=== PATIENT | male | born 1980 | race African-American/Black ===

== ENCOUNTER → 2021-03-08 10:56 | Outpatient (BNVA) | payer MEDICARE, MEDICAID, SELFPAY | PROVIDERS: Visit Provider Family Medicine Adult Medicine | DX: G89.4 Chronic pain syndrome (principal); Z79.899 Other long term (current) drug therapy | CPT/HCPCS: 99202 ==

== ENCOUNTER 2022-06-06 14:22 | Emergency (ER) | payer MEDICARE, MEDICAID, SELFPAY ==
[2022-06-06 15:09] VITALS: BP 138/88; PULSE 83; RESP 20; TEMP 36.8; O2SAT 98; BMI 24.0
[2022-06-06 16:36] LABS: Hematocrit 43.3 % (42.0-52.0); Hemoglobin 14.6 g/dl (14.0-18.0); Mean Corpuscular HGB Conc 33.7 g/dl (31.0-36.0); Mean Corpuscular Hemoglobin 29.1 pg (27.0-33.0); Mean Corpuscular Volume 86.4 fL (80.0-98.0); Mean Platelet Volume 10.5 fL (9.4-12.4); Platelet Count 356 X10*3/uL (160-400); Red Blood Count 5.01 X10*6/uL (4.60-5.80); Red Cell Distribution Width 13.1 % (11.0-16.0)
[2022-06-06 16:44] LABS: Appearance Urine Clear; COVID-19 Test Positive (Negative); Color Urine Dark Yellow; Glucose Urine UA Negative (Negative); IDNOW Serial# 16C4AD1C; Leukocyte Esterase Urine Trace (Negative); Nitrite Urine Negative (Negative); Specific Gravity - Urine >= 1.030 (1.005-1.025); UMIC TRIGGER UACC YES; Urine Blood Negative (Negative); Urine Ketones Trace mg/dL (Negative); Urine Protein Trace mg/dL (Neg-Trace)
[2022-06-06 16:53] LABS: Bacteria Urine None Seen (None Seen); Calcium Oxalate Crystals Urine Present; Squamous Epithelial Cell Urine 0-2 /HPF (0-2); WBC Urine 0-5 /HPF (0-5)
[2022-06-06 16:56] LABS: Alanine Aminotransferase 31 U/L (0-40); Albumin Level 5.1 g/dL (3.5-5.0); Alkaline Phosphatase 70 U/L (39-117); Anion Gap 17 (12-20); Aspartate Amino Transferase 16 U/L (5-37); Bilirubin Direct 0.2 mg/dL (0.0-0.5); Bilirubin Total 0.5 mg/dL (0.0-1.0); Blood Urea Nitrogen 9 mg/dL (9-16); Carbon Dioxide 28 mmol/L (22-29); Chloride 105 mmol/L (96-108); Creatinine Clr Calc Pharmacy 112.5; Estimated Glomerular Filt Rate > 60; Glucose Random 105 mg/dL (60-115); Lipase 20 U/L (8-78); Potassium 5.2 mmol/L (3.3-5.1); Sodium 145 mmol/L (135-145); Total Protein 8.1 g/dL (6.5-8.0)
[2022-06-06 17:03] LABS: Calcium 10.6 mg/dL (8.4-10.2)
== END 2022-06-06 20:50 | disposition left against medical advice (07) ==
LOC: HO.ED 20:40
PROVIDERS: Emergency Provider Emergency Medicine
DX: R07.89 Other chest pain (principal); R31.9 Hematuria, unspecified; Z20.822 Contact with and (suspected) exposure to COVID-19; Z79.899 Other long term (current) drug therapy
CPT/HCPCS: 80048; 80076; 81001; 83690; 85027; 87635; 99282; 99283

== ENCOUNTER 2023-07-31 18:34 | Emergency (ER) | payer MEDICARE, MEDICAID, SELFPAY ==
[2023-07-31 18:43] VITALS: BMI 21.4
--- NOTE | 2023-07-31 18:43 | ED.OVERDOSE ---
HPI - Overdose General Chief Complaint: Overdose Stated Complaint: OD Time Seen by Provider: 07/31/23 18:43 Source: patient and EMS Mode of arrival: EMS History of Present Illness HPI Narrative: 42-year-old male who denies use of drugs but states that his friend gave him some drugs and it was his 1st time. As per EMS his friend called 911 because patient was unresponsive, police arrived on scene noted the patient was unresponsive and administered 4 mg of Narcan, EMS then arrived and noted patient is still unresponsive and commenced using Ambu bag for respiratory support and then patient awoke, was aggressive with significant swearing. Patient is adamantly denying any physical contact with his person. Related Data Home Medications Medication Instructions Recorded Confirmed allopurinol 300 mg tablet 150 mg PO DAILY 03/08/21 03/08/21 amlodipine 10 mg tablet 10 mg PO DAILY 03/08/21 03/08/21 buprenorphine 300 mg/1.5 mL mg subcut 03/08/21 03/08/21 solution,exten.rel.subcutaneous syringe (Sublocade) cyclobenzaprine 10 mg tablet 10 mg PO TID 03/08/21 03/08/21 gabapentin 800 mg tablet 800 mg PO TID 03/08/21 03/08/21 omeprazole 20 mg capsule,delayed 20 mg PO BID 03/08/21 03/08/21 release quetiapine 25 mg tablet (Seroquel) 25 mg PO BEDTIME 03/08/21 03/08/21 Allergies Allergy/AdvReac Type Severity Reaction Status Date / Time acetaminophen [From Tylenol] Allergy vomiting Verified 03/08/21 11:47 hydrocodone Allergy vomiting Verified 03/08/21 11:47 ibuprofen Allergy gi upset Verified 03/08/21 11:47 norepinephrine Allergy unknown Verified 03/08/21 11:47 [From Levophed (bitartrate)] Review of Systems Review of Systems: Pertinent positives and negatives as stated in HPI PMFSH Past Medical History Source: nursing notes reviewed Medical History Chronic pain syndrome GI bleed due to NSAIDs Ruptured appendix Arthritis Generalized headaches Venereal disease Bipolar 1 disorder Asthma Surgical History History of hip surgery History of colostomy reversal History of colon resection Social History Social History Alcohol intake: current Alcohol intake frequency: does not drink Patient Tobacco Use Status: Current everyday Tobacco user Tobacco use type: Cigarette Cigarette Packs Per Day: 1 Substance Use Type: Marijuana Advance Directives: No Advance Directives Information Provided: No Physical Exam Vital Signs: Vital Signs: BMI result Body Mass Index 21.4 Limited exam due to patient not being cooperative. GENERAL: Well developed, well nourished HEAD: Normocephalic/atraumatic EYES: PERRLA, EOMI , pupils are not pinpoint LUNGS: No audible wheeze or noted tachypnea EXTREMITIES: No cyanosis, clubbing or edema. SKIN: Inspection of the skin reveals no rashes NEUROLOGIC: Alert and oriented x 4. Strength and sensation to light touch were grossly intact x 4. Medications Administered Discontinued Medications Generic Name Dose Route Start Last Admin Trade Name Freq PRN Reason Stop Dose Admin Naloxone HCl 8 mg 07/31/23 18:44 07/31/23 18:54 Naloxone Hcl Nasal Take Home 4 Mg [place] NOSTRILALT 07/31/23 18:45 Not Given ONCE ONE Medical Decision Making Medical Decision Making MDM Narrative: 42-year-old male who arrives after overdose that he states was his 1st time use, patient is presenting with an aggressive stance and declining all physical interaction, instead of escalating the situation I asked patient if he minded if I checked his eyes he is clearly breathing without difficulty, has no gross physical abnormalities, pupils are not pinpoint. Patient was amenable to the pupil check but declined lung auscultation. Patient acknowledges that he is at risk of becoming unresponsive but did except home Narcan. He is otherwise discharged against medical advice. Differential Diagnosis Differential Diagnoses: The differential diagnosis associated with the presentation includes Please see the discussion above Admission/Observation Consideration of admission/observation: Escalation of care including admission/observation considered Please see the discussion above External Record Review External record reviewed: Outpatient record and Prior outpatient labs Discharge Plan Discharge Clinical Impression: Overdose, Polysubstance use disorder Patient Disposition: Left Against Medical Advice Instructions: Polysubstance Abuse (ED), Adult Overdose (ED) Additional Instructions: 1. Resume all home medications as prescribed 2. Do not hesitate to return to the emergency rooms food you have any difficulties with breathing or would like to pursue additional resources and help. Prescriptions: No Action cyclobenzaprine 10 mg tablet 10 mg PO TID Sublocade 300 mg/1.5 mL solution, extended rel syringe subcut gabapentin 800 mg tablet 800 mg PO TID allopurinol 300 mg tablet 150 mg PO DAILY amlodipine 10 mg tablet 10 mg PO DAILY quetiapine [Seroquel] 25 mg tablet 25 mg PO BEDTIME omeprazole 20 mg capsule,delayed release(DR/EC) 20 mg PO BID Stand Alone Forms: Against Medical Advice Interventions: ED Discharge Assessment Last Done: 07/31/23 18:55
--- NOTE | 2023-07-31 18:45 | PC.NURSE ---
pt threatening toward staff. security at bedside. repeatedly telling staff no one is to put their hands on me . pt demanding his discharge paperwork. Dr. Lim at bedside to evaluate pt. plan for d/c.
== END 2023-07-31 19:39 | disposition left against medical advice (07) ==
LOC: HO.ED 18:55
PROVIDERS: Emergency Provider Student in an Organized Health Care Education/Training Program
DX: T50.901A Poisoning by unspecified drugs, medicaments and biological substances, accidental (unintentional), initial encounter (principal); Y92.9 Unspecified place or not applicable; Z79.899 Other long term (current) drug therapy
CPT/HCPCS: 99282; 99283

== ENCOUNTER 2024-03-12 20:28 | Emergency (ER) | payer MEDICARE, MEDICAID, SELFPAY ==
[2024-03-12] VITALS (8 sets, daily range): BP systolic 125–138; BP diastolic 67–80; PULSE 61–71; RESP 14–24; TEMP 36.2; O2SAT 95–99; BMI 25.8
[2024-03-12] MEDS: Haloperidol Lactate 5 MG/ML VIAL IM (20:36)
[2024-03-12] MEDS: diphenhydrAMINE HCL 50 MG/ML VIAL IM (20:36)
[2024-03-12] MEDS: LORazepam 2 MG/ML VIAL IM (20:36)
--- NOTE | 2024-03-12 20:44 | ED_ITS ---
HPI - Overdose General Chief Complaint: Overdose Stated Complaint: heroine od, restrained by pd Time Seen by Provider: 03/12/24 20:44 Source: EMS and police Mode of arrival: EMS History of Present Illness ED Provider: Dr Lim HPI Narrative: 43-year-old male who is brought under police custody by EMS after heroin overdose, on review of patient's chart from 2021 it does appear that he has a history of chronic pain syndrome/bipolar 1 disorder, patient is currently belligerent, with aggressive overtures, verbally using foul language. Related Data Home Medications ?Medication ?Instructions ?Recorded ?Confirmed allopurinol 300 mg tablet 150 mg PO DAILY 03/08/21 03/08/21 amlodipine 10 mg tablet 10 mg PO DAILY 03/08/21 03/08/21 buprenorphine 300 mg/1.5 mL mg subcut 03/08/21 03/08/21 solution,exten.rel.subcutaneous syringe (Sublocade) cyclobenzaprine 10 mg tablet 10 mg PO TID 03/08/21 03/08/21 gabapentin 800 mg tablet 800 mg PO TID 03/08/21 03/08/21 omeprazole 20 mg capsule,delayed 20 mg PO BID 03/08/21 03/08/21 release quetiapine 25 mg tablet (Seroquel) 25 mg PO BEDTIME 03/08/21 03/08/21 Allergies Allergy/AdvReac Type Severity Reaction Status Date / Time acetaminophen [From Tylenol] Allergy vomiting Verified 03/12/24 20:46 hydrocodone Allergy vomiting Verified 03/12/24 20:46 ibuprofen Allergy gi upset Verified 03/12/24 20:46 norepinephrine Allergy unknown Verified 03/12/24 20:46 [From Levophed (bitartrate)] Review of Systems Review of Systems: Yes Unobtainable due to mental condition PMFSH Past Medical History Source: nursing notes reviewed Medical History Chronic pain syndrome GI bleed due to NSAIDs Ruptured appendix Arthritis Generalized headaches Venereal disease Bipolar 1 disorder Asthma Surgical History History of hip surgery History of colostomy reversal History of colon resection Social History Social History Unable to assess alcohol history related to: Unknown Alcohol intake: current Alcohol intake frequency: does not drink Patient Tobacco Use Status: Current everyday Tobacco user Tobacco use type: Cigarette Cigarette Packs Per Day: 1 Substance Use Type: Heroin Physical Exam Vital Signs: Vital Signs: Last Vital Signs Pulse 71 03/12/24 21:36 Resp 18 03/12/24 21:36 BP 132/74 03/12/24 21:36 Pulse Ox 95 03/12/24 21:36 O2 Del Method Room Air 03/12/24 21:36 BMI result Body Mass Index 25.8 VITAL SIGNS: Reviewed. GENERAL: Well developed, well nourished, in no acute distress. HEAD: Normocephalic/atraumatic EYES: PERRLA, EOMI EARS: Ext canals without abnormality NOSE: Nares patent bilateral OROPHARYNX: no oral lesions noted, posterior pharynx clear NECK: Supple, no adenopathy LUNGS: Normal breath sounds. No adventitious sounds or accessory muscle use. SpO2<95> CARDIOVASCULAR: Regular rate and rhythm without noted murmurs ABDOMEN: Soft, non-tender, non-distended with bowel sounds. MUSCULOSKELETAL: No tenderness, deformities, or effusions noted on gross inspection. EXTREMITIES: No cyanosis, clubbing or edema. SKIN: Inspection of the skin reveals no rashes NEUROLOGIC: Alert and oriented x 4. Strength and sensation to light touch were grossly intact x 4, cranial nerves 2-12 are grossly intact. Medications Administered Discontinued Medications Generic Name Dose Route Start Last Admin Trade Name Freq PRN Reason Stop Dose Admin Diphenhydramine HCl 50 mg 03/12/24 20:32 03/12/24 20:36 Diphenhydramine Hcl 50 Mg/Ml Vial IM 03/12/24 20:33 50 mg ONCE ONE Administration Haloperidol Lactate 5 mg 03/12/24 20:35 03/12/24 20:36 Haloperidol Lactate 5 Mg/Ml Vial IM 03/12/24 20:36 5 mg ONCE ONE Administration Lorazepam 2 mg 03/12/24 20:32 03/12/24 20:36 Lorazepam 2 Mg/Ml Vial IM 03/12/24 20:33 2 mg ONCE ONE Administration Medical Decision Making Medical Decision Making MDM Narrative: Patient required immediate medication and physical restraints, 1 hour [id number] demonstrates patient is calm and cooperative. Will continue to observe, police officers decided not to keep the patient under custody so will observe until clinically sober. Signed out to Dr. Lowery. Differential Diagnosis Differential Diagnoses: The differential diagnosis associated with the presentation includes Please see the discussion above Admission/Observation Consideration of admission/observation: Escalation of care including admission/observation considered Please see the discussion above Critical Care Time Critical Care Time Critical Care Time: Yes Total Critical Care Time: 30 Attestation: I personally attest to this time spent taking care of the patient. Discharge Plan Discharge Clinical Impression: Polysubstance use disorder, Overdose Patient Disposition: Still a Patient Instructions: Adult Overdose (ED), Polysubstance Abuse (ED) Prescriptions: No Action cyclobenzaprine 10 mg tablet 10 mg PO TID Sublocade 300 mg/1.5 mL solution, extended rel syringe subcut gabapentin 800 mg tablet 800 mg PO TID allopurinol 300 mg tablet 150 mg PO DAILY amlodipine 10 mg tablet 10 mg PO DAILY quetiapine [Seroquel] 25 mg tablet 25 mg PO BEDTIME omeprazole 20 mg capsule,delayed release(DR/EC) 20 mg PO BID Print Language: Mongolian
--- NOTE | 2024-03-12 21:05 | PC.NURSE ---
pt BIBA s/p overdose on heroin, per ems friends administered 5 rounds of narcan prior to their arrival, for ems and PD arrival, pt was awake, alert, aggressive, combative, violent and uncooperative, refusing transport to ED. pt arrived to ED in 4 point restraints with PD at bedside, transferred to ED stretcher and 4 point restraints continued by security as pt was extremely aggressive, violent with staff. MD blackwood at bedside, verbal ordered 50mg Benadryl/2mg ativan/5mg haldol IM. administered per oct @20:36. pt continues to be aggressive, uncooperative, refusing thermoforming operator or O2 sat. aware. at 21:05 pt is finally asleep - respirations even and unlabored, tech able to place pt on thermoforming operator with capnography. vital signs stable. 4 point restraints continue at this time. plan of care ongoing.
--- NOTE | 2024-03-12 22:45 | PC.NURSE ---
all restraints removed at 22:10
[2024-03-13] VITALS: BP 102/48; PULSE 64; RESP 17; O2SAT 97
--- NOTE | 2024-03-13 01:38 | PC.NURSE ---
pt continues to rest on stretcher in no apparent distress, respirations even and unlabored, on environmental monitoring technician & capnography. pt is within view of nurses station. plan of care ongoing.
--- NOTE | 2024-03-13 04:05 | PC.NURSE ---
pt woke up, ambulating with steady gait, dropping F bombs stating he wants to leave. Md Lowery at bedside and aware. Discharge ready. pt walked out to waiting room with phone, keys, and all belongings. no apparent distress.
[2024-03-13 04:06] VITALS: BP 102/48; PULSE 64; RESP 17; TEMP -17.7; TEMP 0; O2SAT 97
--- NOTE | 2024-03-14 13:55 | MHC.RECOVRN ---
Attempted to reach patient for post overdose follow up. Pt did not answer, left voicemail requesting call back.
== END 2024-03-13 04:07 | disposition home or self-care (01) ==
PROVIDERS: Emergency Provider Student in an Organized Health Care Education/Training Program
DX: T40.1X1A Poisoning by heroin, accidental (unintentional), initial encounter (principal); F19.10 Other psychoactive substance abuse, uncomplicated; Y92.9 Unspecified place or not applicable; Z78.1 Physical restraint status; F31.9 Bipolar disorder, unspecified; G89.4 Chronic pain syndrome; F17.210 Nicotine dependence, cigarettes, uncomplicated
CPT/HCPCS: 96372; 99284; J1200; J1630; J2060

== ENCOUNTER 2024-07-22 01:53 | Inpatient (IN) | payer MEDICARE, MEDICAID, SELFPAY ==
[2024-07-22] VITALS (7 sets, daily range): BP systolic 103–121; BP diastolic 62–71; PULSE 80–104; RESP 13–22; TEMP 36.9–37.1; O2SAT 86–98; BMI 21.3
--- NOTE | ~2024-07-22 | XR_ITS ---
EXAMINATION: XR CHEST CLINICAL INFORMATION: post narcan hypoxia vomiting COMPARISON: None available. TECHNIQUE: Frontal view of the chest was obtained. FINDINGS: The cardiomediastinal silhouette is normal. There are increased markings/patchy change in the lingula. The lungs are otherwise clear. There are no significant pleural effusions. The bony structures and the soft tissues are unremarkable. XR/XR chest 1V IMPRESSION: Increased markings/patchy change in the lingula which could represent atelectasis or infiltrate. Electronically signed by: Fareed Bonilla MD 07/22/2024 02:52 AM ROZ
[2024-07-22] MEDS: ondansetron HCL 4 MG/2 ML VIAL IM (02:11)
[2024-07-22] MEDS: Albuterol Sulfate (0.083%) 2.5 MG/3 ML VIAL.NEB 5 MG INHALE (02:29)
--- NOTE | 2024-07-22 02:31 | PC.NURSE ---
Pt BIB EMS, after girlfriend called for unresponsiveness. Pt given 12 mg narcan by girlfriend prior to EMS getting there. Pt uncooperative for EMS, not allowing vitals. Upon arrival pt changed over into hospital attire by security. Pt requesting water which was given and pt then vomiting. IM zofran ordered by provider. Pt given IM zofran, Assessed vitals and pt had low SPO2 at 84-86% RA, pt placed on 2LNC with no improvement, increased oxygen and upto 88% on 5L NC. MD made aware, pt woken up and told to take deep breath, with improvement to 95%, MD at bedside ordered for CXR and breathing treatment.
--- NOTE | 2024-07-22 02:36 | ED.OVERDOSE ---
HPI - Overdose General Chief Complaint: Overdose Stated Complaint: OVERDOSE Time Seen by Provider: 07/22/24 02:07 Source: patient, EMS and old records reviewed Mode of arrival: EMS Limitations: other (poor historian and cooperation) History of Present Illness ED Provider: JACK SORIANO Narrative: 43 yo male found by girlfriend unresponsive - given 12mg IN narcan by the GF per EMS. 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 He denies any complaints he is upset he is here. On arrival continued vomiting. He denies any issues but states he thinks his THC was laced then states he also smokes heroin. He initially did not want to come in per EMS. He denies any issues but he is not talking much and is not happy to be here. complaint: accidental overdose Onset (ago): minute(s) Timing confirmed by: spouse Context: Accidental Overdose: uncertain what happened Associated symptoms: nausea/vomiting Treatments Prior to Arrival: narcan (12mg) Related Data Home Medications ?Medication ?Instructions ?Recorded ?Confirmed allopurinol 300 mg tablet 150 mg PO DAILY 03/08/21 03/08/21 amlodipine 10 mg tablet 10 mg PO DAILY 03/08/21 03/08/21 buprenorphine 300 mg/1.5 mL mg subcut 03/08/21 03/08/21 solution,exten.rel.subcutaneous syringe (Sublocade) cyclobenzaprine 10 mg tablet 10 mg PO TID 03/08/21 03/08/21 gabapentin 800 mg tablet 800 mg PO TID 03/08/21 03/08/21 omeprazole 20 mg capsule,delayed 20 mg PO BID 03/08/21 03/08/21 release quetiapine 25 mg tablet (Seroquel) 25 mg PO BEDTIME 03/08/21 03/08/21 Allergies Allergy/AdvReac Type Severity Reaction Status Date / Time acetaminophen [From Tylenol] Allergy vomiting Verified 07/22/24 02:24 hydrocodone Allergy vomiting Verified 07/22/24 02:24 ibuprofen Allergy gi upset Verified 07/22/24 02:24 norepinephrine Allergy unknown Verified 07/22/24 02:24 [From Levophed (bitartrate)] Review of Systems Review of Systems: ROS unable to be obtained due to poor historian and upset he is here [facility] Past Medical History Attestation statement: The following information was validated with the patient. Source: old records reviewed Medical History Chronic pain syndrome GI bleed due to NSAIDs Ruptured appendix Arthritis Generalized headaches Venereal disease Bipolar 1 disorder Asthma Surgical History History of hip surgery History of colostomy reversal History of colon resection Social History Social History Unable to assess alcohol history related to: Unknown Alcohol intake: current Alcohol intake frequency: does not drink Patient Tobacco Use Status: Current everyday Tobacco user Tobacco use type: Cigarette Cigarette Packs Per Day: 1 Substance Use Type: Heroin Advance Directives: No Advance Directives Information Provided: Yes Physical Exam Vital Signs: Vital Signs: Last Vital Signs Temp 98.8 F 07/22/24 03:49 Pulse 91 07/22/24 03:49 Resp 16 07/22/24 03:49 BP 121/71 07/22/24 03:49 Pulse Ox 98 07/22/24 03:49 O2 Del Method Oxymask 07/22/24 03:49 O2 Flow Rate 3 07/22/24 03:49 BMI result Body Mass Index 21.3 Appearance: Somnolent but wakes to voice Oriented X3. mild acute distress. active vomiting on arrival multiple times Eyes: Pupils equal, round and reactive to light. ENT: Pharynx normal. Neck: Normal inspection. Neck supple. CVS: Normal heart rate and rhythm. Pulses normal. Respiratory: No respiratory distress. Breath sounds L side diminished Abdomen: Soft and non-tender. Skin: Skin warm and dry. Normal skin color. Normal skin turgor. piloerection Extremities: No lower extremity edema. Neuro: Oriented X 3. No motor deficit. No sensory deficit. Medications Administered Discontinued Medications Generic Name Dose Route Start Last Admin Trade Name Freq PRN Reason Stop Dose Admin Albuterol Sulfate 5 mg 07/22/24 02:22 07/22/24 02:29 Albuterol Sulfate (0.083%) 2.5 Mg/3 Ml Vial.Neb INHALE 07/22/24 02:23 5 mg ONCE ONE Administration Piperacillin Sod/Tazobactam 100 mls @ 200 mls/hr 07/22/24 02:54 07/22/24 03:50 Sod 4.5 gm/ Sodium Chloride IV 07/22/24 03:23 200 mls/hr ONCE ONE Administration Methylprednisolone Sodium Succinate 60 mg 07/22/24 02:54 07/22/24 03:50 Methylprednisolone Sod Succ 125 Mg/2 Ml Vial IVPUSH 07/22/24 02:55 60 mg ONCE ONE Administration Ondansetron HCl 4 mg 07/22/24 01:55 07/22/24 02:38 Ondansetron Odt 4 Mg Tab.Rapdis TRANSLINGU 07/22/24 01:56 Not Given ONCE ONE Ondansetron HCl 4 mg 07/22/24 02:07 07/22/24 02:11 Ondansetron Hcl 4 Mg/2 Ml Vial IM 07/22/24 02:08 4 mg ONCE ONE Administration Medical Decision Making Medical Decision Making [facility] Narrative: 43 yo male with PMH of chronic pain syndrome, opiate use disorder, bipolar disorder, asthma, migraines here with possible overdose found by GF no signs of head trauma but she gave 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 IV steroids, neb, IV zosyn Differential Diagnosis Differential Diagnoses: The differential diagnosis associated with the presentation includes cardiogenic pulm edema, drug abuse, aspiration Admission/Observation Consideration of admission/observation: Escalation of care including admission/observation considered desats without O2 - will admit states he had a cough now for 1 month added on azithromycin Consult Healthcare Provider Management of the patient was discussed with: Hospitalist (will admit) Lab Data [facility] Lab Attestation statement: I reviewed the patient's lab results. 07/22/24 03:40 07/22/24 03:29 Labs: Lab Results 07/22/24 07/22/24 Range/Units 03:29 03:40 WBC 10.2 (4.8-10.8) X10*3/uL RBC 5.10 (4.60-5.80) X10*6/uL Hgb 15.2 (14.0-18.0) g/dl Hct 45.6 (42.0-52.0) % MCV 89.4 (80.0-98.0) fL MCH 29.8 (27.0-33.0) pg MCHC 33.3 (31.0-36.0) g/dl RDW 12.9 (11.0-16.0) % Plt Count 264 D (160-400) X10*3/uL MPV 9.5 (9.4-12.4) fL Immature Gran % (Auto) 0.5 H (0.0-0.4) % Neut % (Auto) 84.6 H (45-73) % Lymph % (Auto) 9.4 L (20-40) % Mcminn % (Auto) 5.2 (2-11) % Eos % (Auto) 0.0 (0-4) % Baso % (Auto) 0.3 (0-2) % Lymph # (Auto) 1.0 L (1.2-4.9) X10*3/uL Mcminn # (Auto) 0.5 (0.1-1.2) X10*3/uL Eos # (Auto) 0.0 (0.0-0.4) X10*3/uL Baso # (Auto) 0.0 (0.0-0.2) X10*3/uL Abs Immat Gran (auto) 0.05 H (0.00-0.03) X10*3/uL Absolute Neuts (auto) 8.6 H (2.0-8.3) x10*3/uL Absolute Nucleated RBC 0.000 (0.0-0.012) X10*3/uL Nucleated RBC % (auto) 0.0 (0.0-0.2) /100WBC Sodium 141 (135-145) mmol/L Potassium 4.1 (3.3-5.1) mmol/L Chloride 103 (96-108) mmol/L Carbon Dioxide 23 (22-29) mmol/L Anion Gap 19 (12-20) BUN 22 H (9-16) mg/dL Creatinine 1.27 (0.5-1.4) mg/dL Estim Creat Clear Calc 85.7 Estimated GFR > 60 Random Glucose 93 (60-115) mg/dL Lactic Acid 1.8 (0.5-2.0) mmol/L Calcium 9.7 D (8.4-10.2) mg/dL Magnesium 2.3 (1.6-2.6) mg/dL Total Bilirubin 0.3 (0.0-1.0) mg/dL Direct Bilirubin 0.2 (0.0-0.5) mg/dL AST 119 H (5-37) U/L ALT 274 H (0-40) U/L Alkaline Phosphatase 73 (39-117) U/L Troponin I High Sens 26.0 (<3.5-35.0) ng/L B-Natriuretic Peptide 14 (<100) pg/mL Total Protein 7.7 (6.5-8.0) g/dL Albumin 4.4 (3.5-5.0) g/dL Lipase 19 (8-78) U/L Ethyl Alcohol 11 mg/dL Influenza Type A (PCR) NEGATIVE (Negative) Influenza Type B (PCR) NEGATIVE (Negative) RSV RNA Qual (PCR) NEGATIVE (Negative) SARS-CoV-2 RNA (RT-PCR) NEGATIVE (Negative) Independent Interpretation I performed an independent interpretation of an: EKG and Plain X-Ray (L lung opacity) Interpretation: Rate: 94 Rhythm: NSR [place]: normal Normal P waves. Normal AURELIO. Normal QRS complex. ST T wave : inverted t waves V1 no QUYEN qTC: 457 prior studies: no acute ischemia The study has been interpreted contemporaneously by me. . Radiology Impression Discussion of test interpretation with radiology: I have reviewed the radiologist's reading. Independent Historian Clinical information obtained from an independent historian. History obtained from or confirmed by: EMS External Record Review External record reviewed: Outpatient record Discharge Plan Discharge Clinical Impression: Drug overdose, Pneumonia, Hypoxia Patient Disposition: Admitted As Inpatient Prescriptions: No Action cyclobenzaprine 10 mg tablet 10 mg PO TID Sublocade 300 mg/1.5 mL solution, extended rel syringe subcut gabapentin 800 mg tablet 800 mg PO TID allopurinol 300 mg tablet 150 mg PO DAILY amlodipine 10 mg tablet 10 mg PO DAILY quetiapine [Seroquel] 25 mg tablet 25 mg PO BEDTIME omeprazole 20 mg capsule,delayed release(DR/EC) 20 mg PO BID Print Language: [place] Citizen
--- NOTE | 2024-07-22 02:42 | MHC.EDTECH ---
Patient was biba ,Patient was change of address clerk by Security ,All Patient belongings are locked up in decon .
--- NOTE | 2024-07-22 02:54 | ECG_ITS ---
Test Reason : OVERDOSED Blood Pressure : / mmHG Vent. Rate : 094 BPM Atrial Rate : 094 BPM P-R Int : 146 ms QRS Dur : 082 ms QT Int : 366 ms P-R-T Axes : 069 035 053 degrees QTc Int : 457 ms Normal sinus rhythm Possible Left atrial enlargement Borderline ECG No previous ECGs available Referred By: Angelica Maxwell Electronically Signed By:AGAPITO MEDINA
[2024-07-22 03:47] LABS: Basophils Percent Auto 0.3 % (0-2); Hematocrit 45.6 % (42.0-52.0); Hemoglobin 15.2 g/dl (14.0-18.0); Imm Gran Abs Auto 0.05 X10*3/uL (0.00-0.03); Imm Gran Pct Auto 0.5 % (0.0-0.4); Lymphocytes Percent Auto 9.4 % (20-40); MANUAL DIFF FLAG NO; Mean Corpuscular HGB Conc 33.3 g/dl (31.0-36.0); Mean Corpuscular Hemoglobin 29.8 pg (27.0-33.0); Mean Corpuscular Volume 89.4 fL (80.0-98.0); Mean Platelet Volume 9.5 fL (9.4-12.4); Monocytes Absolute Auto 0.5 X10*3/uL (0.1-1.2); Monocytes Percent Auto 5.2 % (2-11); Neutrophils Absolute Auto 8.6 x10*3/uL (2.0-8.3); Neutrophils Percent Auto 84.6 % (45-73); Platelet Count 264 X10*3/uL (160-400); Red Cell Distribution Width 12.9 % (11.0-16.0); White Blood Count 10.2 X10*3/uL (4.8-10.8)
[2024-07-22] MEDS: methylPREDNISolone Sod Succ 125 MG/2 ML VIAL 60 MG IVPUSH (03:50)
[2024-07-22] MEDS: Piperacillin Sodium/Tazobactam 4.5 GM in 0.9 % Sodium Chloride 100 ML IV (03:50)
--- NOTE | 2024-07-22 03:50 | MHC.EDTECH ---
Patient ekg taken and was read by Provider ,vitals taken .
[2024-07-22 03:59] LABS: Alanine Aminotransferase 274 U/L (0-40); Albumin Level 4.4 g/dL (3.5-5.0); Anion Gap 19 (12-20); Aspartate Amino Transferase 119 U/L (5-37); Bilirubin Direct 0.2 mg/dL (0.0-0.5); Bilirubin Total 0.3 mg/dL (0.0-1.0); Blood Urea Nitrogen 22 mg/dL (9-16); Calcium 9.7 mg/dL (8.4-10.2); Carbon Dioxide 23 mmol/L (22-29); Chloride 103 mmol/L (96-108); Creatinine Clr Calc Pharmacy 85.7; Estimated Glomerular Filt Rate > 60; Ethanol 11 mg/dL; Glucose Random 93 mg/dL (60-115); Lipase 19 U/L (8-78); Magnesium 2.3 mg/dL (1.6-2.6); Potassium 4.1 mmol/L (3.3-5.1); Sodium 141 mmol/L (135-145); Total Protein 7.7 g/dL (6.5-8.0)
[2024-07-22 04:00] LABS: Lactic Acid 1.8 mmol/L (0.5-2.0)
[2024-07-22 04:06] LABS: B Type Natriuretic Peptide 14 pg/mL (<100)
[2024-07-22 04:11] LABS: Influenza A PCR NEGATIVE (Negative); Influenza B PCR NEGATIVE (Negative); Resp Syncy Virus RNA Qual PCR NEGATIVE (Negative); SARS COV2 PCR INHOUSE NEGATIVE (Negative)
[2024-07-22 04:12] LABS: Alkaline Phosphatase 73 U/L (39-117)
[2024-07-22] MEDS: Azithromycin 500 MG in 0.9 % Sodium Chloride 250 ML 125 MG IV (04:49)
--- NOTE | 2024-07-22 04:58 | PM.IMHP ---
History of Present Illness Date of Service: 07/22/24 Attending physician on admission: Jessi Diaz Chief Complaint: Overdose Charly Mcmillan is a 43 years man with past medical history significant for bipolar disorder, asthma, chronic pain syndrome and GI bleeding due to NSAIDs was brought to ED via EMS after his girlfriend found him unresponsive. She gave him 12 mg Narcan prior to EMS arrival. He became arousable after. Upon arrival to the ED the patient became very nauseous and vomited multiple times. The patient is a poor historian and seems somnolent. He said that he thinks he Jah onset that his marijuana was laced. He did not report any abdominal pain or diarrhea. He did not report any headache. He was a tobacco smoker. Denied recent alcohol consumption. He stated that he used to take medications for chronic diseases, last night he took two them was long time ago. In the ED, he was found to have stable vital signs. His oxygen saturation was 86% on room air and not requiring 2 liters/minutes supplemental oxygen via OxyMask. Blood workup showed normal WBC count, hemoglobin and platelets. There is no lactic acidosis. There are no significant electrolyte imbalances. Troponin is 26.0 and BNP 14. Transaminases are elevated, AST 119, ALT 274. Alk-phos and total bilirubin are normal. Urine toxicology is pending. ETOH level is 11. CXR showed increased markings/partial changes in the lingula which could represent atelectasis or infiltrate. ECG showed normal sinus rhythm with a heart rate of 94 beats per minutes without ischemic changes. ED tx: Zofran 8 mg IV, naloxone 8 mg nasally, Solu-Medrol 60 mg IV, Zosyn 4.5 mg IV, azithromycin 500 mg IV, DuoNeb 60 mg IV. Review of Systems Review of Systems: Limited COUNTS INCLUDE 234 BEDS AT THE [facility] Medical History Chronic pain syndrome GI bleed due to NSAIDs Ruptured appendix Arthritis Generalized headaches Venereal disease Bipolar 1 disorder Asthma Surgical History History of hip surgery History of colostomy reversal History of colon resection Social History Unable to assess alcohol history related to: Unknown Alcohol intake: current Alcohol intake frequency: does not drink Patient Tobacco Use Status: Current everyday Tobacco user Tobacco use type: Cigarette Cigarette Packs Per Day: 1 Substance Use Type: Heroin Advance Directives: No Advance Directives Information Provided: Yes Meds Allergies Allergy/AdvReac Type Severity Reaction Status Date / Time acetaminophen [From Tylenol] Allergy vomiting Verified 07/22/24 02:24 hydrocodone Allergy vomiting Verified 07/22/24 02:24 ibuprofen Allergy gi upset Verified 07/22/24 02:24 norepinephrine Allergy unknown Verified 07/22/24 02:24 [From Levophed (bitartrate)] Active Medications: Current Medications Enoxaparin Sodium (Enoxaparin Sodium 40 Mg/0.4 Ml Syringe) 40 mg SUBCUT Q24H JAVIER Azithromycin 500 mg/ Sodium (Chloride) 250 mls @ 125 mls/hr IV ONCE ONE Stop: 07/22/24 06:25 Last Admin: 07/22/24 04:49 Dose: 125 mls/hr Piperacillin Sod/Tazobactam (Sod 3.375 gm/ Sodium Chloride) 50 mls @ 100 mls/hr IV Q6H JAVIER Ondansetron HCl (Ondansetron Hcl 4 Mg/2 Ml Vial) 4 mg IVPUSH Q8H PRN PRN Reason: Nausea and Vomiting Sodium Chloride (0.9 % Sodium Chloride Flush 3 Ml Syringe) 3 [facility] Home Medications ?Medication ?Instructions ?Recorded ?Confirmed ?Last Taken ?Type allopurinol 300 mg tablet 150 mg PO DAILY 03/08/21 03/08/21 Unknown History amlodipine 10 mg tablet 10 mg PO DAILY 03/08/21 03/08/21 Unknown History buprenorphine 300 mg/1.5 mL mg subcut 03/08/21 03/08/21 Unknown History solution,exten.rel.subcutaneous syringe (Sublocade) cyclobenzaprine 10 mg tablet 10 mg PO TID 03/08/21 03/08/21 Unknown History gabapentin 800 mg tablet 800 mg PO TID 03/08/21 03/08/21 Unknown History omeprazole 20 mg capsule,delayed 20 mg PO BID 03/08/21 03/08/21 Unknown History release quetiapine 25 mg tablet (Seroquel) 25 mg PO BEDTIME 03/08/21 03/08/21 Unknown History Physical Exam Vital Signs and Narrative: Vital Signs: Last Vital Signs Temp 98.8 F 11/26/24 03:49 Pulse 84 07/22/24 04:52 Resp 13 07/22/24 04:52 BP 103/62 07/22/24 04:52 Pulse Ox 93 07/22/24 04:52 O2 Del Method Room Air 07/22/24 04:52 O2 Flow Rate 3 07/22/24 03:49 BMI result Body Mass Index 21.3 Constitutional - Somnolent, No apparent distress. OxyMask in place. HEENT - PER, EOMI. Dry oral mucosa. Heart - S1S2, RRR, No edema And lungs - Normal lung expansion, Normal respiratory effort, No respiratory distress, CTA bilaterally Abdomen - NT / ND; +BS; No rebound or guarding Extremities - no calf tenderness bilaterally, no swelling Musculoskeletal - Normal inspection, normal ROM Skin - Warm/Dry Neurological - Somnolent. No focal weakness grossly noted. Normal speech. Psychological - Depressed affect Results Labs 07/22/24 03:40 07/22/24 03:29 Labs: Laboratory Results - last 24 hr 07/22/24 07/22/24 03:29 03:40 MCV 89.4 MCH 29.8 MCHC 33.3 RDW 12.9 Plt Count 264 D MPV 9.5 Immature Gran % (Auto) 0.5 H Neut % (Auto) 84.6 H Lymph % (Auto) 9.4 L [place] % (Auto) 5.2 Eos % (Auto) 0.0 Baso % (Auto) 0.3 Lymph # (Auto) 1.0 L [place] # (Auto) 0.5 Eos # (Auto) 0.0 Baso # (Auto) 0.0 Abs Immat Gran (auto) 0.05 H Absolute Neuts (auto) 8.6 H Absolute Nucleated RBC 0.000 Nucleated RBC % (auto) 0.0 Anion Gap 19 Estim Creat Clear Calc 85.7 Estimated GFR > 60 Random Glucose 93 Lactic Acid 1.8 Calcium 9.7 D Magnesium 2.3 Total Bilirubin 0.3 Direct Bilirubin 0.2 AST 119 H ALT 274 H Alkaline Phosphatase 73 Total Creatine Kinase 211 H Troponin I High Sens 26.0 B-Natriuretic Peptide 14 Total Protein 7.7 Albumin 4.4 Lipase 19 Ethyl Alcohol 11 Influenza Type A (PCR) NEGATIVE Influenza Type B (PCR) NEGATIVE RSV RNA Qual (PCR) NEGATIVE SARS-CoV-2 RNA (RT-PCR) NEGATIVE Imaging Radiologist's Impressions: Impressions Chest X-Ray 07/22/24 02:22 IMPRESSION: Increased markings/patchy change in the lingula which could represent atelectasis or infiltrate. Electronically signed by: Fareed Bonilla MD 07/22/2024 02:52 AM EST Assessment and Plan (1) Pneumonia: Qualifiers: Aspiration pneumonia type: unspecified Laterality: left Lung location: unspecified part of lung Pneumonia type: aspiration pneumonia Qualified Code(s): J69.0 - Pneumonitis due to inhalation of food and vomit Status: Acute (2) Drug overdose: Qualifiers: Encounter type: initial encounter Injury intent: accidental or unintentional Qualified Code(s): T50.901A - Poisoning by unspecified drugs, medicaments and biological substances, accidental (unintentional), initial encounter Status: Acute (3) Hypoxic respiratory failure: Qualifiers: Chronicity: acute Qualified Code(s): J96.01 - Acute respiratory failure with hypoxia Status: Acute Plan Charly Mcmillan is a 43 y/o man with PMHx significant for asthma admitted with: Hypoxic respiratory failure secondary to aspiration pneumonia Admit to hospitalist service. Telemetry. Pulse oximetry. Aspiration precautions. Supplemental O2 to keep O2 sats > 90%. Continue empiric IV antibiotic therapy with Zosyn. Bronchodilator therapy as needed. Overdose, UA positive for opiates, fentanyl, cocaine and marijuana. Addiction medicine consult. Bipolar disorder. Not currently taking medications for this. Essential hypertension. Not taking medications for this. Tobacco smoking. Tobacco cessation education DVT prophylaxis: Lovenox Code status: Full Patient will need hospitalization for at least 2 midnights for aspiration pneumonia secondary to overdose treatment with supplemental oxygen, IV antibiotic and bronchodilator therapy. Quality Stroke Does the patient have a stroke diagnosis?: No VTE Prior VTE?: No VTE Risk Level:: Medical - moderate - high VTE Device Contraindication: Treatment Not Indicated VTE Drug Contraindication: N/A - Med Ordered
[2024-07-22 05:10] LABS: Amphetamine Screen Urine Not Detected (Not Detect); Barbiturates, Urine Not Detected (Not Detect); Benzodiazepines Screen Urine Not Detected (Not Detect); Buprenorphine Scr Not Detected (Not Detect); Cannabinoid Screen Urine POSITIVE (Not Detect); Cocaine Screen Urine POSITIVE (Not Detect); Fentanyl, urine POSITIVE (Not Detect); Methadone Screen, Urine Not Detected (Not Detect); Opiate Screen Urine POSITIVE (Not Detect); Oxycodone Screen Urine Not Detected (Not Detect); Phencyclidine Screen Urine Not Detected (Not Detect)
--- NOTE | 2024-07-22 07:47 | PM.DS ---
DS: Providers Provider Date of Service: 07/22/24 Date of admission: 07/22/24 04:52 Date of discharge: 07/22/24 Primary care physician: Unknown Physician Consults: 07/22/24 05:16 Addiction Medicine Routine Consulting Provider: Addiction Covering Reason for consultation: Overdose: Opiate, fentanyl, cocaine and marijuana Has provider been notified: No DS: Diagnosis Discharge Diagnosis (1) Pneumonia: Status: Acute (2) Drug overdose: Status: Acute (3) Hypoxic respiratory failure: Status: Acute DS: Summary Hospital Course Hospital Course: from initial hpi: 43 years man with past medical history significant for bipolar disorder, asthma, chronic pain syndrome and GI bleeding due to NSAIDs was brought to ED via EMS after his girlfriend found him unresponsive. She gave him 12 mg Narcan prior to EMS arrival. He became arousable after. Upon arrival to the ED the patient became very nauseous and vomited multiple times. The patient is a poor historian and seems somnolent. He said that he thinks he Jah onset that his marijuana was laced. He did not report any abdominal pain or diarrhea. He did not report any headache. He was a tobacco smoker. Denied recent alcohol consumption. He stated that he used to take medications for chronic diseases, last night he took two them was long time ago. In the ED, he was found to have stable vital signs. His oxygen saturation was 86% on room air and not requiring 2 liters/minutes supplemental oxygen via OxyMask. Blood workup showed normal WBC count, hemoglobin and platelets. There is no lactic acidosis. There are no significant electrolyte imbalances. Troponin is 26.0 and BNP 14. Transaminases are elevated, AST 119, ALT 274. Alk-phos and total bilirubin are normal. Urine toxicology is pending. ETOH level is 11. CXR showed increased markings/partial changes in the lingula which could represent atelectasis or infiltrate. ECG showed normal sinus rhythm with a heart rate of 94 beats per minutes without ischemic changes. ED tx: Zofran 8 mg IV, naloxone 8 mg nasally, Solu-Medrol 60 mg IV, Zosyn 4.5 mg IV, azithromycin 500 mg IV, DuoNeb 60 mg IV. hospital course: Patient was admitted for acute hypoxic respiratory failure secondary to aspiration pneumonia in the setting of acute toxic metabolic encephalopathy due to unintentional opiate overdose in a patient with polysubstance dependence. Plan was to admit and monitor patient with IV antibiotics and weaning oxygen, following up blood cultures as patient high-risk for bacteremia. However, patient was not interested in staying in the hospital. Decided to leave against medical advice he was able to express understanding of the risks of doing so including . For polysubstance dependence patient was offered Addiction Medicine counseling and withdrawal treatment, patient was not interested. For bipolar disorder patient is not taking any medications. For hypertension he is not taking any medications. Time Attestation Discharge Coordination Time (in mins): 32 Quality: Safe Use of Opioids Does Pt have an Active Cancer Diagnosis on the Problem List?: No Quality: Stroke Does the patient have a stroke diagnosis?: No Physical Exam Vital Signs: Vital Signs: Last Vital Signs Temp 98.5 F 07/22/24 06:38 Pulse 80 07/22/24 06:38 Resp 15 07/22/24 06:38 BP 115/66 07/22/24 06:38 Pulse Ox 95 07/22/24 06:38 O2 Del Method Room Air 07/22/24 06:38 O2 Flow Rate 3 07/22/24 03:49 BMI result Body Mass Index 21.3 General: AO X 3, no acute distress Resp: CTA bilateral, no accessory muscles used CVS: S1,S2,RRR GI: soft, non tender, non distended Neuro: motor grossly intact, alert Psych: appropriate affect, appropriate insight DS: Data Data Completed and Pending Labs on day of discharge: Laboratory Results - last 24 hr 07/22/24 07/22/24 07/22/24 03:29 03:40 04:55 WBC 10.2 RBC 5.10 Hgb 15.2 Hct 45.6 MCV 89.4 MCH 29.8 MCHC 33.3 RDW 12.9 Plt Count 264 D MPV 9.5 Immature Gran % (Auto) 0.5 H Neut % (Auto) 84.6 H Lymph % (Auto) 9.4 L [place] % (Auto) 5.2 Eos % (Auto) 0.0 Baso % (Auto) 0.3 Lymph # (Auto) 1.0 L [place] # (Auto) 0.5 Eos # (Auto) 0.0 Baso # (Auto) 0.0 Abs Immat Gran (auto) 0.05 H Absolute Neuts (auto) 8.6 H Absolute Nucleated RBC 0.000 Nucleated RBC % (auto) 0.0 Sodium 141 Potassium 4.1 Chloride 103 Carbon Dioxide 23 Anion Gap 19 BUN 22 H Creatinine 1.27 Estim Creat Clear Calc 85.7 Estimated GFR > 60 Random Glucose 93 Lactic Acid 1.8 Calcium 9.7 D Magnesium 2.3 Total Bilirubin 0.3 Direct Bilirubin 0.2 AST 119 H ALT 274 H Alkaline Phosphatase 73 Total Creatine Kinase 211 H Troponin I High Sens 26.0 B-Natriuretic Peptide 14 Total Protein 7.7 Albumin 4.4 Lipase 19 Urine Opiates Screen POSITIVE H Ur Buprenorphine Scrn Not Detected Ur Oxycodone Screen Not Detected Urine Methadone Screen Not Detected Urine Fentanyl Screen POSITIVE H Ur Barbiturates Screen Not Detected Ur Phencyclidine Scrn Not Detected Ur Amphetamines Screen Not Detected U Benzodiazepines Scrn Not Detected Urine Cocaine Screen POSITIVE H U Marijuana (THC) Screen POSITIVE H Ethyl Alcohol 11 Influenza Type A (PCR) NEGATIVE Influenza Type B (PCR) NEGATIVE RSV RNA Qual (PCR) NEGATIVE SARS-CoV-2 RNA (RT-PCR) NEGATIVE Discharge Plan Discharge Anticipated Discharge Date/Time: 07/22/24 07:46 Patient Disposition: Left Against Medical Advice Discharge Diagnosis: overdose, pneumonia, hypoxia Referrals: Physician,Unknown J [Primary Care Provider] - 1 Week Discharge Medications: Continued cyclobenzaprine 10 mg tablet 10 mg PO TID Sublocade 300 mg/1.5 mL solution, extended rel syringe subcut gabapentin 800 mg tablet 800 mg PO TID allopurinol 300 mg tablet 150 mg PO DAILY amlodipine 10 mg tablet 10 mg PO DAILY quetiapine [Seroquel] 25 mg tablet 25 mg PO BEDTIME omeprazole 20 mg capsule,delayed release(DR/EC) 20 mg PO BID Discharge Orders: Discharge Order (Routine); Ordered 07/22/24 Ordered By: Terrence Reeder Diet: Advance to usual diet Activity on Discharge: As tolerated Print Language: Prydeinig Care Plan Goals: recovery Health Concerns: overdose, aspiration, hypoxia Plan of Treatment: cannot properly treat and monitor outpatient Assessment: see above Discharge Date/Time: 07/22/24 08:08
--- NOTE | 2024-07-22 08:09 | PC.NURSE ---
DR ISRAEL SPOKE WITH PT. PT LEAVING AMA. A&O X 4
== END 2024-07-22 08:08 | disposition left against medical advice (07) | DRG 917 ==
LOC: HO.ED 04:27 → HO.EDOVER 05:00 → HO.IMC 07:46 → HO.EDOVER 07:47
PROVIDERS: Admitting Provider Internal Medicine; Emergency Provider Emergency Medicine; Visit Provider Internal Medicine
DX: T40.601A Poisoning by unspecified narcotics, accidental (unintentional), initial encounter (principal); G92.8 Other toxic encephalopathy; J69.0 Pneumonitis due to inhalation of food and vomit; J96.01 Acute respiratory failure with hypoxia; F11.20 Opioid dependence, uncomplicated; J98.11 Atelectasis; F19.20 Other psychoactive substance dependence, uncomplicated; I10 Essential (primary) hypertension; F17.210 Nicotine dependence, cigarettes, uncomplicated; Z71.6 Tobacco abuse counseling; Z20.822 Contact with and (suspected) exposure to COVID-19; F31.9 Bipolar disorder, unspecified; J45.909 Unspecified asthma, uncomplicated; G89.4 Chronic pain syndrome; Z79.899 Other long term (current) drug therapy
CPT/HCPCS: 0241U; 71045; 80048; 80076; 80307; 82550; 83605; 83690; 83735; 83880; 84484; 85025; 87040; 93005; 94640; 99285; J0456; J2405; J2543; J2919

== ENCOUNTER → 2024-07-22 02:54 | Outpatient (BNV) | payer MEDICARE, MEDICAID, SELFPAY | PROVIDERS: Admitting Provider Internal Medicine; Emergency Provider Emergency Medicine; Visit Provider Internal Medicine | DX: J69.0 Pneumonitis due to inhalation of food and vomit (principal); J96.01 Acute respiratory failure with hypoxia; T50.901A Poisoning by unspecified drugs, medicaments and biological substances, accidental (unintentional), initial encounter | CPT/HCPCS: 93010 ==

== ENCOUNTER → 2024-07-22 04:52 | Outpatient (BNV) | payer MEDICARE, MEDICAID, SELFPAY | PROVIDERS: Admitting Provider Internal Medicine; Emergency Provider Emergency Medicine; Visit Provider Internal Medicine | DX: J69.0 Pneumonitis due to inhalation of food and vomit (principal); T50.901A Poisoning by unspecified drugs, medicaments and biological substances, accidental (unintentional), initial encounter; J96.01 Acute respiratory failure with hypoxia | CPT/HCPCS: 99235 ==

== ENCOUNTER 2024-10-20 16:13 | Emergency (ER) | payer MEDICARE, MEDICAID, SELFPAY ==
[2024-10-20 16:45] VITALS: BP 147/92; PULSE 93; RESP 16; TEMP 36.8; O2SAT 98; BMI 21.3
--- NOTE | 2024-10-20 17:00 | ED_ITS ---
HPI - Eye Problem General Chief complaint: Eye Problems Stated complaint: caesar red swollen eyes Related Data Home Medications ?Medication ?Instructions ?Recorded ?Confirmed allopurinol 300 mg tablet 150 mg PO DAILY 03/08/21 03/08/21 amlodipine 10 mg tablet 10 mg PO DAILY 03/08/21 03/08/21 buprenorphine 300 mg/1.5 mL mg subcut 03/08/21 03/08/21 solution,exten.rel.subcutaneous syringe (Sublocade) cyclobenzaprine 10 mg tablet 10 mg PO TID 03/08/21 03/08/21 gabapentin 800 mg tablet 800 mg PO TID 03/08/21 03/08/21 omeprazole 20 mg capsule,delayed 20 mg PO BID 03/08/21 03/08/21 release quetiapine 25 mg tablet (Seroquel) 25 mg PO BEDTIME 03/08/21 03/08/21 Allergies Allergy/AdvReac Type Severity Reaction Status Date / Time acetaminophen [From Tylenol] Allergy vomiting Verified 10/20/24 16:52 hydrocodone Allergy vomiting Verified 10/20/24 16:52 ibuprofen Allergy gi upset Verified 10/20/24 16:52 norepinephrine Allergy unknown Verified 10/20/24 16:52 [From Levophed (bitartrate)] [facility] Past Medical History Medical History Chronic pain syndrome GI bleed due to NSAIDs Ruptured appendix Arthritis Generalized headaches Venereal disease Bipolar 1 disorder Asthma Surgical History History of hip surgery History of colostomy reversal History of colon resection Social History Social History Unable to assess alcohol history related to: Unknown Alcohol intake: current Alcohol intake frequency: does not drink Patient Tobacco Use Status: Current everyday Tobacco user Tobacco use type: Cigarette Cigarette Packs Per Day: 1 Substance Use Type: Heroin Advance Directives: No Advance Directives Information Provided: No Physical Exam 2 Vital Signs: Vital Signs: Last Vital Signs Temp 98.3 F 10/20/24 16:45 Pulse 93 10/20/24 16:45 Resp 16 10/20/24 16:45 BP 147/92 H 10/20/24 16:45 Pulse Ox 98 10/20/24 16:45 O2 Del Method Room Air 10/20/24 16:45 BMI result Body Mass Index 21.3 Course Course Course Narrative: This is a Rapid Medical Examination (RME) performed by Rafi Wild PA-C in triage. Full HPI, ROS, assessment and treatment plan per primary provider in the Main ED. 43 yo male hx uveitis here for eval of bilateral eye redness x4 days. denies trauma/ injury/ fb sensation. denies pain/ photophobia. reports intermittent blurred vision. hx htn controlled w/ meds. Plan: labs, coags, inflammatory markers, eye exam Reevaluation(s) Reevaluation #1: Patient left the emergency department before myself or any of the other clinicians could review or explain physical exam findings, test results, need or lack there of for additional testing, treatment options, or a treatment plan. Medical Decision Making Lab Data 10/20/24 17:51 10/20/24 17:51 Labs: Lab Results 10/20/24 Range/Units 17:51 WBC 6.5 (4.8-10.8) X10*3/uL RBC 4.27 L (4.60-5.80) X10*6/uL Hgb 13.1 L (14.0-18.0) g/dl Hct 38.7 L (42.0-52.0) % MCV 90.6 (80.0-98.0) fL MCH 30.7 (27.0-33.0) pg MCHC 33.9 (31.0-36.0) g/dl RDW 13.2 (11.0-16.0) % Plt Count 248 (160-400) X10*3/uL MPV 10.2 (9.4-12.4) fL Immature Gran % (Auto) 0.3 (0.0-0.4) % Neut % (Auto) 75.5 H (45-73) % Lymph % (Auto) 17.0 L (20-40) % [place] % (Auto) 5.8 (2-11) % Eos % (Auto) 0.9 (0-4) % Baso % (Auto) 0.5 (0-2) % Lymph # (Auto) 1.1 L (1.2-4.9) X10*3/uL Gem # (Auto) 0.4 (0.1-1.2) X10*3/uL Eos # (Auto) 0.1 (0.0-0.4) X10*3/uL Baso # (Auto) 0.0 (0.0-0.2) X10*3/uL Abs Immat Gran (auto) 0.02 (0.00-0.03) X10*3/uL Absolute Neuts (auto) 4.9 (2.0-8.3) x10*3/uL Absolute Nucleated RBC 0.000 (0.0-0.012) X10*3/uL Nucleated RBC % (auto) 0.0 (0.0-0.2) /100WBC ESR 10 (0-15) MM/HR PT 11.4 (10.9-12.4) SEC INR 1.0 (0.9-1.1) APTT 29.1 (26.0-36.8) SEC Sodium 143 (135-145) mmol/L Potassium 3.7 (3.3-5.1) mmol/L Chloride 108 (96-108) mmol/L Carbon Dioxide 28 (22-29) mmol/L Anion Gap 11 L (12-20) BUN 15 (9-16) mg/dL Creatinine 0.87 (0.5-1.4) mg/dL Estim Creat Clear Calc 125.1 Estimated GFR > 60 Random Glucose 123 H (60-115) mg/dL Calcium 9.1 D (8.4-10.2) mg/dL Total Bilirubin 0.2 (0.0-1.0) mg/dL AST 45 H (5-37) U/L ALT 68 H (0-40) U/L Alkaline Phosphatase 63 (39-117) U/L C-Reactive Protein 0.47 (< or = 0.50) mg/dL Total Protein 7.5 (6.5-8.0) g/dL Albumin 4.0 (3.5-5.0) g/dL Discharge Plan Discharge Clinical Impression: Eye redness Patient Disposition: Left W/O Completing Treatment Prescriptions: No Action cyclobenzaprine 10 mg tablet 10 mg PO TID Sublocade 300 mg/1.5 mL solution, extended rel syringe subcut gabapentin 800 mg tablet 800 mg PO TID allopurinol 300 mg tablet 150 mg PO DAILY amlodipine 10 mg tablet 10 mg PO DAILY quetiapine [Seroquel] 25 mg tablet 25 mg PO BEDTIME omeprazole 20 mg capsule,delayed release(DR/EC) 20 mg PO BID Discharge Date/Time: 10/20/24 21:02
[2024-10-20 17:58] LABS: MANUAL DIFF FLAG NO
[2024-10-20 18:00] LABS: Basophils Percent Auto 0.5 % (0-2); Eosinophils Absolute Auto 0.1 X10*3/uL (0.0-0.4); Eosinophils Percent Auto 0.9 % (0-4); Hematocrit 38.7 % (42.0-52.0); Hemoglobin 13.1 g/dl (14.0-18.0); Imm Gran Abs Auto 0.02 X10*3/uL (0.00-0.03); Imm Gran Pct Auto 0.3 % (0.0-0.4); Lymphocytes Absolute Auto 1.1 X10*3/uL (1.2-4.9); Mean Corpuscular HGB Conc 33.9 g/dl (31.0-36.0); Mean Corpuscular Hemoglobin 30.7 pg (27.0-33.0); Mean Corpuscular Volume 90.6 fL (80.0-98.0); Mean Platelet Volume 10.2 fL (9.4-12.4); Monocytes Absolute Auto 0.4 X10*3/uL (0.1-1.2); Monocytes Percent Auto 5.8 % (2-11); Neutrophils Absolute Auto 4.9 x10*3/uL (2.0-8.3); Neutrophils Percent Auto 75.5 % (45-73); Platelet Count 248 X10*3/uL (160-400); Red Blood Count 4.27 X10*6/uL (4.60-5.80); Red Cell Distribution Width 13.2 % (11.0-16.0); White Blood Count 6.5 X10*3/uL (4.8-10.8)
[2024-10-20 18:10] LABS: Prothrombin Time 11.4 SEC (10.9-12.4)
[2024-10-20 18:13] LABS: Partial Thromboplastin Time 29.1 SEC (26.0-36.8)
[2024-10-20 18:24] LABS: Alanine Aminotransferase 68 U/L (0-40); Anion Gap 11 (12-20); Aspartate Amino Transferase 45 U/L (5-37); Bilirubin Total 0.2 mg/dL (0.0-1.0); Blood Urea Nitrogen 15 mg/dL (9-16); C Reactive Protein 0.47 mg/dL (< or = 0.50); Calcium 9.1 mg/dL (8.4-10.2); Carbon Dioxide 28 mmol/L (22-29); Chloride 108 mmol/L (96-108); Creatinine Clr Calc Pharmacy 125.1; Estimated Glomerular Filt Rate > 60; Glucose Random 123 mg/dL (60-115); Potassium 3.7 mmol/L (3.3-5.1); Sodium 143 mmol/L (135-145); Total Protein 7.5 g/dL (6.5-8.0)
[2024-10-20 18:30] LABS: Alkaline Phosphatase 63 U/L (39-117)
[2024-10-20 18:39] LABS: Erythrocyte Sedimentation Rate 10 MM/HR (0-15)
--- OUTSIDE RECORDS SUMMARY | 2024-10-20 18:48 | XMS_ITS | Continuity of Care Document ---
Author Organization [facility] Address [address] [place] [address] Phone Care Team Providers Care Hair Boiler Name Role Phone Ronan Hammond Unavailable Unavailable Allergies, Adverse Reactions, Alerts Substance Reaction Status Criticality ibuprofen GI Problems Active No Information acetaminophen Vomiting Active No Information HYDROCODONE BITARTRATE Vomiting Active No In formation Medications Medication Instructions Dosage Effective Dates (start - stop) Status Comments Imitrex 50 mg tablet take 1 tablet by oral route after onset of migraine; may repeat after 2 hours if headache returns,not to exceed 200mg in 24hrs 50 MG - Active VITAMIN B-2 100 MG TABLET TAKE 1 TABLET BY MOUTH DAILY - Active AMLODIPINE BESYLATE 2.5 MG TAB TAKE 1 TABLET BY MOUTH EVERY DAY - Active nicotine (polacrilex) 4 mg buccal lozenge take 1 tablet by oral route every 2 - 4 hours dissolved slowly in the mouth 4 MG - Active prefers royal flavor QUETIAPINE FUMARATE 100 MG TAB TAKE 1 TABLET BY MOUTH EVERY DAY 100 MG - Active acamprosate 333 mg tablet,delayed release TAKE 2 TABLETS BY MOUTH 3 TIMES A DAY - Active albuterol sulfate 2.5 mg/3 mL (0.083 %) solution for nebulization inhale 3 milliliter by nebulization route every 4 - 6 hours as needed 2.5 MG - Active bupropion HCl XL 450 mg 24 hr tablet, extended release take 1 tablet by oral route every day swallowing whole. Do not crush, chew and/or divide. 450 MG - Active EpiPen 2-Geovany 0.3 mg/0.3 mL injection, auto-injector inject 0.3 milliliter by intramuscular route once as needed for anaphylaxis 0.3 MG - Active Narcan 4 mg/actuation nasal spray spray 0.1 milliliter by intranasal route in 1 nostril may repeat dose every 2-3 minutes as needed alternating nostrils with each dose 4 MG - Active Ventolin HFA 90 mcg/actuation aerosol inhaler inhale 2 puff by inhalation route every 4 - 6 hours as needed - Active Pulmicort Flexhaler 180 mcg/actuation breath activated inhale 1 puff by inhalation route 2 times every day 180 MCG - Active Seroquel 50 mg tablet take 1/2 to 1 tablet by oral route every morning - Active Total: Seroquel 50 mg AM and [address] 20 MG CAPSULE TAKE 1 CAPSULE BY MOUTH EVERY DAY 30 MINUTES TO 1 HOUR BEFORE A MEAL - Active cyclobenzaprine 10 mg tablet TAKE 1 TABLET BY MOUTH THREE TIMES A DAY NEEDED - Active Voltaren Arthritis Pain 1 % topical gel apply 2 gram by topical route 4 times every day to the affected area(s) 2.00 gram - Active gabapentin 800 mg tablet take 1 tablet by oral route 3 times every day 800 MG - Active HYDROXYZINE HCL 10 MG TABLET TAKE 1 TABLET BY MOUTH THREE TIMES A DAY - Active Procedures Procedure Date Limited Oral Evaluation-Problem Focused Intraoral-Periapical First Film Extraction, Erupted Tooth Or Exposed Nunu t (Elevati Psychotherapy 45 Min (38-52 Min) 2022 Psychotherapy 45 Min (38-52 Min) 2022 Left W/O Being Seen Psychotherapy 45 Min (38-52 Min) 2022 Psychotherapy 45 Min (38-52 Min) 2022 Psychotherapy 45 Min (38-52 Min) 2022 Psychotherapy 45 Min (38-52 Min) 2022 Psychotherapy 45 Min (38-52 Min) 2022 Psychotherapy 45 Min (38-52 Min) 2022 Psychotherapy 45 Min (38-52 Min) 2022 Psychotherapy 45 Min (38-52 Min) 2022 Psychotherapy 45 Min (38-52 Min) 2022 Psychotherapy 45 Min (38-52 Min) 2022 Psychotherapy 45 Min (38-52 Min) 2022 Psychotherapy 45 Min (38-52 Min) 2022 Psychotherapy 45 Min (38-52 Min) 2022 Psychotherapy , 30 Min (16-37 Min) Psychotherapy 45 Min (38-52 Min) 2022 Psychotherapy 45 Min (38-52 Min) 2022 Psychotherapy 45 Min (38-52 Min) 2022 Psychotherapy 45 Min (38-52 Min) 2022 Psychotherapy 45 Min (38-52 Min) 2022 Psychotherapy , 30 Min (16-37 Min) Psychotherapy 45 Min (38-52 Min) 2022 Psychotherapy 45 Min (38-52 Min) 2022 Psychotherapy 45 Min (38-52 Min) 2022 Psychotherapy 45 Min (38-52 Min) 2022 Psychotherapy , 30 Min (16-37 Min) 0 Psychotherapy , 30 Min (16-37 Min) Psychotherapy 45 Min (38-52 Min) 2022 Psychotherapy 45 Min (38-52 Min) 2022 Psychotherapy 45 Min (38-52 Min) 2021 Psychotherapy 45 Min (38-52 Min) 2021 Psychotherapy 45 Min (38-52 Min) 2021 Psychotherapy 45 Min (38-52 Min) 2021 Psychotherapy 45 Min (38-52 Min) 2021 Left W/O Being Seen Left W/O Being Seen Psychotherapy 45 Min (38-52 Min) 2021 Left W/O Being Seen Psychotherapy 45 Min (38-52 Min) 2021 Psychotherapy , 30 Min (16-37 Min) Psychotherapy , 30 Min (16-37 Min) May-0 Office Visit Established Outpatient Psychotherapy 45 Min (38-52 Min) 2021 Left W/O Being Seen Psychotherapy 45 Min (38-52 Min) 2021 Nurse Assesment Nurse Assesment Nurse Assesment Covid 19 Infect agent dedection by nucle ic acid (DNA or RNA) OFFICE/OUTPATIENT VISIT, EST Psychotherapy 45 Min (38-52 Min) 2021 Office Visit Established Outpatient Psychotherapy 45 Min (38-52 Min) 2021 Office Visit Outpatietn Established Psychotherapy 45 Min (38-52 Min) 2021 Office Visit Outpatietn Established Psychotherapy 45 Min (38-52 Min) 2021 Office Visit Outpatietn Established Psychotherapy 45 Min (38-52 Min) 2021 OFFICE/OUTPATIENT VISIT, EST Office Visit Established Outpatient Psychotherapy 45 Min (38-52 Min) 2021 OFFICE/OUTPATIENT VISIT, EST Psychotherapy 45 Min (38-52 Min) 2021 Psychotherapy 45 Min (38-52 Min) 2021 OFFICE/OUTPATIENT VISIT, EST Psychotherapy 45 Min (38-52 Min) 2021 Nurse Assesment OFFICE/OUTPATIENT VISIT, EST Nurse Assesment Psychotherapy 45 Min (38-52 Min) 2021 OFFICE/OUTPATIENT VISIT, EST Left W/O Being Seen OFFICE/OUTPATIENT VISIT, EST Psychotherapy 45 Min (38-52 Min) 2021 Psychotherapy , 30 Min (16-37 Min) Office Visit Established Outpatient Left W/O Being Seen Psychotherapy 45 Min (38-52 Min) 2021 Office Visit Outpatietn Established OFFICE/OUTPATIENT VISIT, EST Psychotherapy 45 Min (38-52 Min) 2021 Office Visit Established Outpatient OFFICE/OUTPATIENT VISIT, EST Left W/O Being Seen Psychotherapy 45 Min (38-52 Min) 2021 Office Visit Established Outpatient Office Visit Outpatietn Established Psychotherapy 45 Min (38-52 Min) 2021 Office Visit Established Outpatient Psychotherapy 45 Min (38-52 Min) 2021 OFFICE/OUTPATIENT VISIT, EST OFFICE/OUTPATIENT VISIT, EST Psychotherapy 45 Min (38-52 Min) 2021 OFFICE/OUTPATIENT VISIT, EST Psychotherapy 45 Min (38-52 Min) 2021 OFFICE/OUTPATIENT VISIT, EST Left W/O Being Seen Psychotherapy 45 Min (38-52 Min) 2021 OFFICE/OUTPATIENT VISIT, EST Psychotherapy 45 Min (38-52 Min) 2021 OFFICE/OUTPATIENT VISIT, EST OFFICE/OUTPATIENT VISIT, EST Nurse Assesment Psychotherapy 45 Min (38-52 Min) 2021 OFFICE/OUTPATIENT VISIT, EST OFFICE/OUTPATIENT VISIT, EST Psychotherapy 45 Min (38-52 Min) 2021 OFFICE/OUTPATIENT VISIT, EST MEDICAL SERVICES AFTER HRS Psychotherapy , 30 Min (16-37 Min) NON BILLABLE MEDICATION THER/PROPH/DIAG INJ, SC/IM Medication Administration Medicare Admin influenza virus vac Influenza Vac Quad Presr Free 3 Yrs Or > OFFICE/OUTPATIENT VISIT, EST Psychotherapy 45 Min (38-52 Min) 2021 Left W/O Being Seen Nurse Assesment Psychotherapy 45 Min (38-52 Min) 2021 OFFICE/OUTPATIENT VISIT, EST Psychotherapy 45 Min (38-52 Min) 2021 NON BILLABLE MEDICATION THER/PROPH/DIAG INJ, SC/IM Medication Administration OFFICE/OUTPATIENT VISIT, EST OFFICE/OUTPATIENT VISIT, EST NON BILLABLE MEDICATION THER/PROPH/DIAG INJ, SC/IM OFFICE/OUTPATIENT VISIT, EST OFFICE/OUTPATIENT VISIT, EST Left W/O Being Seen Left W/O Being Seen Nurse Assesment Psychotherapy 45 Min (38-52 Min) 2020 NON BILLABLE MEDICATION THER/PROPH/DIAG INJ, SC/IM Medication Administration Psychotherapy 45 Min (38-52 Min) 2020 Office Visit Established Outpatient Psychotherapy 45 Min (38-52 Min) 2020 Left W/O Being Seen Psychotherapy 45 Min (38-52 Min) 2020 Nurse Assesment Psychotherapy 45 Min (38-52 Min) 2020 NON BILLABLE MEDICATION THER/PROPH/DIAG INJ, SC/IM Medication Administration Psychotherapy 45 Min (38-52 Min) 2020 Psychotherapy 45 Min (38-52 Min) 2020 Psychotherapy 45 Min (38-52 Min) 2020 Psychotherapy 45 Min (38-52 Min) 2020 NON BILLABLE MEDICATION THER/PROPH/DIAG INJ, SC/IM Medication Administration Psychotherapy 45 Min (38-52 Min) 2020 Psychotherapy 45 Min (38-52 Min) 2020 Psychotherapy , 30 Min (16-37 Min) Left W/O Being Seen Psychotherapy 45 Min (38-52 Min) 2020 NON BILLABLE MEDICATION THER/PROPH/DIAG INJ, SC/IM OFFICE/OUTPATIENT VISIT, EST Psychotherapy 45 Min (38-52 Min) 2020 Nurse Assesment Psychotherapy 45 Min (38-52 Min) 2020 Left W/O Being Seen Psychotherapy 45 Min (38-52 Min) 2020 Nurse Assesment Psychotherapy 45 Min (38-52 Min) 2020 NON BILLABLE MEDICATION THER/PROPH/DIAG INJ, SC/IM Medication Administration Psychotherapy 45 Min (38-52 Min) 2020 Psychotherapy 45 Min (38-52 Min) 2020 OFFICE/OUTPATIENT VISIT, EST Psychotherapy 45 Min (38-52 Min) 2020 OFFICE/OUTPATIENT VISIT, EST Psychotherapy 45 Min (38-52 Min) 2020 NON BILLABLE MEDICATION Medication Administration Psychotherapy , 30 Min (16-37 Min) OFFICE/OUTPATIENT VISIT, EST Psychotherapy 45 Min (38-52 Min) 2020 Left W/O Being Seen Psychotherapy 45 Min (38-52 Min) 2020 Psychotherapy 45 Min (38-52 Min) 2020 Left W/O Being Seen Office Visit Established Outpatient Psychotherapy 45 Min (38-52 Min) 2020 Psychotherapy 45 Min (38-52 Min) 2020 Psychotherapy 45 Min (38-52 Min) 2020 Psychotherapy 45 Min (38-52 Min) 2020 Office Visit Established Outpatient Psychotherapy 45 Min (38-52 Min) 2020 Psychotherapy 45 Minutes Psychotherapy 45 Min (38-52 Min) 2020 Psychotherapy 45 Min (38-52 Min) 2020 Nurse Assesment Left W/O Being Seen Office Vists Established Patient 2020 Psychotherapy 45 Min (38-52 Min) 2020 Psychotherapy 45 Min (38-52 Min) 2020 Psychotherapy 45 Min (38-52 Min) 2020 Psychotherapy 45 Min (38-52 Min) 2020 Psychotherapy 45 Min (38-52 Min) 2020 OFFICE/OUTPATIENT VISIT, EST Psychotherapy 45 Min (38-52 Min) 2020 Psychotherapy 45 Min (38-52 Min) 2020 Psychotherapy 45 Min (38-52 Min) 2020 Psychotherapy 45 Min (38-52 Min) 2019 Office Visit Established Outpatient AUDIT/DAST, 15-30 MIN Office Visit Established Outpatient Psychotherapy 45 Min (38-52 Min) 2019 Psychotherapy 45 Min (38-52 Min) 2019 Psychotherapy 45 Min (38-52 Min) 2019 Office Visit Outpatietn Established Psychotherapy 45 Min (38-52 Min) 2019 Psychotherapy 45 Min (38-52 Min) 2019 Psychotherapy 45 Min (38-52 Min) 2019 Office Visit Established Outpatient Medicare Admin influenza virus vac Influenza Vac Quad Presr Free 3 Yrs Or > OFFICE/OUTPATIENT VISIT, EST Psychotherapy 45 Min (38-52 Min) 2019 Psychotherapy , 30 Min (16-37 Min) Psychotherapy 45 Min (38-52 Min) 2019 PRESENTATION SPECIALIST Nurse Assesment Psychotherapy 45 Min (38-52 Min) 2019 Office Visit Established Outpatient Nurse Assesment Psychotherapy 45 Min (38-52 Min) 2019 Left W/O Being Seen Nurse Assesment Psychotherapy 45 Min (38-52 Min) 2019 Left W/O Being Seen Psychotherapy 45 Min (38-52 Min) 2019 Psychotherapy 45 Min (38-52 Min) 2019 Psychotherapy 45 Min (38-52 Min) 2019 Psychotherapy 45 Min (38-52 Min) 2019 Extraction, Erupted Tooth Or Exposed Nunu t (Elevati Psychotherapy , 30 Min (16-37 Min) Intraoral-Periapical First Film 020 Limited Oral Evaluation-Problem Focused Office Visit Established Outpatient Psychotherapy 45 Min (38-52 Min) 2019 Psychotherapy 45 Min (38-52 Min) 2019 PRESENTATION SPECIALIST Office Visit Established Outpatient Psychotherapy 45 Min (38-52 Min) 2019 Office Visit Outpatietn Established Psychotherapy 45 Min (38-52 Min) 2019 Nurse Assesment Left W/O Being Seen Psychotherapy 45 Min (38-52 Min) 2019 Psychotherapy 45 Min (38-52 Min) 2019 Nurse Assesment Psychotherapy 45 Min (38-52 Min) 2019 Psychotherapy 45 Min (38-52 Min) 2019 OFFICE/OUTPATIENT VISIT, EST Psychotherapy 45 Min (38-52 Min) 2019 Psychotherapy 45 Min (38-52 Min) 2019 OFFICE/OUTPATIENT VISIT, EST OFFICE/OUTPATIENT VISIT, EST Medicare Admin influenza virus vac FluLaval Quad MDV 19 Yrs > Psychotherapy 45 Min (38-52 Min) 2019 Psychotherapy , 30 Min (16-37 Min) OFFICE/OUTPATIENT VISIT, EST Psychotherapy , 30 Min (16-37 Min) Psychotherapy 45 Min (38-52 Min) 2018 Psychotherapy 45 Min (38-52 Min) 2018 OFFICE/OUTPATIENT VISIT, EST Psychotherapy 45 Min (38-52 Min) 2018 Psychotherapy 45 Min (38-52 Min) 2018 OFFICE/OUTPATIENT VISIT, EST Psychotherapy 45 Min (38-52 Min) 2018 Psychotherapy 45 Min (38-52 Min) 2018 OFFICE/OUTPATIENT VISIT, EST Psychotherapy 45 Min (38-52 Min) 2018 OFFICE/OUTPATIENT VISIT, EST Psychotherapy 45 Min (38-52 Min) 2018 Psychotherapy 45 Min (38-52 Min) 2018 Psychotherapy 45 Min (38-52 Min) 2018 Medicare Admin hepatitis b vaccine HEP B VACCINE, ADULT, IM Immunization Only No E/M Required OFFICE/OUTPATIENT VISIT, EST Psychotherapy 45 Min (38-52 Min) 2018 Psychotherapy 45 Min (38-52 Min) 2018 Psychotherapy 45 Min (38-52 Min) 2018 Psychotherapy 45 Min (38-52 Min) 2018 Psychotherapy 45 Min (38-52 Min) 2018 OFFICE/OUTPATIENT VISIT, EST OFFICE/OUTPATIENT VISIT, EST Psychotherapy 45 Min (38-52 Min) 2018 Psychotherapy 45 Min (38-52 Min) 2018 Psychotherapy 45 Min (38-52 Min) 2018 OFFICE/OUTPATIENT VISIT, EST IMMUNIZATION ADMIN, EACH ADD HEP A VACCINE, ADULT IM Medicare Admin hepatitis b vaccine HEP B VACCINE, ADULT, IM Psychotherapy 45 Min (38-52 Min) 2018 Psychotherapy 45 Min (38-52 Min) 2018 Psychotherapy 45 Min (38-52 Min) 2018 OFFICE/OUTPATIENT VISIT, EST Psychotherapy 45 Min (38-52 Min) 2018 Case Presentation, Detailed And Extensiv e Treatmen Limited Oral Evaluation-Problem Focused OFFICE/OUTPATIENT VISIT, EST Psychotherapy 45 Min (38-52 Min) 2018 OFFICE/OUTPATIENT VISIT, EST Psychotherapy 45 Min (38-52 Min) 2018 Psychotherapy 45 Min (38-52 Min) 2018 OFFICE/OUTPATIENT VISIT, EST Psychotherapy 45 Min (38-52 Min) 2018 OFFICE/OUTPATIENT VISIT, EST Psychotherapy 45 Min (38-52 Min) 2018 Psychotherapy 45 Min (38-52 Min) 2018 OFFICE/OUTPATIENT VISIT, EST Resin-Based Composite-Three Surfaces, Po sterior Psychotherapy 45 Min (38-52 Min) 2017 Resin-Based Composite-Two Surfaces, Post erior Adjust Partial Denture-Mandibular Resin-Based Composite-Two Surfaces, Post erior Periodontal Probing Oral Hygiene Instructions Prophylaxis-Adult Case Presentation, Detailed And Extensiv e Treatmen OFFICE/OUTPATIENT VISIT, EST Comprehensive Oral Evaluation-New Or Est ablished P Intraoral-Complete Series (Including Bit ewings) Psychotherapy 45 Min (38-52 Min) 2017 OFFICE/OUTPATIENT VISIT, EST Psychotherapy 45 Min (38-52 Min) 2017 Psychotherapy 45 Min (38-52 Min) 2017 Psychotherapy 45 Min (38-52 Min) 2017 OFFICE/OUTPATIENT VISIT, EST Medicare Admin influenza virus vac Afluria Quad (MDV) 19 Yrs & > 8 Psychotherapy 45 Min (38-52 Min) 2017 OFFICE/OUTPATIENT VISIT, EST Psychotherapy 45 Min (38-52 Min) 2017 Psychotherapy 45 Min (38-52 Min) 2017 Psychotherapy 45 Min (38-52 Min) 2017 OFFICE/OUTPATIENT VISIT, EST OFFICE/OUTPATIENT VISIT, EST Psychotherapy 45 Min (38-52 Min) 2017 Psychotherapy 45 Min (38-52 Min) 2017 Psychotherapy 45 Min (38-52 Min) 2017 OFFICE/OUTPATIENT VISIT, EST Non Billabe Error Psychotherapy 45 Minutes OFFICE/OUTPATIENT VISIT, EST OFFICE/OUTPATIENT VISIT, EST Psychotherapy 45 Min (38-52 Min) 2017 OFFICE/OUTPATIENT VISIT, EST Medicare Admin hepatitis b vaccine HEP B VACCINE, ADULT, IM OFFICE/OUTPATIENT VISIT, EST Psychotherapy 45 Min (38-52 Min) 2017 OFFICE/OUTPATIENT VISIT, EST Psychotherapy 45 Min (38-52 Min) 2017 OFFICE/OUTPATIENT VISIT, EST Psychotherapy 45 Min (38-52 Min) 2017 OFFICE/OUTPATIENT VISIT, EST Psychotherapy 45 Min (38-52 Min) 2017 OFFICE/OUTPATIENT VISIT, EST OFFICE/OUTPATIENT VISIT, EST Psychotherapy , 30 Min (16-37 Min) Psychotherapy 45 Min (38-52 Min) 2017 PRESENTATION SPECIALIST Psychotherapy , 30 Min (16-37 Min) Psychotherapy 45 Min (38-52 Min) 2017 OFFICE/OUTPATIENT VISIT, EST Toradol Inj Per 15 MG (Ketorolac trometh amine) THER/PROPH/DIAG INJ, SC/IM OFFICE/OUTPATIENT VISIT, EST Psychotherapy 45 Min (38-52 Min) 2017 Psychotherapy , 30 Min (16-37 Min) Psychotherapy 45 Min (38-52 Min) 2016 OFFICE/OUTPATIENT VISIT, EST Psychotherapy 45 Min (38-52 Min) 2016 Psychotherapy 45 Min (38-52 Min) 2016 Psychotherapy 45 Min (38-52 Min) 2016 OFFICE/OUTPATIENT VISIT, EST Psychotherapy 45 Min (38-52 Min) 2016 Psychotherapy 45 Min (38-52 Min) 2016 Psychotherapy 45 Min (38-52 Min) 2016 OFFICE/OUTPATIENT VISIT, EST Psychotherapy 45 Min (38-52 Min) 2016 Psychotherapy 45 Min (38-52 Min) 2016 Psychotherapy 45 Min (38-52 Min) 2016 Psychotherapy 45 Min (38-52 Min) 2016 Medicare Admin influenza virus vac Influenza Vaccine, Quad, 3 Yrs Or > OFFICE/OUTPATIENT VISIT, EST Psychotherapy 45 Min (38-52 Min) 2016 Psychotherapy 45 Min (38-52 Min) 2016 OFFICE/OUTPATIENT VISIT, EST Psychotherapy 45 Min (38-52 Min) 2016 OFFICE/OUTPATIENT VISIT, EST Psychotherapy , 30 Min (16-37 Min) OFFICE/OUTPATIENT VISIT, EST MED SERV, BRENDAN/WKEND/HOLIDAY OFFICE/OUTPATIENT VISIT, EST Psychotherapy , 30 Min (16-37 Min) OFFICE/OUTPATIENT VISIT, EST OFFICE/OUTPATIENT VISIT, EST Psychotherapy 45 Min (38-52 Min) 2016 PRESENTATION SPECIALIST OFFICE/OUTPATIENT VISIT, EST Psychotherapy 45 Min (38-52 Min) 2016 OFFICE/OUTPATIENT VISIT, EST Psychotherapy 45 Min (38-52 Min) 2016 Psychotherapy 45 Min (38-52 Min) 2016 Psychotherapy , 30 Min (16-37 Min) Psychotherapy 45 Min (38-52 Min) 2016 Psychotherapy , 30 Min (16-37 Min) OFFICE/OUTPATIENT VISIT, EST Nurse Assesment Psychotherapy , 30 Min (16-37 Min) Psychotherapy , 30 Min (16-37 Min) OFFICE/OUTPATIENT VISIT, EST OFFICE/OUTPATIENT VISIT, EST FITTING OF SPECTACLES OFFICE/OUTPATIENT VISIT, EST Nurse Assesment Psychotherapy , 30 Min (16-37 Min) OFFICE/OUTPATIENT VISIT, EST OFFICE/OUTPATIENT VISIT, EST Nurse Assesment Psychotherapy 45 Min (38-52 Min) 2016 OFFICE/OUTPATIENT VISIT, EST Psychotherapy , 30 Min (16-37 Min) OFFICE/OUTPATIENT VISIT, EST REFRACTION EYE EXAM, NEW PATIENT Psychotherapy , 30 Min (16-37 Min) Nurse Assesment Psychotherapy 45 Min (38-52 Min) 2015 OFFICE/OUTPATIENT VISIT, EST Medicare Admin influenza virus vac Influenza Vaccine, Quad, 3 Yrs Or > OFFICE/OUTPATIENT VISIT, EST Psychotherapy , 30 Min (16-37 Min) Psychotherapy , 30 Min (16-37 Min) OFFICE/OUTPATIENT VISIT, EST Clinical Pharmacy OFFICE/OUTPATIENT VISIT, EST Psychotherapy 45 Min (38-52 Min) 2015 Clinical Pharmacy OFFICE/OUTPATIENT VISIT, EST PRESENTATION SPECIALIST Psychotherapy , 30 Min (16-37 Min) Psychotherapy 45 Min (38-52 Min) 2015 PRESENTATION SPECIALIST OFFICE/OUTPATIENT VISIT, EST Psychotherapy , 30 Min (16-37 Min) Psychotherapy , 30 Min (16-37 Min) OFFICE/OUTPATIENT VISIT, EST Psychotherapy , 30 Min (16-37 Min) OFFICE/OUTPATIENT VISIT, EST Psychotherapy , 30 Min (16-37 Min) OFFICE/OUTPATIENT VISIT, EST Psychotherapy 45 Min (38-52 Min) 2015 OFFICE/OUTPATIENT VISIT, EST Psychotherapy , 30 Min (16-37 Min) PRESENTATION SPECIALIST PRESENTATION SPECIALIST Psychotherapy , 30 Min (16-37 Min) EKG, 12 LEAD ELECTROCARDIOGRAM REPORT OFFICE/OUTPATIENT VISIT, EST Psychotherapy 45 Min (38-52 Min) 2015 PRESENTATION SPECIALIST Psychotherapy 45 Min (38-52 Min) 2015 PRESENTATION SPECIALIST OFFICE/OUTPATIENT VISIT, EST Psychotherapy 45 Min (38-52 Min) 2014 OFFICE/OUTPATIENT VISIT, EST Psychotherapy 45 Min (38-52 Min) 2014 Psychiatrist Diagnostic Eval (no Medical Service) Psychotherapy , 30 Min (16-37 Min) Medicare Admin influenza virus vac Influenza Vaccine, Quad, 3 Yrs Or > OFFICE/OUTPATIENT VISIT, EST Psychotherapy 45 Min (38-52 Min) 2014 Psychiatrist Diagnostic Eval (no Medical Service) OFFICE/OUTPATIENT VISIT, EST Psychotherapy 45 Min (38-52 Min) 2014 OFFICE/OUTPATIENT VISIT, EST Psychotherapy 45 Min (38-52 Min) 2014 OFFICE/OUTPATIENT VISIT, EST OFFICE/OUTPATIENT VISIT, EST OFFICE/OUTPATIENT VISIT, EST OFFICE/OUTPATIENT VISIT, EST OFFICE/OUTPATIENT VISIT, EST OFFICE/OUTPATIENT VISIT, EST OFFICE/OUTPATIENT VISIT, EST OFFICE/OUTPATIENT VISIT, EST OFFICE/OUTPATIENT VISIT, EST OFFICE/OUTPATIENT VISIT, EST Medicare Admin influenza virus vac FLU VACCINE NO PRESERV 3 & > OFFICE/OUTPATIENT VISIT, EST OFFICE/OUTPATIENT VISIT, EST OFFICE/OUTPATIENT VISIT, EST OFFICE/OUTPATIENT VISIT, EST Psychotherapy 45 Min (38-52 Min) 2013 OFFICE/OUTPATIENT VISIT, EST Psychotherapy 45 Min (38-52 Min) 2013 OFFICE/OUTPATIENT VISIT, EST Psychotherapy 45 Min (38-52 Min) 2013 OFFICE/OUTPATIENT VISIT, EST Psychiatrist Diagnostic Eval (no Medical Service) Psychotherapy 45 Min (38-52 Min) 2013 OFFICE/OUTPATIENT VISIT, EST Psychotherapy , 30 Min (16-37 Min) Psychotherapy 45 Min (38-52 Min) 2013 OFFICE/OUTPATIENT VISIT, EST OFFICE/OUTPATIENT VISIT, EST Psychotherapy 45 Min (38-52 Min) 2013 Psychotherapy 45 Min (38-52 Min) 2013 PRESENTATION SPECIALIST Psychotherapy 45 Min (38-52 Min) 2013 PRESENTATION SPECIALIST OFFICE/OUTPATIENT VISIT, EST Psychotherapy 45 Min (38-52 Min) 2013 Psychotherapy 45 Min (38-52 Min) 2013 OFFICE/OUTPATIENT VISIT, EST Psychotherapy 45 Min (38-52 Min) 2012 Psychotherapy 45 Min (38-52 Min) 2012 Psychotherapy 45 Min (38-52 Min) 2012 OFFICE/OUTPATIENT VISIT, EST Psychotherapy 45 Min (38-52 Min) 2012 FITTING OF SPECTACLES Psychotherapy , 30 Min (16-37 Min) REFRACTION EYE EXAM, NEW PATIENT Psychotherapy 45 Min (38-52 Min) 2012 OFFICE/OUTPATIENT VISIT, EST Psychotherapy 45 Min (38-52 Min) 2012 Psychotherapy 45 Min (38-52 Min) 2012 Psychotherapy 45 Min (38-52 Min) 2012 OFFICE/OUTPATIENT VISIT, EST OFFICE/OUTPATIENT VISIT, EST Psychotherapy , 30 Min (16-37 Min) Psychotherapy 45 Min (38-52 Min) 2012 Psychotherapy 45 Min (38-52 Min) 2012 OFFICE/OUTPATIENT VISIT, EST Psychotherapy 45 Min (38-52 Min) 2012 Psychotherapy 45 Min (38-52 Min) 2012 Psychotherapy 45 Min (38-52 Min) 2012 OFFICE/OUTPATIENT VISIT, EST PREV VISIT, EST, AGE 18-39 OFFICE/OUTPATIENT VISIT, EST PSYTX, OFF, 45-50 MIN PSYTX, OFF, 45-50 MIN PSY DX INTERVIEW OFFICE/OUTPATIENT VISIT, EST PSYTX, OFF, 45-50 MIN OFFICE/OUTPATIENT VISIT, EST PSYTX, OFF, 45-50 MIN OFFICE/OUTPATIENT VISIT, EST REMOVE IMPACTED EAR WAX OFFICE/OUTPATIENT VISIT, EST [facility] MEDICATION MANAGEMENT PSYTX, OFFICE, 20-30 MIN OFFICE/OUTPATIENT VISIT, EST OFFICE/OUTPATIENT VISIT, EST PSYTX, OFF, 45-50 MIN MEDICATION MANAGEMENT PSYTX, OFF, 45-50 MIN PSYTX, OFF, 45-50 MIN Advance Directives Directive Yes / No Effective Date File Name No Information Encounters Encounter Description Practice Location Reason(s) For Visit Diagnoses Date Provider Providers Copied on Encounter Tor[facility], [address], [place], [place], [id number], [place] tel:[phone] [place] [facility] Encounter for dental exam and cleaning w/o abnormal findings 4 Shahnaz Ferraro. [address] [place], [address], [place]. tel:[phone] melanie [facility], [address], [place], [place], [id number], [place] tel:[phone] Tele [facility] Bipolar IPTSDAUD, in remissionOU D, in remission 3 Navin Rosales. [address] [place] [address], [id number], [place]. tel:[phone] [facility], [address], [place], [place], [id number], [place] tel:[phone] Tele [facility] PTSDBipolar IAUD, in remissionOU D, in remission 3 Navin Rosales. [address] [place] [address], [id number], [place]. tel:[phone] [facility], [address], [place], [place], [id number], [place] tel:[phone] Tele [facility] Proc/trtmt not crd out d/t pt lv bef seen by [facility] 3 Navin Rosales. [address], [place], [id number], [place]. tel:[phone] [facility], [address] [address], [place], [place], [id number], [place] tel:[phone] Tele [facility] Bipolar IPTSDOUD, in remissionAU D, in remission 3 Navin Rosales. [address], [place], [id number], [place]. tel:[phone] [facility], [address], [place], [place], [id number], [place] tel:[phone] Tele [facility] Bipolar IPTSDOUD, in remissionAU D, in remission 3 Navin Roasles. [address], [place], [id number], [place]. tel:[phone] [facility], [address], [place], [place], [id number], [place] tel:[phone] Tele [facility] Bipolar IPTSDAUD in sustained, full remissionOU D, in remission 3 Navin Rosales. [address], [place], [id number], [place]. tel:[phone] [facility] [facility], [address], [place], [place], [id number], [place] tel:[phone] Tele [facility] Bipolar IPTSDAUD in sustained, full remissionOU D, in remission 3 Navin Rosales. [address] [facility], [place], [place], [id number], [place]. tel:[phone] [facility], [address], [place], [place], [id number], [place] tel:[phone] Tele [facility] PTSDBipolar IAUD in sustained, full remissionOU D, in remission 3 Navin Rosales. [address] [place], [place], [id number], [place]. tel:[phone] [facility], [address], [place], [place], [id number], [place] tel:[phone] Tele [facility] PTSDBipolar IAUD, in remissionOU D, in remissionGr ief 3 Navin Rosales. [address] [place], [place], [id number], [place]. tel:[phone] [facility], [address], [place], [place], [id number], [place] tel:[phone] Tele [facility] Bipolar IPTSDOUD, in remissionAU D, in remission 3 Navin Rosales. [address] [place], [place], [id number], [place]. tel:[phone] [facility], [address], [place], [place], [id number], [place] tel:[phone] Tele [facility] Bipolar I DisorderPTS DAlcohol dependence, in remissionOU D, in remission 3 Navin Rosales. [address] [place], [place], [id number], [place]. tel:[phone] [facility], [address], [place], [place], [id number], [place] tel:[phone] Tele [facility] PTSDBipolar IAUD, in remissionOU D, in remission 3 Navin Rosales. [address] [place], [place], [id number], [place]. tel:[phone] [facility], [address], [place], [place], [address], [place] tel:[phone] Tele [facility] AUD in sustained, full remissionPT SDBipolar IOUD, in remission 3 Navin Rosales. [address] [place], [place], [address], [place]. tel:[phone] [facility], [address], [place], [place], [id number], [place] tel:[phone] Tele [facility] PTSDBipolar IOUD, in remissionAU D in sustained, full remission 3 Navin Rosales. [address] [place], [place], [id number], [place]. tel:[phone] [facility], [address], [place], [place], [id number], [place] tel:[phone] Tele [facility] Bipolar IPTSDOUD, in remissionAU D in sustained, full remission 3 Navin Rosales. [address] [place], [place], [id number], [place]. tel:[phone] [facility], [address], [place], [place], [address], [place] tel:[phone] Tele [facility] Bipolar IPTSDAUD in sustained, full remissionOU D, in remission 3 Navin Rosales. [address] [place], [place], [id number], [place]. tel:[phone] [facility], [address] [facility][1] [address], [place], [place], [address], [place] tel:[phone] [facility] Migraine without aura and without status migrainosus , not intractable 3 Jeff Marquez. [address] [place], [place], [id number]. tel:[phone] [facility], [address] [facility][1] [address] [facility],[address], [place], [place], [id number], [place] tel:[phone] Tele [facility] Bipolar IPTSDAUD in sustained, full remissionOU D, in remission 3 Navin Rosales. [address] [place], [place], [id number], [place]. tel:[phone] [facility], [address] [facility][1] [address] [facility],[address], [place], [place], [address], [place] tel:[phone] [facility] No Information 3 Jeff Marquez. [address] [place], [place], [id number]. tel:[phone] [facility], [address], [place], [place], [id number], [place] tel:[phone] [facility] No Information 3 Toño Quezada. [address] [place] [address], [id number], [place]. tel:[phone] [facility], [address], [place], [place], [address], [place] tel:[phone] Tele [facility] PTSDBipolar IAUD, in remissionOU D, in remission 3 [facility]. [address] [place] [address], [id number], [place]. tel:[phone] [facility], [address] [facility][[address]] [address], [place], [place], [id number], [place] tel:[phone] Tele [facility] Bipolar IPTSDOUD, in remissionAU D, in remission 3 [facility]. [address] [place] [address], [id number], [place]. tel:[phone] [facility], [address] [facility][[address]] [address], [place], [place], [address], [place] tel:[phone] Tele [facility] AUD, in remissionOU D, in remissionPT SDBipolar I 3 Holden Bobby. [address] [place] [address], [id number], [place]. tel:[phone] [facility], [address], [place], [place], [address], [place] tel:[phone] Tele [facility] Bipolar IPTSDAUD, in remissionOU D, in remission 3 Navin Rosales. [address] [place] [address], [id number], [place]. tel:[phone] [facility], [address] [facility][[address]] [address], [place], [place], [address], [place] tel:[phone] Tele [facility] PTSDBipolar IOUD, in remission, on maintenance therapyAUD, in remission 3 Navin Rosales. [address] [place], [place], [id number], [place]. tel:[phone] [facility], [address], [place], [place], [address], [place] tel:[phone] Tele [facility] PTSDBipolar IAUD, in remissionOU D, in remission, on maintenance therapy 3 Navin Rosales. [address] [place], [place], [id number], [place]. tel:[phone] [facility], [address], [place], [place], [address], [place] tel:[phone] Tele [facility] PTSDBipolar IOUD, in remissionAU D, in remission 3 Navin Rosales. [address] [place], [place], [address], [place]. tel:[phone] [facility], [address], [place], [place], [address], [place] tel:[phone] Tele [facility] PTSDBipolar IAUD, in remissionOU D, in remission 3 Navin Rosales. [address] [place], [place], [id number], [place]. tel:[phone] [facility], [address], [place], [place], [address], [place] tel:[phone] Tele [facility] Bipolar IPTSDAUD, in remissionOU D, in remission 3 Navin Rosales. [address] [place], [place], [id number], [place]. tel:[phone] [facility], [address], [place], [place], [address], [place] tel:[phone] [facility] Migraine without aura and without status migrainosus , not intractable 3 Jeff Mcgrathia. [address] [place] [address], [id number]. tel:[phone] [facility], [address] [facility][[address]] [address], [place], [place], [address], [place] tel:[phone] Tele [facility] PTSDBipolar IAUD, in remissionOU D, in remission 3 [facility]. [address] [place] [address], [id number], [place]. tel:[phone] [facility], [address] [facility][[address]] [address], [place], [place], [address], [place] tel:[phone] Tele [facility] PTSDBipolar IOUD, in remissionAU D, in remission 3 [facility]. [address] [place] [address], [id number], [place]. tel:[phone] [facility], [address] [facility][[address]] [address], [place], [place], [address], [place] tel:[phone] Tele [facility] PTSDBipolar IAUD, in remissionOU D, in remission 3 [facility]. [address] [place] [address], [id number], [place]. tel:[phone] [facility], [address] [facility][[address]] [address], [place], [place], [address], [place] tel:[phone] Tele [facility] PTSDBipolar IAUD, in remissionOU D, in remission 3 [facility]. [address] [place] [address], [id number], [place]. tel:[phone] [facility], [address] [facility], [id number], [place] tel:[phone] [facility] No Information 3 Jeff Marquez. [address] [place] [address], [id number]. tel:[phone] Toro [facility], [address], [place], [place], [id number], [place] tel:[phone] Tele [facility] Bipolar IPTSDOUD, in remissionAU D, in remission 3 Navin Rosales. [address] [place] [address], [id number], [place]. tel:[phone] Toro [facility], [address] [facility][1] [address] [facility],[address], [place], [place], [id number], [place] tel:[phone] Tele [facility] PTSDBipolar IAUD, in remission 2 Navin Rosales. [address] [place] [address], [id number], [place]. tel:[phone] Tor[facility], [address] [facility][[address]] [address], [place], [place], [id number], [place] tel:[phone] Tele [facility] PTSDBipolar IAUD, in remission 2 Navin Rosales. [address] [place] [address], [id number], [place]. tel:[phone] melanie [facility], [address] [facility][[address]] [address], [place], [place], [id number], [place] tel:[phone] Tele [facility] AUD in sustained, full remissionBi polar IPTSDOUD, in remission, on maintenance therapy 2 Navin Rosales. [address] [place] [address], [id number], [place]. tel:[phone] [facility], [address], [place], [place], [address], [place] tel:[phone] Tele [facility] Bipolar IPTSDOUD, in remission, on maintenance therapyAUD, in remission 2 Holden Bobby. [address] [place], [place], [id number], [place]. tel:[phone] Psychotherapy 45 Min (38-52 Min) melanie [facility], [address] [facility] [address], [place], [place], [id number], [place] tel:[phone] Tele [facility] Bipolar IPTSDOUD, in remission, on maintenance therapyAUD, in remission 2 Holden Bobby. [address] [place], [place], [id number], [place]. tel:[phone] melanie [facility], [address] [facility] [address], [place], [place], [id number], [place] tel:[phone] Tele [facility] No Information 2 Jeff Marquez. [address] [place] [address], [id number]. tel:[phone] melanie [facility], [address] [facility] [address], [place], [place], [address], [place] tel:[phone] Tele [facility] Proc/trtmt not crd out d/t pt lv bef seen by [facility] prov 2 No Informatio n [facility], [address] [place] [address] 2,[address], [place], [place], [id number], [place] tel:[phone] Tele [facility] MAT (chief complaint) Proc/trtmt not crd out d/t pt lv bef seen by [facility] provProc/tr tmt not crd out d/t pt lv bef seen by [facility] prov 2 No Informatio n [facility], [address] [facility] [address], [place], [place], [id number], [place] tel:[phone] Tele [facility] PTSDBipolar IOUD, in remission, on maintenance therapyAUD, in remission 2 Navin Rosales. [address] [place] [address], [id number], [place]. tel:[phone] melanie [facility], [address] [facility] [address], [place], [place], [id number], [place] tel:[phone] Tele [facility] MAT (chief complaint) Proc/trtmt not crd out d/t pt lv bef seen by [facility] 2 No Informatio n melanie [facility], [address] [facility] [address], [place], [place], [address], [place] tel:[phone] Tele [facility] Bipolar IPTSDOUD, in remission, on maintenance therapyAUD, in remission 2 Navin Rosales. [address] [place] [address], [id number], [place]. tel:[phone] Tor[facility], [address] [facility] [address], [place], [place], [address], [place] tel:[phone] Tele [facility] PTSDBipolar IOUD, in remission, on maintenance therapyAUD in sustained, full remission 2 Navin Rosales. [address] [place] [address], [id number], [place]. tel:[phone] Tor[facility], [address] [facility] [address], [place], [place], [address], [place] tel:[phone] Tele [facility] Bipolar IPTSDAUD, in remissionOU D, in remission, on maintenance therapy 2 Navin Rosales. [address] [place], [place], [id number], [place]. tel:[phone] [facility], [address] [facility] [address], [place], [place], [address], [place] tel:[phone] Tele [facility] MAT (chief complaint)co ld symptoms (chief complaint) Opioid Use Disorder, moderate, in sustained remission, on maintenance therapyEnco unter for monitoring Suboxone maintenance therapyChro tank pain syndromeAlc ohol dependence, in remissionVi ral URI with coughGrief 2 Jeff Mcgrathia. [address] [place] [address], [id number]. tel:[phone] melanie [facility], [address] [facility] [address], [place], [place], [address], [place] tel:[phone] Tele [facility] PTSDBipolar IOUD, in remission, on maintenance therapyAUD in sustained, full remission Sep-3 2 [facility]. [address] [place] [address], [id number], [place]. tel:[phone] [facility], [address] [facility] [address], [place], [place], [id number], [place] tel:[phone] Tele [facility] ......... LEFT WITHOUT BEING SEEN (chief complaint) Proc/trtmt not crd out d/t pt lv bef [facility] Sep-2 2 No Informatio n melanie [facility], [address] [facility] [address], [place], [place], [address], [place] tel:[phone] Tele [facility] Bipolar IPTSDAUD in sustained, full remissionOU D, in remission, on maintenance therapy Sep-2 2 [facility]. [address] [place] [address], [id number], [place]. tel:[phone] [facility], [address] [facility] [address], [place], [place], [address], [place] tel:[phone] [facility] MAT (chief complaint) Opioid Use Disorder, moderate, in sustained remission, on maintenance therapyEnco unter for monitoring Suboxone maintenance therapy Sep-2 2 No Informatio n [facility], [address] [facility] [address], [place], [place], [id number], [place] tel:[phone] Tele [facility] MAT (chief complaint) Opioid Use Disorder, moderate, in sustained remission, on maintenance therapyEnco unter for monitoring Suboxone maintenance therapy Sep-2 2 No Informatio n [facility], [address] [facility] [address], [place], [place], [address], [place] tel:[phone] Tele [facility] MAT (chief complaint) Opioid Use Disorder, moderate, in sustained remission, on maintenance therapyEnco unter for monitoring Suboxone maintenance therapy Sep-1 2 No Informatio n OFFICE/OUTPATI ENT VISIT, EST [facility], [address] [facility] [address], [place], [place], [address], [place] tel:[phone] [facility] chronic conditions (chief complaint) Chronic pain syndromeMod erate opioid use disorderAlc ohol use disorder, moderate, in early remissionPr imary hypertensio nExposure to COVID-19 virusMild persistent asthma without complicatio nBipolar IPTSD (post-traum atic stress disorder)En counter for monitoring Suboxone maintenance therapy Sep-1 2 Jeff Marquez. [address] [place] [address], [id number]. tel:[phone] Referring Provider: Alma Aguilar, [address] [place] [address], [id number]. tel:[phone] [facility], [address] [facility] [address], [place], [place], [address], [place] tel:[phone] Tele [facility] PTSDBipolar IOUD, in sustained remission, on maintenance therapyAUD in sustained, full remission Sep-0 2 Navin Rosales. [address] [place] [address], [place], [place], [id number], [place]. tel:[phone] [facility], [address] [facility] [address], [place], [place], [address], [place] tel:[phone] Tele [facility] MAT (chief complaint) Opioid Use Disorder, moderate, in sustained remission, on maintenance therapy Sep-0 2 No Informatio n [facility], [address] [facility] [address], [place], [place], [id number], [place] tel:[phone] Tele [facility] AUD in sustained, full remissionPT SDBipolar IOUD, in sustained remission, on maintenance therapy Apr-[address], [id number], [place]. tel:[phone] Toro [facility], [address] [facility][1] [address] [facility],[address], [place], [place], [id number], [place] tel:[phone] Tele [facility] f/u (chief complaint) Opioid Use Disorder, moderate, in sustained remission, on maintenance therapy 2 No Informjorden feliz Toro [facility], [address] [facility][1] [facility],[address], [place], [place], [address], [place] tel:[phone] Tele [facility] PTSDBipolar IAUD in sustained, full remissionOU D, in sustained remission, on maintenance therapy [address], [id number], [place]. tel:[phone] Tor[facility], [address] [facility][1] [address] [facility],[address], [place], [place], [address], [place] tel:[phone] Tele [facility] MAT (chief complaint) Opioid Use Disorder, moderate, in sustained remission, on maintenance therapyPain of gingivaHead ache disorder 2 No Informjorden feliz Toro [facility], [address] [facility][1] [address] [facility],[address], [place], [place], [id number], [place] tel:[phone] Tele [facility] Bipolar IPTSDOUD, moderate, in sustained remission, on maintenance therapyAUD in sustained, full remission [address], [id number], [place]. tel:[phone] Tor[facility], [address] [facility] [address], [place], [place], [id number], [place] tel:[phone] Tele [facility] mat (chief complaint) Opioid Use Disorder, moderate, in sustained remission, on maintenance therapy 2 No Informjorden feliz melanie [facility], [address] [facility] [address], [place], [place], [id number], [place] tel:[phone] Tele [facility] PTSDBipolar IAUD in sustained, full remissionOU D, moderate, in sustained remission, on maintenance therapy 2 Navin Rosales. [address] [place] [address], [id number], [place]. tel:[phone] OFFICE/OUTPATI ENT VISIT, EST Toro [facility], [address] [facility] [address], [place], [place], [id number], [place] tel:[phone] [facility] mat (chief complaint)ch ronic conditions (chief complaint) Opioid Use Disorder, moderate, in sustained remission, on maintenance therapyChro tank pain syndromeAlc ohol dependence, in remissionEs sential (primary) hypertensio nOverweight Body mass index (BMI) 26.0-26.9, adult 2 Jeff Marquez. [address] [place] [address], [id number]. tel:[phone] [facility], [address] [place] [address] 2,[address], [place], [place], [address], [place] tel:[phone] [facility] No Information 2 No Nevaeh feliz melanie [facility], [address] [facility] [address], [place], [place], [address], [place] tel:[phone] Tele [facility] MAT (chief complaint) Opioid Use Disorder, moderate, in sustained remission, on maintenance therapy 2 Magda Bobo. [address] [place] [address], [id number], [place]. tel:[phone] [facility], [address] [facility] [address], [place], [place], [address], [place] tel:[phone] Tele [facility] Bipolar IPTSDAUD in sustained, full remissionOU D, mild, in sustained remission, on maintenance therapy 2 Navin Rosales. [address] [place] [address], [id number], [place]. tel:[phone] OFFICE/OUTPATI ENT VISIT, EST melanie [facility], [address] [facility][1] [address], [place], [place], [id number], [place] tel:[phone] Tele [facility] depression (chief complaint)mo od disorder (chief complaint) PTSD (post-traum atic stress disorder) 2 No Nevaeh feliz [facility], [address] [facility][1] [address], [place], [place], [id number], [place] tel:[phone] Tele [facility] PTSDBipolar IAUD in sustained, full remissionOU D, mild, in sustained remission, on maintenance therapy 2 Navin Rosales. [address] [place] [address], [id number], [place]. tel:[phone] [facility], [address] [facility][1] [address], [place], [place], [address], [place] tel:[phone] Tele [facility] Bipolar IPTSDAUD in sustained, full remissionOU D, mild, in sustained remission, on maintenance therapy 2 Holden Bobby. [address] [place] [address], [id number], [place]. tel:[phone] OFFICE/OUTPATI ENT VISIT, EST melanie [facility], [address] [facility][1] [address], [place], [place], [id number], [place] tel:[phone] Tele [facility] MAT (chief complaint) Opioid Use Disorder, moderate, in sustained remission, on maintenance therapyBipo lar I 2 No Informjorden feliz [facility], [address] [facility][1] [address], [place], [place], [address], [place] tel:[phone] Tele [facility] Bipolar IPTSDOUD, moderate, in sustained remission, on maintenance therapyAUD in sustained, full remission [address], [id number], [place]. tel:[phone] Toro [facility], [address] [facility] [address], [place], [place], [address], [place] tel:[phone] Tele [facility] MAT (chief complaint) Opioid Use Disorder, moderate, in sustained remission, on maintenance therapyEnco unter for monitoring Suboxone maintenance therapy 2 No Informatio n OFFICE/OUTPATI ENT VISIT, EST Toro [facility], [address] [facility] [address], [place], [place], [address], [place] tel:[phone] [facility] MAT (chief complaint) Opioid Use Disorder, moderate, in sustained remission, on maintenance therapyRigh t lower quadrant abdominal painTobacco useHeartbur nAlcohol use disorder, moderate, in early remissionCh ronic pain syndromeGre at toe pain, left 2 No Informatio n melanie [facility], [address] [facility] [address], [place], [place], [address], [place] tel:[phone] [facility] No Information 2 Toño [address], [id number], [place]. tel:[phone] Tor[facility], [address] [facility] [address], [place], [place], [address], [place] tel:[phone] Tele [facility] MAT (chief complaint) Opioid Use Disorder, moderate, in sustained remission, on maintenance therapyEnco unter for monitoring Suboxone maintenance therapy 2 No Informatio n melanie [facility], [address] [facility] [address], [place], [place], [address], [place] tel:[phone] Tele [facility] Bipolar IPTSDOUD, mild, in sustained remission, on maintenance therapyAlco hol dependence, in remission 2 Navin Bobby. [address], [place], [id number], [place]. tel:[phone] OFFICE/OUTPATI ENT VISIT, EST [facility], [address] [facility] [address], [place], [place], [id number], [place] tel:[phone] Tele [facility] MAT (chief complaint) Opioid Use Disorder, moderate, in sustained remission, on maintenance therapyEnco unter for monitoring Suboxone maintenance therapyMajo r depressive disorder, recurrent, moderate 2 No Informjorden feliz melanie [facility], [address] [facility] [address], [place], [place], [id number], [place] tel:[phone] Tele [facility]AT (chief complaint) Proc/trtmt not crd out d/t pt lv bef seen by [facility] 2 Magda Bobo. [address], [place], [id number], [place]. tel:[phone] OFFICE/OUTPATI ENT VISIT, EST [facility], [address] [facility] [address], [place], [place], [id number], [place] tel:[phone] Tele [facility] mat tele (chief complaint) Opioid Use Disorder, moderate, in sustained remission, on maintenance therapyEnco unter for monitoring Suboxone maintenance therapy 2 No Informjorden feliz melanie [facility], [address] [facility] [address], [place], [place], [address], [place] tel:[phone] Tele [facility] PTSDBipolar IAUD in sustained, full remissionOU D, in sustained remission, on maintenance therapy 2 Navin Rosales. [address], [place], [id number], [place]. tel:[phone] melanie [facility], [address] [facility] [address], [place], [place], [id number], [place] tel:[phone] Tele [facility] Bipolar IPTSDOUD, moderate, in sustained remission, on maintenance therapyAUD in sustained, full remission 2 Navin Rosales. [address], [place], [id number], [place]. tel:[phone] [facility], [address] [facility][1] [facility],[address], [place], [place], [id number], [place] tel:[phone] Tele [facility] mat (chief complaint) Opioid Use Disorder, moderate, in sustained remission, on maintenance therapy 2 Azaroff Jihan. [address], [place], [id number], [place]. tel:[phone] [facility], [address] [facility][1] [address], [place], [place], [address], [place] tel:[phone] Tele [facility] MAT (chief complaint) Proc/trtmt not crd out d/t pt lv bef seen by [facility] 2 No Informatio n [facility], [address] [facility][1] [facility],[address], [place], [place], [id number], [place] tel:[phone] Tele [facility] PTSDBipolar IOUD, mild, in sustained remission, on maintenance therapyAlco hol dependence, in remission 2 Navin Rosales. [address], [place], [address], [place]. tel:[phone] [facility], [address] [facility][1] [address], [place], [place], [address], [place] tel:[phone] Tele [facility] MAT (chief complaint) Opioid Use Disorder, moderate, in sustained remission, on maintenance therapyGout y arthritis 2 No Informatio n OFFICE/OUTPATI ENT VISIT, EST [facility], [address] [facility] [address], [place], [place], [id number], [place] tel:[phone] [facility] lft foot (chief complaint) Opioid Use Disorder, moderate, in sustained remission, on maintenance therapyPain in metatarsus of left footGouty arthritisEl evated hemoglobin Z5eBspwlvuq lesterolemi a 2 Azaroff Jihan. [address], [place], [id number], [place]. tel:[phone] melanie [facility], [address] [facility] [address], [place], [place], [address], [place] tel:[phone] Tele [facility] PTSDBipolar IAUD in sustained, full remissionOU D, moderate, in sustained remission, on maintenance therapy 2 Navin Rosales. [address], [place], [address], [place]. tel:[phone] [facility], [address] [facility] [address], [place], [place], [address], [place] tel:[phone] Tele [facility] MAT (chief complaint) Opioid use disorder, moderate, on maintenance therapy 2 Azaroff Jihan. [address], [place], [id number], [place]. tel:[phone] OFFICE/OUTPATI ENT VISIT, EST Toro [facility], [address] [facility] [address], [place], [place], [address], [place] tel:[phone] Tele [facility] MAT (chief complaint) Opioid use disorder, moderate, on maintenance therapyEnco unter for monitoring Suboxone maintenance therapyUnsp ecified abdominal pain 2 No Informatio n [facility], [address] [facility] [address], [place], [place], [address], [place] tel:[phone] Tele [facility] Proc/trtmt not crd out d/t pt lv bef [facility] 2 Azaroff Jihan. [address], [place], [id number], [place]. tel:[phone] [facility], [address] [facility] [address], [place], [place], [address], [place] tel:[phone] [facility] No Information 2 Jeff Marquez. [address] [place], [place], [id number]. tel:[phone] [facility], [address] [facility] [address], [place], [place], [address], [place] tel:[phone] Tele [facility] PTSDBipolar IAlcohol dependence, in remissionOU D, moderate, in sustained remission, on maintenance therapy 2 Navin Rosales. [address], [place], [address], [place]. tel:[phone] [facility], [address] [facility] [address], [place], [place], [address], [place] tel:[phone] Tele [facility] MAT (chief complaint) Opioid Use Disorder, moderate, in sustained remission, on maintenance therapy 2 Azaroff Jihan. [address], [place], [address], [place]. tel:[phone] [facility], [address] [facility] [address], [place], [place], [address], [place] tel:[phone] Tele [facility] MAT (chief complaint) Opioid Use Disorder, moderate, in sustained remission, on maintenance therapy 2 Azaroff Jihan. [address] [place] [address], [id number], [place]. tel:[phone] [facility], [address] [facility] [address], [place], [place], [address], [place] tel:[phone] Tele [facility] Bipolar IPTSDOUD, moderate, in sustained remission, on maintenance therapyAlco hol dependence, in remission 2 Navin Rosales. [address], [place], [id number], [place]. tel:[phone] [facility], [address], [place], [place], [address], [place] tel:[phone] Tele [facility] MAT (chief complaint) Opioid Use Disorder, moderate, in sustained remission, on maintenance therapy Nov- 2 Magda Bobo. [address] [place] [address], [id number], [place]. tel:[phone] [facility], [address], [place], [place], [address], [place] tel:[phone] Tele [facility] OUD, moderate, in sustained remission, on maintenance therapyPTSD Bipolar IAlcohol dependence in remission Nov- 2 Navin Rosales. [address] [place] [address], [id number], [place]. tel:[phone] OFFICE/OUTPATI ENT VISIT, EST [facility], [address], [place], [place], [address], [place] tel:[phone] Tele [facility] mat tele (chief complaint) Opioid Use Disorder, moderate, in sustained remission, on maintenance therapyEnco unter for monitoring Suboxone maintenance therapy Nov- 2 No Informatio n OFFICE/OUTPATI ENT VISIT, EST [facility], [address] [facility][1] [facility],[address], [place], [place], [id number], [place] tel:[phone] Tele [facility] MAT (chief complaint) Opioid Use Disorder, moderate, in sustained remission, on maintenance therapyEnco unter for monitoring Suboxone maintenance therapy Nov- 2 No Informatio n [facility], [address] [facility][1] [facility],[address], [place], [place], [address], [place] tel:[phone] Tele [facility] PTSDBipolar IAlcohol dependence, in remissionOp ioid Use Disorder, moderate, in sustained remission, on maintenance therapy Nov-0 2 Navin Rosales. [address], [place], [id number], [place]. tel:[phone] OFFICE/OUTPATI ENT VISIT, EST [facility], [address] [facility][1] [facility],[address], [place], [place], [address], [place] tel:[phone] Tele [facility] MAT (chief complaint) Opioid Use Disorder, moderate, in sustained remission, on maintenance therapyEnco unter for monitoring Suboxone maintenance therapy 2 No Informatio trini [facility], [address] [facility][1] [facility],[address], [place], [place], [address], [place] tel:[phone] Tele [facility] Bipolar IPTSDAlcoho l dependence, in remissionOp ioid Use Disorder, moderate, in sustained remission, on maintenance therapy 2 Navin Rosales. [address] [facility], [place], [place], [address], [place]. tel:[phone] OFFICE/OUTPATI ENT VISIT, EST [facility], [address] [facility][1] [facility],[address], [place], [place], [address], [place] tel:[phone] Tele [facility] mat tele (chief complaint) Opioid use disorder, moderate, on maintenance therapyEnco unter for monitoring Suboxone maintenance therapy 2 No Informatidimitrios feliz [facility], [address] [facility][1] [facility],[address], [place], [place], [address], [place] tel:[phone] Tele [facility] MAT (chief complaint) Proc/trtmt not crd out d/t pt [facility] provProc/tr tmt not crd out d/t pt lv bef [facility] by [facility] 2 No Informatidimitrios feliz [facility], [address] [facility],[address], [place], [place], [address], [place] tel:[phone] Tele [facility] PTSDBipolar IAlcohol dependence, in remissionOp ioid Use Disorder, moderate, in sustained remission, on maintenance therapy 2 Navin Rosales. [address], [place], [address], [place]. tel:[phone] [facility], [address] [facility] [address], [place], [place], [address], [place] tel:[phone] [facility] No Information 2 No Informatio n OFFICE/OUTPATI ENT VISIT, EST [facility], [address] [facility] [address], [place], [place], [address], [place] tel:[phone] Tele [facility] MAT (chief complaint) Opioid use disorder, moderate, on maintenance therapyEnco unter for monitoring Suboxone maintenance therapy 2 No Informatio n [facility], [address] [place] [address] 2,[address], [place], [place], [address], [place] tel:[phone] Tele [facility] Opioid Use Disorder, moderate, in sustained remission, on maintenance therapyAlco hol dependence, in remissionPT SDBipolar I 2 Navin Rosales. [address] [place] [address], [id number], [place]. tel:[phone] OFFICE/OUTPATI ENT VISIT, EST [facility], [address] [facility] [address], [place], [place], [address], [place] tel:[phone] Tele [facility] MAT (chief complaint) Opioid use disorder, moderate, on maintenance therapyEnco unter for monitoring Suboxone maintenance therapyAcut e pain of left shoulder 2 Jeff Marquez. [address] [place], [place], [id number]. tel:[phone] OFFICE/OUTPATI ENT VISIT, EST [facility], [address] [facility] [address], [place], [place], [address], [place] tel:[phone] [facility] L Shoulder Pain (chief complaint) Acute pain of left shoulder 2 No Informatio n [facility], [address] [facility]1] [facility],[address], [place], [place], [address], [place] tel:[phone] [facility] MAT (chief complaint) Opioid use disorder, mild, in sustained remission, on maintenance therapyEnco unter for monitoring Suboxone maintenance therapy 2 No Informatio n [facility], [address] [facility] [address], [place], [place], [address], [place] tel:[phone] Tele [facility] Post-trauma tic stress disorderBip olar disorderOpi oid Use Disorder, Mild, In sustained remissionAl cohol dependence, in remission 2 Navin Rosales. [address] [place] [address], [id number], [place]. tel:[phone] OFFICE/OUTPATI ENT VISIT, EST [facility], [address] [facility] [address], [place], [place], [address], [place] tel:[phone] Tele [facility] MAT (chief complaint) Opioid use disorder, mild, in sustained remission, on maintenance therapy 2 No Informatio n OFFICE/OUTPATI ENT VISIT, EST [facility], [address] [facility] [address], [place], [place], [address], [place] tel:[phone] [facility] F/U (chief complaint) Injection site reaction, sequelaOpio id use disorder, mild, in sustained remission, on maintenance therapy 2 No Informatio n [facility], [address] [facility] [address], [place], [place], [address], [place] tel:[phone] Tele [facility] Opioid use disorder, mild, in sustained remission, on maintenance therapyBipo lar I disorderAlc ohol dependence in remissionPT SD (post-traum atic stress disorder) 2 Navin Rosales. [address] [place] [address], [id number], [place]. tel:[phone] OFFICE/OUTPATI ENT VISIT, EST [facility], [address] [facility] [address], [place], [place], [address], [place] tel:[phone] [facility] sublocade reaction (chief complaint) Injection site reaction, initial encounterCe llulitis, unspecified cellulitis siteOpioid use disorder, mild, in sustained remission, on maintenance therapy 2 No Informatio n [facility], [address] [facility] [address], [place], [place], [address], [place] tel:[phone] Tele [facility] Opioid use disorder, mild, in sustained remission, on maintenance therapyAlco hol dependence in remissionBi polar I disorderPTS D (post-traum atic stress disorder) 2 Navin Rosales. [address] [place] [address], [place], [place], [address], [place]. tel:[phone] [facility], [address] [facility] [address], [place], [place], [address], [place] tel:[phone] [facility] MAT (chief complaint) Opioid use disorder, moderate, on maintenance therapyEnco unter for monitoring Suboxone maintenance therapy 2 No Informatio n OFFICE/OUTPATI ENT VISIT, EST [facility], [address] [facility] [address], [place], [place], [address], [place] tel:[phone] [facility] Mat (chief complaint)ch ronic conditions (chief complaint) Muscle spasmBipola r affective disorder, remission status unspecified Alcohol use disorder, moderate, in early remissionOp ioid use disorder, moderate, on maintenance therapyPers onal history of asthmaEssen tial (primary) hypertensio n 2 Jeff Marquez. [address] [place] [address], [id number]. tel:[phone] [facility], [address] [facility] [address], [place], [place], [address], [place] tel:[phone] [facility] Alcohol dependence in remissionOp ioid use disorder, mild, in sustained remission, on maintenance therapyBipo lar I disorderPTS D (post-traum atic stress disorder) [address], [id number], [place]. tel:[phone] [facility], [address] [facility] [address], [place], [place], [address], [place] tel:[phone] [facility] Opioid use disorder, mild, in sustained remission, on maintenance therapyBipo lar I disorderAlc ohol dependence in remissionPT SD (post-traum atic stress disorder)Pr oc/trtmt not crd out d/t pt lv bef seen by [facility] prov 2 No Nevaeh feliz Toro [facility], [address] [facility] [address], [place], [place], [address], [place] tel:[phone] [facility] MAT (chief complaint) Opioid use disorder, moderate, on maintenance therapyEnco unter for monitoring Suboxone maintenance therapyMusc le spasm 2 No Nevaeh feliz Toro [facility], [address] [facility] [address], [place], [place], [address], [place] tel:[phone] [facility] Bipolar I disorderOpi oid use disorder, mild, in sustained remission, on maintenance therapyAlco hol dependence in remissionPT SD (post-traum atic stress disorder) 2 Navin Bobby. [address] [place] [address], [place], [place], [address], [place]. tel:[phone] OFFICE/OUTPATI ENT VISIT, EST Toro [facility], [address] [facility] [address], [place], [place], [address], [place] tel:[phone] [facility] Opioid use disorder, mild, in sustained remission, on maintenance therapyPTSD (post-traum atic stress disorder) 2 No Nevaeh feliz melanie [facility], [address], [place], [place], [address], [place] tel:[phone] Tele [facility] Opioid use disorder, mild, in sustained remission, on maintenance therapyBipo lar I disorderAlc ohol dependence in remissionPT SD (post-traum atic stress disorder) 2 Navin Rosales. [address] [facility], [place], [place], [address], [place]. tel:[phone] [facility], [address] [facility][1] [employer], [place], [place], [address], [place] tel:[phone] [facility] MAT (chief complaint) Opioid use disorder, mild, in sustained remission, on maintenance therapy 2 No Informatio n OFFICE/OUTPATI ENT VISIT, EST [facility], [address] [facility] [address], [place], [place], [address], [place] tel:[phone] Tele [facility] Opioid use disorder, mild, in sustained remission, on maintenance therapyBipo lar I disorderAlc ohol dependence in remissionPT SD (post-traum atic stress disorder) 2 No Informatio n OFFICE/OUTPATI ENT VISIT, EST [facility], [address] [facility][1] [facility],[address], [place], [place], [address], [place] tel:[phone] [facility] migraines. (chief complaint) Migraine without aura and without status migrainosus , not intractable Pruritus 1 No Informatio n OFFICE/OUTPATI ENT VISIT, EST [facility], [address] [facility]1] [facility],[address], [place], [place], [address], [place] tel:[phone] [facility] MAT (chief complaint) Opioid use disorder, mild, in sustained remission, on maintenance therapyMigr ambrose without aura and without status migrainosus , not intractable 1 No Informatio n OFFICE/OUTPATI ENT VISIT, EST [facility], [address] [facility] [address], [place], [place], [address], [place] tel:[phone] Tele [facility] Opioid use disorder, mild, in sustained remission, on maintenance therapyBipo lar I disorderAlc ohol dependence in remissionPT SD (post-traum atic stress disorder) 1 No Nevaeh feliz melanie [facility], [address] [facility][1] [employer], [place], [place], [address], [place] tel:[phone] Tele [facility] MAT (chief complaint) Proc/trtmt not crd out d/t pt lv bef seen by [facility] 1 No Nevaeh feliz [facility], [address] [facility][1] [address], [place], [place], [address], [place] tel:[phone] Tele [facility] MAT (chief complaint) Proc/trtmt not crd out d/t pt lv bef seen by [facility] 1 No Nevaeh feliz [facility], [address] [facility][1] [address], [place], [place], [address], [place] tel:[phone] Tele [facility] MAT (chief complaint) Opioid use disorder, mild, in sustained remission, on maintenance therapy 1 No Nevaeh feliz [facility], [address] [facility][1] [address], [place], [place], [address], [place] tel:[phone] Tele [facility] Opioid use disorder, mild, in sustained remission, on maintenance therapyBipo lar I disorderAlc ohol dependence in remissionPT SD (post-traum atic stress disorder) 1 Navin Rosales. [address] [place] [address], [place], [place], [address], [place]. tel:[phone] [facility], [address], [place], [place], [address], [place] tel:[phone] [facility] MAT (chief complaint) Opioid use disorder, mild, in sustained remission, on maintenance therapy 1 No Nevaeh feliz Toro [facility], [address] [facility][1] [facility],[address], [place], [place], [address], [place] tel:[phone] Tele [facility] Opioid use disorder, mild, in sustained remission, on maintenance therapyBipo lar I disorderAlc ohol dependence in remissionPT SD (post-traum atic stress disorder) 1 Navin Rosales. [address] [place] [address], [id number], [place]. tel:[phone] [facility], [address] [facility][1] [facility],[address], [place], [place], [address], [place] tel:[phone] Tele [facility] Opioid use disorder, mild, in sustained remission, on maintenance therapyBipo lar I disorderAlc ohol dependence in remissionPT SD (post-traum atic stress disorder) 1 No Nevaeh feliz melanie [facility], [address] [facility][1] [facility],[address], [place], [place], [address], [place] tel:[phone] Tele [facility] Opioid use disorder, mild, in sustained remission, on maintenance therapyAlco hol dependence in remissionBi polar I disorderPTS D (post-traum atic stress disorder)Co mplicated grieving 1 Navin Rosales. [address] [place] [address], [id number], [place]. tel:[phone] [facility], [address] [facility][1] [facility],[address], [place], [place], [address], [place] tel:[phone] Tele [facility] MAT (chief complaint) Proc/trtmt not crd out d/t pt lv bef [facility] 1 No Nevaeh feliz melanie [facility], [address] [facility][1] [facility],[address], [place], [place], [address], [place] tel:[phone] Tele [facility] Opioid use disorder, mild, in sustained remission, on maintenance therapyBipo lar I disorderAlc ohol dependence in remissionCo mplicated grievingPTS D (post-traum atic stress disorder) 1 Navin Rosales. [address] [place] [address], [id number], [place]. tel:[phone] melanie [facility], [address], [place], [place], [address], [place] tel:[phone] Tele [facility] MAT (chief complaint) Opioid use disorder, mild, in sustained remission, on maintenance therapy 1 No Nevaeh feliz [facility], [address] [facility][1] [facility],[address], [place], [place], [address], [place] tel:[phone] Tele [facility] Opioid use disorder, mild, in sustained remission, on maintenance therapyAlco hol dependence in remissionBi polar I disorderPTS D (post-traum atic stress disorder) 1 Navin Rosales. [address] [place] [address], [id number], [place]. tel:[phone] [facility], [address] [facility][1] [address], [place], [place], [address], [place] tel:[phone] [facility] MAT (chief complaint) Opioid use disorder, mild, in sustained remission, on maintenance therapy 1 No Nevaeh feliz [facility], [address] [facility][1] [facility],[address], [place], [id number], [place] tel:[phone] Tele [facility] Opioid use disorder, mild, in sustained remission, on maintenance therapyAlco hol dependence in remissionPT SD (post-traum atic stress disorder) 1 Navin Garduno [address] [place] [address], [id number], [place]. tel:[phone] [facility], [address] [facility][1] [address], [place], [place], [id number], [place] tel:[phone] Tele [facility] Opioid use disorder, mild, in sustained remission, on maintenance therapyAlco hol dependence in remissionPT SD (post-traum atic stress disorder) 1 Navin Rosales. [address] [place] [address], [id number], [place]. tel:[phone] Toro [facility], [address] [facility][1] [address], [place], [place], [id number], [place] tel:[phone] Tele [facility] Opioid use disorder, mild, in sustained remission, on maintenance therapyAlco hol dependence in remissionBi polar I disorder May- 1 Navin Rosales. [address] [place] [address], [id number], [place]. tel:[phone] Toro [facility], [address] [facility][1] [facility],[address], [place], [place], [id number], [place] tel:[phone] [facility] Opioid use disorder, mild, in sustained remission, on maintenance therapyPTSD (post-traum atic stress disorder)Al cohol dependence in remission Apr- 1 Holden Bobby. [address] [place] [address], [id number], [place]. tel:[phone] Toro [facility], [address] [facility][1] [address], [place], [place], [id number], [place] tel:[phone] [facility] MAT (chief complaint) Opioid use disorder, mild, in sustained remission, on maintenance therapy Apr- 1 No Informatio n Toro [facility], [address] [facility][1] [facility] [facility],[address], [place], [place], [id number], [place] tel:[phone] Tele [facility] Opioid use disorder, mild, in sustained remission, on maintenance therapyPTSD (post-traum atic stress disorder)Bi polar I disorder Apr- 1 [facility] Bobby. [address] [place] [address], [id number], [place]. tel:[phone] melanie [facility], [address] [facility][1] [facility],[address], [place], [place], [id number], [place] tel:[phone] Tele [facility] Bipolar I disorderPTS D (post-traum atic stress disorder)Op ioid use disorder, mild, in sustained remission, on maintenance therapyAlco hol dependence in remission 1 Navin Bobby. [address] [place] [address], [id number], [place]. tel:[phone] Toro [facility], [address] [facility] [address], [place], [place], [id number], [place] tel:[phone] Tele [facility] Opioid use disorder, mild, in sustained remission, on maintenance therapyPTSD (post-traum atic stress disorder) Apr- 1 Navin Bobby. [address] [place] [address], [id number], [place]. tel:[phone] melanie [facility], [address] [place] [address] 2,[address], [place], [place], [id number], [place] tel:[phone] [facility] MAT (chief complaint) Proc/trtmt not crd out d/t pt lv bef seen by [facility] prov 1 No Informatio n Toro [facility], [address] [place] [address] 2,[address], [place], [place], [id number], [place] tel:[phone] Tele [facility] Major depressive disorder, recurrent, moderateOpi oid use disorder, mild, in sustained remission, on maintenance therapyBipo lar I disorder 1 Navin Rosales. [address] [place] [address], [id number], [place]. tel:[phone] [facility], [address] [place] [address] 2,[address], [place], [place], [id number], [place] tel:[phone] [facility] No Information 1 Jeff Marquez. [address] [place] [address], [id number]. tel:[phone] OFFICE/OUTPATI ENT VISIT, EST Toro [facility], [address], [place], [place], [id number], [place] tel:[phone] [facility] MAT (chief complaint) Opioid use disorder, mild, in sustained remission, on maintenance therapy 1 No Nevaeh feliz Toro [facility], [address] [facility][1] [facility],[address], [place], [place], [id number], [place] tel:[phone] Tele [facility] Opioid use disorder, mild, in sustained remission, on maintenance therapyBipo lar I disorderPTS D (post-traum atic stress disorder) 1 Navin Rosales. [address] [place] [address], [id number], [place]. tel:[phone] Toro [facility], [address] [facility][1] [facility],[address], [place], [place], [id number], [place] tel:[phone] Tele [facility] MAT (chief complaint) Opioid use disorder, mild, in sustained remission, on maintenance therapyEnco untguido for monitoring Suboxone maintenance therapy 1 No Nevaeh feliz Toro [facility], [address] [facility]1] [facility],[address], [place], [place], [id number], [place] tel:[phone] Tele [facility] Opioid use disorder, moderate, in sustained remission, on maintenance therapyBipo lar I disorderPTS D (post-traum atic stress disorder) 1 Navin Garduno [address] [place] [address], [id number], [place]. tel:[phone] Toro [facility], [address] [facility][1] [facility]off[address] [facility],[address], [place], [place], [id number], [place] tel:[phone] Tele [facility] MAT (chief complaint) Proc/trtmt not crd out d/t pt lv bef seen by [facility] 1 No Nevaeh feliz Toro [facility], [address] [facility],[address], [place], [place], [id number], [place] tel:[phone] Tele [facility] Opioid use disorder, mild, in sustained remission, on maintenance therapyBipo lar I disorderAlc ohol use disorder, moderate, in early remission [address], [id number], [place]. tel:[phone] Toro [facility], [address], [place], [place], [id number], [place] tel:[phone] [facility] MAT (chief complaint) Opioid use disorder, mild, in sustained remission, on maintenance therapyEnco rubin for monitoring Suboxone maintenance therapy 1 No Nevaeh feliz Toro [facility], [address] [facility][1] [address], [place], [place], [id number], [place] tel:[phone] Tele [facility] Bipolar I disorderOpi oid use disorder, mild, in sustained remission, on maintenance therapy [address], [id number], [place]. tel:[phone] Toro [facility], [address] [facility][1] [address], [place], [place], [id number], [place] tel:[phone] [facility] MAT (chief complaint) Opioid use disorder, mild, in sustained remission, on maintenance therapy 1 No Nevaeh feliz Toro [facility], [address] [facility][1] [address], [place], [place], [id number], [place] tel:[phone] Tele [facility] Alcohol use disorder, moderate, in early remissionOp ioid use disorder, mild, in sustained remission, on maintenance therapyBipo lar I disorderPTS D (post-traum atic stress disorder) [address], [id number], [place]. tel:[phone] Toro [facility], [address] [facility][1] [address], [place], [place], [id number], [place] tel:[phone] Tele [facility] Opioid use disorder, mild, in sustained remission, on maintenance therapyMajo r depressive disorder, recurrent, moderatePTS D (post-traum atic stress disorder) [address], [id number], [place]. tel:[phone] OFFICE/OUTPATI ENT VISIT, EST melanie [facility], [address] [facility] [address], [place], [id number], [place] tel:[phone] [facility] TELE (chief complaint) Encounter for monitoring Suboxone maintenance therapy 1 Toño Damien. [address] [place] [address], [id number], [place]. tel:[phone] Toro [facility], [address] [facility] [address], [place], [id number], [place] tel:[phone] [facility] Alcohol use disorder, moderate, in sustained remissionOp ioid use disorder, mild, in sustained remission, on maintenance therapyBipo lar I disorderPTS D (post-traum atic stress disorder) [address], [id number], [place]. tel:[phone] OFFICE/OUTPATI ENT VISIT, EST [facility], [address] [place] [address] 2,[address], [place], [id number], [place] tel:[phone] Tele [facility] OUD (chief complaint) Opioid use disorder, mild, in sustained remission, on maintenance therapyEnco unter for monitoring Suboxone maintenance therapyMajo r depressive disorder, recurrent, moderate 1 No Informatio n [facility], [address] [facility] [address], [place], [id number], [place] tel:[phone] [facility] [employer] [facility] Bipolar I disorderOpi oid use disorder, mild, in sustained remission, on maintenance therapyPTSD (post-traum atic stress disorder) 1 Navin Rosales. [address] [place], [place], [id number], [place]. tel:[phone] [facility], [address] [facility][1] [facility],[address], [place], [place], [id number], [place] tel:[phone] [facility] MAT (chief complaint) Opioid use disorder, mild, in sustained remission, on maintenance therapyEnco unter for monitoring Suboxone maintenance therapy 1 No Informatio n [facility], [address] [facility][1] [facility]off[address] [facility],[address], [place], [place], [id number], [place] tel:[phone] Tele [facility] Major depressive disorder, recurrent, moderateBip olar I disorderOpi oid use disorder, mild, in early remission, on maintenance therapy 1 Navin Rosales. [address] [place] [address], [id number], [place]. tel:[phone] OFFICE/OUTPATI ENT VISIT, EST [facility], [address] [facility][1] [facility] [facility],[address], [place], [place], [id number], [place] tel:[phone] [facility] Follow Up of ED (chief complaint) Hematemesis without nauseaOpioi d use disorder, mild, in sustained remission, on maintenance therapy 1 No Informatio n [facility], [address] [facility][1] [facility],[address], [place], [place], [id number], [place] tel:[phone] Tele [facility] Opioid use disorder, mild, in sustained remission, on maintenance therapyBipo lar I disorder 1 Navin Rosales. [address] [place] [address], [id number], [place]. tel:[phone] [facility], [address] [facility][1] [facility],[address], [place], [place], [id number], [place] tel:[phone] [facility] tele (chief complaint) Encounter for monitoring Suboxone maintenance therapyProc /trtmt not crd out d/t pt lv bef seen by [facility] 1 Toño Quezada. [address] [place] [address], [id number], [place]. tel:[phone] melanie [facility], [address] [facility],[address], [place], [place], [id number], [place] tel:[phone] Tele [facility] Alcohol use disorder, moderate, in early remissionOp ioid use disorder, moderate, in sustained remission, on maintenance therapyBipo lar I disorderPTS D (post-traum atic stress disorder) 1 [facility]. [address] [place] [address], [id number], [place]. tel:[phone] [facility], [address] [facility] [address], [place], [id number], [place] tel:[phone] Tele [facility] Opioid use disorder, mild, in sustained remission, on maintenance therapyBipo lar I disorderMaj or depressive disorder, recurrent, moderate 1 [facility]. [address] [place] [address], [id number], [place]. tel:[phone] [facility], [address] [facility] [address], [place], [place], [id number], [place] tel:[phone] [facility] tele (chief complaint) Encounter for monitoring Suboxone maintenance therapyProc /trtmt not crd out d/t pt lv bef seen by [facility] 1 No Informatio n [facility], [address] [facility] [address], [place], [place], [id number], [place] tel:[phone] [facility] OUD (chief complaint) Encounter for monitoring Suboxone maintenance therapyChro tank pain syndrome 1 No Informatio n [facility], [address] [facility] [address], [place], [place], [id number], [place] tel:[phone] Tele [facility] Major depressive disorder, recurrent, moderatePTS D (post-traum atic stress disorder)Bi polar I disorderAlc ohol dependence in sustained full remissionOp ioid use disorder, mild, in sustained remission, on maintenance therapy 1 Navin Rosales. [address] [place], [place], [id number], [place]. tel:[phone] [facility], [address] [facility][1] [facility],[address], [place], [place], [id number], [place] tel:[phone] [facility] Bipolar I disorderOpi oid use disorder, mild, in sustained remission, on maintenance therapyAlco hol dependence in remission 1 Navin Rosales. [address] [place] [address], [id number], [place]. tel:[phone] [facility], [address] [facility][1] [facility],[address], [place], [place], [id number], [place] tel:[phone] [facility] Opioid use disorder, mild, in sustained remission, on maintenance therapyAlco hol dependence in sustained full remissionBi polar I disorder 1 Navin Rosales. [address] [place] [address], [id number], [place]. tel:[phone] [facility], [address] [facility][1] [address], [place], [place], [id number], [place] tel:[phone] [facility] Chronic pain syndromePai n in left legRadiculo dipika, lumbar region 1 Jeff Marquez. [address] [place] [address], [id number]. tel:[phone] [facility], [address] [facility][1] [facility],[address], [place], [place], [id number], [place] tel:[phone] [facility] Bipolar I disorderOpi oid use disorder, mild, in sustained remission, on maintenance therapyPTSD (post-traum atic stress disorder) Nov-3 1 Navin Rosales. [address] [place] [address], [id number], [place]. tel:[phone] [facility], [address] [facility][1] [address], [place], [place], [id number], [place] tel:[phone] [facility]/ MAT (chief complaint) Encounter for monitoring Suboxone maintenance therapy Apr-2 1 Toño Quezada. [address] [place] [address], [id number], [place]. tel:[phone] [facility], [address] [facility][1] [address], [place], [place], [id number], [place] tel:[phone] [facility] [employer] [facility] Bipolar I disorderPTS D (post-traum atic stress disorder)Op ioid use disorder, mild, in sustained remission, on maintenance therapyAlco hol dependence in sustained full remission Apr-2 1 Navin Garduno [address] [place] [address], [id number], [place]. tel:[phone] [facility], [address] [facility][1] [address], [place], [place], [id number], [place] tel:[phone] [facility] [employer] [facility] Bipolar I disorderOpi oid use disorder, mild, in sustained remissionPT SD (post-traum atic stress disorder) Apr-1 1 Navin Bobby. [address] [place] [address], [id number], [place]. tel:[phone] [facility], [address] [facility][1] [facility]off[facility],[address], [place], [place], [id number], [place] tel:[phone] Tele [facility] [employer] [facility] Alcohol use disorder, moderate, in early remissionOp ioid use disorder, mild, in sustained remission, on maintenance therapyBipo lar I disorderPTS D (post-traum atic stress disorder) Apr-0 1 Navin Rosales. [address] [place] [address], [id number], [place]. tel:[phone] [facility], [address] [facility][1] [facility],[address], [place], [place], [id number], [place] tel:[phone] Tele [employer] [facility] Alcohol dependence in remissionBi polar I disorderOpi oid use disorder, mild, in sustained remission, on maintenance therapyPTSD (post-traum atic stress disorder) 1 Navin Rosales. [address] [place] [address], [id number], [place]. tel:[phone] [facility], [address] [facility][1] [facility]off[address] [facility],[address], [place], [place], [id number], [place] tel:[phone] Tele [facility] MAT OBAT (chief complaint) Encounter for monitoring Suboxone maintenance therapy 1 No Informatio n [facility], [address] [facility] [address], [place], [place], [id number], [place] tel:[phone] [facility] LWOBS (chief complaint) Proc/trtmt not crd out d/t pt lv bef seen by [facility] prov 1 No Informatio n [facility], [address] [facility][1] [facility],[address], [place], [place], [address], [place] tel:[phone] Tele [facility] MAT (chief complaint) Encounter for monitoring Suboxone maintenance therapy 1 Magda Bobo. [address] [place] [address], [id number], [place]. tel:[phone] [facility], [address] [facility][1] [facility],[address], [place], [place], [id number], [place] tel:[phone] Tele [facility] Major depressive disorder, recurrent, moderateOpi oid use disorder, moderate, in sustained remission, on maintenance therapyBipo lar I disorderPTS D (post-traum atic stress disorder) 1 Navin Rosales. [address] [place], [place], [id number], [place]. tel:[phone] [facility], [address] [facility] [address] [place] [address], [id number], [place] tel:[phone] Tele [facility] Opioid use disorder, mild, in sustained remission, on maintenance therapyBipo lar I disorderPTS D (post-traum atic stress disorder)Al cohol dependence in remission [address], [id number], [place]. tel:[phone] [facility], [address] [facility] 2,[address], [place], [id number], [place] tel:[phone] Tele [facility] Opioid use disorder, mild, in sustained remission, on maintenance therapyBipo lar I disorderPTS D (post-traum atic stress disorder) [address], [id number], [place]. tel:[phone] [facility], [address] [facility] [address], [place], [place], [id number], [place] tel:[phone] Tele [facility] [employer] [facility] Bipolar I disorderPTS D (post-traum atic stress disorder)Op ioid use disorder, mild, in sustained remission, on maintenance therapyAlco hol dependence in remission [address], [id number], [place]. tel:[phone] [facility], [address] [facility][1] [facility],[address], [place], [place], [id number], [place] tel:[phone] Tele [facility] [employer] [facility] PTSD (post-traum atic stress disorder)Bi polar I disorderOpi oid use disorder, mild, in sustained remission, on maintenance therapy [address], [id number], [place]. tel:[phone] OFFICE/OUTPATI ENT VISIT, EST [facility], [address] [facility] [address], [place], [id number], [place] tel:[phone] [facility] OUD (chief complaint) Opioid use disorder, mild, in sustained remission, on maintenance therapyEnco unter for monitoring Suboxone maintenance therapyMild persistent asthma in adult without complicatio nMigraine with aura and without status migrainosus , not intractable 1 No Informatio n Toro [facility], [address] [facility] [address], [place], [id number], [place] tel:[phone] [facility] Bipolar I disorderPTS D (post-traum atic stress disorder)Op ioid use disorder, mild, in sustained remission, on maintenance therapy 1 Navin Rosales. [address] [place] [address], [id number], [place]. tel:[phone] melanie [facility], [address] [facility] [address], [place], [place], [id number], [place] tel:[phone] [facility] Bipolar I disorderPTS D (post-traum atic stress disorder)Op ioid use disorder, mild, in sustained remission, on maintenance therapyAlco hol dependence in remission 1 Navin Rosales. [address] [place] [address], [id number], [place]. tel:[phone] melanie [facility], [address] [facility][1] [facility] 2,[address], [place], [place], [address], [place] tel:[phone] [facility] Opioid use disorder, moderate, in sustained remission, on maintenance therapyBipo lar I disorderPTS D (post-traum atic stress disorder) 1 Navin Rosales. [address] [place] [address], [id number], [place]. tel:[phone] [facility], [address] [facility] [address], [place], [place], [id number], [place] tel:[phone] [facility] Opioid use disorder, mild, in sustained remission, on maintenance therapyPTSD (post-traum atic stress disorder)Bi polar I disorderAlc ohol dependence in remission 0 Navin Rosales. [address] [place] [address], [id number], [place]. tel:[phone] [facility], [address] [facility] [address], [place], [place], [id number], [place] tel:[phone] Tele [facility] MAT (chief complaint) Major depressive disorder, recurrent, moderateEnc ounter for monitoring Suboxone maintenance therapyOpio id use disorder, mild, in sustained remission, on maintenance therapy 0 No Informatio n AUDIT/DAST, 15-30 MIN [facility], [address] [place] [address] 2,[address], [place], [place], [id number], [place] tel:[phone] Tele [facility] chronic conditions (chief complaint) Family history of lung cancerFamil y history of gallbladder diseaseLeft hamstring injury, subsequent encounterMa gilbert depressive disorder, recurrent, moderate 0 Jeff Marquez. [address] [place] [address], [id number]. tel:[phone] [facility], [address] [facility] [address], [place], [place], [id number], [place] tel:[phone] [facility] Bipolar I disorderPTS D (post-traum atic stress disorder)Op ioid use disorder, moderate, in sustained remission, on maintenance therapy 0 Navin Rosales. [address] [place] [address], [id number], [place]. tel:[phone] [facility], [address] [facility] [address], [place], [place], [id number], [place] tel:[phone] [facility] Bipolar I disorderPTS D (post-traum atic stress disorder)Op ioid use disorder, moderate, in sustained remission, on maintenance therapy 0 Navin Rosales. [address] [place] [address], [id number], [place]. tel:[phone] [facility], [address] [facility] [address], [place], [id number], [place] tel:[phone] Tele [employer] [facility] Opioid use disorder, moderate, in sustained remission, on maintenance therapyMajo r depressive disorder, recurrent, moderateBip olar I disorderPTS D (post-traum atic stress disorder)Al cohol dependence in remissionGr ief 0 [facility]. [address] [place] [address], [id number], [place]. tel:[phone] [facility], [address] [facility][1] [facility],[address], [place], [id number], [place] tel:[phone] Tele [facility] TELEVISIT (chief complaint) Encounter for monitoring Suboxone maintenance therapyGrie f 0 [place] [address], [id number], . tel:[phone] melanie [facility], [address] [facility][1] [facility],[address], [place], [place], [id number], [place] tel:[phone] Tele [employer] Bipolar I disorderPTS D (post-traum atic stress disorder)Op ioid use disorder, mild, in sustained remission, on maintenance therapyAlco hol dependence in remissionGr ief 0 Holden Bobby. [address] [place] [address], [id number], [place]. tel:[phone] melanie [facility], [address] [facility][1] [facility],[address], [place], [place], [id number], [place] tel:[phone] Tele [employer] Bipolar I disorderOpi oid use disorder, mild, in sustained remission, on maintenance therapyMajo r depressive disorder, severePTSD (post-traum atic stress disorder) Oct-3 0 0 [facility]. [address] [place] [address], [id number], [place]. tel:[phone] melanie [facility], [address] [facility] [address], [place], [id number], [place] tel:[phone] Tele [facility] [employer] [facility] Bipolar I disorderAlc ohol dependence in remissionMa gilbert depressive disorder, severePTSD (post-traum atic stress disorder)Op ioid use disorder, mild, in sustained remission, on maintenance therapy 0 Holden Bobby. [address] [place] [address], [id number], [place]. tel:[phone] melanie [facility], [address] [place] [address] 2,[address], [place], [id number], [place] tel:[phone] Tele [facility] MAT (chief complaint) Encounter for monitoring Suboxone maintenance therapyExpo sure to STD 0 Magda Bobo. [address] [place] [address], [id number], [place]. tel:[phone] OFFICE/OUTPATI ENT VISIT, EST Toro [facility], [address] [place] [address] 2,[address], [place], [id number], [place] tel:[phone] [facility] leg pain (chief complaint)ch ronic conditions (chief complaint) Exposure to STDLeft hamstring injury, subsequent encounterAl cohol use disorder, moderate, in early remissionBi polar affective disorder, currently depressed, moderateEss ential (primary) hypertensio n 0 Jeff Marquez. [address] [place] [address], [id number]. tel:[phone] melanie [facility], [address] [place] [address] 2,[address], [place], [id number], [place] tel:[phone] Tele [facility] [facility] Bipolar I disorderPTS D (post-traum atic stress disorder)Op ioid use disorder, mild, in sustained remission, on maintenance therapyAlco hol dependence in remission 0 Navin Rosales. [address] [place] [address], [id number], [place]. tel:[phone] melanie [facility], [address] [place] [address] 2,[address], [place], [id number], [place] tel:[phone] Tele [facility] [employer] [facility] Opioid use disorder, moderate, in sustained remission, on maintenance therapyBipo lar I disorderAlc ohol dependence in remissionPT SD (post-traum atic stress disorder) [address], [id number], [place]. tel:[phone] Toro [facility], [address] [facility][1] [facility] [address], [place], [id number], [place] tel:[phone] [facility] [employer] [facility] Bipolar I disorderPTS D (post-traum atic stress disorder)Op ioid use disorder, mild, in sustained remission, on maintenance therapyAlco hol dependence in remission 0 [address], [id number], [place]. tel:[phone] Toro [facility], [address] [facility][1] [facility] [address], [place], [place], [id number], [place] tel:[phone] [facility] No Information 0 Home Health Care Case Manager. . Toro [facility], [address] [facility][1] [facility] [address], [place], [place], [id number], [place] tel:[phone] [facility] [employer] [facility] BP check (chief complaint) BP check 0 No Informatio n Toro [facility], [address] [facility][1] [facility] [address], [place], [place], [id number], [place] tel:[phone] [facility] [employer] [facility] Opioid use disorder, moderate, in sustained remission, on maintenance therapyAlco hol use disorder, moderate, in sustained remissionBi polar I disorderPTS D (post-traum atic stress disorder)An ticipatory grieving [address], [id number], [place]. tel:[phone] Toro [facility], [address] [facility][1] [facility] [address], [place], [id number], [place] tel:[phone] [facility] chronic conditions (chief complaint)br uising tendency (chief complaint) Bruising tendencyMig chemo with aura and without status migrainosus , not intractable Essential (primary) hypertensio nMild persistent asthma in adult without complicatio n Apr- 0 Jeff Marquez. [address] [place] [address], [id number]. tel:[phone] melanie [facility], [address] [place] [address],[address], [place], [id number], [place] tel:[phone] Tele [facility] OUD (chief complaint) Opioid use disorder, mild, in sustained remission, on maintenance therapyEnco unter for monitoring Suboxone maintenance therapyHead ache Apr- 0 No Informatio n Toro [facility], [address] [place] [address],Suite [facility], [place], [place], [id number], [place] tel:[phone] [facility] Opioid use disorder, mild, in sustained remission, on maintenance therapyBipo lar I disorderAlc ohol use disorder, moderate, in sustained remissionPT SD (post-traum atic stress disorder) Sep- 0 Navin Rosales. [address] [place] [address], [id number], [place]. tel:[phone] Toro [facility], [address] [place] [address] 2,[address], [place], [place], [id number], [place] tel:[phone] Tele [facility] mat (chief complaint) Proc/trtmt not crd out d/t pt lv bef seen by [facility] provProc/tr tmt not crd out d/t pt lv bef seen by [facility] prov Apr- 0 Magda Bobo. [address] [place] [address], [id number], [place]. tel:[phone] melanie [facility], [address] [place] [address] 2,[address], [place], [id number], [place] tel:[phone] Tele [facility] OUD (chief complaint) Opioid use disorder, mild, in sustained remission, on maintenance therapyEnco unter for monitoring Suboxone maintenance therapyHome lessLeft leg pain Apr- 0 No Informatio n Toro [facility], [address] [place] [address] 2,Suite [facility], [place], [place], [id number], [place] tel:[phone] Tele [employer] [facility] Bipolar I disorderPTS D (post-traum atic stress disorder)Op ioid use disorder, mild, in sustained remission, on maintenance therapyAlco hol use disorder, moderate, in sustained remission Apr- 0 Holden Bobby [employer] [place], [place], [id number], [place]. tel:[phone] Toro [facility], [address] [place] [address] 2,[address], [place], [place], [id number], [place] tel:[phone] Tele [facility] TELEVISIT (chief complaint) Encounter for monitoring Suboxone maintenance therapyPati ent left without being seenProc/tr tmt not crd out d/t pt lv bef [facility] prov Apr- 0 [facility]. [address] [place] [address], [id number], [place]. tel:[phone] Toro [facility], [address] [place] [address] 2,[address], [place], [place], [id number], [place] tel:[phone] Tele [employer] [facility] Alcohol use disorder, moderate, in early remissionBi polar I disorderMaj or depressive disorder, recurrent, moderateOpi oid use disorder, mild, in sustained remission, on maintenance therapy Sep- 0 Holden Bobby. [employer] , [place], [place], [id number], [place]. tel:[phone] Toro [facility], [address] [place] [address] 2,[address], [place], [place], [id number], [place] tel:[phone] Tele [employer] [facility] Opioid use disorder, mild, in sustained remission, on maintenance therapyBipo lar I disorderPTS D (post-traum atic stress disorder) 0 Navin Rosales. [address] [place], [place], [id number], [place]. tel:[phone] [facility], [address] [facility][1] [facility],[address], [place], [place], [id number], [place] tel:[phone] [facility] Opioid use disorder, mild, in sustained remission, on maintenance therapyBipo lar I disorderPTS D (post-traum atic stress disorder) 0 Holden Bobby. [address] [place], [place], [id number], [place]. tel:[phone] [facility], [address] [facility] [address], [place], [place], [id number], [place] tel:[phone] [facility] Opioid use disorder, mild, in sustained remission, on maintenance therapyBipo lar I disorderAlc ohol dependence in remission 0 Holden Bobby. [address] [place] [address], [id number], [place]. tel:[phone] [facility], [address] [facility] [address], [place], [place], [id number], [place] tel:[phone] [facility] Encounter for dental exam and cleaning w/o abnormal findings 0 Bryce Pena [address] [place] [address], [id number], [place]. tel:[phone] [facility], [address] [facility] [address], [place], [place], [id number], [place] tel:[phone] [facility] Bipolar I disorderOpi oid use disorder, moderate, in sustained remission, on maintenance therapyPTSD (post-traum atic stress disorder) 0 Navin Rosales. [address] [place], [place], [id number], [place]. tel:[phone] [facility], [address] [facility] [address], [place], [place], [id number], [place] tel:[phone] [facility] Encounter for dental exam and cleaning w/o abnormal findings 0 Santhosh Turner. [address] [place], [place], [id number], [place]. tel:[phone] [facility], [address] [facility] [address], [place], [place], [id number], [place] tel:[phone] Tele [facility] MAT (chief complaint) Encounter for monitoring Suboxone maintenance therapyOste oarthritis, unspecified osteoarthri tis type, unspecified site 0 Azarofsheldon Bobo. [address] [place], [place], [id number], [place]. tel:[phone] [facility], [address] [facility][1] [facility],[address], [place], [place], [id number], [place] tel:[phone] Tele [facility] Opioid use disorder, moderate, in sustained remission, on maintenance therapyBipo lar I disorderPTS D (post-traum atic stress disorder)Al cohol use disorder, moderate, in early remission 0 Navin Rosales. [address] [place] [address], [id number], [place]. tel:[phone] [facility], [address] [facility][1] [facility] [address], [place], [place], [id number], [place] tel:[phone] Tele [facility] Opioid use disorder, mild, in sustained remission, on maintenance therapyPTSD (post-traum atic stress disorder)Al cohol use disorder, moderate, in early remissionBi polar I disorder 0 Navin Rosales. [address] [place] [address], [id number], [place]. tel:[phone] [facility], [address] [facility][1] [facility],[address], [place], [place], [id number], [place] tel:[phone] [facility] No Information 0 Home Health Care Case Manager. . [facility], [address] [facility][1] [facility],[address], [place], [place], [address], [place] tel:[phone] Tele [facility] chest pain/left arm numbness (chief complaint)le ft leg injury (chief complaint) Chest pain, atypicalLef t leg pain 0 David Woodward. [address] [place] [address], [id number]. tel:[phone] Toro [facility], [address] [facility] [address], [place], [place], [id number], [place] tel:[phone] Tele [facility] Opioid use disorder, mild, in early remission, on maintenance therapyAlco hol use disorder, moderate, in early remissionBi polar I disorderPTS D (post-traum atic stress disorder) 0 Navin Rosales. [address] [place] [address], [id number], [place]. tel:[phone] Toro [facility], [address] [facility] [address], [place], [place], [address], [place] tel:[phone] Tele [facility] MAT (chief complaint) Encounter for monitoring Suboxone maintenance therapyDiff iculty controlling angerHomele ss 0 No Nevaeh feliz melanie [facility], [address] [facility] [address], [place], [place], [address], [place] tel:[phone] Tele [facility] Bipolar I disorderOpi oid use disorder, moderate, in sustained remission, on maintenance therapyAlco hol use disorder, moderate, in early remission 0 Navin Rosales. [address] [place] [address], [id number], [place]. tel:[phone] [facility], [address] [facility] [address], [place], [place], [id number], [place] tel:[phone] Tele [facility] OUD (chief complaint) Opioid use disorder, moderate, in sustained remission, on maintenance therapyEnco unter for monitoring Suboxone maintenance therapy 0 No Informatio n [facility], [address] [facility] [address], [place], [place], [id number], [place] tel:[phone] Tele [facility] MAT/OBAT (chief complaint) Patient left without being seen 0 No Informatio n [facility], [address] [facility] [address], [place], [place], [id number], [place] tel:[phone] Tele [facility] Opioid use disorder, moderate, in sustained remission, on maintenance therapyBipo lar I disorderAlc ohol use disorder, moderate, in early remissionPT SD (post-traum atic stress disorder) 0 Navin Garduno [address] [place] [address], [id number], [place]. tel:[phone] [facility], [address] [facility] [address], [place], [place], [id number], [place] tel:[phone] Tele [facility] Opioid use disorder, moderate, in sustained remission, on maintenance therapyBipo lar I disorderPTS D (post-traum atic stress disorder) 0 Navin Garduno [address] [place] [address], [id number], [place]. tel:[phone] [facility], [address] [facility] [address], [place], [place], [address], [place] tel:[phone] Tele [facility] OBAT/OUD (chief complaint) Opioid use disorder, moderate, in sustained remission, on maintenance therapyEnco untguido for monitoring Suboxone maintenance therapy 0 No Informatio n [facility], [address] [facility] [address], [place], [place], [id number], [place] tel:[phone] Tele [facility] Opioid use disorder, moderate, in sustained remission, on maintenance therapyBipo lar I disorderPTS D (post-traum atic stress disorder) 0 Navin Garduno [address] [place] [address], [id number], [place]. tel:[phone] [facility], [address] [facility] [address], [place], [place], [id number], [place] tel:[phone] Tele [facility] Opioid use disorder, moderate, in sustained remission, on maintenance therapyBipo lar I disorder, most recent episode (or current) mixed, moderateAlc ohol use disorder, moderate, in early remissionPT SD (post-traum atic stress disorder) Nov- [address], [id number], [place]. tel:[phone] OFFICE/OUTPATI ENT VISIT, EST [facility], [address] [facility] [address], [place], [place], [id number], [place] tel:[phone] Tele [facility] MAT/OBAT (chief complaint) Opioid use disorder, mild, on maintenance therapy Nov- 0 No Informatio n [facility], [address] [facility] [address], [place], [place], [id number], [place] tel:[phone] Tele [facility] Alcoholism in remissionBi polar I disorder, most recent episode (or current) mixed, moderateOpi oid use disorder, mild, on maintenance therapyPTSD (post-traum atic stress disorder)Gr ief reaction Apr-0 [address], [id number], [place]. tel:[phone] [facility], [address] [facility] [address], [place], [place], [id number], [place] tel:[phone] Tele [facility] Opioid use disorder, mild, in early remission, on maintenance therapyAlco holism in remissionPT SD (post-traum atic stress disorder) Oct-2 0 Navin Rosales. [address] [place] [address], [id number], [place]. tel:[phone] OFFICE/OUTPATI ENT VISIT, EST [facility], [address] [facility] [address], [place], [place], [id number], [place] tel:[phone] [facility] medicated addiction treatment (chief complaint) Muscle crampsOpioi d use disorder, mild, in sustained remission, on maintenance therapyEnco unter for monitoring Suboxone maintenance therapy 0 No Informatio n OFFICE/OUTPATI ENT VISIT, EST [facility], [address] [facility] [address], [place], [place], [id number], [place] tel:[phone] [facility] MAT (chief complaint)ch ronic conditions (chief complaint)ch ronic conditions (chief complaint) Encounter for monitoring Suboxone maintenance therapy 0 No Informatio [facility], [address] [facility] [address], [place], [place], [address], [place] tel:[phone] [facility] Opioid use disorder, mild, in sustained remission, on maintenance therapyPTSD (post-traum atic stress disorder)Al cohol dependence in remission 0 Holden Bobby. [place], [id number], [place]. tel:[phone] [facility], [address] [facility] [address], [place], [place], [id number], [place] tel:[phone] [facility] Opioid use disorder, mild, in sustained remission, on maintenance therapyAlco hol dependence in remissionPT SD (post-traum atic stress disorder) 0 Holden Bobby. [address] [place] [address], [id number], [place]. tel:[phone] OFFICE/OUTPATI ENT VISIT, EST [facility], [address] [facility] [address], [place], [place], [id number], [place] tel:[phone] [facility] MAT (chief complaint) Encounter for monitoring Suboxone maintenance therapyOpio id use disorder, moderate, in sustained remission, on maintenance therapy 0 No Informatio n [facility], [address] [facility][1] [employer] [address], [place], [place], [id number], [place] tel:[phone] [facility] PTSD (post-traum atic stress disorder)Al cohol dependence in remissionOp ioid use disorder, mild, in sustained remission, on maintenance therapy 0 Holden Bobby. [address] [place] [address], [id number], [place]. tel:[phone] [facility], [address] [facility][1] [employer] [address], [place], [place], [id number], [place] tel:[phone] [facility] Major depressive disorder, recurrent, moderatePTS D (post-traum atic stress disorder)Op ioid use disorder, mild, in sustained remission, on maintenance therapyAlco hol dependence in remission 9 Holden Bobby. [address] [place] [address], [id number], [place]. tel:[phone] Toro [facility], [address] [facility][1] [employer] [address], [place], [place], [id number], [place] tel:[phone] [facility] Major depressive disorder, recurrent, moderatePTS D (post-traum atic stress disorder)Op ioid use disorder, moderate, in sustained remission, on maintenance therapyAlco hol dependence in remission 9 Holden Bobby. [address] [place] [address], [id number], [place]. tel:[phone] OFFICE/OUTPATI ENT VISIT, EST Toro [facility], [address] [facility][1] [employer] [address], [place], [place], [id number], [place] tel:[phone] [facility] MAT (chief complaint) Encounter for monitoring Suboxone maintenance therapy 9 Magda Bobo. [address] [place] [address], [id number], [place]. tel:[phone] melanie [facility], [address] [facility][1] [employer], [place], [place], [id number], [place] tel:[phone] [facility] PTSD (post-traum atic stress disorder)Ma gilbert depressive disorder, recurrent, moderateOpi oid use disorder, moderate, in sustained remission, on maintenance therapyAlco hol use disorder, moderate, in early remission 9 [facility]. [address] [place] [address], [id number], [place]. tel:[phone] [facility], [address] [facility][1] [facility],[address], [place], [id number], [place] tel:[phone] [facility] PTSD (post-traum atic stress disorder)Al cohol use disorder, moderate, in early remissionOp ioid use disorder, moderate, in sustained remission, on maintenance therapy [address], [id number], [place]. tel:[phone] OFFICE/OUTPATI ENT VISIT, EST [facility], [address] [facility],[address], [place], [id number], [place] tel:[phone] [facility] MAT (chief complaint) Encounter for monitoring Suboxone maintenance therapy 9 Magda Bobo. [address] [place] [address], [id number], [place]. tel:[phone] [facility], [address] [facility][1] [facility],[address], [place], [place], [id number], [place] tel:[phone] [facility] PTSD (post-traum atic stress disorder)Op ioid use disorder, moderate, in sustained remission, on maintenance therapyAlco holism in remissionMa gilbert depressive disorder, recurrent, moderate 9 [facility]. [address] [place] [address], [id number], [place]. tel:[phone] [facility], [address] [facility][1] [facility],[address], [place], [id number], [place] tel:[phone] [facility] Opioid use disorder, moderate, in sustained remission, on maintenance therapyAlco hol dependence in remissionPT SD (post-traum atic stress disorder) May- 9 Navin Bobby. [address], [place], [id number], [place]. tel:[phone] OFFICE/OUTPATI ENT VISIT, EST [facility]o [facility], [address] [facility][1] [facility],[address], [place], [place], [id number], [place] tel:[phone] [facility] MAT (chief complaint) Encounter for monitoring Suboxone maintenance therapy May- 9 Peytonjosephine [address]. [address], [place], [id number], [place]. tel:[phone] melanie [facility], [address] [facility] [address], [place], [place], [id number], [place] tel:[phone] [facility] Opioid use disorder, moderate, in sustained remission, on maintenance therapyMajo r depressive disorder, recurrent, mild Apr-2 9 Holden Bobby. [address], [place], [id number], [place]. tel:[phone] OFFICE/OUTPATI ENT VISIT, EST [facility]o [facility], [address] [facility] [address] [facility] [address], [place], [place], [id number], [place] tel:[phone] [facility] Medicated Addiction Treatment (chief complaint) Opioid use disorder, moderate, on maintenance therapy Apr- 9 No Informatio n melanie [facility], [address] [facility] [address] [facility] [address], [place], [place], [id number], [place] tel:[phone] [facility] Opioid use disorder, moderate, in sustained remission, on maintenance therapyAlco hol dependence in remissionPT SD (post-traum atic stress disorder) Apr-0 9 Navin Rosales. [address], [place], [id number], [place]. tel:[phone] [facility], [address] [facility] [address], [place], [place], [id number], [place] tel:[phone] [facility] PTSD (post-traum atic stress disorder)Op ioid use disorder, moderate, in sustained remission, on maintenance therapyAlco holism in remission 9 Navin Rosales. [address] [place] [address], [id number], [place]. tel:[phone] [facility], [address] [address] [facility] [address], [place], [place], [id number], [place] tel:[phone] [facility] Alcohol use disorder, moderate, in sustained remissionPT SD (post-traum atic stress disorder)Op ioid use disorder, mild, in sustained remission, on maintenance therapy [address], [id number], [place]. tel:[phone] [facility], [address] [address] [facility] [address], [place], [place], [id number], [place] tel:[phone] [facility] Immunization (chief complaint) Encounter for immunizatio n 9 No Informatio n OFFICE/OUTPATI ENT VISIT, EST [facility], [address] [address] [facility] [address], [place], [place], [id number], [place] tel:[phone] [facility] chronic conditions (chief complaint) Encounter for monitoring Suboxone maintenance therapyOpio id use disorder, mild, on maintenance therapyAlco hol use disorder, moderate, in early remissionMi graine with aura and without status migrainosus , not intractable 9 No Informatio n [facility], [address] [facility] [address], [place], [place], [id number], [place] tel:[phone] [facility] Alcohol use disorder, moderate, in early remissionPT SD (post-traum atic stress disorder)Op ioid use disorder, mild, on maintenance therapy [address], [id number], [place]. tel:[phone] [facility], [address] [facility][1] [employer] [address], [place], [place], [id number], [place] tel:[phone] [facility] Opioid use disorder, mild, on maintenance therapyPTSD (post-traum atic stress disorder)Al cohol dependence in remission 9 [facility] [address], [id number], [place]. tel:[phone] [facility], [address] [facility][1] [employer] [address], [place], [place], [id number], [place] tel:[phone] [facility] Opioid use disorder, mild, on maintenance therapyPTSD (post-traum atic stress disorder) [address], [id number], [place]. tel:[phone] melanie [facility], [address] [facility][1] [employer] [address], [place], [place], [id number], [place] tel:[phone] [facility] Opioid use disorder, mild, on maintenance therapyAlco hol dependence in remissionPT SD (post-traum atic stress disorder) 9 [facility] [address], [id number], [place]. tel:[phone] [facility], [address] [facility][1] [employer] [address], [place], [place], [id number], [place] tel:[phone] [facility] Alcohol dependence in remissionOp ioid use disorder, mild, on maintenance therapyPTSD (post-traum atic stress disorder) 9 [facility] Bobby. [address] [place] [address], [id number], [place]. tel:[phone] [facility], [address] [facility][1] [employer] [address], [place], [place], [id number], [place] tel:[phone] [facility] Alcohol dependence in early full remissionOp ioid use disorder, mild, on maintenance therapyPTSD (post-traum atic stress disorder) 9 [facility]. [address] [place] [address], [id number], [place]. tel:[phone] OFFICE/OUTPATI ENT VISIT, EST [facility], [address] [address] [facility] [address], [place], [id number], [place] tel:[phone] [facility] chronic conditions (chief complaint) Encounter for monitoring Suboxone maintenance therapyAlco hol use disorder, moderate, in early remission 9 No Informatio n OFFICE/OUTPATI ENT VISIT, EST [facility], [address] [facility] [address], [place], [id number], [place] tel:[phone] [facility] chronic conditions (chief complaint) Migraine with aura and without status migrainosus , not intractable Abscess [address], [id number], [place]. tel:[phone] [facility], [address] [facility] [address], [place], [place], [id number], [place] tel:[phone] [facility] Alcohol dependence in early full remissionOp ioid use disorder, mild, on maintenance therapyPTSD (post-traum atic stress disorder) [address], [id number], [place]. tel:[phone] [facility], [address] [facility]1] [facility],[address], [place], [place], [id number], [place] tel:[phone] [facility] PTSD (post-traum atic stress disorder)Op ioid use disorder, mild, on maintenance therapyAlco hol use disorder, moderate, in early remission 9 [facility]. [address] [place] [address], [id number], [place]. tel:[phone] [facility], [address] [facility] [address], [place], [id number], [place] tel:[phone] [facility] PTSD (post-traum atic stress disorder)Op ioid use disorder, mild, on maintenance therapyAlco hol use disorder, moderate, in early remission 9 Navin Rosales. [address] [place] [address], [id number], [place]. tel:[phone] OFFICE/OUTPATI ENT VISIT, EST [facility], [address] [facility],[address], [place], [place], [address], [place] tel:[phone] [facility] chronic conditions (chief complaint) Encounter for monitoring Suboxone maintenance therapyEsse ntial (primary) hypertensio nRoutine screening for STI (sexually transmitted infection) 9 No Informatio n [facility], [address] [place] [address] 2,[address], [place], [place], [id number], [place] tel:[phone] [facility] PTSD (post-traum atic stress disorder)Op ioid use disorder, mild, on maintenance therapyAlco hol dependence in early full remission 9 Navin Rosales. [address] [place] [address], [id number], [place]. tel:[phone] [facility], [address] [facility][1] [facility],[address], [place], [place], [id number], [place] tel:[phone] [facility] Opioid use disorder, mild, on maintenance therapyAlco hol dependence in remissionPT SD (post-traum atic stress disorder) 9 Navin Rosales. [address] [place] [address], [id number], [place]. tel:[phone] [facility], [address] [facility][1] [facility],[address], [place], [place], [id number], [place] tel:[phone] [facility] No Information 9 Jeff Marquez. [address] [place] [address], [id number]. tel:[phone] [facility], [address] [facility] [address], [place], [place], [id number], [place] tel:[phone] [facility] Major depressive disorder, recurrent, moderateOpi oid use disorder, mild, on maintenance therapyAlco hol dependence in remission Nov- 9 Navin Rosales. [address], [place], [id number], [place]. 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 [address], [place], [id number], [place]. tel:[phone] [facility], [address] [facility] [address], [place], [place], [id number], [place] tel:[phone] [facility] Encounter for dental exam and cleaning w/o abnormal findings Nov-0 9 Santhosh Turner. [address], [place], [id number], [place]. tel:[phone] OFFICE/OUTPATI ENT VISIT, EST [facility], [address] [facility] [address], [place], [place], [address], [place] tel:[phone] [facility] chronic conditions (chief complaint) Opioid use disorder, moderate, on maintenance therapyAlco hol use disorder, moderate, in sustained remissionEn counter for monitoring Suboxone maintenance therapy Apr-0 9 [place] Damien. [address] [place], [place], [id number], [place]. tel:[phone] Toro [facility], [address] [facility] [address], [place], [place], [id number], [place] tel:[phone] [facility] Alcohol dependence in remissionOp ioid use disorder, mild, on maintenance therapyMajo r depressive disorder, recurrent, moderatePTS D (post-traum atic stress disorder) Oct- 9 [facility]. [address] [place] [address], [id number], [place]. tel:[phone] OFFICE/OUTPATI ENT VISIT, EST Toro [facility], [address] [facility] [address], [place], [place], [id number], [place] tel:[phone] [facility] chronic conditions (chief complaint) Opioid use disorder, moderate, on maintenance therapyEnco unter for monitoring Suboxone maintenance therapyChro tank pain syndromeAlc ohol use disorder, moderate, in sustained remissionOr al lesion Oct-2 9 No Informatio n melanie [facility], [address] [facility] [address] [facility] [address], [place], [place], [id number], [place] tel:[phone] [facility] Alcohol dependence in remissionOp ioid use disorder, moderate, on maintenance therapyPTSD (post-traum atic stress disorder)Ma gilbert depressive disorder, recurrent, mild Oct- 9 [facility]. [address] [place] [address], [id number], [place]. tel:[phone] [facility], [address] [address] [facility] [address], [place], [place], [address], [place] tel:[phone] [facility] Opioid use disorder, mild, on maintenance therapyPTSD (post-traum atic stress disorder)Ep isode of recurrent major depressive disorder, unspecified depression episode severity Oct- 9 [facility]. [address] [place] [address], [id number], [place]. tel:[phone] OFFICE/OUTPATI ENT VISIT, EST [facility], [address] [facility] [address], [place], [place], [address], [place] tel:[phone] [facility] chronic conditions (chief complaint) Opioid use disorder, moderate, on maintenance therapyEnco unter for monitoring Suboxone maintenance therapyOthe r technician terminal and repeater (current) drug therapy 9 No Informatio n [facility], [address] [facility] [address], [place], [place], [address], [place] tel:[phone] [facility] Opioid use disorder, mild, on maintenance therapyPTSD (post-traum atic stress disorder)Ma gilbert depressive disorder, recurrent, moderate 9 Navin Rosales. [address] [place] [address], [id number], [place]. tel:[phone] OFFICE/OUTPATI ENT VISIT, EST [facility], [address] [facility] [address], [place], [place], [id number], [place] tel:[phone] [facility] chronic conditions (chief complaint) Opioid use disorder, moderate, on maintenance therapyEsse ntial (primary) hypertensio nHyperurice yaneli w/o signs of inflam arthrit and tophaceous dis 9 No Informatio n [facility], [address] [facility] [address], [place], [place], [id number], [place] tel:[phone] [facility] Opioid use disorder, mild, on maintenance therapyPTSD (post-traum atic stress disorder)Ma gilbert depressive disorder, recurrent, mild 9 Navin Rosales. [address] [place] [address], [id number], . tel:[phone] [facility], [address] [facility] [address], [place], [place], [id number], [place] tel:[phone] [facility] Opioid use disorder, mild, on maintenance therapyAlco hol dependence in remissionPT SD (post-traum atic stress disorder) 9 Navin Bobby. [address] [place] [address], [id number], [place]. tel:[phone] OFFICE/OUTPATI ENT VISIT, EST Toro [facility], [address] [facility][1] [employer] [address], [place], [place], [id number], [place] tel:[phone] [facility] chronic conditions (chief complaint) Opioid use disorder, moderate, on maintenance therapyEnco unter for monitoring Suboxone maintenance therapyCoff ee ground emesis 8 No Informati trini [facility], [address] [facility][1] [facility],[address], [id number], [place] tel:[phone] [facility] Encounter for dental exam and cleaning w/o abnormal findings 8 [facility] [address] [facility][1] [facility],[address], [place], [place], [id number], [place] tel:[phone] [facility] Opioid use disorder, moderate, on maintenance therapyBipo lar I disorderPTS D (post-traum atic stress disorder) 8 Navin Rosales. [address] [place] [address], [place], [place], [id number], [place]. tel:[phone] Toro [facility], [address] [facility][1] [employer] [address], [place], [place], [id number], [place] tel:[phone] [facility] Encounter for dental exam and cleaning w/o abnormal findings 8 [facility], [address] [facility][1] [employer] [address], [place], [place], [address], [place] tel:[phone] [facility] Encounter for dental exam and cleaning w/o abnormal findings 8 No Informati trini [facility], [address] [facility][1] [facility],[address], [place], [place], [id number], [place] tel:[phone] [facility] Encounter for dental exam and cleaning w/o abnormal findings 8 Mili Salinas. [address], [place], [id number], [place]. tel:[phone] OFFICE/OUTPATI ENT VISIT, EST Toro [facility], [address] [facility][1] [facility],[address], [place], [place], [id number], [place] tel:[phone] [facility] Medicated Addiction Treatment (chief complaint) Opioid use disorder, moderate, on maintenance therapyMusc le cramps 8 [facility]. [address] [place] [address], [id number], [place]. tel:[phone] [facility], [address] [facility][1] [facility],[address], [place], [place], [id number], [place] tel:[phone] [facility] Encounter for dental exam and cleaning w/o abnormal findings 8 No Informatio n [facility], [address] [facility][1] [facility],[address], [place], [place], [address], [place] tel:[phone] [facility] Opioid use disorder, moderate, on maintenance therapyMajo r depressive disorder, recurrent, moderateAlc ohol dependence in early, early partial, sustained full, or sustained partial remission 8 Navin Rosales. [address] [place] [address], [id number], [place]. tel:[phone] OFFICE/OUTPATI ENT VISIT, EST [facility], [address] [facility][1] [facility],[address], [place], [place], [id number], [place] tel:[phone] [facility] chronic conditions (chief complaint) Opioid use disorder, moderate, on maintenance therapyEnco unter for monitoring Suboxone maintenance therapy 8 [facility]. [address] [place] [address], [id number], [place]. tel:[phone] [facility], [address] [facility][1] [facility],[address], [place], [place], [id number], [place] tel:[phone] [facility] Bipolar I disorderOpi oid use disorder, moderate, on maintenance therapy 8 Navin Rosales. [address] [place] [address], [id number], [place]. tel:[phone] [facility], [address] [facility] [address], [place], [place], [address], [place] tel:[phone] [facility] Opioid use disorder, moderate, on maintenance therapyBipo lar I disorder 8 Navin Rosales. [address] [place] [address], [id number], [place]. tel:[phone] [facility], [address] [facility] [address], [place], [place], [address], [place] tel:[phone] [facility] Opioid use disorder, moderate, on maintenance therapyBipo lar I disorder 8 Navin Rosales. [address] [place] [address], [id number], [place]. tel:[phone] OFFICE/OUTPATI ENT VISIT, EST [facility], [address] [facility] [address], [place], [place], [id number], [place] tel:[phone] [facility] chronic conditions (chief complaint) Lumbar radiculopat hy, chronicEnco unter for monitoring Suboxone maintenance therapyEsse ntial (primary) hypertensio nChronic pain syndromeMil d persistent asthma with exacerbatio nRight-side d tinnitus 8 Jeff Marquez. [address] [place] [address], [id number]. tel:[phone] [facility], [address] [facility] [address], [place], [place], [address], [place] tel:[phone] [facility] Bipolar I disorderOpi oid use disorder, moderate, on maintenance therapy 8 Navin Rosales. [address] [place] [address], [id number], [place]. tel:[phone] OFFICE/OUTPATI ENT VISIT, EST Toro [facility], [address] [facility] [address], [place], [place], [address], [place] tel:[phone] [facility] MAT (chief complaint) Encounter for monitoring Suboxone maintenance therapyChro tank pain syndrome Sep-0 8 No Informatio n melanie [facility], [address] [facility] [address], [place], [place], [id number], [place] tel:[phone] [facility] Bipolar I disorderOpi oid use disorder, moderate, on maintenance therapy Apr-0 8 Navin Rosales. [address] [place] [address], [id number], [place]. tel:[phone] [facility], [address] [place] [address] 2,[address], [place], [place], [id number], [place] tel:[phone] [facility] Opioid use disorder, moderate, dependenceB ipolar I disorder Mar- 8 Navin Rosales. [address] [place] [address], [id number], [place]. tel:[phone] melanie [facility], [address] [facility] [address], [place], [place], [address], [place] tel:[phone] [facility] Bipolar I disorderOpi oid use disorder, moderate, on maintenance therapy Mar- 8 Navin Rosales. [address] [place] [address], [id number], [place]. tel:[phone] OFFICE/OUTPATI ENT VISIT, EST [facility], [address] [place] [address] 2,[address], [place], [place], [id number], [place] tel:[phone] [facility] chronic conditions (chief complaint) Chronic pain syndromeEnc ounter for monitoring Suboxone maintenance therapy Mar-2 8 Jeff Marquez. [address] [place] [address], [id number]. tel:[phone] OFFICE/OUTPATI ENT VISIT, EST [facility], [address] [facility][1] [employer] [address], [place], [place], [id number], [place] tel:[phone] [facility] Medicated Addiction Treatment (chief complaint) Opioid use disorder, moderate, in sustained remission, on maintenance therapyEnco rubin for monitoring Suboxone maintenance therapy 8 Toño Quezada. [address] [place] [address], [id number], [place]. tel:[phone] [facility], [address] [facility][1] [employer] [address], [place], [place], [address], [place] tel:[phone] [facility] Bipolar I disorderOpi oid use disorder, moderate, on maintenance therapy 8 Navin Rosales. [address] [place] [address], [id number], [place]. tel:[phone] [facility], [address] [facility][1] [employer] [address], [place], [place], [id number], [place] tel:[phone] [facility] Bipolar I disorderOpi oid use disorder, moderate, in sustained remission, on maintenance therapy 8 Navin Rosales. [address] [place] [address], [id number], [place]. tel:[phone] [facility], [address] [facility][1] [employer] [address], [place], [place], [id number], [place] tel:[phone] [facility] Opioid use disorder, moderate, on maintenance therapyBipo lar I disorder 8 Holden Bobby. [address] [place] [address], [id number], [place]. tel:[phone] OFFICE/OUTPATI ENT VISIT, EST [facility], [address] [facility][1] [employer] [address], [place], [place], [id number], [place] tel:[phone] [facility] chronic conditions (chief complaint) Opioid use disorder, moderate, on maintenance therapyChro tank pain syndrome 8 No Informatio n melanie [facility], [address] [facility] [address], [place], [place], [id number], [place] tel:[phone] [facility] No Information Home Health Care Case Manager. . Toro [facility], [address] [facility] [address], [place], [place], [id number], [place] tel:[phone] [facility] Opioid use disorder, moderate, on maintenance therapyBipo lar 1 disorder 8 Navin Rosales. [address] [place] [address], [id number], [place]. tel:[phone] OFFICE/OUTPATI ENT VISIT, EST melanie [facility], [address] [facility] [address], [place], [place], [id number], [place] tel:[phone] [facility] chronic conditions (chief complaint) Opioid use disorder, moderate, on maintenance therapyEnco unter for monitoring Suboxone maintenance therapy 8 [facility]. [address] [place] [address], [id number], [place]. tel:[phone] OFFICE/OUTPATI ENT VISIT, EST melanie [facility], [address] [facility] [address], [place], [place], [id number], [place] tel:[phone] [facility] chronic conditions (chief complaint) Opioid use disorder, moderate, on maintenance therapy, dependenceE ncounter for monitoring Suboxone maintenance therapy 8 [facility]. [address] [place] [address], [id number], [place]. tel:[phone] melanie [facility], [address] [facility] [address], [place], [place], [id number], [place] tel:[phone] [facility] Bipolar affective disorder, current episode mixed, current episode severity unspecified PTSD (post-traum atic stress disorder)Op ioid use disorder, moderate, on maintenance therapy 8 Navin Rosales. [address] [place], [place], [id number], [place]. tel:[phone] OFFICE/OUTPATI ENT VISIT, [facility], [address] [facility][1] [facility],[address], [place], [place], [id number], [place] tel:[phone] [facility] chronic conditions (chief complaint) Opioid use disorder, moderate, on maintenance therapy, dependence Nov-0 8 Jeff Marquez. [address] [place], [place], [id number]. tel:[phone] OFFICE/OUTPATI ENT VISIT, [facility], [address] [facility][1] [facility],[address], [place], [place], [id number], [place] tel:[phone] [facility] chronic conditions (chief complaint) Opioid use disorder, moderate, in controlled environment Encounter for monitoring Suboxone maintenance therapy Oct- 8 Jeff Marquez. [address] [place] [address], [id number]. tel:[phone] [facility], [address] [facility][1] [facility],[address], [place], [place], [id number], [place] tel:[phone] [facility] Bipolar I disorderPTS D (post-traum atic stress disorder)Op ioid use disorder, moderate, on maintenance therapy, dependence Oct- 8 Navin Rosales. [address] [place] [address], [id number], [place]. tel:[phone] OFFICE/OUTPATI ENT VISIT, [facility], [address] [facility][1] [facility],[address], [place], [place], [id number], [place] tel:[phone] [facility] chronic conditions (chief complaint) Chronic pain syndromeOpi oid use disorder, moderate, in controlled environment Encounter for monitoring Suboxone maintenance therapyOthe r technician terminal and repeater (current) drug therapy Oct- 8 Jeff Marquez. [address] [place], [place], [id number]. tel:[phone] [facility], [facility],[address], [place], [id number], [place] tel:[phone] [facility] PTSD (post-traum atic stress disorder)Bi polar disorder, unspecified 8 Bharat Canseco. [address] [place] [address], [id number], [place]. tel:[phone] [facility], [address] [facility] [address], [place], [id number], [place] tel:[phone] [facility] Opioid use disorder, moderate, on maintenance therapyPTSD (post-traum atic stress disorder)Bi polar 1 disorder 8 Navin Rosales. [address] [place] [address], [id number], [place]. tel:[phone] OFFICE/OUTPATI ENT VISIT, EST [facility], [address] [facility] [address] [place] [address], [id number], [place] tel:[phone] [facility] Follow Up of MAT (chief complaint) Opioid dependence in controlled environment Encounter for monitoring Suboxone maintenance therapyOthe r technician terminal and repeater (current) drug therapy 8 Jeff Marquez. [address] [place], [place], [id number]. tel:[phone] [facility], [address] [facility] [address], [place], [id number], [place] tel:[phone] [facility] PTSD (post-traum atic stress disorder)Bi polar disorder, unspecified 8 Bharat Canseco. [address] [place], [place], [id number], [place]. tel:[phone] OFFICE/OUTPATI ENT VISIT, EST [facility], [address] [facility] [address], [place], [id number], [place] tel:[phone] [facility] chronic conditions (chief complaint) Chronic pain syndrome 8 Jeff Marquez. [address] [place], [place], [id number]. tel:[phone] [facility], [address] [place] [address] 2,[address], [place], [place], [id number], [place] tel:[phone] [facility] Bipolar disorder, unspecified PTSD (post-traum atic stress disorder) 8 Bharat Canseco. [address] [place] [address], [id number], [place]. tel:[phone] OFFICE/OUTPATI ENT VISIT, EST [facility], [address] [facility] [address], [place], [place], [id number], [place] tel:[phone] [facility] chronic conditions (chief complaint) Chronic pain syndrome 8 No Informatio n OFFICE/OUTPATI ENT VISIT, EST [facility], [address] [place] [address],[address], [place], [id number], [place] tel:[phone] [facility] Follow Up of hospitalizat ion/meds (chief complaint) Chronic pain syndromeChr onic use of opiate drugs therapeutic purposes 0 8 Jeff Marquez. [address] [place] [address], [id number]. tel:[phone] [facility], [address] [facility] [address], [place], [place], [id number], [place] tel:[phone] [facility] Bipolar affective disorder, depressed, severePTSD (post-traum atic stress disorder) 0 8 Bharat Canseco. [address] [place] [address], [id number], [place]. tel:[phone] [facility], [address] [place] [address] 2,[address], [place], [place], [id number], [place] tel:[phone] [facility] Bipolar disorder, unspecified PTSD (post-traum atic stress disorder) b0 8 Bharat Canseco. [address] [place] [address], [id number], [place]. tel:[phone] [facility], [address] [facility] [address], [place], [place], [id number], [place] tel:[phone] [facility] No Information 8 Home Health Care Case Manager. . Consulting Provider: Robbi Chacon, [address] [place], [address]. tel:[phone] [facility], [address] [facility] [address], [place], [place], [id number], [place] tel:[phone] [facility] Bipolar disorder, unspecified PTSD (post-traum atic stress disorder) 8 Bharat Canseco. [address] [place], [place], [id number], [place]. tel:[phone] [facility], [address] [facility] [address], [place], [id number], [place] tel:[phone] [facility] Bipolar disorder, unspecified PTSD (post-traum atic stress disorder) 8 Bharat Canseco. [address] [place], [place], [id number], [place]. tel:[phone] OFFICE/OUTPATI ENT VISIT, EST [facility], [address] [facility] [address], [place], [id number], [place] tel:[phone] [facility] chronic pain (chief complaint) Chronic pain syndrome 8- 8 No Informatio n OFFICE/OUTPATI ENT VISIT, EST [facility], [address] [facility] [address], [place], [id number], [place] tel:[phone] [facility] Headache (chief complaint)Ot algia (chief complaint) Migraine with aura and without status migrainosus , not intractable Right ear pain 0- 8 No Informatio n [facility], [address] [facility] [address], [place], [place], [id number], [place] tel:[phone] [facility] Bipolar disorder, unspecified PTSD (post-traum atic stress disorder) 8 [facility]. [address] [place] [address], [id number], [place]. tel:[phone] [facility], [address] [facility] [address], [place], [place], [address], [place] tel:[phone] [facility] Bipolar disorder, unspecified PTSD (post-traum atic stress disorder) 7 [facility]. [address] [place] [address], [id number], [place]. tel:[phone] [facility], [address] [facility] [address], [place], [place], [address], [place] tel:[phone] [facility] Bipolar disorder, unspecified PTSD (post-traum atic stress disorder) 7 [facility]. [address] [place] [address], [id number], [place]. tel:[phone] OFFICE/OUTPATI ENT VISIT, EST [facility], [address] [facility] [address], [place], [place], [id number], [place] tel:[phone] [facility] chronic conditions (chief complaint) Chronic pain syndrome 7 No Informatio n [facility], [address] [facility] [address], [place], [place], [id number], [place] tel:[phone] [facility] Bipolar disorder, unspecified PTSD (post-traum atic stress disorder) 7 [facility]. [address] [place] [address], [id number], [place]. tel:[phone] [facility], [address] [facility] [address], [place], [place], [id number], [place] tel:[phone] [facility] Bipolar affective disorder, current episode hypomanicPT SD (post-traum atic stress disorder) 7 [facility]. [address] [place] [address], [id number], [place]. tel:[phone] [facility], [address] [facility] [address], [id number], [place] tel:[phone] [facility] PTSD (post-traum atic stress disorder)Bi polar disorder, unspecified 7 [facility]. [address] [place] [address], [id number], [place]. tel:[phone] OFFICE/OUTPATI ENT VISIT, EST [facility], [address] [facility] [address], [place], [place], [id number], [place] tel:[phone] [facility] chronic conditions (chief complaint)ba ck pain (chief complaint) Chronic pain syndrome 7 No Informatio n [facility], [address] [facility] [address], [place], [place], [id number], [place] tel:[phone] [facility] PTSD (post-traum atic stress disorder)Bi polar disorder, unspecified 7 [facility]. [address] [place] [address], [id number], [place]. tel:[phone] [facility], [address] [facility] [address], [place], [place], [id number], [place] tel:[phone] [facility] PTSD (post-traum atic stress disorder)Ma gilbert depressive disorder, recurrent, unspecified 7 [facility]. [address] [place] [address], [id number], [place]. tel:[phone] [facility], [address] [facility] [address], [place], [place], [id number], [place] tel:[phone] [facility] Bipolar disorder, unspecified PTSD (post-traum atic stress disorder) 7 Bharat Canseco. [address] [place], [place], [id number], [place]. tel:[phone] OFFICE/OUTPATI ENT VISIT, EST [facility], [address] [facility] [address], [place], [place], [id number], [place] tel:[phone] [facility] chronic conditions (chief complaint) Chronic pain syndromeAcu te idiopathic gout of multiple sites 7 Jeff Marquez. [address] [place], [place], [id number]. tel:[phone] [facility], [address] [place] [address] 2,[address], [place], [place], [id number], [place] tel:[phone] [facility] Bipolar disorder, unspecified PTSD (post-traum atic stress disorder) 7 Bharat Hagerman. [address] [place] [address], [id number], [place]. tel:[phone] [facility], [address] [place] [address] 2,[address], [place], [place], [id number], [place] tel:[phone] [facility] Bipolar disorder, unspecified PTSD (post-traum atic stress disorder) 7 Bharat Hagerman. [address] [place] [address], [id number], [place]. tel:[phone] [facility], [address] [place] [address] 2,[address], [place], [place], [address], [place] tel:[phone] [facility] Bipolar disorder, unspecified PTSD (post-traum atic stress disorder) 7 [facility]. [address] [place] [address], [id number], [place]. tel:[phone] [facility], [address] [facility] [address], [place], [place], [id number], [place] tel:[phone] [facility] Bipolar disorder, unspecified PTSD (post-traum atic stress disorder) Sep- 7 Adalimika Canseco. [address] [place], [place], [id number], [place]. tel:[phone] OFFICE/OUTPATI ENT VISIT, EST [facility], [address] [facility][1] [facility] [address], [place], [id number], [place] tel:[phone] [facility] chronic conditions (chief complaint) Chronic pain syndrome Apr- 7 Jeff Marquez. [address] [place], [place], [id number]. tel:[phone] [facility], [address] [facility] [address], [place], [id number], [place] tel:[phone] [facility] Bipolar disorder, unspecified PTSD (post-traum atic stress disorder) Sep-0 7 Bharat Harleen. [address] [place] [address], [id number], [place]. tel:[phone] [facility], [address] [facility][1] [facility],[address], [place], [place], [id number], [place] tel:[phone] [facility] SOB Apr- 7 Jeff Marquez. [address] [place], [place], [id number]. tel:[phone] [facility], [address] [facility][1] [facility],[address], [place], [id number], [place] tel:[phone] [facility] Bipolar disorder, unspecified PTSD (post-traum atic stress disorder) Mar-3 7 Bharat Harleen. [address] [place] [address], [id number], [place]. tel:[phone] OFFICE/OUTPATI ENT VISIT, EST [facility], [address] [facility][1] [facility],[address], [place], [id number], [place] tel:[phone] [facility] chronic conditions (chief complaint) Chronic pain syndrome Mar- 7 No Informatio n [facility], [address] [facility] [address], [place], [place], [address], [place] tel:[phone] [facility] Bipolar disorder, unspecified PTSD (post-traum atic stress disorder) 7 Bharat Canseco. [address] [place] [address], [id number], [place]. tel:[phone] OFFICE/OUTPATI ENT VISIT, EST [facility], [address] [facility] [address], [place], [place], [id number], [place] tel:[phone] [facility] chronic conditions (chief complaint) Chronic use of opiate drugs therapeutic purposesChr onic pain syndromeMil d persistent asthma in adult without complicatio n 7 Jeff Marquez. [address] [place] [address], [id number]. tel:[phone] [facility], [address] [facility] [address], [place], [place], [address], [place] tel:[phone] [facility] Bipolar affective disorder, depressed, severePTSD (post-traum atic stress disorder) Mar-0 7 Bharat Canseco. [address] [place] [address], [id number], [place]. tel:[phone] OFFICE/OUTPATI ENT VISIT, [facility], [address] [facility] [address], [place], [id number], [place] tel:[phone] [facility] migraines, neck and arm pain (chief complaint) Muscle cramps Mar-0 7 Loree Caldwell. [address] [place] [address], [id number], [place]. tel:[phone] OFFICE/OUTPATI ENT VISIT, EST [facility], [address] [facility] [address], [place], [address], [place] tel:[phone] [facility] chronic conditions (chief complaint) Chronic pain syndrome 7 No Informatio n [facility], [address] [facility][1] [facility],[address], [place], [place], [id number], [place] tel:[phone] [facility] Bipolar affective disorder, currently depressed, moderatePTS D (post-traum atic stress disorder) 7 Bharat Canseco. [address] [place] [address], [id number], [place]. tel:[phone] OFFICE/OUTPATI ENT VISIT, [facility], [address] [facility][1] [facility] [address], [place], [place], [address], [place] tel:[phone] [facility] chronic conditions (chief complaint) Chronic pain syndrome 7 No Informatio n OFFICE/OUTPATI ENT VISIT, [facility], [address] [facility] 2,[address], [place], [place], [id number], [place] tel:[phone] [facility] chronic conditions (chief complaint) Chronic pain syndrome 7 No Informatio n [facility], [address] [facility][1] [facility],[address], [place], [place], [id number], [place] tel:[phone] [facility] Bipolar affective disorder, depressed, severePTSD (post-traum atic stress disorder) Bharat Canseco. [address] [place] [address], [id number], [place]. tel:[phone] [facility], [address] [facility][1] [facility] [address], [place], [place], [id number], [place] tel:[phone] [facility] No Information Home Health Care Case Manager. . OFFICE/OUTPATI ENT VISIT, [facility], [address] [facility][1] [facility] [address], [place], [place], [id number], [place] tel:[phone] [facility] chronic conditions (chief complaint) Chronic pain syndromeBip olar affective disorder, currently depressed, moderateEss ential (primary) hypertensio n 7 Jeff Marquez. [address] [place], [place], [id number]. tel:[phone] melanie [facility], [address] [place] [address] 2,[address], [place], [id number], [place] tel:[phone] [facility] Bipolar disorder, unspecified PTSD (post-traum atic stress disorder) 7 Bharat Canseco. [address] [place] [address], [id number], [place]. tel:[phone] OFFICE/OUTPATI ENT VISIT, EST [facility], [address] [place] [address] 2,[address], [place], [place], [id number], [place] tel:[phone] [facility] chronic conditions (chief complaint) Chronic pain syndrome 0 7 No Informatio n [facility], [address] [place] [address] 2,[address], [place], [place], [address], [place] tel:[phone] [facility] Bipolar disorder, unspecified PTSD (post-traum atic stress disorder) 7 Bharat Harleen. [address] [place] [address], [id number], [place]. tel:[phone] [facility], [address] [place] [address] 2,[address], [place], [place], [address], [place] tel:[phone] [facility] Bipolar disorder, unspecified PTSD (post-traum atic stress disorder) 7 Bharat Canseco. [address] [place] [address], [id number], [place]. tel:[phone] [facility], [address] [place] [address] 2,[address], [place], [address], [place] tel:[phone] [facility] Bipolar disorder, unspecified PTSD (post-traum atic stress disorder) 7 Bharat Canseco. [address] [place] [address], [id number], [place]. tel:[phone] [facility], [address] [facility][1] [facility],[address], [place], [place], [id number], [place] tel:[phone] [facility] Bipolar disorder, unspecified PTSD (post-traum atic stress disorder) 7 Bharat Harleen. [address] [place] [address], [id number], [place]. tel:[phone] [facility], [address] [facility][1] [facility],[address], [place], [place], [address], [place] tel:[phone] [facility] Bipolar disorder, unspecified PTSD (post-traum atic stress disorder) 7 Bharat Harleen. [address] [place] [address], [id number], [place]. tel:[phone] OFFICE/OUTPATI ENT VISIT, EST [facility], [facility],[address], [place], [address], [place] tel:[phone] [facility] chronic conditions (chief complaint) Chronic pain syndromeChr onic use of opiate drugs therapeutic purposesEss ential (primary) hypertensio nMild persistent asthma in adult without complicatio n 7 Jeff Marquez. [address] [place] [address], [id number]. tel:[phone] [facility], [address] [facility],[address], [place], [place], [address], [place] tel:[phone] [facility] back pain (chief complaint) Lumbar radiculopat hy, chronic 7 No Informatio n [facility], [address] [facility],[address], [place], [place], [address], [place] tel:[phone] [facility] PTSD (post-traum atic stress disorder)Bi polar disorder, unspecified 7 Adalimika Hagerman. [address] [place] [address], [id number], [place]. tel:[phone] [facility], [address] [facility] [address], [place], [address], [place] tel:[phone] [facility] PTSD (post-traum atic stress disorder)Bi polar affective disorder, currently depressed, moderate Mar-2 8-201 7 Adalimika Harleen. [address] [place] [address], [id number], [place]. tel:[phone] OFFICE/OUTPATI ENT VISIT, [facility], [address] [facility] [address], [place], [place], [address], [place] tel:[phone] [facility] chronic conditions (chief complaint) Other chronic painEssenti al (primary) hypertensio n Oct-2 2-201 7 Jeff Marquez. [address] [place] [address], [id number]. tel:[phone] OFFICE/OUTPATI ENT VISIT, [facility], [address] [facility] [address], [place], [place], [address], [place] tel:[phone] [facility] chronic conditions (chief complaint) Essential (primary) hypertensio nLumbar radiculopat hy, chronic Mar-1 0-201 7 No Informatio n [facility], [address] [place] [address] 2,[address], [place], [place], [id number], [place] tel:[phone] [facility] No Information Oct-0 6-201 7 No Informatio n OFFICE/OUTPATI ENT VISIT, [facility], [address] [facility] 2,[address], [place], [address], [place] tel:[phone] [facility] chronic conditions (chief complaint) Low back pain Oct-0 1-201 7 No Informatio n [facility], [address] [place] [address] 2,[address], [place], [place], [address], [place] tel:[phone] [facility] PTSD (post-traum atic stress disorder)Bi polar affective disorder, currently depressed, moderate Mar-0 7 Bharat Canseco. [address] [place] [address], [id number], [place]. tel:[phone] OFFICE/OUTPATI ENT VISIT, [facility], [address] [facility] [address], [place], [place], [address], [place] tel:[phone] [facility] chronic conditions (chief complaint) Chronic pain syndrome 7 Jeff Marquez. [address] [place], [place], [id number]. tel:[phone] OFFICE/OUTPATI ENT VISIT, [facility], [address] [facility] [address], [place], [place], [address], [place] tel:[phone] [facility] chronic conditions (chief complaint) Lumbar radiculopat hy, chronicEsse ntial (primary) hypertensio n 7 No Informatio n [facility], [address] [facility] [address], [place], [place], [id number], [place] tel:[phone] [facility] Bipolar affective disorder, currently depressed, moderatePTS D (post-traum atic stress disorder) 7 Adalimika Harleen. [address] [place] [address], [id number], [place]. tel:[phone] OFFICE/OUTPATI ENT VISIT, [facility], [address] [facility] [address], [place], [place], [id number], [place] tel:[phone] [facility] Follow Up of flu symptoms (chief complaint)Fo llow Up of pain (chief complaint) Chronic pain syndrome 0 7 Jeff Marquez. [address] [place], [place], [id number]. tel:[phone] [facility], [address] [facility] [address], [place], [place], [address], [place] tel:[phone] [facility] Bipolar affective disorder, currently depressed, moderatePTS D (post-traum atic stress disorder) 7 Bharat Canseco. [address] [place] [address], [id number], [place]. tel:[phone] OFFICE/OUTPATI ENT VISIT, EST [facility], [address] [place] [address] 2,[address], [place], [address], [place] tel:[phone] [facility] flu symptoms (chief complaint)pa in management (chief complaint) InfluenzaCh ronic pain syndrome 7 Jeff Marquez. [address] [place] [address], [id number]. tel:[phone] [facility], [address] [place] [address] 2,[address], [place], [id number], [place] tel:[phone] [facility] routine exam (chief complaint) Hyperopia, bilateralVi samson exam with abnormal findingsChr onic anterior uveitis of right eye 7 No Informatio n [facility], [address] [place] [address] 2,[address], [place], [id number], [place] tel:[phone] [facility] Bipolar affective disorder, currently depressed, moderatePTS D (post-traum atic stress disorder) 6 Bharat Canseco. [address] [place] [address], [id number], [place]. tel:[phone] [facility], [address] [facility] [address], [place], [place], [id number], [place] tel:[phone] [facility] chronic conditions (chief complaint) Low back pain 6 No Informatio n [facility], [address] [facility] [address], [place], [id number], [place] tel:[phone] [facility] Bipolar affective disorder, currently depressed, moderatePTS D (post-traum atic stress disorder) 6 Bharat Harleen. [address] [place] [address], [id number], [place]. tel:[phone] OFFICE/OUTPATI ENT VISIT, EST [facility], [address] [place] [address] 2,[address], [place], [id number], [place] tel:[phone] [facility] chronic conditions (chief complaint) Essential (primary) hypertensio nChronic pain syndrome 6 Jeff Marquez. [address] [place], [place], [id number]. tel:[phone] OFFICE/OUTPATI ENT VISIT, [facility], [address] [place] [address],[address] [place] [address], [id number], [place] tel:[phone] [facility] chronic conditions (chief complaint) Essential (primary) hypertensio nOther chronic painMajor depressive disorder, recurrent, unspecified 6 Jeff Marquez. [address] [place] [address], [id number]. tel:[phone] [facility], [address] [place] [address] 2,[address], [place], [place], [id number], [place] tel:[phone] [facility] Bipolar affective disorder, currently depressed, moderatePTS D (post-traum atic stress disorder) 6 [facility]. [address] [place] [address], [id number], [place]. tel:[phone] [facility], [address] [place] [address] 2,[address], [place], [place], [id number], [place] tel:[phone] [facility] Bipolar affective disorder, currently depressed, moderatePTS D (post-traum atic stress disorder) 6 [facility] [address] [place] [address], [id number], [place]. tel:[phone] OFFICE/OUTPATI ENT VISIT, EST [facility], [address] [place] [address] 2,[address], [place], [place], [id number], [place] tel:[phone] [facility] rash (chief complaint) Rash of groin 6 Darlene Clemente. [address] [place] [address], [id number]. tel:[phone] [facility], [address] [address] [facility] [address], [place], [place], [id number], [place] tel:[phone] [facility] hypertension (follow up) (chief complaint) Essential (primary) hypertensio n 6 Pharmacy Clinical. . Consulting Provider: Delia Ragsdale, [address] [place] [address], [id number]. tel:[phone] OFFICE/OUTPATI ENT VISIT, EST [facility], [address] [address] [facility] [address], [place], [place], [id number], [place] tel:[phone] [facility] Hypertension (follow up) (chief complaint) Essential (primary) hypertensio n 6 No Informatio n [facility], [address], [place], [place], [id number], [place] tel:[phone] [facility] Bipolar affective disorder, current episode hypomanicPT SD (post-traum atic stress disorder) 6 Bharat Canseco. [address] [place] [address], [id number], [place]. tel:[phone] [facility], [address], [place], [place], [id number], [place] tel:[phone] [facility] hypertension (chief complaint) Essential (primary) hypertensio n 6 Pharmacy Clinical. . Consulting Provider: Delia Ragsdale, [address] [place] [address], [id number]. tel:[phone] OFFICE/OUTPATI ENT VISIT, EST [facility], [address], [place], [place], [id number], [place] tel:[phone] [facility] chronic conditions (chief complaint)Fo [facility] (chief complaint) Essential (primary) hypertensio nMajor depressive disorder, recurrent, unspecified Chronic pain syndromeHyp eruricemiaH ypokalemiaA lcohol use disorder, moderate, in early remissionTo bacco use disorder Sep-0 6 Jeff Marquez. [address] [place] [address], [id number]. tel:[phone] [facility], [address] [place] [address] 2,[address], [place], [place], [id number], [place] tel:[phone] [facility] No Information 0 6 Home Health Care Case Manager. . [facility], [address] [place] [address] 2,[address], [place], [place], [id number], [place] tel:[phone] [facility] Bipolar affective disorder, currently depressed, moderatePTS D (post-traum atic stress disorder) 0 6 Bharat Canseco. [address] [place] [address], [id number], [place]. tel:[phone] [facility], [address] [place] [address] 2,[address], [place], [place], [id number], [place] tel:[phone] [facility] Bipolar affective disorder, currently depressed, moderatePTS D (post-traum atic stress disorder) 6 Bharat Canseco. [address] [place] [address], [id number], [place]. tel:[phone] [facility], [address] [place] [address] 2,[address], [place], [place], [id number], [place] tel:[phone] [facility] No Information 6 Home Health Care Case Manager. . Consulting Provider: Annabel Beatty, [address] [place] [address], [id number]. tel:[phone] OFFICE/OUTPATI ENT VISIT, EST [facility], [address] [facility][[address]] [facility],[address], [place], [place], [id number], [place] tel:[phone] [facility] chronic conditions (chief complaint) Essential (primary) hypertensio nMajor depressive disorder, recurrent, unspecified Bilateral post-trauma tic osteoarthri tis of hipLow back painPain in both feet 6 Jeff Marquez. [address] [place], [place], [id number]. tel:[phone] [facility], [address] [facility][[address]] [facility],[address], [place], [id number], [place] tel:[phone] [facility] Bipolar affective disorder, currently depressed, moderatePTS D (post-traum atic stress disorder)Al cohol use with intoxicatio n 6 [facility]. [address] [place] [address], [id number], [place]. tel:[phone] [facility], [address] [facility][[address]] [facility],[address], [place], [place], [id number], [place] tel:[phone] [facility] Bipolar affective disorder, currently depressed, moderatePTS D (post-traum atic stress disorder) 6 Bharat Canseco. [address] [place] [address], [id number], [place]. tel:[phone] OFFICE/OUTPATI ENT VISIT, EST [facility], [address] [facility][[address]] [facility] [address], [place], [place], [id number], [place] tel:[phone] [facility] chronic conditions (chief complaint) Major depressive disorder, recurrent, unspecified Other chronic painEssenti al (primary) hypertensio n 6 Jeff Marquez. [address] [place], [place], [id number]. tel:[phone] [facility], [address] [facility][[address]] [facility],[address], [place], [place], [id number], [place] tel:[phone] [facility] Bipolar affective disorder, currently depressed, moderatePTS D (post-traum atic stress disorder) 6 Bharat Canseco. [address] [place] [address], [id number], [place]. tel:[phone] OFFICE/OUTPATI ENT VISIT, EST [facility], [address], [place], [place], [id number], [place] tel:[phone] [facility] chronic conditions (chief complaint) Essential (primary) hypertensio nOther chronic pain 6 Jeff Marquez. [address] [place], [place], [id number]. tel:[phone] [facility], [address] [place] [address] 2,[address], [place], [id number], [place] tel:[phone] [facility] Bipolar affective disorder, currently depressed, moderatePTS D (post-traum atic stress disorder) 6 Bharat Canseco. [address] [place] [address], [id number], [place]. tel:[phone] OFFICE/OUTPATI ENT VISIT, [facility], [address], [place], [place], [id number], [place] tel:[phone] [facility] chronic conditions (chief complaint)Bi lateral Foot pain (chief complaint) Other chronic painEssenti al (primary) hypertensio n 6 Jeff Marquez. [address] [place], [place], [id number]. tel:[phone] [facility], [address], [place], [place], [id number], [place] tel:[phone] [facility] Bipolar affective disorder, currently depressed, moderatePTS D (post-traum atic stress disorder) 6 Bharat Canseco. [address] [place] [address], [id number], [place]. tel:[phone] OFFICE/OUTPATI ENT VISIT, EST [facility], [address], [place], [place], [id number], [place] tel:[phone] [facility] chronic conditions (chief complaint) Chronic use of opiate drugs therapeutic purposesPri sena osteoarthri tis of both hipsLumbar radiculopat hy, chronicChro tank pain syndromeEss ential (primary) hypertensio n 6 Jeff Mcgrathia. [address] [place], [place], [id number]. tel:[phone] [facility], [address], [place], [place], [id number], [place] tel:[phone] [facility] Bipolar affective disorder, currently depressed, moderatePTS D (post-traum atic stress disorder) 6 Bharat Canseco. [address] [place], [place], [id number], [place]. tel:[phone] [facility], [address], [place], [place], [id number], [place] tel:[phone] [facility] No Information 6 Home Health Care Case Manager. . Consulting Provider: Mikaela Schreiber, [address] [place] [address], [id number]. tel:[phone] [facility], [address], [place], [place], [id number], [place] tel:[phone] [facility] No Information 6 Home Health Care Case Manager. . Consulting Provider: Robbi Chacon, [address] [place], [address]. tel:[phone] [facility], [address], [place], [place], [id number], [place] tel:[phone] [facility] Bipolar affective disorder, currently depressed, moderatePTS D (post-traum atic stress disorder) 6 Bharat Canseco. [address] [place] [address], [id number], [place]. tel:[phone] OFFICE/OUTPATI ENT VISIT, EST [facility], [address], [place], [place], [id number], [place] tel:[phone] [facility] chronic conditions (chief complaint) Essential (primary) hypertensio nPersonal history of other diseases of the respiratory systemOther chronic painChest pain, atypicalRec urrent major depressive disorder, in partial remission 6 Jeff Marquez. [address] [place] [address], [id number]. tel:[phone] Referring Provider: Alma Aguilar, [address] [place] [address], [id number]. tel:[phone] [facility], [address] [place] [address] 2,[address], [place], [place], [id number], [place] tel:[phone] [facility] Bipolar affective disorder, currently depressed, moderatePTS D (post-traum atic stress disorder) 6 [facility]leen. [address] [place] [address], [id number], [place]. tel:[phone] [facility], [address] [facility] [address], [place], [place], [id number], [place] tel:[phone] [facility] No Information 6 Home Health Care Case Manager. . Consulting Provider: Rafael Hickey, [address] [place] [address], [id number]. tel:[phone] [facility], [address], [place], [place], [id number], [place] tel:[phone] [facility] Bipolar affective disorder, currently depressed, moderatePTS D (post-traum atic stress disorder) 6 [facility] Harleen. [address] [place] [address], [id number], [place]. tel:[phone] [facility], [address] [facility][[address]] [employer] [address], [place], [place], [id number], [place] tel:[phone] [facility] No Information 6 Home Health Care Case Manager. . Consulting Provider: Mikaela Schreiber, [address] [place], [address]. tel:[phone] OFFICE/OUTPATI ENT VISIT, EST [facility], [address] [facility][[address]] [employer] [address], [place], [place], [id number], [place] tel:[phone] [facility] chronic conditions (chief complaint) Mild persistent asthma in adult without complicatio nPrimary osteoarthri tis of both hipsChronic pain syndromeLum bar radiculopat hy, chronicRecu rrent major depressive disorder, in partial remissionEs sential (primary) hypertensio n 6 Jeff Marquez. [address] [place] [address], [id number]. tel:[phone] [facility], [address] [facility][[address]] [employer] [address], [place], [place], [id number], [place] tel:[phone] [facility] Bipolar affective disorder, currently depressed, moderateMaj or depressive disorder, recurrent, unspecified PTSD (post-traum atic stress disorder) 5 Bharat Canseco. [address] [place] [address], [id number], [place]. tel:[phone] OFFICE/OUTPATI ENT VISIT, EST [facility], [address] [facility][1] [employer] [address], [place], [place], [id number], [place] tel:[phone] [facility] chronic conditions (chief complaint) Other chronic painEssenti al (primary) hypertensio nMajor depressive disorder, recurrent, unspecified 5 Jeff Marquez. [address] [place] [address], [id number]. tel:[phone] [facility], [address] [facility] [address], [place], [place], [id number], [place] tel:[phone] [facility] Bipolar affective disorder, currently depressed, moderatePTS D (post-traum atic stress disorder) 5 Bharat Canseco. [address] [place] [address], [id number], [place]. tel:[phone] [facility], [address] [facility] [address], [place], [place], [id number], [place] tel:[phone] [facility] Bipolar affective disorder, currently depressed, moderatePTS D (post-traum atic stress disorder) 5 No Informatio n [facility], [address] [place] [address] 2,[address], [place], [place], [id number], [place] tel:[phone] [facility] Bipolar affective disorder, currently depressed, moderatePTS D (post-traum atic stress disorder) 5 No Informatio n OFFICE/OUTPATI ENT VISIT, EST [facility], [address] [facility] [address], [place], [place], [id number], [place] tel:[phone] [facility] chronic conditions (chief complaint) Other chronic painEssenti al (primary) hypertensio nPersonal history of other diseases of the respiratory system 5 Jeff Marquez. [address] [place] [address], [id number]. tel:[phone] [facility], [address] [facility] [address], [place], [place], [id number], [place] tel:[phone] [facility] Bipolar affective disorder, currently depressed, moderatePTS D (post-traum atic stress disorder) 5 No Informatio n [facility], [address] [facility] [address], [place], [id number], [place] tel:[phone] [facility] Bipolar disorder, unspecified Posttraumat ic stress disorderDep ression 4 5 No Informatio n OFFICE/OUTPATI ENT VISIT, EST [facility], [address] [address], [place], [id number], [place] tel:[phone] [facility] chronic conditions (chief complaint) Other chronic painUnspeci fied essential hypertensio nPersonal history of other diseases of respiratory systemMajor depressive disorder, recurrent episode, unspecified degree Apr- 2 5 Jeff Marquez. [address] [place], [place], [id number]. tel:[phone] [facility], [address] [address] [facility] [address], [place], [address], [place] tel:[phone] [facility] Bipolar disorder, unspecified Posttraumat ic stress disorderDep ression Apr- 0 5 No Informatio n OFFICE/OUTPATI ENT VISIT, EST [facility], [address] [facility] [address], [place], [place], [id number], [place] tel:[phone] [facility] chronic conditions (chief complaint) Major depressive disorder, recurrent episode, unspecified degreeOther chronic pain 5 Jeff Marquez. [address] [place], [place], [id number]. tel:[phone] [facility], [address] [facility] [address], [place], [id number], [place] tel:[phone] [facility] Bipolar disorder, unspecified Posttraumat ic stress disorderDep ression 5 No Informatio n OFFICE/OUTPATI ENT VISIT, EST [facility], [address] [facility] [address], [place], [id number], [place] tel:[phone] [facility] chronic conditions (chief complaint) Major depressive disorder, recurrent episode, unspecified degreeUnspe cified essential hypertensio nOther chronic pain Feb- 5 Jeff Marquez. [address] [place], [place], [id number]. tel:[phone] OFFICE/OUTPATI ENT VISIT, [facility], [address] [facility] [address], [place], [place], [id number], [place] tel:[phone] [facility] chronic conditions (chief complaint) Other chronic pain Feb-0 6-201 5 Jeff Marquez. [address] [place], [place], [id number]. tel:[phone] OFFICE/OUTPATI ENT VISIT, [facility], [address] [facility] [address], [place], [place], [address], [place] tel:[phone] [facility] chronic conditions (chief complaint)de ntal (chief complaint) Other chronic painUnspeci fied essential hypertensio nBroken tooth Higinio-3 0- 5 Jeff Marquez. [address] [place], [place], [id number]. tel:[phone] OFFICE/OUTPATI ENT VISIT, [facility], [address] [facility] [address], [place], [place], [id number], [place] tel:[phone] [facility] chronic conditions (chief complaint)he aring loss R ear (chief complaint) Major depressive disorder, recurrent episode, unspecified degreeOsteo arthrosis, unspecified whether generalized or localized, involving pelvic region and thighUnspec ified essential hypertensio nCerumen impaction Jan-0 3- 5 Jeff Marquez. [address] [place], [place], [id number]. tel:[phone] OFFICE/OUTPATI ENT VISIT, [facility], [address] [facility] [address], [place], [address], [place] tel:[phone] [facility] hypertension (chief complaint)me d man (chief complaint) Chronic painHomeles snessUnspec ified essential hypertensio n December-0 5- 5 Jeff Marquez. [address] [place], [place], [id number]. tel:[phone] OFFICE/OUTPATI ENT VISIT, [facility], [address] [facility] [address], [place], [place], [address], [place] tel:[phone] [facility] back pain (chief complaint)hi p pain (chief complaint)de pression (chief complaint) Back pain with radiationMa gilbert depressive disorder, recurrent episode, unspecified degree Apr-0 5 Jeff Marquez. [address] [place], [place], [id number]. tel:[phone] OFFICE/OUTPATI ENT VISIT, [facility], [address] [facility] [address], [place], [place], [address], [place] tel:[phone] [facility] chronic pain (chief complaint)se xual dysfunction (chief complaint)hy pertension (chief complaint)PT SD (chief complaint)sm oking (chief complaint) Chronic painUnspeci fied essential hypertensio nPosttrauma tic stress disorderTob acco abuseMajor depressive affective disorder, recurrent episode, moderate degree Mar-0 - 5 Jeff Marquez. [address] [place], [place], [id number]. tel:[phone] OFFICE/OUTPATI ENT VISIT, [facility], [address] [facility] [address], [place], [place], [id number], [place] tel:[phone] [facility] hypertension (chief complaint)Me d Man (chief complaint)CA D (chief complaint)se xual dysfunction (chief complaint) Chronic painUnspeci fied essential hypertensio nPosttrauma tic stress disorderSex ual dysfunction Feb-0 5 Jeff Marquez. [address] [place], [place], [id number]. tel:[phone] OFFICE/OUTPATI ENT VISIT, [facility], [address] [facility] [address], [place], [place], [address], [place] tel:[phone] [facility] hypertension (chief complaint)sl eep problems (chief complaint)ch ronic pain (chief complaint)ch est pain (chief complaint) Chest pain at restPosttra umatic stress disorderUns pecified essential hypertensio nOsteoarthr osis, unspecified whether generalized or localized, involving pelvic region and thigh 5 Jeff Marquez. [address] [place], [place], [id number]. tel:[phone] OFFICE/OUTPATI ENT VISIT, [facility], [address] [facility] [address], [place], [address], [place] tel:[phone] [facility] hypertension (chief complaint)ra sh (chief complaint)hi p pain (chief complaint) Osteoarthro sis, unspecified whether generalized or localized, involving pelvic region and thighUnspec ified essential hypertensio n Jeff Marquez. [address] [place] [address], [id number]. tel:[phone] OFFICE/OUTPATI ENT VISIT, [facility], [address] [facility] [address], [place], [place], [address], [place] tel:[phone] [facility] chronic pain (chief complaint)hy pertension (chief complaint) Chronic painHyperte nsion, Unspecified Jeff Marquez. [address] [place] [address], [id number]. tel:[phone] OFFICE/OUTPATI ENT VISIT, [facility], [address] [facility] [address], [place], [place], [address], [place] tel:[phone] [facility] chronic conditions (chief complaint)As thma (chief complaint)la ceration (chief complaint) Osteoarthro sis, unspecified whether generalized or localized, involving pelvic region and thighLacera tion of finger of left hand 4 No Informatio n OFFICE/OUTPATI ENT VISIT, [facility], [address] [facility] [address], [place], [place], [address], [place] tel:[phone] [facility] chronic conditions (chief complaint)as thma (chief complaint) Osteoarthro sis, unspecified whether generalized or localized, involving pelvic region and thighPerson al history, Other diseases of respiratory system 4 No Informatio n OFFICE/OUTPATI ENT VISIT, EST [facility], [address] [facility] [address], [place], [place], [id number], [place] tel:[phone] [facility] chronic conditions (chief complaint) Hypertensio n, Unspecified Osteoarthro sis, unspecified whether generalized or localized, involving pelvic region and thighHomele ssnessMajor depressive affective disorder, recurrent episode, moderate degree 4 No Informatio n Psychotherapy 45 Min (38-52 Min) [facility], [address] [place] [address] 2,[address], [place], [place], [id number], [place] tel:[phone] [facility] No Information 4 No Informatio n OFFICE/OUTPATI ENT VISIT, EST [facility], [address] [facility] [address], [place], [address], [place] tel:[phone] [facility] Posttraumat ic stress disorder 4 No Informatio n Psychotherapy 45 Min (38-52 Min) [facility], [address] [place] [address] 2,[address], [place], [place], [id number], [place] tel:[phone] [facility] No Information 4 No Informatio n OFFICE/OUTPATI ENT VISIT, EST [facility], [address] [place] [address] 2,[address], [place], [place], [id number], [place] tel:[phone] [facility] chronic conditions (chief complaint) Osteoarthro sis, unspecified whether generalized or localized, involving pelvic region and thighHypert ension, Unspecified 0 4 Jeff Marquez. [address] [place] [address], [place], [place], [id number]. tel:[phone] Psychotherapy 45 Min (38-52 Min) [facility], [address] [facility] [address], [place], [place], [id number], [place] tel:[phone] [facility] Posttraumat ic stress disorderPos ttraumatic stress disorder 3-201 4 No Informatio n OFFICE/OUTPATI ENT VISIT, EST [facility], [address] [facility] [address], [place], [place], [id number], [place] tel:[phone] [facility] chronic conditions (chief complaint) Osteoarthro sis, unspecified whether generalized or localized, involving pelvic region and thighHypert ension, Unspecified 0 4 Jeff Marquez. [address] [place], [place], [id number]. tel:[phone] Psychiatrist Diagnostic Eval (no Medical Service) [facility], [address] [facility] [address], [place], [id number], [place] tel:[phone] [facility] Posttraumat ic stress disorder 4 No Informatio n Psychotherapy 45 Min (38-52 Min) [facility], [address] [facility] [address] [address], [place], [place], [id number], [place] tel:[phone] [employer] [facility] No Information Nov-2 4 No Informatio n OFFICE/OUTPATI ENT VISIT, EST [facility], [address] [facility] [address], [place], [place], [id number], [place] tel:[phone] [facility] chronic conditions (chief complaint) Osteoarthro sis, unspecified whether generalized or localized, involving pelvic region and thigh Nov-0 4 Jeff Marquez. [address] [place], [place], [id number]. tel:[phone] Psychotherapy , 30 Min (16-37 Min) [facility], [address] [facility] [address], [place], [id number], [place] tel:[phone] [facility] No Information 4 No Informatio n Psychotherapy 45 Min (38-52 Min) [facility], [address] [address], [place], [address], [place] tel:[phone] [facility] Bipolar I disorder, most recent episode (or current) mixed, moderate 4 No Informatio n OFFICE/OUTPATI ENT VISIT, EST [facility], [address] [place] [address] 2,[address], [place], [place], [address], [place] tel:[phone] [facility] chronic conditions (chief complaint) Osteoarthro sis, unspecified whether generalized or localized, involving pelvic region and thighHypert ension, Unspecified 4 Jeff Marquez. [address] [place] [address], [id number]. 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 [address] [place] [address], [id number]. tel:[phone] Psychotherapy 45 Min (38-52 Min) melanie [facility], [address] [place] [address] 2,[address], [place], [place], [address], [place] tel:[phone] [facility] [employer] [facility] No Information 4 No Informatio n Psychotherapy 45 Min (38-52 Min) [facility], [address] [facility] [address], [place], [address], [place] tel:[phone] [facility] No Information 4 No Informatio n [facility], [address] [facility] [address], [place], [id number], [place] tel:[phone] [facility] No Information 4 Home Health Care Case Manager. . Psychotherapy 45 Min (38-52 Min) [facility], [address] [facility] [address], [place], [place], [address], [place] tel:[phone] [facility] No Information 4 No Informatio n [facility], [address] [facility] [address], [place], [place], [address], [place] tel:[phone] [facility] No Information 4 Home Health Care Case Manager. . Consulting Provider: Gracy Gauthier, [address] [place] [address], [id number]. tel:[phone] OFFICE/OUTPATI ENT VISIT, EST [facility], [address] [place] [address] 2,[address], [place], [id number], tel:[phone] [facility] hip pain (chief complaint)de pression (chief complaint) Pain in joint involving pelvic region and thigh 4 Jeff Marquez. [address] [place] [address], [id number]. tel:[phone] Psychotherapy 45 Min (38-52 Min) [facility], [address] [facility] [address], [place], [place], [address], [place] tel:[phone] [facility] No Information 4 No Informatio n Psychotherapy 45 Min (38-52 Min) [facility], [address] [facility] [address], [place], [place], [address], [place] tel:[phone] [facility] No Information 4 No Informatio n OFFICE/OUTPATI ENT VISIT, EST [facility], [address] [facility] [address], [place], [id number], [place] tel:[phone] [facility] Hip pain (chief complaint)le g pain (chief complaint)ba ck pain (chief complaint) Hip pain, bilateral Nov- 3 Jeff Mcgrathia. [address] [facility], [place], [place], [id number]. tel:[phone] Psychotherapy 45 Min (38-52 Min) [facility], [address] [facility] [address], [place], [place], [address], [place] tel:[phone] [facility] [employer] [facility] No Information Oct-2 - 3 No Informatio n Psychotherapy 45 Min (38-52 Min) [facility], [address] [place] [address] 2,[address], [place], [place], [address], [place] tel:[phone] [facility] [employer] [facility] No Information May-0 3 No Informatio n Psychotherapy 45 Min (38-52 Min) [facility], [address] [place] [address] 2,[address], [place], [place], [address], [place] tel:[phone] [facility] No Information Sep-2 3 No Informatio n OFFICE/OUTPATI ENT VISIT, EST [facility], [address] [place] [address] 2,[address], [place], [place], [address], [place] tel:[phone] [facility] chronic conditions (chief complaint) Hypertensio n, Unspecified LumbagoPers onal history, Other diseases of respiratory system Sep-1 - 3 No Informatio n Psychotherapy 45 Min (38-52 Min) [facility], [address] [place] [address] 2,[address], [place], [place], [id number], [place] tel:[phone] [facility] [employer] [facility] No Information Sep-0 3 No Informatio n [facility], [address] [place] [address] 2,[address], [place], [place], [address], [place] tel:[phone] [facility] No Information Sep-0 6- 3 No Informatio n Psychotherapy , 30 Min (16-37 Min) [facility], [address] [place] [address] 2,[address], [place], [place], [address], [place] tel:[phone] [facility] No Information 3 No Informatio n [facility], [address] [facility] [address], [place], [place], [address], [place] tel:[phone] [facility] a comprehensiv e exam (chief complaint) Astigmatism , unspecified HeadacheUve itis 3 No Informatio n Psychotherapy 45 Min (38-52 Min) [facility], [address] [facility] [address], [place], [place], [address], [place] tel:[phone] [facility] No Information 3 No Informatio n OFFICE/OUTPATI ENT VISIT, EST [facility], [address] [facility] [address], [place], [place], [address], [place] tel:[phone] [facility] chronic conditions (chief complaint) Hypertensio n, Unspecified Lumbago 3 No Informatio n Psychotherapy 45 Min (38-52 Min) [facility], [address] [facility][1] [facility],[address], [place], [place], [address], [place] tel:[phone] [facility] No Information 3 No Informatio n Psychotherapy 45 Min (38-52 Min) [facility], [address] [facility][1] [facility],[address], [place], [place], [address], [place] tel:[phone] [facility] No Information 3 No Informatio n Psychotherapy 45 Min (38-52 Min) [facility], [address] [facility] [address], [place], [place], [address], [place] tel:[phone] [facility] No Information 3 No Informatio n OFFICE/OUTPATI ENT VISIT, EST [facility], [address] [facility] [address], [place], [place], [address], [place] tel:[phone] [facility] BP check (chief complaint) Hypertensio n, Unspecified 3 Fab Serrano. [address] [facility], [place], [place], [id number]. tel:[phone] OFFICE/OUTPATI ENT VISIT, EST [facility], [address] [facility] [address], [place], [place], [address], [place] tel:[phone] [facility] chronic conditions (chief complaint)pl an of care (chief complaint) Hypertensio n, Unspecified LumbagoPers onal history, Other diseases of respiratory systemMedic al home patient encounter 3 No Informatio n Psychotherapy , 30 Min (16-37 Min) [facility], [address] [facility] [address], [place], [place], [address], [place] tel:[phone] [facility] No Information 3 No Informatio n Psychotherapy 45 Min (38-52 Min) [facility], [address] [facility] [address], [place], [place], [address], [place] tel:[phone] [facility] No Information 3 No Informatio n Psychotherapy 45 Min (38-52 Min) [facility], [address] [facility] [address], [place], [place], [address], [place] tel:[phone] [facility] No Information 3 No Informatio n OFFICE/OUTPATI ENT VISIT, EST [facility], [address] [facility] [address], [place], [place], [address], [place] tel:[phone] [facility] high blood pressure (chief complaint)sh ortness of breath (chief complaint) Hypertensio n, Unspecified Personal history of asthmaLumba go 3 No Informatio n Psychotherapy 45 Min (38-52 Min) [facility], [address] [place] [address] [facility],[address], [place], [place], [address], [place] tel:[phone] [facility] No Information 3 No Informatio n Psychotherapy 45 Min (38-52 Min) [facility], [address] [facility] [address], [place], [place], [address], [place] tel:[phone] [facility] Bipolar I disorder, most recent episode (or current) mixed, moderateMaj or depressive affective disorder, recurrent episode, moderate degree 3 No Informatio n Psychotherapy 45 Min (38-52 Min) [facility], [address] [facility] [address], [place], [place], [address], [place] tel:[phone] [facility] No Information 3 No Informatio n OFFICE/OUTPATI ENT VISIT, EST [facility], [address] [facility] [address], [place], [place], [address], [place] tel:[phone] [facility] hypertension (follow up) (chief complaint)ba ck pain (chief complaint) Hypertensio n, Unspecified Lumbago 3 No Informatio n PREV VISIT, EST, AGE 18-39 [facility], [address] [facility] [address], [place], [place], [address], [place] tel:[phone] [facility] preventive exam (chief complaint)F/ U back pain (chief complaint)ch est pain (chief complaint) [facility] Ex[facility] shoulder pain 2 No Informatio n OFFICE/OUTPATI ENT VISIT, EST [facility], [address] [facility] [address], [place], [place], [address], [place] tel:[phone] [facility] abdominal pain (chief complaint)ba ck pain (chief complaint) LumbagoHype rtension, Unspecified Abdominal pain 2 No Informatio n [facility], [address] [facility] [address], [place], [place], [address], [place] tel:[phone] [facility] No Information 2 No Informatio n [facility], [address] [facility][1] [facility],[address], [place], [place], [address], [place] tel:[phone] [facility] No Information 2 No Informatio n [facility], [address] [facility][1] [facility] [address], [place], [place], [address], [place] tel:[phone] [facility] bipolar disorder (chief complaint)an xiety (chief complaint) Major depressive affective disorder, recurrent episode, moderate degreeBipol ar disorder, unspecified 2 No Informatio n OFFICE/OUTPATI ENT VISIT, EST [facility], [address] [facility] [address], [place], [place], [address], [place] tel:[phone] [facility] headache (chief complaint) LumbagoHead ache 2 No Informatio n [facility], [address] [facility] [address], [place], [place], [address], [place] tel:[phone] [facility] No Information 2 No Informatio n OFFICE/OUTPATI ENT VISIT, EST [facility], [address] [facility] [address], [place], [place], [address], [place] tel:[phone] [facility] back/abdomin al pain (chief complaint) Abdominal pain, left lower quadrant 2 No Informatio n [facility], [address] [facility] [address], [place], [place], [address], [place] tel:[phone] [facility] No Information 2 No Informatio n OFFICE/OUTPATI ENT VISIT, EST [facility], [address] [facility]1] [facility],[address], [place], [address], [place] tel:[phone] [facility] knee pain (chief complaint)ba ck pain (chief complaint)ab dominal pain (chief complaint)Mu sculoskeleta l Pain (chief complaint) Abdominal pain, right lower quadrant 2 Dobles Crissy. [address] [place], [place], [address]. tel:[phone] OFFICE/OUTPATI ENT VISIT, EST [facility], [address] [facility] [address], [place], [place], [address], [place] tel:[phone] [facility] L ear pain (chief complaint)Rx Refills (chief complaint) Impacted cerumenAbdo camille pain, right lower quadrant 2 No Informatio n [facility], [address] [place] [address] 2,[address], [place], [place], [address], [place] tel:[phone] [facility] No Information 2 [employer]. [address] [place] [address], [address]. tel:[phone] [facility], [address] [facility] [address], [place], [place], [address], [place] tel:[phone] [facility] behavior disorder (chief complaint) Major depressive affective disorder, recurrent episode, moderate degree 2 No Informatio n [facility], [address] [place] [address] 2,[address], [place], [place], [address], [place] tel:[phone] [facility] No Information 2 No Informatio n OFFICE/OUTPATI ENT VISIT, EST [facility], [address] [facility] [address], [place], [place], [address], [place] tel:[phone] [facility] abdominal pain (chief complaint) Abdominal pain, right lower quadrant 2 Dobles Crissy. [address] [place], [place], [address]. tel:[phone] OFFICE/OUTPATI ENT VISIT, EST [facility], [address] [facility][1] [employer] [address], [place], [place], [address], [place] tel:[phone] [facility] abdominal pain (chief complaint) Abdominal pain, right lower quadrant Feb- 2 David Nobleszabeth. [address] [place] [address], [place], [place], [address]. tel:[phone] [facility], [address] [facility][1] [employer] [address], [place], [place], [address], [place] tel:[phone] [facility] No Information Jan- 2 [facility] [address] [facility][1] [facility] [address], [place], [place], [address], [place] tel:[phone] [facility] angry (chief complaint) Major depressive affective disorder, recurrent episode, moderate degree Jan-2 0- 2 No Informatio n [facility], [address] [facility][1] [employer] [address], [place], [place], [address], [place] tel:[phone] [facility] Major depressive affective disorder, recurrent episode, moderate degreeBipol ar disorder, unspecified Jan-08 28- 2 No Informati n [facility], [address] [facility][1] [employer] [address], [place], [place], [address], [place] tel:[phone] [facility] Major depressive affective disorder, recurrent episode, moderate degreeBipol ar disorder, unspecified 2 No Informatio n [facility], [address] [facility][1] [employer] [address], [place], [place], [address], [place] tel:[phone] [facility] Major depressive affective disorder, recurrent episode, moderate degree Feb-2 - 2 [facility] [address] [facility][1] [facility],[address], [place], [place], [address], [place] tel:[phone] [facility] Posttraumat ic stress disorder 2 No Informatio n [facility], [address] [facility][1] 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,[address], [place], [place], [address], [place] tel:[phone] [facility] LumbagoRout ine general medical examination at a health care facility 1 No Informatio n [facility], [address] [facility][1] [facility],[address], [place], [place], [address], [place] tel:[phone] [facility] Other general medical examination for administrat sagrario purposes 1 Kevin Rahman. [address] [place] [address], [place], [place], [address]. tel:[phone] [facility], [address] [facility][1] [facility],[address], [place], [place], [address], [place] tel:[phone] [facility] Abdominal pain, right lower quadrant 1 No Informatio n Family History Family Member Type Diagnosis Age At Onset FH - ILLNESSES (GENE Problem (finding) POSITIVE FOR AL COHOLISM Problem (finding) Family history of Menta l illness Immunizations Vaccine Date Status Comments Flu Quad PF administered Source : New Immunization Record Flu Quad PF administered Source : New Immunization Record Flu Quad MDV (>/= 6 mo) 0.5ml administered Source: New Immuniza tion Record Hep B, adult, 3 dose administered Source: New Immunization Record Hep A (adult) administered Note: Review a llergies and s/s of allergic reaction. Pt. denied allergies, tolerated the injection well and denied any pain. Pt. was released in NAD ; Source: New Immunization Record Hep B, adult, 3 dose administered Note: R eview allergies and s/s of allergic reaction. Pt. denied allergies, tolerated the injection well and denied any pain. Pt. was released in NAD ; Source: New Immunization Record Tdap (Adacel) administered Note: [facility] ; So urce: Other Provider Influenza Quad MDV 0.5ml administered Source: New Immuniza tion Record Hep B, adult, 3 dose administered Source: New Immunization Record Influenza, injectable, quadrivalent, split virus, 3 years or older Flulaval Quad [id number] administered Source: New Immuniza tion Record Influenza, injectable, quadrivalent, split virus, 3 years or older Flulaval Quad [id number] administered Source: New Immuniza tion Record Influenza, injectable, quadrivalent, 3 years or older Fluzone Quad [id number] administered Source: New Immun ization Record PPSV23 administered Source: Other R egistry Influenza, seasonal, injectable, preservative free, 3 yrs or older administered Source: New Immuniza tion Record Tdap unknown Source: Other R egistry Flu-IIV3(TIV), p-free pending Note: IMM Info from [facility] ; Source: Other Provider TDAP administered Source: New Imm unization Record Payers Payer name Insurance type Covered constitution party ID Authoriza tion(s) D [facility] [id number] Medicare NGS MB [id number] [employer] [employer] [id number] Medicare NGS MB [id number] [employer] [facility] [id number] Medicare NGS MB [id number] [employer] [facility] [id number] Medicare NGS MB [id number] [employer] [facility] [id number] Medicare NGS MB [id number] [employer] [employer] [id number] Medicare NGS MB [id number] [facility] [employer] [id number] Medicare NGS MB [id number] [facility] [id number] Medicare NGS MB [id number] [facility] [employer] [id number] Medicare NGS MB [id number] [facility] [id number] Medicare NGS MB [id number] [facility] [id number] Medicare NGS MB [id number] [facility] [id number] Social History Type Description Quantity Date Captured Comments Sex Male Smoking Status No Information Sexual Orientation Straight or heterosexual Chief Complaint And Reason For Visit No Information Reason For Referral Reason For Referral No Information Plan Of Treatment Date Type Action Status Goal APE. Due on due Goal Pneumococcal vac cine. Due on due Goal Tdap due Goal Lipid panel. Due on due Goal Hepatitis C Scre ening. Due on due Goal Diabetes Screening. Due on due Goal Document SOGI In formation. Due on due Goal Unhealthy drug u se screening. Due on due Goal Influenza vaccine. Due on due Goal Pneumococcal vac cine. Due on due Goal Hepatitis C Scre ening. Due on due Goal Diabetes Screening. Due on due Goal Lipid panel. Due on due Goal Tdap due Goal Influenza vaccine. Due on due Goal Document SOGI In formation. Due on due Goal APE. Due on due Goal Unhealthy drug u se screening. Due on due Goal Unhealthy drug u se screening. Due on due Goal Document SOGI In formation. Due on due Goal Influenza vaccine. Due on due Goal Lipid panel. Due on due Goal APE. Due on due Goal Hepatitis C Scre ening. Due on due Goal Diabetes Screening. Due on due Goal Pneumococcal vac cine. Due on due Goal Tdap due Goal Tdap due Goal Hepatitis C Scre ening. Due on due Goal APE. Due on due Goal Pneumococcal vac cine. Due on due Goal Influenza vaccine. Due on due Goal Diabetes Screening. Due on due Goal Document SOGI In formation. Due on due Goal Unhealthy drug u se screening. Due on due Goal Lipid panel. Due on due Goal Diabetes Screening. Due on due Goal Lipid panel. Due on due Goal APE. Due on due Goal Influenza vaccine. Due on due Goal Document SOGI In formation. Due on due Goal Hepatitis C Scre ening. Due on due Goal Tdap due Goal Pneumococcal vac cine. Due on due Goal Unhealthy drug u se screening. Due on due Goal APE. Due on due Goal Influenza vaccine. Due on due Goal Hepatitis C Scre ening. Due on due Goal Diabetes Screening. Due on due Goal Tdap due Goal Pneumococcal vac cine. Due on due Goal Document SOGI In formation. Due on due Goal Lipid panel. Due on due Goal Unhealthy drug u se screening. Due on due Goal Influenza vaccine. Due on due Goal Pneumococcal vac cine. Due on due Goal APE. Due on due Goal Unhealthy drug u se screening. Due on due Goal Lipid panel. Due on due Goal Tdap due Goal Hepatitis C Scre ening. Due on due Goal Document SOGI In formation. Due on due Goal Diabetes Screening. Due on due Goal Influenza vaccine. Due on due Goal Diabetes Screening. Due on due Goal Hepatitis C Scre ening. Due on due Goal APE. Due on due Goal Tdap due Goal Lipid panel. Due on due Goal Pneumococcal vac cine. Due on due Goal Document SOGI In formation. Due on due Goal Unhealthy drug u se screening. Due on due Goal Tdap due Goal Pneumococcal vac cine. Due on due Goal Unhealthy drug u se screening. Due on due Goal Hepatitis C Scre ening. Due on due Goal Influenza vaccine. Due on due Goal Document SOGI In formation. Due on due Goal APE. Due on due Goal Diabetes Screening. Due on due Goal Lipid panel. Due on due Goal Hepatitis C Scre ening. Due on due Goal Diabetes Screening. Due on due Goal Pneumococcal vac cine. Due on due Goal Document SOGI In formation. Due on due Goal Lipid panel. Due on due Goal Tdap due Goal APE. Due on due Goal Unhealthy drug u se screening. Due on due Goal Influenza vaccine. Due on due Goal Influenza vaccine. Due on due Goal Diabetes Screening. Due on due Goal Hepatitis C Scre ening. Due on due Goal Unhealthy drug u se screening. Due on due Goal Tdap due Goal Pneumococcal vac cine. Due on due Goal APE. Due on due Goal Document SOGI In formation. Due on due Goal Lipid panel. Due on due Goal Document SOGI In formation. Due on due Goal Lipid panel. Due on due Goal APE. Due on due Goal Influenza vaccine. Due on due Goal Unhealthy drug u se screening. Due on due Goal Tdap due Goal Pneumococcal vac cine. Due on due Goal Hepatitis C Scre ening. Due on due Goal Diabetes Screening. Due on due Goal Unhealthy drug u se screening. Due on due Goal Lipid panel. Due on due Goal Hepatitis C Scre ening. Due on due Goal Tdap due Goal Pneumococcal vac cine. Due on due Goal Document SOGI In formation. Due on due Goal Influenza vaccine. Due on due Goal Diabetes Screening. Due on due Goal APE. Due on due Goal Unhealthy drug u se screening. Due on due Goal Tdap due Goal Pneumococcal vac cine. Due on due Goal Document SOGI In formation. Due on due Goal Diabetes Screening. Due on due Goal Hepatitis C Scre ening. Due on due Goal Lipid panel. Due on due Goal APE. Due on due Goal Influenza vaccine. Due on due Goal Influenza vaccine. Due on due Goal APE. Due on due Goal Lipid panel. Due on due Goal Diabetes Screening. Due on due Goal Document SOGI In formation. Due on due Goal Pneumococcal vac cine. Due on due Goal Hepatitis C Scre ening. Due on due Goal Tdap due Goal Unhealthy drug u se screening. Due on due Goal Diabetes Screening. Due on due Goal Tdap due Goal Influenza vaccine. Due on due Goal Lipid panel. Due on due Goal Document SOGI In formation. Due on due Goal Pneumococcal vac cine. Due on due Goal APE. Due on due Goal Unhealthy drug u se screening. Due on due Goal Hepatitis C Scre ening. Due on due Goal Lipid panel. Due on due Goal Unhealthy drug u se screening. Due on due Goal Pneumococcal vac cine. Due on due Goal Influenza vaccine. Due on due Goal Tdap due Goal Document SOGI In formation. Due on due Goal APE. Due on due Goal Diabetes Screening. Due on due Goal Hepatitis C Scre ening. Due on due Goal Pneumococcal vac cine. Due on due Goal Tdap due Goal Lipid panel. Due on due Goal Influenza vaccine. Due on due Goal APE. Due on due Goal Document SOGI In formation. Due on due Goal Unhealthy drug u se screening. Due on due Goal Diabetes Screening. Due on due Goal Hepatitis C Scre ening. Due on due Goal Hepatitis C Scre ening. Due on due Goal Pneumococcal vac cine. Due on due Goal Unhealthy drug u se screening. Due on due Goal Diabetes Screening. Due on due Goal Document SOGI In formation. Due on due Goal APE. Due on due Goal Tdap due Goal Influenza vaccine. Due on due Goal Lipid panel. Due on due Goal Pneumococcal vac cine. Due on due Goal APE. Due on due Goal Influenza vaccine. Due on due Goal Document SOGI In formation. Due on due Goal Hepatitis C Scre ening. Due on due Goal Lipid panel. Due on due Goal Tdap due Goal Diabetes Screening. Due on due Goal Unhealthy drug u se screening. Due on due Goal Unhealthy drug u se screening. Due on due Goal APE. Due on due Goal Hepatitis C Scre ening. Due on due Goal Pneumococcal vac cine. Due on due Goal Document SOGI In formation. Due on due Goal Influenza vaccine. Due on due Goal Tdap due Goal Lipid panel. Due on due Goal Diabetes Screening. Due on due Goal Tdap due Goal Unhealthy drug u se screening. Due on due Goal APE. Due on due Goal Pneumococcal vac cine. Due on due Goal Diabetes Screening. Due on due Goal Hepatitis C Scre ening. Due on due Goal Influenza vaccine. Due on due Goal Lipid panel. Due on due Goal Document SOGI In formation. Due on due Goal Hepatitis C Scre ening. Due on due Goal Tdap due Goal Diabetes Screening. Due on due Goal Pneumococcal vac cine. Due on due Goal APE. Due on due Goal Unhealthy drug u se screening. Due on due Goal Lipid panel. Due on due Goal Document SOGI In formation. Due on due Goal Influenza vaccine. Due on due Goal Lipid panel. Due on due Goal Pneumococcal vac cine. Due on due Goal Colonoscopy. Due on due Goal Diabetes Screening. Due on due Goal Hepatitis C Scre ening. Due on due Goal APE. Due on due Goal CT-Colonography. Due on due Goal FIT-DNA. Due on due Goal Tdap due Goal Document SOGI In formation. Due on due Goal Influenza vaccine. Due on due Goal Unhealthy drug u se screening. Due on due Goal Lipid panel. Due on due Goal Pneumococcal vac cine. Due on due Goal Diabetes Screening. Due on due Goal Document SOGI In formation. Due on due Goal Colonoscopy. Due on due Goal APE. Due on due Goal FIT-DNA. Due on due Goal Influenza vaccine. Due on due Goal CT-Colonography. Due on due Goal Tdap due Goal Hepatitis C Scre ening. Due on due Goal Unhealthy drug u se screening. Due on due Goal CT-Colonography. Due on due Goal Unhealthy drug u se screening. Due on due Goal Lipid panel. Due on due Goal APE. Due on due Goal Influenza vaccine. Due on due Goal Diabetes Screening. Due on due Goal Colonoscopy. Due on due Goal Document SOGI In formation. Due on due Goal FIT-DNA. Due on due Goal Pneumococcal vac cine. Due on due Goal Hepatitis C Scre ening. Due on due Goal Tdap due Goal CT-Colonography. Due on due Goal FIT-DNA. Due on due Goal Hepatitis C Scre ening. Due on due Goal APE. Due on due Goal Diabetes Screening. Due on due Goal Lipid panel. Due on due Goal Tdap due Goal Document SOGI In formation. Due on due Goal Pneumococcal vac cine. Due on due Goal Colonoscopy. Due on due Goal Influenza vaccine. Due on due Goal Unhealthy drug u se screening. Due on due Goal FIT-DNA. Due on due Goal Hepatitis C Scre ening. Due on due Goal Document SOGI In formation. Due on due Goal APE. Due on due Goal Diabetes Screening. Due on due Goal CT-Colonography. Due on due Goal Pneumococcal vac cine. Due on due Goal Tdap due Goal Colonoscopy. Due on due Goal Lipid panel. Due on due Goal Unhealthy drug u se screening. Due on due Goal Influenza vaccine. Due on due Goal Lipid panel. Due on due Goal Unhealthy drug u se screening. Due on due Goal APE. Due on due Goal Hepatitis C Scre ening. Due on due Goal CT-Colonography. Due on due Goal FIT-DNA. Due on due Goal Document SOGI In formation. Due on due Goal Colonoscopy. Due on due Goal Tdap due Goal Diabetes Screening. Due on due Goal Influenza vaccine. Due on due Goal Pneumococcal vac cine. Due on due Goal Document SOGI In formation. Due on due Goal Lipid panel. Due on due Goal Pneumococcal vac cine. Due on due Goal Hepatitis C Scre ening. Due on due Goal APE. Due on due Goal Influenza vaccine. Due on due Goal CT-Colonography. Due on due Goal Diabetes Screening. Due on due Goal Tdap due Goal FIT-DNA. Due on due Goal Colonoscopy. Due on due Goal Unhealthy drug u se screening. Due on due Goal Lipid panel. Due on due Goal Tdap due Goal Diabetes Screening. Due on due Goal Influenza vaccine. Due on due Goal APE. Due on due Goal Document SOGI In formation. Due on due Goal FIT-DNA. Due on due Goal Hepatitis C Scre ening. Due on due Goal CT-Colonography. Due on due Goal Pneumococcal vac cine. Due on due Goal Colonoscopy. Due on due Goal Unhealthy drug u se screening. Due on due Goal Hepatitis C Scre ening. Due on due Goal FIT-DNA. Due on due Goal Diabetes Screening. Due on due Goal Lipid panel. Due on due Goal APE. Due on due Goal Tdap due Goal Influenza vaccine. Due on due Goal Document SOGI In formation. Due on due Goal Colonoscopy. Due on due Goal CT-Colonography. Due on due Goal Unhealthy drug u se screening. Due on due Goal Pneumococcal vac cine. Due on due Goal Influenza vaccine. Due on due Goal Hepatitis C Scre ening. Due on due Goal Tdap due Goal APE. Due on due Goal Colonoscopy. Due on due Goal Unhealthy drug u se screening. Due on due Goal CT-Colonography. Due on due Goal Lipid panel. Due on due Goal Pneumococcal vac cine. Due on due Goal Document SOGI In formation. Due on due Goal FIT-DNA. Due on due Goal Diabetes Screening. Due on due Goal Influenza vaccine. Due on due Goal Tdap due Goal Diabetes Screening. Due on due Goal Lipid panel. Due on due Goal FIT-DNA. Due on due Goal Colonoscopy. Due on due Goal APE. Due on due Goal Document SOGI In formation. Due on due Goal Unhealthy drug u se screening. Due on due Goal CT-Colonography. Due on due Goal Pneumococcal vac cine. Due on due Goal Hepatitis C Scre ening. Due on due Goal FIT-DNA. Due on due Goal APE. Due on due Goal Influenza vaccine. Due on due Goal Unhealthy drug u se screening. Due on due Goal CT-Colonography. Due on due Goal Pneumococcal vac cine. Due on due Goal Document SOGI In formation. Due on due Goal Hepatitis C Scre ening. Due on due Goal Colonoscopy. Due on due Goal Lipid panel. Due on 023 due Goal Tdap due Goal Diabetes Screening. Due on due Goal Document SOGI In formation. Due on due Goal Diabetes Screening. Due on due Goal CT-Colonography. Due on due Goal Lipid panel. Due on due Goal Unhealthy drug u se screening. Due on due Goal Influenza vaccine. Due on due Goal APE. Due on due Goal FIT-DNA. Due on due Goal Pneumococcal vac cine. Due on due Goal Colonoscopy. Due on due Goal Hepatitis C Scre ening. Due on due Goal Tdap due Goal Hepatitis C Scre ening. Due on due Goal Tdap due Goal Unhealthy drug u se screening. Due on due Goal Document SOGI In formation. Due on due Goal Diabetes Screening. Due on due Goal FIT-DNA. Due on due Goal CT-Colonography. Due on due Goal Pneumococcal vac cine. Due on due Goal APE. Due on due Goal Lipid panel. Due on due Goal Influenza vaccine. Due on due Goal Colonoscopy. Due on due Goal Influenza vaccine. Due on due Goal Unhealthy drug u se screening. Due on due Goal CT-Colonography. Due on due Goal Document SOGI In formation. Due on due Goal Diabetes Screening. Due on due Goal Lipid panel. Due on due Goal APE. Due on due Goal Colonoscopy. Due on due Goal Pneumococcal vac cine. Due on due Goal Tdap due Goal Hepatitis C Scre ening. Due on due Goal FIT-DNA. Due on due Goal Influenza vaccine. Due on due Goal Hepatitis C Scre ening. Due on due Goal CT-Colonography. Due on due Goal Document SOGI In formation. Due on due Goal Unhealthy drug u se screening. Due on due Goal APE. Due on due Goal Tdap due Goal Pneumococcal vac cine. Due on due Goal FIT-DNA. Due on due Goal Lipid panel. Due on due Goal Colonoscopy. Due on due Goal Diabetes Screening. Due on due Goal Unhealthy drug u se screening. Due on due Goal Document SOGI In formation. Due on due Goal Hepatitis C Scre ening. Due on due Goal Diabetes Screening. Due on due Goal Colonoscopy. Due on due Goal FIT-DNA. Due on due Goal CT-Colonography. Due on due Goal Lipid panel. Due on due Goal Pneumococcal vac cine. Due on due Goal Influenza vaccine. Due on due Goal Tdap due Goal APE. Due on due Goal Hepatitis C Scre ening. Due on due Goal Influenza vaccine. Due on due Goal Colonoscopy. Due on due Goal Unhealthy drug u se screening. Due on due Goal Pneumococcal vac cine. Due on due Goal APE. Due on due Goal Tdap due Goal FIT-DNA. Due on due Goal Diabetes Screening. Due on due Goal CT-Colonography. Due on due Goal Document SOGI In formation. Due on due Goal Lipid panel. Due on due Goal FIT-DNA. Due on due Goal Influenza vaccine. Due on due Goal APE. Due on due Goal Hepatitis C Scre ening. Due on due Goal CT-Colonography. Due on due Goal Tdap due Goal Unhealthy drug u se screening. Due on due Goal Lipid panel. Due on due Goal Colonoscopy. Due on due Goal Document SOGI In formation. Due on due Goal Diabetes Screening. Due on due Goal Pneumococcal vac cine. Due on due Goal Unhealthy drug u se screening. Due on due Goal Influenza vaccine. Due on due Goal Tdap due Goal APE. Due on due Goal Diabetes Screening. Due on due Goal Document SOGI In formation. Due on due Goal Pneumococcal vac cine. Due on due Goal Lipid panel. Due on due Goal Unhealthy drug u se screening. Due on due Goal Influenza vaccine. Due on due Goal APE. Due on due Goal Tdap due Goal Diabetes Screening. Due on due Goal Lipid panel. Due on due Goal Document SOGI In formation. Due on due Goal Pneumococcal vac cine. Due on due Goal Diabetes Screening. Due on due Goal Unhealthy drug u se screening. Due on due Goal Lipid panel. Due on due Goal APE. Due on due Goal Tdap due Goal Influenza vaccine. Due on due Goal Document SOGI In formation. Due on due Goal Pneumococcal vac cine. Due on due Goal APE. Due on due Goal Influenza vaccine. Due on due Goal Document SOGI In formation. Due on due Goal Pneumococcal vac cine. Due on due Goal Diabetes Screening. Due on due Goal Unhealthy drug u se screening. Due on due Goal Tdap due Goal Lipid panel. Due on due Goal Lipid panel. Due on due Goal Diabetes Screening. Due on due Goal Unhealthy drug u se screening. Due on due Goal Tdap due Goal APE. Due on due Goal Pneumococcal vac cine. Due on due Goal Document SOGI In formation. Due on due Goal Influenza vaccine. Due on due Goal Tdap due Goal Diabetes Screening. Due on due Goal APE. Due on due Goal Document SOGI In formation. Due on due Goal Influenza vaccine. Due on due Goal Unhealthy drug u se screening. Due on due Goal Pneumococcal vac cine. Due on due Goal Lipid panel. Due on due Goal Lipid panel. Due on due Goal Diabetes Screening. Due on due Goal Tdap due Goal Document SOGI In formation. Due on due Goal APE. Due on due Goal Pneumococcal vac cine. Due on due Goal Influenza vaccine. Due on due Goal Unhealthy drug u se screening. Due on due Goal Lipid panel. Due on due Goal Diabetes Screening. Due on due Goal Document SOGI In formation. Due on due Goal Tdap due Goal Influenza vaccine. Due on due Goal Pneumococcal vac cine. Due on due Goal Unhealthy drug u se screening. Due on due Goal APE. Due on due Goal APE. Due on due Goal Pneumococcal vac cine. Due on due Goal Unhealthy drug u se screening. Due on due Goal Influenza vaccine. Due on due Goal Lipid panel. Due on due Goal Tdap due Goal Document SOGI In formation. Due on due Goal Diabetes Screening. Due on due Goal Influenza vaccine. Due on due Goal Pneumococcal vac cine. Due on due Goal Document SOGI In formation. Due on due Goal Lipid panel. Due on due Goal Tdap due Goal Unhealthy drug u se screening. Due on due Goal APE. Due on due Goal Diabetes Screening. Due on due Goal APE. Due on due Goal Unhealthy drug u se screening. Due on due Goal Diabetes Screening. Due on due Goal FIT-DNA. Due on due Goal Hepatitis C Scre ening. Due on due Goal Influenza vaccine. Due on due Goal Document SOGI In formation. Due on due Goal CT-Colonography. Due on due Goal Pneumococcal vac cine. Due on due Goal Colonoscopy. Due on due Goal Tdap due Goal Lipid panel. Due on due Goal Unhealthy drug u se screening. Due on due Goal Colonoscopy. Due on due Goal Pneumococcal vac cine. Due on due Goal APE. Due on due Goal Diabetes Screening. Due on due Goal Influenza vaccine. Due on due Goal FIT-DNA. Due on due Goal Hepatitis C Scre ening. Due on due Goal Lipid panel. Due on due Goal Tdap due Goal CT-Colonography. Due on due Goal Document SOGI In formation. Due on due Goal Unhealthy drug u se screening. Due on due Goal Diabetes Screening. Due on due Goal Pneumococcal vac cine. Due on due Goal Lipid panel. Due on due Goal Influenza vaccine. Due on due Goal APE. Due on due Goal Document SOGI In formation. Due on due Goal Tdap due Goal Pneumococcal vac cine. Due on due Goal Document SOGI In formation. Due on due Goal Tdap due Goal APE. Due on due Goal Lipid panel. Due on due Goal Unhealthy drug u se screening. Due on due Goal Diabetes Screening. Due on due Goal Influenza vaccine. Due on due Goal Document SOGI In formation. Due on due Goal APE. Due on due Goal Unhealthy drug u se screening. Due on due Goal Lipid panel. Due on due Goal Diabetes Screening. Due on due Goal Influenza vaccine. Due on due Goal Tdap due Goal Pneumococcal vac cine. Due on due Goal Tdap due Goal Unhealthy drug u se screening. Due on due Goal Document SOGI In formation. Due on due Goal Lipid panel. Due on due Goal APE. Due on due Goal Diabetes Screening. Due on due Goal Influenza vaccine. Due on due Goal Pneumococcal vac cine. Due on due Goal Unhealthy drug u se screening. Due on due Goal Document SOGI In formation. Due on due Goal Pneumococcal vac cine. Due on due Goal Influenza vaccine. Due on due Goal Tdap due Goal APE. Due on due Goal Lipid panel. Due on due Goal Diabetes Screening. Due on due Goal Influenza vaccine. Due on due Goal Document SOGI In formation. Due on due Goal APE. Due on due Goal Diabetes Screening. Due on due Goal Lipid panel. Due on due Goal Tdap due Goal Pneumococcal vac cine. Due on due Goal Unhealthy drug u se screening. Due on due Goal Influenza vaccine. Due on due Goal Unhealthy drug u se screening. Due on due Goal Tdap due Goal Lipid panel. Due on due Goal Document SOGI In formation. Due on due Goal Diabetes Screening. Due on due Goal APE. Due on due Goal Pneumococcal vac cine. Due on due Goal Tdap due Goal Lipid panel. Due on due Goal Influenza vaccine. Due on due Goal Pneumococcal vac cine. Due on due Goal Diabetes Screening. Due on due Goal Document SOGI In formation. Due on due Goal Unhealthy drug u se screening. Due on due Goal APE. Due on due Goal Pneumococcal vac cine. Due on due Goal Unhealthy drug u se screening. Due on due Goal Diabetes Screening. Due on due Goal Document SOGI In formation. Due on due Goal Tdap due Goal Lipid panel. Due on due Goal Influenza vaccine. Due on due Goal APE. Due on due Goal Lipid panel. Due on due Goal Pneumococcal vac cine. Due on due Goal Diabetes Screening. Due on due Goal APE. Due on due Goal Document SOGI In formation. Due on due Goal Unhealthy drug u se screening. Due on due Goal Tdap due Goal Influenza vaccine. Due on due Goal Lipid panel. Due on due Goal Pneumococcal vac cine. Due on due Goal APE. Due on due Goal Influenza vaccine. Due on due Goal Diabetes Screening. Due on due Goal Tdap due Goal Unhealthy drug u se screening. Due on due Goal Document SOGI In formation. Due on due Goal Document SOGI In formation. Due on due Goal Lipid panel. Due on due Goal Unhealthy drug u se screening. Due on due Goal Pneumococcal vac cine. Due on due Goal Tdap due Goal Influenza vaccine. Due on due Goal Diabetes Screening. Due on due Goal APE. Due on due Goal Unhealthy drug u se screening. Due on due Goal APE. Due on due Goal Pneumococcal vac cine. Due on due Goal Influenza vaccine. Due on due Goal Lipid panel. Due on due Goal Tdap due Goal Document SOGI In formation. Due on due Goal Diabetes Screening. Due on due Goal APE. Due on due Goal Pneumococcal vac cine. Due on due Goal Influenza vaccine. Due on due Goal Unhealthy drug u se screening. Due on due Goal Document SOGI In formation. Due on due Goal Lipid panel. Due on due Goal Diabetes Screening. Due on due Goal Tdap due Goal Lipid panel. Due on due Goal Document SOGI In formation. Due on due Goal Influenza vaccine. Due on due Goal Diabetes Screening. Due on due Goal Pneumococcal vac cine. Due on due Goal Unhealthy drug u se screening. Due on due Goal Tdap due Goal APE. Due on due Goal Document SOGI In formation. Due on due Goal Lipid panel. Due on due Goal Influenza vaccine. Due on due Goal Unhealthy drug u se screening. Due on due Goal Diabetes Screening. Due on due Goal APE. Due on due Goal Tdap due Goal Pneumococcal vac cine. Due on due Goal Pneumococcal vac cine. Due on due Goal Influenza vaccine. Due on due Goal Document SOGI In formation. Due on due Goal Lipid panel. Due on due Goal APE. Due on due Goal Unhealthy drug u se screening. Due on due Goal Tdap due Goal Diabetes Screening. Due on due Goal Influenza vaccine. Due on due Goal Unhealthy drug u se screening. Due on due Goal Pneumococcal vac cine. Due on due Goal Tdap due Goal Document SOGI In formation. Due on due Goal Lipid panel. Due on due Goal APE. Due on due Goal Diabetes Screening. Due on due Goal Unhealthy drug u se screening. Due on due Goal Document SOGI In formation. Due on due Goal Lipid panel. Due on due Goal Influenza vaccine. Due on due Goal Pneumococcal vac cine. Due on due Goal Tdap due Goal Diabetes Screening. Due on due Goal APE. Due on due Goal Unhealthy drug u se screening. Due on due Goal Pneumococcal vac cine. Due on due Goal Tdap due Goal APE. Due on due Goal Lipid panel. Due on due Goal Influenza vaccine. Due on due Goal Diabetes Screening. Due on due Goal Document SOGI In formation. Due on due Goal Influenza vaccine. Due on due Goal Document SOGI In formation. Due on due Goal Lipid panel. Due on due Goal Unhealthy drug u se screening. Due on due Goal Diabetes Screening. Due on due Goal APE. Due on due Goal Pneumococcal vac cine. Due on due Goal Tdap due Goal Tobacco cessation counseling completed Goal Unhealthy drug u se screening. Due on due Goal Diabetes Screening. Due on due Goal Pneumococcal vac cine. Due on due Goal Lipid panel. Due on due Goal APE. Due on due Goal Influenza vaccine. Due on due Goal Document SOGI In formation. Due on due Goal Tdap due Goal Tdap due Goal Pneumococcal vac cine. Due on due Goal Lipid panel. Due on due Goal APE. Due on due Goal Influenza vaccine. Due on due Goal Unhealthy drug u se screening. Due on due Goal Document SOGI In formation. Due on due Goal Diabetes Screening. Due on due Goal Unhealthy drug u se screening. Due on due Goal Diabetes Screening. Due on due Goal Pneumococcal vac cine. Due on due Goal Document SOGI In formation. Due on due Goal Influenza vaccine. Due on due Goal Lipid panel. Due on due Goal APE. Due on due Goal Tdap due Goal Lipid panel. Due on due Goal Unhealthy drug u se screening. Due on due Goal Influenza vaccine. Due on due Goal Tdap due Goal Pneumococcal vac cine. Due on due Goal APE. Due on due Goal Diabetes Screening. Due on due Goal Document SOGI In formation. Due on due Goal APE. Due on due Goal Influenza vaccine. Due on due Goal Unhealthy drug u se screening. Due on due Goal Diabetes Screening. Due on due Goal Tdap due Goal Pneumococcal vac cine. Due on due Goal Document SOGI In formation. Due on due Goal Lipid panel. Due on due Goal Pneumococcal vac cine. Due on due Goal Diabetes Screening. Due on due Goal Lipid panel. Due on due Goal Document SOGI In formation. Due on due Goal Tdap due Goal Influenza vaccine. Due on due Goal Unhealthy drug u se screening. Due on due Goal APE. Due on due Goal Tdap due Goal Diabetes Screening. Due on due Goal Influenza vaccine. Due on due Goal Lipid panel. Due on due Goal Pneumococcal vac cine. Due on due Goal APE. Due on due Goal Unhealthy drug u se screening. Due on due Goal Document SOGI In formation. Due on due Goal Pneumococcal vac cine. Due on due Goal APE. Due on due Goal Diabetes Screening. Due on due Goal Unhealthy drug u se screening. Due on due Goal Tdap due Goal Lipid panel. Due on due Goal Document SOGI In formation. Due on due Goal Influenza vaccine. Due on due Goal Influenza vaccine. Due on due Goal Unhealthy drug u se screening. Due on due Goal Tdap due Goal Pneumococcal vac cine. Due on due Goal Document SOGI In formation. Due on due Goal Diabetes Screening. Due on due Goal APE. Due on due Goal Lipid panel. Due on due Goal Lipid panel. Due on due Goal APE. Due on due Goal Diabetes Screening. Due on due Goal Tdap due Goal Pneumococcal vac cine. Due on due Goal Unhealthy drug u se screening. Due on due Goal Document SOGI In formation. Due on due Goal Influenza vaccine. Due on due Goal Pneumococcal vac cine. Due on due Goal APE. Due on due Goal Unhealthy drug u se screening. Due on due Goal Lipid panel. Due on due Goal Document SOGI In formation. Due on due Goal Influenza vaccine. Due on Ja due Goal Tdap due Goal Diabetes Screening. Due on due Goal Unhealthy drug u se screening. Due on due Goal Diabetes Screening. Due on due Goal APE. Due on due Goal Tdap due Goal Lipid panel. Due on due Goal Influenza vaccine. Due on due Goal Document SOGI In formation. Due on due Goal Pneumococcal vac cine. Due on due Goal Document SOGI In formation. Due on due Goal APE. Due on due Goal Pneumococcal vac cine. Due on due Goal Diabetes Screening. Due on due Goal Lipid panel. Due on due Goal Influenza vaccine. Due on due Goal Unhealthy drug u se screening. Due on due Goal Tdap due Goal Diabetes Screening. Due on due Goal Tdap due Goal Influenza vaccine. Due on due Goal Unhealthy drug u se screening. Due on due Goal Document SOGI In formation. Due on due Goal Lipid panel. Due on due Goal APE. Due on due Goal Pneumococcal vac cine. Due on due Goal APE. Due on due Goal Lipid panel. Due on due Goal Document SOGI In formation. Due on due Goal Unhealthy drug u se screening. Due on due Goal Tdap due Goal Influenza vaccine. Due on due Goal Diabetes Screening. Due on due Goal Pneumococcal vac cine. Due on due Goal Tdap due Goal Pneumococcal vac cine. Due on due Goal APE. Due on due Goal Lipid panel. Due on due Goal Unhealthy drug u se screening. Due on due Goal Document SOGI In formation. Due on due Goal Diabetes Screening. Due on due Goal Influenza vaccine. Due on due Goal APE. Due on due Goal Pneumococcal vac cine. Due on due Goal Tdap due Goal Unhealthy drug u se screening. Due on due Goal Lipid panel. Due on due Goal Influenza vaccine. Due on due Goal Diabetes Screening. Due on due Goal Document SOGI In formation. Due on due Goal Pneumococcal vac cine. Due on due Goal Diabetes Screening. Due on due Goal APE. Due on due Goal Tdap due Goal Document SOGI In formation. Due on due Goal Influenza vaccine. Due on due Goal Lipid panel. Due on due Goal Unhealthy drug u se screening. Due on due Goal Lipid panel. Due on due Goal Unhealthy drug u se screening. Due on due Goal Diabetes Screening. Due on due Goal Document SOGI In formation. Due on due Goal Tdap due Goal Influenza vaccine. Due on due Goal Pneumococcal vac cine. Due on due Goal APE. Due on due Goal Pneumococcal vac cine. Due on due Goal Document SOGI In formation. Due on due Goal Lipid panel. Due on due Goal Tdap due Goal Diabetes Screening. Due on due Goal Influenza vaccine. Due on due Goal APE. Due on due Goal Unhealthy drug u se screening. Due on due Goal Influenza vaccine. Due on due Goal Tdap due Goal Lipid panel. Due on due Goal Diabetes Screening. Due on due Goal APE. Due on due Goal Unhealthy drug u se screening. Due on due Goal Pneumococcal vac cine. Due on due Goal Document SOGI In formation. Due on due Goal Unhealthy drug u se screening. Due on due Goal Diabetes Screening. Due on due Goal Pneumococcal vac cine. Due on due Goal Document SOGI In formation. Due on due Goal Lipid panel. Due on due Goal APE. Due on due Goal Tdap due Goal Influenza vaccine. Due on due Goal APE. Due on due Goal Diabetes Screening. Due on due Goal Pneumococcal vac cine. Due on due Goal Influenza vaccine. Due on due Goal Tdap due Goal Lipid panel. Due on due Goal Document SOGI In formation. Due on due Goal Unhealthy drug u se screening. Due on due Goal Tdap due Goal Lipid panel. Due on due Goal APE. Due on due Goal Influenza vaccine. Due on due Goal Diabetes Screening. Due on due Goal Pneumococcal vac cine. Due on due Goal Document SOGI In formation. Due on due Goal Unhealthy drug u se screening. Due on due Goal APE. Due on due Goal Document SOGI In formation. Due on due Goal Pneumococcal vac cine. Due on due Goal Tdap due Goal Unhealthy drug u se screening. Due on due Goal Influenza vaccine. Due on due Goal Lipid panel. Due on due Goal Diabetes Screening. Due on due Goal Pneumococcal vac cine. Due on due Goal Document SOGI In formation. Due on due Goal Influenza vaccine. Due on due Goal Tdap due Goal Lipid panel. Due on due Goal Unhealthy drug u se screening. Due on due Goal Diabetes Screening. Due on due Goal APE. Due on due Goal Unhealthy drug u se screening. Due on due Goal Document SOGI In formation. Due on due Goal Tdap due Goal Lipid panel. Due on due Goal APE. Due on due Goal Influenza vaccine. Due on due Goal Diabetes Screening. Due on due Goal Pneumococcal vac cine. Due on due Goal APE. Due on due Goal Lipid panel. Due on due Goal Influenza vaccine. Due on due Goal Diabetes Screening. Due on due Goal Document SOGI In formation. Due on due Goal Tdap due Goal Unhealthy drug u se screening. Due on due Goal Pneumococcal vac cine. Due on due Goal Diabetes Screening. Due on due Goal Pneumococcal vac cine. Due on due Goal Tdap due Goal Document SOGI In formation. Due on due Goal Lipid panel. Due on due Goal Influenza vaccine. Due on due Goal Unhealthy drug u se screening. Due on due Goal APE. Due on due Goal Tdap due Goal Unhealthy drug u se screening. Due on due Goal Influenza vaccine. Due on due Goal Document SOGI In formation. Due on due Goal Diabetes Screening. Due on due Goal Lipid panel. Due on due Goal Pneumococcal vac cine. Due on due Goal APE. Due on due Goal Pneumococcal vac cine. Due on due Goal Document SOGI In formation. Due on due Goal Unhealthy drug u se screening. Due on due Goal APE. Due on due Goal Lipid panel. Due on due Goal Diabetes Screening. Due on due Goal Influenza vaccine. Due on due Goal Tdap due Goal Document SOGI In formation. Due on due Goal Diabetes Screening. Due on due Goal Tdap due Goal Lipid panel. Due on due Goal Unhealthy drug u se screening. Due on due Goal Influenza vaccine. Due on due Goal Pneumococcal vac cine. Due on due Goal APE. Due on due Goal Diabetes Screening. Due on due Goal Pneumococcal vac cine. Due on due Goal Tdap due Goal Document SOGI In formation. Due on due Goal APE. Due on due Goal Influenza vaccine. Due on due Goal Lipid panel. Due on due Goal Unhealthy drug u se screening. Due on due Goal Tdap due Goal Diabetes Screening. Due on due Goal Pneumococcal vac cine. Due on due Goal Influenza vaccine. Due on due Goal Lipid panel. Due on due Goal Document SOGI In formation. Due on due Goal APE. Due on due Goal Unhealthy drug u se screening. Due on due Goal Unhealthy drug u se screening. Due on due Goal Influenza vaccine. Due on due Goal Pneumococcal vac cine. Due on due Goal Tdap due Goal Diabetes Screening. Due on due Goal Lipid panel. Due on due Goal APE. Due on due Goal Document SOGI In formation. Due on due Goal Pneumococcal vac cine. Due on due Goal Lipid panel. Due on due Goal Tdap due Goal Diabetes Screening. Due on due Goal APE. Due on due Goal Influenza vaccine. Due on due Goal Unhealthy drug u se screening. Due on due Goal Document SOGI In formation. Due on due Goal Pneumococcal vac cine. Due on due Goal Unhealthy drug u se screening. Due on due Goal Tdap due Goal Lipid panel. Due on due Goal APE. Due on due Goal Document SOGI In formation. Due on due Goal Influenza vaccine. Due on due Goal Diabetes Screening. Due on due Goal Hep B (1st) due Goal Hep B (3rd) due Goal Unhealthy drug u se screening. Due on due Goal ASCVD 10 year risk. Due on A due Goal Hep B (2nd) due Goal Influenza vaccine. Due on due Goal Diabetes Screening. Due on due Goal Lipid panel. Due on due Goal Document SOGI In formation. Due on due Goal APE. Due on due Goal Lipid panel. Due on due Goal APE. Due on due Goal Diabetes Screening. Due on due Goal Influenza vaccine. Due on due Goal Document SOGI In formation. Due on due Goal Lipid panel. Due on due Goal Influenza vaccine. Due on due Goal Document SOGI In formation. Due on due Goal Diabetes Screening. Due on due Goal APE. Due on due Goal Diabetes Screening. Due on due Goal APE. Due on due Goal Document SOGI In formation. Due on due Goal Lipid panel. Due on due Goal Influenza vaccine. Due on due Goal Diabetes Screening. Due on due Goal Document SOGI In formation. Due on due Goal Lipid panel. Due on due Goal Influenza vaccine. Due on due Goal APE. Due on due Goal Influenza vaccine. Due on due Goal Document SOGI In formation. Due on due Goal Diabetes Screening. Due on due Goal Lipid panel. Due on due Goal APE. Due on due Goal APE. Due on due Goal Document SOGI In formation. Due on due Goal Diabetes Screening. Due on due Goal Influenza vaccine. Due on due Goal Lipid panel. Due on due Goal Document SOGI In formation. Due on due Goal APE. Due on due Goal Diabetes Screening. Due on due Goal Influenza vaccine. Due on Oc due Goal Lipid panel. Due on due Goal Lipid panel. Due on due Goal Diabetes Screening. Due on due Goal Influenza vaccine. Due on Oc due Goal Document SOGI In formation. Due on due Goal APE. Due on due Goal Diabetes Screening. Due on O due Goal Lipid panel. Due on due Goal Document SOGI In formation. Due on due Goal Influenza vaccine. Due on due Goal APE. Due on due Goal Document SOGI In formation. Due on due Goal Influenza vaccine. Due on due Goal Lipid panel. Due on due Goal APE. Due on due Goal Diabetes Screening. Due on due Goal Influenza vaccine. Due on due Goal Document SOGI In formation. Due on due Goal APE. Due on due Goal Diabetes Screening. Due on due Goal Lipid panel. Due on due Goal Lipid panel. Due on due Goal Influenza vaccine. Due on due Goal APE. Due on due Goal Diabetes Screening. Due on due Goal Document SOGI In formation. Due on due Goal APE. Due on due Goal Document SOGI In formation. Due on due Goal Lipid panel. Due on due Goal Influenza vaccine. Due on due Goal Diabetes Screening. Due on O ct due Goal Diabetes Screening. Due on O ct due Goal Document SOGI In formation. Due on due Goal Lipid panel. Due on due Goal Influenza vaccine. Due on Oc due Goal APE. Due on due Goal Diabetes Screening. Due on O ct due Goal APE. Due on due Goal Lipid panel. Due on due Goal Influenza vaccine. Due on Oc due Goal Document SOGI In formation. Due on due Goal Diabetes Screening. Due on O ct due Goal Lipid panel. Due on due Goal APE. Due on due Goal Document SOGI In formation. Due on due Goal Influenza vaccine. Due on Ja due Goal Diabetes Screening. Due on O ct due Goal Influenza vaccine. Due on Oc due Goal Document SOGI In formation. Due on due Goal APE. Due on due Goal Lipid panel. Due on due Goal Document SOGI In formation. Due on due Goal APE. Due on due Goal Diabetes Screening. Due on O ct due Goal Influenza vaccine. Due on Oc due Goal Lipid panel. Due on due Goal APE. Due on due Goal Influenza vaccine. Due on Oc t due Goal Document SOGI In formation. Due on due Goal Diabetes Screening. Due on O ct due Goal Lipid panel. Due on due Goal Document SOGI In formation. Due on due Goal Diabetes Screening. Due on O ct due Goal Lipid panel. Due on due Goal APE. Due on due Goal Influenza vaccine. Due on Oc t due Goal Influenza vaccine. Due on Oc t due Goal Document SOGI In formation. Due on due Goal APE. Due on due Goal Diabetes Screening. Due on O ct due Goal Lipid panel. Due on due Goal Lipid panel. Due on due Goal APE. Due on due Goal Diabetes Screening. Due on O ct due Goal Influenza vaccine. Due on Oc t due Goal Document SOGI In formation. Due on due Goal Document SOGI In formation. Due on due Goal Influenza vaccine. Due on Oc t due Goal Diabetes Screening. Due on O ct due Goal APE. Due on due Goal Lipid panel. Due on due Goal Diabetes Screening. Due on O due Goal Lipid panel. Due on due Goal Influenza vaccine. Due on due Goal APE. Due on due Goal Document SOGI In formation. Due on due Goal Diabetes Screening. Due on O ct due Goal APE. Due on due Goal Document SOGI In formation. Due on due Goal Influenza vaccine. Due on Oc due Goal Lipid panel. Due on due Goal Diabetes Screening. Due on O ct due Goal Document SOGI In formation. Due on due Goal Lipid panel. Due on due Goal APE. Due on due Goal Influenza vaccine. Due on Oc t due Goal Diabetes Screening. Due on O ct due Goal Document SOGI In formation. Due on due Goal Influenza vaccine. Due on Oc t due Goal APE. Due on due Goal Lipid panel. Due on due Goal Diabetes Screening. Due on O ct due Goal Lipid panel. Due on due Goal APE. Due on due Goal Influenza vaccine. Due on Oc t due Goal Document SOGI In formation. Due on due Goal Influenza vaccine. Due on Oc t due Goal APE. Due on due Goal Diabetes Screening. Due on O ct due Goal Lipid panel. Due on due Goal Document SOGI In formation. Due on due Goal Diabetes Screening. Due on O ct due Goal Influenza vaccine. Due on Oc due Goal APE. Due on due Goal Document SOGI In formation. Due on due Goal Lipid panel. Due on due Goal Diabetes Screening. Due on O ct due Goal Influenza vaccine. Due on Oc due Goal Document SOGI In formation. Due on due Goal APE. Due on due Goal Lipid panel. Due on due Goal Diabetes Screening. Due on O ct due Goal Influenza vaccine. Due on Oc t due Goal Document SOGI In formation. Due on due Goal Lipid panel. Due on due Goal APE. Due on due Goal Lipid panel. Due on due Goal Influenza vaccine. Due on Oc t due Goal Diabetes Screening. Due on O ct due Goal Document SOGI In formation. Due on due Goal APE. Due on due Goal Diabetes Screening. Due on O ct due Goal Influenza vaccine. Due on Oc due Goal Lipid panel. Due on due Goal Document SOGI In formation. Due on due Goal APE. Due on due Goal Influenza vaccine. Due on Oc due Goal Lipid panel. Due on due Goal Document SOGI In formation. Due on due Goal Diabetes Screening. Due on O ct due Goal APE. Due on due Goal APE. Due on due Goal Lipid panel. Due on due Goal Diabetes Screening. Due on O due Goal Influenza vaccine. Due on Oc due Goal Document SOGI In formation. Due on due Goal APE. Due on due Goal Influenza vaccine. Due on Oc due Goal Lipid panel. Due on due Goal Document SOGI In formation. Due on due Goal Diabetes Screening. Due on O ct due Goal Pneumococcal vaccine due Goal Diabetes Screening. Due on O ct due Goal Lipid panel. Due on due Goal Document SOGI In formation. Due on due Goal APE. Due on due Goal Influenza vaccine. Due on Oc due Goal Lipid panel. Due on due Goal Diabetes Screening. Due on O ct due Goal Document SOGI In formation. Due on due Goal Influenza vaccine. Due on Oc due Goal APE. Due on due Goal Lipid panel. Due on due Goal Document SOGI In formation. Due on due Goal APE. Due on due Goal Influenza vaccine. Due on Oc due Goal Diabetes Screening. Due on O ct due Goal Pneumococcal vaccine due Goal Document SOGI In formation. Due on due Goal Diabetes Screening. Due on O due Goal Influenza vaccine. Due on Oc due Goal APE. Due on due Goal Lipid panel. Due on due Goal Pneumococcal vaccine due Goal Lipid panel. Due on due Goal Diabetes Screening. Due on O ct due Goal Influenza vaccine. Due on Oc due Goal APE. Due on due Goal Document SOGI In formation. Due on due Goal Influenza vaccine. Due on Oc due Goal Diabetes Screening. Due on O ct due Goal APE. Due on due Goal Document SOGI In formation. Due on due Goal Lipid panel. Due on due Goal APE. Due on due Goal Document SOGI In formation. Due on due Goal Influenza vaccine. Due on Oc due Goal Diabetes Screening. Due on O ct due Goal Lipid panel. Due on due Goal Diabetes Screening. Due on O ct due Goal Influenza vaccine. Due on Oc due Goal Document SOGI In formation. Due on due Goal APE. Due on due Goal Lipid panel. Due on due Goal Document SOGI In formation. Due on due Goal Influenza vaccine. Due on Oc due Goal APE. Due on due Goal Lipid panel. Due on due Goal Diabetes Screening. Due on O due Goal Document SOGI In formation. Due on due Goal Lipid panel. Due on due Goal Diabetes Screening. Due on O due Goal Influenza vaccine. Due on Oc due Goal APE. Due on due Goal Lipid panel. Due on due Goal Diabetes Screening. Due on O ct due Goal APE. Due on due Goal Influenza vaccine. Due on Oc due Goal Document SOGI In formation. Due on due Goal Diabetes Screening. Due on O ct due Goal Lipid panel. Due on due Goal Influenza vaccine. Due on Oc due Goal Document SOGI In formation. Due on due Goal APE. Due on due Goal Diabetes Screening. Due on O due Goal APE. Due on due Goal Lipid panel. Due on due Goal Document SOGI In formation. Due on due Goal Influenza vaccine. Due on Oc due Goal Diabetes Screening. Due on O due Goal Influenza vaccine. Due on Oc due Goal Lipid panel. Due on due Goal Document SOGI In formation. Due on due Goal APE. Due on due Goal Tdap due Goal Document SOGI In formation. Due on due Goal Influenza vaccine. Due on Oc due Goal Diabetes Screening. Due on O due Goal APE. Due on due Goal Hepatitis C Screening due Goal Lipid panel. Due on due Goal APE. Due on due Goal Document SOGI In formation. Due on due Goal Diabetes Screening. Due on O ct due Goal Tdap due Goal Hepatitis C Screening due Goal Influenza vaccine. Due on Oc t due Goal Lipid panel. Due on due Goal APE. Due on due Goal Lipid panel. Due on due Goal Tdap due Goal Diabetes Screening. Due on O ct due Goal Document SOGI In formation. Due on due Goal Hepatitis C Screening due Goal Influenza vaccine. Due on Oc due Goal Diabetes Screening. Due on O ct due Goal Lipid panel. Due on due Goal Document SOGI In formation. Due on due Goal APE. Due on due Goal Tdap due Goal Hepatitis C Screening due Goal Influenza vaccine. Due on Oc due Goal Tdap due Goal Lipid panel. Due on due Goal Influenza vaccine. Due on Oc t due Goal Hepatitis C Screening due Goal APE. Due on due Goal Diabetes Screening. Due on O ct due Goal Document SOGI In formation. Due on due Goal Influenza vaccine. Due on Oc t due Goal Diabetes Screening. Due on O ct due Goal Document SOGI In formation. Due on due Goal Hepatitis C Screening due Goal APE. Due on due Goal Tdap due Goal Lipid panel. Due on due Goal APE. Due on due Goal Influenza vaccine. Due on Oc due Goal Diabetes Screening. Due on O due Goal Tdap due Goal Hepatitis C Screening due Goal Lipid panel. Due on due Goal Document SOGI In formation. Due on due Goal APE. Due on due Goal Influenza vaccine. Due on Oc due Goal Lipid panel. Due on due Goal Document SOGI In formation. Due on due Goal Tdap due Goal Hepatitis C Screening due Goal Diabetes Screening. Due on O due Goal Lipid panel. Due on due Goal Hepatitis C Screening due Goal APE. Due on due Goal Tdap due Goal Document SOGI In formation. Due on due Goal Diabetes Screening. Due on O due Goal Influenza vaccine. Due on Oc due Goal Hepatitis C Screening due Goal Lipid panel. Due on due Goal APE. Due on due Goal Influenza vaccine. Due on Oc due Goal Document SOGI In formation. Due on due Goal Tdap due Goal Diabetes Screening. Due on O ct due Goal BPRS. Due on due Goal APE. Due on due Goal Diabetes Screening. Due on O ct due Goal Hepatitis C Screening due Goal Lipid panel. Due on due Goal Document SOGI In formation. Due on due Goal Tdap due Goal Influenza vaccine. Due on Oc due Goal APE. Due on due Goal Document SOGI In formation. Due on due Goal Tdap due Goal Hepatitis C Screening due Goal Lipid panel. Due on due Goal Influenza vaccine. Due on Oc t due Goal Diabetes Screening. Due on O ct due Goal Tdap due Goal APE. Due on due Goal Diabetes Screening. Due on O ct due Goal Influenza vaccine. Due on Oc t due Goal Lipid panel. Due on due Goal Document SOGI In formation. Due on due Goal Hepatitis C Screening due Goal Tdap due Goal Influenza vaccine. Due on Oc t due Goal Document SOGI In formation. Due on due Goal Diabetes Screening. Due on O [id number] due Goal APE. Due on due Goal Lipid panel. Due on due Goal Hepatitis C Screening due Goal APE. Due on due Goal Influenza vaccine. Due on Oc t due Goal Diabetes Screening. Due on O ct due Goal Document SOGI In formation. Due on due Goal Tdap due Goal Lipid panel. Due on due Goal Hepatitis C Screening due Goal Document SOGI In formation. Due on due Goal APE. Due on due Goal Hepatitis C Screening due Goal Lipid panel. Due on due Goal Influenza vaccine. Due on Oc due Goal Diabetes Screening. Due on O due Goal Tdap due Goal Lipid panel. Due on due Goal Tdap due Goal Hepatitis C Screening due Goal Diabetes Screening. Due on O due Goal Influenza vaccine. Due on Oc t due Goal APE. Due on due Goal Document SOGI In formation. Due on due Goal Diabetes Screening. Due on O ct due Goal Hepatitis C Screening due Goal APE. Due on due Goal Document SOGI In formation. Due on due Goal Lipid panel. Due on due Goal Influenza vaccine. Due on Oc due Goal Tdap due Goal APE. Due on due Goal Diabetes Screening. Due on O due Goal Lipid panel. Due on due Goal Hepatitis C Screening due Goal Document SOGI In formation. Due on due Goal Tdap due Goal Influenza vaccine. Due on Oc due Goal Tdap due Goal Diabetes Screening. Due on O due Goal Influenza vaccine. Due on Oc due Goal Hepatitis C Screening due Goal Document SOGI In formation. Due on due Goal APE. Due on due Goal Lipid panel. Due on due Goal APE. Due on due Goal Lipid panel. Due on due Goal Tdap due Goal Influenza vaccine. Due on Oc due Goal Document SOGI In formation. Due on due Goal Hepatitis C Screening due Goal Diabetes Screening. Due on O due Goal Influenza vaccine. Due on Oc t due Goal Diabetes Screening. Due on O due Goal APE. Due on due Goal Lipid panel. Due on due Goal Document SOGI In formation. Due on due Goal Tdap due Goal Hepatitis C Screening due Goal Lipid panel. Due on due Goal Document SOGI In formation. Due on due Goal Hepatitis C Screening due Goal Tdap due Goal Influenza vaccine. Due on Oc due Goal APE. Due on due Goal Diabetes Screening. Due on O due Goal APE. Due on due Goal Tdap due Goal Influenza vaccine. Due on Oc due Goal Diabetes Screening. Due on O due Goal Lipid panel. Due on due Goal Document SOGI In formation. Due on due Goal Hepatitis C Screening due Goal Diabetes Screening. Due on O due Goal Document SOGI In formation. Due on due Goal APE. Due on due Goal Influenza vaccine. Due on Oc due Goal Hepatitis C Screening due Goal Tdap due Goal Lipid panel. Due on due Goal Influenza vaccine. Due on Oc due Goal Lipid panel. Due on due Goal APE. Due on due Goal Tdap due Goal Hepatitis C Screening due Goal Diabetes Screening. Due on O due Goal Document SOGI In formation. Due on due Goal APE. Due on due Goal Document SOGI In formation. Due on due Goal Lipid panel. Due on due Goal Hepatitis C Screening due Goal Influenza vaccine. Due on Oc t due Goal Diabetes Screening. Due on O ct due Goal Tdap due Goal APE. Due on due Goal Lipid panel. Due on due Goal Hepatitis C Screening due Goal Tdap due Goal Diabetes Screening. Due on O ct due Goal Influenza vaccine. Due on Oc due Goal Document SOGI In formation. Due on due Goal Influenza vaccine. Due on Oc t due Goal Tdap due Goal APE. Due on due Goal Diabetes Screening. Due on O ct due Goal Lipid panel. Due on due Goal Hepatitis C Screening due Goal Document SOGI In formation. Due on due Goal Hepatitis C Screening due Goal Tdap due Goal Lipid panel. Due on due Goal Document SOGI In formation. Due on due Goal Diabetes Screening. Due on O ct due Goal Influenza vaccine. Due on Oc due Goal APE. Due on due Goal Tdap due Goal Diabetes Screening. Due on O due Goal APE. Due on due Goal Lipid panel. Due on due Goal Document SOGI In formation. Due on due Goal Influenza vaccine. Due on Oc t due Goal Hepatitis C Screening due Goal Influenza vaccine. Due on Oc t due Goal APE. Due on due Goal Diabetes Screening. Due on O due Goal Document SOGI In formation. Due on due Goal Lipid panel. Due on due Goal Tdap due Goal Hepatitis C Screening due Goal Influenza vaccine. Due on Oc due Goal APE. Due on due Goal Lipid panel. Due on due Goal Document SOGI In formation. Due on due Goal Diabetes Screening. Due on O due Goal Lipid panel. Due on due Goal Document SOGI In formation. Due on due Goal Diabetes Screening. Due on O due Goal Influenza vaccine. Due on Oc due Goal APE. Due on due Goal Document SOGI In formation. Due on due Goal Influenza vaccine. Due on Oc due Goal Diabetes Screening. Due on O due Goal Lipid panel. Due on due Goal APE. Due on due Goal Diabetes Screening. Due on O due Goal Document SOGI In formation. Due on due Goal APE. Due on due Goal Lipid panel. Due on due Goal Influenza vaccine. Due on Oc due Goal Document SOGI In formation. Due on due Goal Lipid panel. Due on due Goal Diabetes Screening. Due on O due Goal Influenza vaccine. Due on Oc due Goal APE. Due on due Goal Document SOGI In formation. Due on due Goal APE. Due on due Goal Hepatitis C Screening due Goal Tdap due Goal Lipid panel. Due on due Goal Influenza vaccine. Due on Oc due Goal Diabetes Screening. Due on O due Goal Document SOGI In formation. Due on due Goal Lipid panel. Due on due Goal Tdap due Goal Influenza vaccine. Due on Oc due Goal Diabetes Screening. Due on O due Goal Hepatitis C Screening due Goal APE. Due on due Goal Influenza vaccine. Due on Oc due Goal Hepatitis C Screening due Goal APE. Due on due Goal Diabetes Screening. Due on O due Goal Tdap due Goal Document SOGI In formation. Due on due Goal Lipid panel. Due on due Goal Diabetes Screening. Due on O due Goal APE. Due on due Goal Hepatitis C Screening due Goal Document SOGI In formation. Due on due Goal Lipid panel. Due on due Goal Influenza vaccine. Due on Oc due Goal Tdap due Goal Document SOGI In formation. Due on due Goal Lipid panel. Due on due Goal Diabetes Screening. Due on O due Goal Influenza vaccine. Due on Oc due Goal APE. Due on due Goal Hepatitis C Screening due Goal Tdap due Goal Diabetes Screening. Due on O due Goal APE. Due on due Goal Hepatitis C Screening due Goal Influenza vaccine. Due on Oc due Goal Lipid panel. Due on due Goal Tdap due Goal Document SOGI In formation. Due on due Goal Document SOGI In formation. Due on due Goal Tdap due Goal Diabetes Screening. Due on O due Goal Lipid panel. Due on due Goal APE. Due on due Goal Hepatitis C Screening due Goal Influenza vaccine. Due on Oc due Goal Tdap due Goal Influenza vaccine. Due on Oc due Goal Diabetes Screening. Due on O due Goal APE. Due on due Goal Document SOGI In formation. Due on due Goal Hepatitis C Screening due Goal Lipid panel. Due on due Goal Diabetes Screening. Due on O due Goal APE. Due on due Goal Tdap due Goal Influenza vaccine. Due on Oc due Goal Hepatitis C Screening due Goal Lipid panel. Due on due Goal Document SOGI In formation. Due on due Goal Hepatitis C Scre ening. Due on due Goal Tdap due Goal Diabetes Screening. Due on due Goal Lipid panel. Due on due Goal APE. Due on due Goal Document SOGI In formation. Due on due Goal Influenza vaccine. Due on Oc due Goal Lipid panel. Due on due Goal APE. Due on due Goal Tdap due Goal Influenza vaccine. Due on Oc due Goal Document SOGI In formation. Due on due Goal Diabetes Screening. Due on O due Goal APE. Due on due Goal Diabetes Screening. Due on O due Goal Influenza vaccine. Due on Oc due Goal Tdap due Goal Document SOGI In formation. Due on due Goal Lipid panel. Due on due Goal APE. Due on due Goal Influenza vaccine. Due on due Goal Lipid panel. Due on due Goal Tdap due Goal Document SOGI In formation. Due on due Goal Diabetes Screening. Due on O due Goal Influenza vaccine. Due on due Goal Document SOGI In formation. Due on due Goal APE. Due on due Goal Tdap due Goal Lipid panel. Due on due Goal Diabetes Screening. Due on O due Goal APE. Due on due Goal Document SOGI In formation. Due on due Goal Lipid panel. Due on due Goal Influenza vaccine. Due on due Goal Diabetes Screening. Due on O due Goal Tdap due Goal Tdap due Goal Diabetes Screening. Due on O due Goal Influenza vaccine. Due on due Goal Lipid panel. Due on due Goal Document SOGI In formation. Due on due Goal APE. Due on due Goal Tdap due Goal APE. Due on due Goal Document SOGI In formation. Due on due Goal Influenza vaccine. Due on due Goal APE. Due on due Goal Influenza vaccine. Due on due Goal Lipid panel. Due on due Goal Tdap due Goal Document SOGI In formation. Due on due Goal Hepatitis C Scre ening. Due on due Goal Document SOGI In formation. Due on due Goal APE. Due on due Goal Influenza vaccine. Due on due Goal Diabetes Screening. Due on due Goal Tdap due Goal Lipid panel. Due on due Goal Lipid panel. Due on due Goal Tdap due Goal Document SOGI In formation. Due on due Goal APE. Due on due Goal Influenza vaccine. Due on due Goal Tdap due Goal Influenza vaccine. Due on due Goal Document SOGI In formation. Due on due Goal APE. Due on due Goal Lipid panel. Due on due Goal Influenza vaccine. Due on due Goal Tdap due Goal APE. Due on due Goal Document SOGI In formation. Due on due Goal Lipid panel. Due on due Goal Document SOGI In formation. Due on due Goal Lipid panel. Due on due Goal Tdap due Goal Influenza vaccine. Due on due Goal APE. Due on due Goal Tdap due Goal APE. Due on due Goal Lipid panel. Due on due Goal Document SOGI In formation. Due on due Goal Influenza vaccine. Due on due Goal Lipid panel. Due on due Goal Document SOGI In formation. Due on due Goal Influenza vaccine. Due on due Goal APE. Due on due Goal Tdap due Goal Tdap due Goal APE. Due on due Goal Document SOGI In formation. Due on due Goal Lipid panel. Due on due Goal Influenza vaccine. Due on due Goal Influenza vaccine. Due on due Goal Document SOGI In formation. Due on due Goal APE. Due on due Goal Lipid panel. Due on due Goal Tdap due Goal Document SOGI In formation. Due on due Goal APE. Due on due Goal Lipid panel. Due on due Goal Tdap due Goal Influenza vaccine. Due on due Goal Lipid panel. Due on due Goal APE. Due on due Goal Influenza vaccine. Due on due Goal Tdap due Goal Document SOGI In formation. Due on due Goal Lipid panel. Due on due Goal Document SOGI In formation. Due on due Goal APE. Due on due Goal Tdap due Goal Influenza vaccine. Due on due Goal APE. Due on due Goal Influenza vaccine. Due on due Goal Lipid panel. Due on due Goal Tdap due Goal Document SOGI In formation. Due on due Goal Lipid panel. Due on due Goal Document SOGI In formation. Due on due Goal APE. Due on due Goal Influenza vaccine. Due on due Goal Tdap due Goal Influenza vaccine. Due on due Goal APE. Due on due Goal Lipid panel. Due on due Goal Document SOGI In formation. Due on due Goal Tdap due Goal Lipid panel. Due on due Goal Tdap due Goal Influenza vaccine. Due on due Goal Document SOGI In formation. Due on due Goal APE. Due on due Goal Tdap due Goal Influenza vaccine. Due on due Goal APE. Due on due Goal Document SOGI In formation. Due on due Goal Lipid panel. Due on due Goal Tdap due Goal APE. Due on due Goal Influenza vaccine. Due on due Goal Lipid panel. Due on due Goal Document SOGI In formation. Due on due Goal Lipid panel. Due on due Goal Document SOGI In formation. Due on due Goal APE. Due on due Goal Influenza vaccine. Due on due Goal Tdap due Goal APE. Due on due Goal Tdap due Goal Influenza vaccine. Due on due Goal Lipid panel. Due on due Goal Document SOGI In formation. Due on due Goal Document SOGI In formation. Due on due Goal APE. Due on due Goal Tdap due Goal Lipid panel. Due on due Goal Influenza vaccine. Due on due Goal APE. Due on due Goal Influenza vaccine. Due on due Goal Lipid panel. Due on due Goal Document SOGI In formation. Due on due Goal Tdap due Goal Tdap due Goal Lipid panel. Due on due Goal Influenza vaccine. Due on due Goal Document SOGI In formation. Due on due Goal APE. Due on due Goal APE. Due on due Goal Document SOGI In formation. Due on due Goal Tdap due Goal Lipid panel. Due on due Goal Influenza vaccine. Due on due Goal Document SOGI In formation. Due on due Goal Diabetes Screening. Due on A due Goal Lipid panel. Due on due Goal APE. Due on due Goal Tdap due Goal Influenza vaccine. Due on due Goal Diabetes Screening. Due on A due Goal Influenza vaccine. Due on due Goal Tdap due Goal APE. Due on due Goal Document SOGI In formation. Due on due Goal Lipid panel. Due on due Goal APE. Due on due Goal Document SOGI In formation. Due on due Goal Influenza vaccine. Due on due Goal Lipid panel. Due on due Goal Diabetes Screening. Due on A due Goal Tdap due Goal Diabetes Screening. Due on A due Goal Lipid panel. Due on due Goal Document SOGI In formation. Due on due Goal Tdap due Goal APE. Due on due Goal Influenza vaccine. Due on due Goal Tdap due Goal APE. Due on due Goal Diabetes Screening. Due on A due Goal Influenza vaccine. Due on Oc due Goal Lipid panel. Due on due Goal Document SOGI In formation. Due on due Goal Lipid panel. Due on due Goal Tdap due Goal Diabetes Screening. Due on A due Goal Influenza vaccine. Due on Oc due Goal Document SOGI In formation. Due on due Goal APE. Due on due Goal Document SOGI In formation. Due on due Goal Influenza vaccine. Due on Oc due Goal Tdap due Goal APE. Due on due Goal Lipid panel. Due on due Goal Diabetes Screening. Due on A due Goal Tdap due Goal Influenza vaccine. Due on Oc due Goal Diabetes Screening. Due on A due Goal Document SOGI In formation. Due on due Goal Lipid panel. Due on due Goal APE. Due on due Goal Influenza vaccine. Due on Oc due Goal Tdap due Goal APE. Due on due Goal Diabetes Screening. Due on A due Goal Document SOGI In formation. Due on due Goal Lipid panel. Due on due Goal Diabetes Screening. Due on A due Goal Lipid panel. Due on due Goal Tdap due Goal Document SOGI In formation. Due on due Goal APE. Due on due Goal Influenza vaccine. Due on Oc due Goal Tdap due Goal APE. Due on due Goal Influenza vaccine. Due on Oc due Goal Document SOGI In formation. Due on due Goal Diabetes Screening. Due on A due Goal Lipid panel. Due on due Goal Lipid panel. Due on due Goal Document SOGI In formation. Due on due Goal Tdap due Goal Influenza vaccine. Due on Oc due Goal Diabetes Screening. Due on A due Goal APE. Due on due Goal Influenza vaccine. Due on Oc due Goal Document SOGI In formation. Due on due Goal APE. Due on due Goal Diabetes Screening. Due on A due Goal Lipid panel. Due on due Goal Tdap due Goal Tdap due Goal Influenza vaccine. Due on Oc due Goal Lipid panel. Due on due Goal Document SOGI In formation. Due on due Goal Diabetes Screening. Due on A due Goal APE. Due on due Goal Diabetes Screening. Due on A due Goal Lipid panel. Due on due Goal APE. Due on due Goal Document SOGI In formation. Due on due Goal Tdap due Goal Influenza vaccine. Due on Oc due Goal Influenza vaccine. Due on Oc due Goal Document SOGI In formation. Due on due Goal Tdap due Goal APE. Due on due Goal Lipid panel. Due on due Goal Diabetes Screening. Due on A due Goal Lipid panel. Due on due Goal Diabetes Screening. Due on A due Goal Tdap due Goal Document SOGI In formation. Due on due Goal APE. Due on due Goal Influenza vaccine. Due on Oc due Goal Document SOGI In formation. Due on due Goal APE. Due on due Goal Tdap due Goal Diabetes Screening. Due on A due Goal Lipid panel. Due on due Goal Influenza vaccine. Due on Oc due Goal APE. Due on due Goal Diabetes Screening. Due on A due Goal Influenza vaccine. Due on Oc due Goal Tdap due Goal Lipid panel. Due on due Goal Document SOGI In formation. Due on due Goal Diabetes Screening. Due on A due Goal Lipid panel. Due on due Goal APE. Due on due Goal Influenza vaccine. Due on Oc due Goal Tdap due Goal Document SOGI In formation. Due on due Goal Tdap due Goal Document SOGI In formation. Due on due Goal APE. Due on due Goal Lipid panel. Due on due Goal Influenza vaccine. Due on Oc due Goal Diabetes Screening. Due on A due Goal Tdap due Goal APE. Due on due Goal Diabetes Screening. Due on A due Goal Lipid panel. Due on due Goal Document SOGI In formation. Due on due Goal Influenza vaccine. Due on Oc due Goal Document SOGI In formation. Due on due Goal Tdap due Goal Lipid panel. Due on due Goal APE. Due on due Goal Influenza vaccine. Due on Oc due Goal Diabetes Screening. Due on A due Goal Document SOGI In formation. Due on due Goal APE. Due on due Goal Tdap due Goal Influenza vaccine. Due on Oc due Goal Diabetes Screening. Due on A due Goal Lipid panel. Due on due Goal Diabetes Screening. Due on A due Goal Lipid panel. Due on due Goal Influenza vaccine. Due on Oc due Goal Tdap due Goal APE. Due on due Goal Document SOGI In formation. Due on due Goal Influenza vaccine. Due on Oc due Goal Document SOGI In formation. Due on due Goal APE. Due on due Goal Diabetes Screening. Due on A due Goal Tdap due Goal Lipid panel. Due on due Goal Influenza vaccine. Due on Oc due Goal Diabetes Screening. Due on A due Goal APE. Due on due Goal Document SOGI In formation. Due on due Goal Lipid panel. Due on due Goal Tdap due Goal Tdap due Goal Influenza vaccine. Due on Oc due Goal Diabetes Screening. Due on A due Goal Lipid panel. Due on due Goal APE. Due on due Goal Document SOGI In formation. Due on due Goal Lipid panel. Due on due Goal Tdap due Goal APE. Due on due Goal Document SOGI In formation. Due on due Goal Influenza vaccine. Due on Oc due Goal Diabetes Screening. Due on A due Goal Influenza vaccine. Due on Oc due Goal Tdap due Goal APE. Due on due Goal Lipid panel. Due on due Goal Document SOGI In formation. Due on due Goal Diabetes Screening. Due on A due Goal Diabetes Screening. Due on A due Goal Document SOGI In formation. Due on due Goal APE. Due on due Goal Lipid panel. Due on due Goal Influenza vaccine. Due on Oc due Goal Tdap due Goal Lipid panel. Due on due Goal APE. Due on due Goal Diabetes Screening. Due on A due Goal Document SOGI In formation. Due on due Goal Tdap due Goal Influenza vaccine. Due on Oc due Goal Tdap due Goal Document SOGI In formation. Due on due Goal Diabetes Screening. Due on A due Goal APE. Due on due Goal Influenza vaccine. Due on Oc due Goal Lipid panel. Due on due Goal APE. Due on due Goal Diabetes Screening. Due on A due Goal Tdap due Goal Influenza vaccine. Due on Oc due Goal Lipid panel. Due on due Goal Document SOGI In formation. Due on due Goal Document SOGI In formation. Due on due Goal Tdap due Goal Lipid panel. Due on due Goal APE. Due on due Goal Influenza vaccine. Due on Oc due Goal Diabetes Screening. Due on A due Goal Pneumococcal vac cine. Due on due Goal APE. Due on due Goal Influenza vaccine. Due on Oc due Goal Diabetes Screening. Due on A due Goal Document SOGI In formation. Due on due Goal Tdap. Due on due Goal Lipid panel. Due on due Goal Document SOGI In formation. Due on due Goal Lipid panel. Due on due Goal Tdap. Due on due Goal APE. Due on due Goal Diabetes Screening. Due on A due Goal Influenza vaccine. Due on Oc due Goal Document SOGI In formation. Due on due Goal Influenza vaccine. Due on Oc due Goal Tdap. Due on due Goal APE. Due on due Goal Lipid panel. Due on due Goal Diabetes Screening. Due on A due Goal Tdap. Due on due Goal APE. Due on due Goal Diabetes Screening. Due on A due Goal Influenza vaccine. Due on due Goal Pneumococcal vac cine. Due on due Goal Lipid panel. Due on due Goal Document SOGI In formation. Due on due Goal Document SOGI In formation. Due on due Goal Influenza vaccine. Due on due Goal Lipid panel. Due on due Goal Tdap. Due on due Goal APE. Due on due Goal Diabetes Screening. Due on A due Goal Influenza vaccine. Due on due Goal APE. Due on due Goal Lipid panel. Due on due Goal Diabetes Screening. Due on A due Goal Tdap. Due on due Goal Tdap. Due on due Goal APE. Due on due Goal Diabetes Screening. Due on A due Goal LDL Cholesterol (Direct). Due on due Goal Urinalysis. Due on due Goal Lipid Panel. Due on due Goal ECG due Goal Dental exam. Due on due Goal Dilated eye exam. Due on Oct due Goal DAST. Due on due Goal IAP. Due on due Goal GFR. Due on due Goal Pneumococcal vac cine. Due on due Goal Foot exam. Due on 9 due Goal Monofilament Exam. Due on due Goal ELECTROCARDIOGRA M, COMPLETE. Due on due Goal PHQ-9. Due on du e Goal DAST. Due on due Goal PHQ-9. Due on du e Goal IAP. Due on due Goal Foot exam. Due on 9 due Goal Monofilament Exam. Due on due Goal Dilated eye exam. Due on Nov due Goal Dental exam. Due on due Goal GFR. Due on due Goal ELECTROCARDIOGRA M, COMPLETE. Due on due Goal ECG due Goal Urinalysis. Due on 19 due Goal LDL Cholesterol (Direct). Due on due Goal APE. Due on due Goal Pneumococcal vaccine due Goal Lipid Panel. Due on due Goal Tdap. Due on due Goal Diabetes Screening. Due on A due Goal Lipid Panel. Due on due Goal Monofilament Exam. Due on due Goal Dilated eye exam. Due on Nov due Goal ECG due Goal Foot exam. Due on due Goal Dental exam. Due on due Goal Urinalysis. Due on 19 due Goal LDL Cholesterol (Direct). Due on due Goal ELECTROCARDIOGRA M, COMPLETE. Due on due Goal DAST. Due on due Goal PHQ-9. Due on du e Goal IAP. Due on due Goal GFR. Due on due Goal Tdap. Due on due Goal APE. Due on due Goal Diabetes Screening. Due on A due Goal Pneumococcal vac cine. Due on due Goal Tdap. Due on due Goal APE. Due on due Goal Diabetes Screening. Due on A due Goal Pneumococcal vac cine. Due on due Goal Lipid Panel. Due on 016 due Goal ECG due Goal Urinalysis. Due on 19 due Goal LDL Cholesterol (Direct). Due on due Goal DAST. Due on due Goal Foot exam. Due on 9 due Goal Dental exam. Due on due Goal GFR. Due on due Goal Monofilament Exam. Due on due Goal IAP. Due on due Goal PHQ-9. Due on du e Goal Dilated eye exam. Due on Oct due Goal ELECTROCARDIOGRA M, COMPLETE. Due on due Goal Dilated eye exam. Due on Oct due Goal Dental exam. Due on 019 due Goal GFR. Due on due Goal Lipid Panel. Due on 016 due Goal ECG due Goal LDL Cholesterol (Direct). Due on due Goal ELECTROCARDIOGRA M, COMPLETE. Due on due Goal Urinalysis. Due on 19 due Goal IAP. Due on due Goal Monofilament Exam. Due on due Goal Foot exam. Due on 9 due Goal DAST. Due on due Goal PHQ-9. Due on du e Goal Diabetes Screening. Due on A due Goal Pneumococcal vac cine. Due on due Goal APE. Due on due Goal Tdap. Due on due Goal DAST. Due on due Goal PHQ-9. Due on du e Goal IAP. Due on due Goal ELECTROCARDIOGRA M, COMPLETE. Due on due Goal GFR. Due on due Goal Dilated eye exam. Due on Oct due Goal Foot exam. Due on 9 due Goal Dental exam. Due on due Goal Monofilament Exam. Due on due Goal Diabetes Screening. Due on A due Goal APE. Due on due Goal Pneumococcal vaccine due Goal Tdap. Due on due Goal Lipid Panel. Due on due Goal ECG due Goal LDL Cholesterol (Direct). Due on due Goal Urinalysis. Due on due Goal Foot exam. Due on due Goal Monofilament Exam. Due on due Goal GFR. Due on due Goal ELECTROCARDIOGRA M, COMPLETE. Due on due Goal Hemoglobin A1C. Due on due Goal Dilated eye exam. Due on Sep due Goal PHQ-9. Due on du e Goal Dental exam. Due on due Goal DAST. Due on due Goal IAP. Due on due Goal Lipid Panel. Due on due Goal Pneumococcal vac cine. Due on due Goal ECG due Goal LDL Cholesterol (Direct). Due on due Goal Urinalysis. Due on 19 due Goal APE. Due on due Goal Diabetes Screening. Due on due Goal Tdap. Due on due Goal Monofilament Exam. Due on due Goal Hemoglobin A1C. Due on due Goal APE. Due on due Goal Dilated eye exam. Due on Sep due Goal Dental exam. Due on due Goal Foot exam. Due on 9 due Goal GFR. Due on due Goal ELECTROCARDIOGRA M, COMPLETE. Due on due Goal PHQ-9. Due on du e Goal IAP. Due on due Goal Diabetes Screening. Due on A due Goal DAST. Due on due Goal LDL Cholesterol (Direct). Due on due Goal Lipid Panel. Due on due Goal Urinalysis. Due on 19 due Goal Pneumococcal vac cine. Due on due Goal Tdap. Due on due Goal ECG due Goal Diabetes Screening. Due on A due Goal LDL Cholesterol (Direct). Due on due Goal Dental exam. Due on 019 due Goal Tdap. Due on due Goal Lipid Panel. Due on due Goal Pneumococcal vac cine. Due on due Goal ECG due Goal Dilated eye exam. Due on Aug due Goal APE. Due on due Goal Urine microalbumin. Due on due Goal Urinalysis. Due on 19 due Goal Hemoglobin A1C. Due on due Goal ELECTROCARDIOGRA M, COMPLETE. Due on due Goal DAST. Due on due Goal PHQ-9. Due on du e Goal Foot exam. Due on 9 due Goal GFR. Due on due Goal IAP. Due on due Goal Monofilament Exam. Due on due Goal PHQ-9. Due on du e Goal ELECTROCARDIOGRA M, COMPLETE. Due on due Goal Monofilament Exam. Due on due Goal DAST. Due on due Goal GFR. Due on due Goal Diabetes Screening. Due on due Goal Tdap. Due on due Goal Foot exam. Due on 9 due Goal Hemoglobin A1C. Due on due Goal Dilated eye exam. Due on Aug due Goal Urine microalbumin. Due on due Goal Dental exam. Due on 019 due Goal IAP. Due on due Goal APE. Due on due Goal Lipid Panel. Due on 016 due Goal Pneumococcal vac cine. Due on due Goal ECG due Goal LDL Cholesterol (Direct). Due on due Goal Urinalysis. Due on 19 due Goal Diabetes Screening. Due on due Goal Hemoglobin A1C. Due on due Goal DAST. Due on due Goal Dental exam. Due on 019 due Goal IAP. Due on due Goal APE. Due on due Goal GFR. Due on due Goal Dilated eye exam. Due on Aug due Goal Urine microalbumin. Due on due Goal Foot exam. Due on 9 due Goal Monofilament Exam. Due on due Goal PHQ-9. Due on du e Goal ELECTROCARDIOGRA M, COMPLETE. Due on due Goal Tdap. Due on due Goal Pneumococcal vac cine. Due on due Goal ECG due Goal Urinalysis. Due on 19 due Goal Lipid Panel. Due on 016 due Goal LDL Cholesterol (Direct). Due on due Goal DAST. Due on due Goal Urine microalbumin. Due on due Goal GFR. Due on due Goal Dilated eye exam. Due on Jul due Goal Monofilament Exam. Due on due Goal Dental exam. Due on 018 due Goal IAP. Due on due Goal Tdap. Due on due Goal Hemoglobin A1C. Due on due Goal ELECTROCARDIOGRA M, COMPLETE. Due on due Goal Foot exam. Due on 8 due Goal PHQ-9. Due on du e Goal LDL Cholesterol (Direct). Due on due Goal Pneumococcal vac cine. Due on due Goal ECG due Goal APE. Due on due Goal Diabetes Screening. Due on due Goal Urinalysis. Due on 18 due Goal Lipid Panel. Due on 016 due Goal Foot exam. Due on 8 due Goal GFR. Due on due Goal IAP. Due on due Goal ELECTROCARDIOGRA M, COMPLETE. Due on due Goal Dilated eye exam. Due on Jul due Goal Urine microalbumin. Due on due Goal DAST. Due on due Goal Tdap. Due on due Goal PHQ-9. Due on du e Goal Dental exam. Due on 018 due Goal Monofilament Exam. Due on due Goal Hemoglobin A1C. Due on due Goal APE. Due on due Goal Urinalysis. Due on 18 due Goal Lipid Panel. Due on due Goal Pneumococcal vac cine. Due on due Goal ECG due Goal LDL Cholesterol (Direct). Due on due Goal Diabetes Screening. Due on A due Goal Dilated eye exam. Due on Jun due Goal IAP. Due on due Goal APE. Due on due Goal GFR. Due on due Goal Monofilament Exam. Due on due Goal Hemoglobin A1C. Due on due Goal Dental exam. Due on 018 due Goal DAST. Due on due Goal Foot exam. Due on 8 due Goal PHQ-9. Due on du e Goal ELECTROCARDIOGRA M, COMPLETE. Due on due Goal Urine microalbumin. Due on due Goal Pneumococcal vac cine. Due on due Goal Lipid Panel. Due on 016 due Goal Diabetes Screening. Due on A due Goal LDL Cholesterol (Direct). Due on due Goal Urinalysis. Due on 18 due Goal ECG due Goal Tdap. Due on due Goal PHQ-9. Due on du e Goal Urine microalbumin. Due on due Goal DAST. Due on due Goal IAP. Due on due Goal Monofilament Exam. Due on due Goal APE. Due on due Goal Diabetes Screening. Due on due Goal Hemoglobin A1C. Due on due Goal ELECTROCARDIOGRA M, COMPLETE. Due on due Goal Dental exam. Due on due Goal GFR. Due on due Goal Dilated eye exam. Due on Jun due Goal Foot exam. Due on 8 due Goal Tdap. Due on due Goal Lipid Panel. Due on due Goal ECG due Goal Pneumococcal vac cine. Due on due Goal LDL Cholesterol (Direct). Due on due Goal Urinalysis. Due on due Goal ELECTROCARDIOGRA M, COMPLETE. Due on due Goal Diabetes Screening. Due on O due Goal PHQ-9. Due on du e Goal Dental exam. Due on due Goal Monofilament Exam. Due on due Goal IAP. Due on due Goal Hemoglobin A1C. Due on due Goal Foot exam. Due on 8 due Goal DAST. Due on due Goal Dilated eye exam. Due on May due Goal Urine microalbumin. Due on due Goal GFR. Due on due Goal ECG due Goal Tdap. Due on due Goal Urinalysis. Due on 18 due Goal Pneumococcal vac cine. Due on due Goal Lipid Panel. Due on due Goal LDL Cholesterol (Direct). Due on due Goal APE. Due on due Goal PHQ-9. Due on du e Goal Urine microalbumin. Due on O due Goal ECG due Goal ELECTROCARDIOGRA M, COMPLETE. Due on due Goal Monofilament Exam. Due on Oc due Goal IAP. Due on due Goal DAST. Due on due Goal Lipid Panel. Due on due Goal Hemoglobin A1C. Due on due Goal Pneumococcal vac cine. Due on due Goal Foot exam. Due on 8 due Goal GFR. Due on due Goal Dental exam. Due on 018 due Goal Dilated eye exam. Due on May due Goal Urinalysis. Due on 18 due Goal APE. Due on due Goal LDL Cholesterol (Direct). Due on due Goal Diabetes Screening. Due on O due Goal Tdap. Due on due Goal Monofilament Exam. Due on Oc due Goal Dilated eye exam. Due on May due Goal APE. Due on due Goal ECG due Goal Tdap. Due on due Goal Diabetes Screening. Due on due Goal Lipid Panel. Due on 016 due Goal Pneumococcal vac cine. Due on due Goal Urine microalbumin. Due on due Goal Dental exam. Due on 018 due Goal GFR. Due on due Goal Foot exam. Due on 8 due Goal LDL Cholesterol (Direct). Due on due Goal Urinalysis. Due on 18 due Goal Hemoglobin A1C. Due on due Goal DAST. Due on due Goal PHQ-9. Due on du e Goal IAP. Due on due Goal ELECTROCARDIOGRA M, COMPLETE. Due on due Goal Diabetes Screening. Due on due Goal Dental exam. Due on 018 due Goal Tdap. Due on due Goal Urine microalbumin. Due on due Goal GFR. Due on due Goal Dilated eye exam. Due on May due Goal ECG due Goal APE. Due on due Goal Lipid Panel. Due on 016 due Goal Hemoglobin A1C. Due on due Goal LDL Cholesterol (Direct). Due on due Goal Monofilament Exam. Due on due Goal Foot exam. Due on 8 due Goal ELECTROCARDIOGRA M, COMPLETE. Due on due Goal Urinalysis. Due on 18 due Goal IAP. Due on due Goal Pneumococcal vac cine. Due on due Goal PHQ-9. Due on du e Goal DAST. Due on due Goal ELECTROCARDIOGRA M, COMPLETE. Due on due Goal Urine microalbumin. Due on O due Goal Dilated eye exam. Due on May due Goal Dental exam. Due on 018 due Goal IAP. Due on due Goal GFR. Due on due Goal PHQ-9. Due on du e Goal Monofilament Exam. Due on Oc due Goal DAST. Due on due Goal Foot exam. Due on 8 due Goal Hemoglobin A1C. Due on due Goal APE. Due on due Goal Pneumococcal vac cine. Due on due Goal Lipid Panel. Due on 016 due Goal Diabetes Screening. Due on O due Goal ECG due Goal LDL Cholesterol (Direct). Due on due Goal Urinalysis. Due on 18 due Goal Tdap. Due on due Goal Tobacco cessation counseling completed Goal ELECTROCARDIOGRA M, COMPLETE. Due on due Goal PHQ-9. Due on du e Goal Tdap. Due on due Goal DAST. Due on due Goal Urine microalbumin. Due on due Goal Hemoglobin A1C. Due on due Goal APE. Due on due Goal Foot exam. Due on 8 due Goal Monofilament Exam. Due on due Goal GFR. Due on due Goal Dilated eye exam. Due on Apr due Goal Dental exam. Due on due Goal IAP. Due on due Goal Pneumococcal vac cine. Due on due Goal Lipid Panel. Due on due Goal Diabetes Screening. Due on due Goal LDL Cholesterol (Direct). Due on due Goal Urinalysis. Due on 18 due Goal ECG due Goal Hemoglobin A1C. Due on due Goal DAST. Due on due Goal Urine microalbumin. Due on due Goal Dental exam. Due on due Goal PHQ-9. Due on du e Goal Foot exam. Due on 8 due Goal Monofilament Exam. Due on due Goal Pneumococcal vac cine. Due on due Goal ELECTROCARDIOGRA M, COMPLETE. Due on due Goal Dilated eye exam. Due on Apr due Goal Lipid Panel. Due on due Goal GFR. Due on due Goal IAP. Due on due Goal Urinalysis. Due on 18 due Goal ECG due Goal Tdap. Due on due Goal APE. Due on due Goal Diabetes Screening. Due on due Goal LDL Cholesterol (Direct). Due on due Goal Dental exam. Due on 018 due Goal PHQ-9. Due on du e Goal ECG due Goal DAST. Due on due Goal IAP. Due on due Goal ELECTROCARDIOGRA M, COMPLETE. Due on due Goal Tdap. Due on due Goal Hemoglobin A1C. Due on due Goal GFR. Due on due Goal Urinalysis. Due on 18 due Goal Urine microalbumin. Due on due Goal Foot exam. Due on 8 due Goal Lipid Panel. Due on 016 due Goal Pneumococcal vac cine. Due on due Goal Diabetes Screening. Due on due Goal LDL Cholesterol (Direct). Due on due Goal Dilated eye exam. Due on Apr due Goal APE. Due on due Goal Monofilament Exam. Due on due Goal Urinalysis. Due on 18 due Goal Tdap. Due on due Goal Pneumococcal vac cine. Due on due Goal LDL Cholesterol (Direct). Due on due Goal APE. Due on due Goal Lipid Panel. Due on 016 due Goal ECG due Goal Hemoglobin A1C. Due on due Goal Dilated eye exam. Due on Mar due Goal Diabetes Screening. Due on A due Goal DAST. Due on due Goal IAP. Due on due Goal ELECTROCARDIOGRA M, COMPLETE. Due on due Goal Monofilament Exam. Due on due Goal Foot exam. Due on due Goal GFR. Due on due Goal Dental exam. Due on due Goal PHQ-9. Due on du e Goal Urine microalbumin. Due on A due Goal Urine microalbumin. Due on A due Goal Foot exam. Due on due Goal APE. Due on due Goal GFR. Due on due Goal Monofilament Exam. Due on due Goal DAST. Due on due Goal ELECTROCARDIOGRA M, COMPLETE. Due on due Goal Dilated eye exam. Due on Mar due Goal IAP. Due on due Goal Diabetes Screening. Due on A due Goal Dental exam. Due on due Goal PHQ-9. Due on du e Goal Hemoglobin A1C. Due on due Goal Pneumococcal vac cine. Due on due Goal ECG due Goal Urinalysis. Due on 18 due Goal Lipid Panel. Due on due Goal Tdap. Due on due Goal LDL Cholesterol (Direct). Due on due Goal Lipid Panel. Due on due Goal Hemoglobin A1C. Due on due Goal ELECTROCARDIOGRA M, COMPLETE. Due on due Goal Urine microalbumin. Due on A due Goal Diabetes Screening. Due on A due Goal Foot exam. Due on due Goal LDL Cholesterol (Direct). Due on due Goal Monofilament Exam. Due on due Goal Dental exam. Due on due Goal ECG due Goal Dilated eye exam. Due on Mar due Goal Tdap. Due on due Goal APE. Due on due Goal Pneumococcal vac cine. Due on due Goal Urinalysis. Due on due Goal PHQ-9. Due on du e Goal IAP. Due on due Goal GFR. Due on due Goal DAST. Due on due Goal APE. Due on due Goal LDL Cholesterol (Direct). Due on due Goal Dilated eye exam. Due on Mar due Goal Dental exam. Due on due Goal Lipid panel. Due on due Goal Monofilament Exam. Due on due Goal Tdap. Due on due Goal Pneumococcal vac cine. Due on due Goal Foot exam. Due on 8 due Goal Urinalysis. Due on 18 due Goal Hemoglobin A1C. Due on due Goal Diabetes Screening. Due on A due Goal GFR. Due on due Goal ECG due Goal Urine microalbumin. Due on A due Goal PHQ-9. Due on du e Goal IAP. Due on due Goal DAST. Due on due Goal DAST. Due on due Goal Hemoglobin A1C. Due on due Goal Monofilament Exam. Due on due Goal GFR. Due on due Goal PHQ-9. Due on du e Goal Dental exam. Due on 018 due Goal IAP. Due on due Goal Urine microalbumin. Due on A due Goal Dilated eye exam. Due on Mar due Goal Foot exam. Due on 8 due Goal APE. Due on due Goal Diabetes Screening. Due on A due Goal ECG due Goal Urinalysis. Due on 18 due Goal Tdap. Due on due Goal LDL Cholesterol (Direct). Due on due Goal Lipid panel. Due on 016 due Goal Pneumococcal vac cine. Due on due Goal IAP. Due on due Goal Monofilament Exam. Due on due Goal Hemoglobin A1C. Due on due Goal Dilated eye exam. Due on Feb due Goal APE. Due on due Goal Foot exam. Due on 8 due Goal PHQ-9. Due on du e Goal GFR. Due on due Goal Diabetes Screening. Due on due Goal Urine microalbumin. Due on due Goal Dental exam. Due on 018 due Goal DAST. Due on due Goal Tdap. Due on due Goal LDL Cholesterol (Direct). Due on due Goal Pneumococcal vac cine. Due on due Goal ECG due Goal Lipid panel. Due on 016 due Goal Urinalysis. Due on 18 due Goal Hemoglobin A1C. Due on due Goal GFR. Due on due Goal Urine microalbumin. Due on due Goal PHQ-9. Due on du e Goal Monofilament Exam. Due on due Goal IAP. Due on due Goal Tdap. Due on due Goal Dilated eye exam. Due on Jan due Goal Foot exam. Due on 8 due Goal DAST. Due on due Goal Dental exam. Due on due Goal Urinalysis. Due on 18 due Goal Pneumococcal vac cine. Due on due Goal ECG due Goal Lipid panel. Due on due Goal LDL Cholesterol (Direct). Due on due Goal APE. Due on due Goal Diabetes Screening. Due on due Goal IAP. Due on due Goal DAST. Due on due Goal Monofilament Exam. Due on due Goal Diabetes Screening. Due on due Goal GFR. Due on due Goal PHQ-9. Due on du e Goal Urine microalbumin. Due on due Goal Foot exam. Due on 8 due Goal Dilated eye exam. Due on Jan due Goal Dental exam. Due on due Goal Hemoglobin A1C. Due on due Goal ECG due Goal LDL Cholesterol (Direct). Due on due Goal Urinalysis. Due on 18 due Goal Pneumococcal vac cine. Due on due Goal APE. Due on due Goal Lipid panel. Due on 016 due Goal Tdap. Due on due Goal Diabetes Screening. Due on due Goal Foot exam. Due on 8 due Goal Dilated eye exam. Due on Jan due Goal Tdap. Due on due Goal Dental exam. Due on 018 due Goal PHQ-9. Due on du e Goal GFR. Due on due Goal APE. Due on due Goal DAST. Due on due Goal Hemoglobin A1C. Due on due Goal IAP. Due on due Goal Urine microalbumin. Due on due Goal Monofilament Exam. Due on due Goal Urinalysis. Due on 18 due Goal Pneumococcal vac cine. Due on due Goal ECG due Goal Lipid panel. Due on due Goal LDL Cholesterol (Direct). Due on due Goal Foot exam. Due on 8 due Goal Dilated eye exam. Due on December due Goal GFR. Due on due Goal PHQ-9. Due on du e Goal IAP. Due on due Goal Monofilament Exam. Due on due Goal Dental exam. Due on due Goal Urine microalbumin. Due on due Goal Diabetes Screening. Due on due Goal Hemoglobin A1C. Due on due Goal DAST. Due on due Goal Lipid panel. Due on due Goal LDL Cholesterol (Direct). Due on due Goal Tdap. Due on due Goal Pneumococcal vac cine. Due on due Goal ECG due Goal Urinalysis. Due on 18 due Goal APE. Due on due Goal Dilated eye exam. Due on Nov due Goal DAST. Due on due Goal Foot exam. Due on 8 due Goal IAP. Due on due Goal PHQ-9. Due on du e Goal Hemoglobin A1C. Due on due Goal Monofilament Exam. Due on due Goal APE. Due on due Goal Pneumococcal vac cine. Due on due Goal Lipid panel. Due on due Goal Tdap. Due on due Goal Hemoglobin A1C. Due on due Goal PHQ-9. Due on du e Goal DAST. Due on due Goal Foot exam. Due on 8 due Goal Dilated eye exam. Due on Nov due Goal Monofilament Exam. Due on Ap due Goal IAP. Due on due Goal Lipid panel. Due on due Goal ECG due Goal Pneumococcal vac cine. Due on due Goal GFR. Due on due Goal Urine microalbumin. Due on A due Goal Diabetes Screening. Due on A due Goal Tdap. Due on due Goal LDL Cholesterol (Direct). Due on due Goal APE. Due on due Goal Urinalysis. Due on 18 due Goal Dental exam. Due on 018 due Goal Hemoglobin A1C. Due on due Goal Pneumococcal vac cine. Due on due Goal APE. Due on due Goal Monofilament Exam. Due on due Goal Dilated eye exam. Due on Nov due Goal DAST. Due on due Goal PHQ-9. Due on du e Goal Lipid panel. Due on due Goal Foot exam. Due on 8 due Goal IAP. Due on due Goal DAST. Due on due Goal IAP. Due on due Goal PHQ-9. Due on du e Goal Foot exam. Due on 8 due Goal Pneumococcal vac cine. Due on due Goal Hemoglobin A1C. Due on due Goal Lipid panel. Due on due Goal Dilated eye exam. Due on Oct due Goal APE. Due on due Goal Monofilament Exam. Due on due Goal APE. Due on due Goal Lipid panel. Due on due Goal Monofilament Exam. Due on due Goal Dilated eye exam. Due on Oct due Goal Hemoglobin A1C. Due on due Goal Foot exam. Due on due Goal Pneumococcal vac cine. Due on due Goal Dilated eye exam. Due on Oct due Goal Hemoglobin A1C. Due on due Goal Lipid panel. Due on due Goal Pneumococcal vac cine. Due on due Goal Foot exam. Due on due Goal APE. Due on due Goal Monofilament Exam. Due on due Goal Hemoglobin A1C. Due on due Goal Lipid panel. Due on due Goal Dilated eye exam. Due on Oct due Goal Pneumococcal vac cine. Due on due Goal Foot exam. Due on due Goal APE. Due on due Goal Monofilament Exam. Due on due Goal Hemoglobin A1C. Due on due Goal Pneumococcal vac cine. Due on due Goal Monofilament Exam. Due on due Goal APE. Due on due Goal Dilated eye exam. Due on Oct due Goal Foot exam. Due on due Goal Lipid panel. Due on due Goal Dilated eye exam. Due on Oct due Goal APE. Due on due Goal Hemoglobin A1C. Due on due Goal Monofilament Exam. Due on due Goal Pneumococcal vac cine. Due on due Goal Lipid panel. Due on due Goal Foot exam. Due on due Goal Pneumococcal vac cine. Due on due Goal Monofilament Exam. Due on due Goal Foot exam. Due on due Goal Hemoglobin A1C. Due on due Goal Lipid panel. Due on due Goal Dilated eye exam. Due on Oct due Goal APE. Due on due Goal Dilated eye exam. Due on Oct due Goal Monofilament Exam. Due on due Goal Pneumococcal vac cine. Due on due Goal Hemoglobin A1C. Due on due Goal Foot exam. Due on due Goal Lipid panel. Due on due Goal APE. Due on due Goal APE. Due on due Goal Monofilament Exam. Due on due Goal Dilated eye exam. Due on Sep due Goal Foot exam. Due on due Goal Lipid panel. Due on due Goal Hemoglobin A1C. Due on due Goal Pneumococcal vac cine. Due on due Goal APE. Due on due Goal Monofilament Exam. Due on due Goal Lipid panel. Due on due Goal Pneumococcal vac cine. Due on due Goal Foot exam. Due on 8 due Goal Dilated eye exam. Due on Sep due Goal Hemoglobin A1C. Due on due Goal Dilated eye exam. Due on Sep due Goal APE. Due on due Goal Hemoglobin A1C. Due on due Goal Lipid panel. Due on due Goal Pneumococcal vac cine. Due on due Goal Monofilament Exam. Due on due Goal Foot exam. Due on 8 due Goal Pneumococcal vac cine. Due on due Goal APE. Due on due Goal Lipid panel. Due on 016 due Goal Hemoglobin A1C. Due on due Goal Dilated eye exam. Due on Sep due Goal Foot exam. Due on 8 due Goal Monofilament Exam. Due on due Goal Dilated eye exam. Due on Sep due Goal Foot exam. Due on due Goal Pneumococcal vac cine. Due on due Goal Lipid panel. Due on 016 due Goal Monofilament Exam. Due on due Goal Hemoglobin A1C. Due on due Goal APE. Due on due Goal APE. Due on due Goal Dilated eye exam. Due on Sep due Goal Hemoglobin A1C. Due on due Goal Foot exam. Due on 8 due Goal Monofilament Exam. Due on due Goal Lipid panel. Due on due Goal Pneumococcal vac cine. Due on due Goal Foot exam. Due on due Goal Hemoglobin A1C. Due on due Goal APE. Due on due Goal Lipid panel. Due on due Goal Pneumococcal vac cine. Due on due Goal Dilated eye exam. Due on Aug due Goal Monofilament Exam. Due on due Goal Foot exam. Due on due Goal Lipid panel. Due on due Goal Monofilament Exam. Due on due Goal Pneumococcal vac cine. Due on due Goal Hemoglobin A1C. Due on due Goal Dilated eye exam. Due on Aug due Goal APE. Due on due Goal Lipid panel. Due on due Goal Pneumococcal vac cine. Due on due Goal Monofilament Exam. Due on due Goal Foot exam. Due on 8 due Goal Hemoglobin A1C. Due on due Goal Dilated eye exam. Due on Aug due Goal APE. Due on due Goal Lipid panel. Due on due Goal Dilated eye exam. Due on Aug due Goal Monofilament Exam. Due on due Goal Hemoglobin A1C. Due on due Goal APE. Due on due Goal Pneumococcal vac cine. Due on due Goal Foot exam. Due on due Goal Hemoglobin A1C. Due on due Goal Monofilament Exam. Due on due Goal Lipid panel. Due on due Goal APE. Due on due Goal Pneumococcal vac cine. Due on due Goal Dilated eye exam. Due on Jul due Goal Foot exam. Due on due Goal Monofilament Exam. Due on due Goal Foot exam. Due on due Goal Dilated eye exam. Due on Jul due Goal Lipid panel. Due on due Goal APE. Due on due Goal Hemoglobin A1C. Due on due Goal Pneumococcal vac cine. Due on due Goal Pneumococcal vac cine. Due on due Goal Lipid panel. Due on due Goal Hemoglobin A1C. Due on due Goal Foot exam. Due on due Goal APE. Due on due Goal Monofilament Exam. Due on No due Goal Dilated eye exam. Due on Jun due Goal Foot exam. Due on due Goal APE. Due on due Goal Dilated eye exam. Due on Jun due Goal Lipid panel. Due on due Goal Pneumococcal vac cine. Due on due Goal Hemoglobin A1C. Due on due Goal Monofilament Exam. Due on No due Goal Monofilament Exam. Due on No due Goal Dilated eye exam. Due on Jun due Goal Pneumococcal vac cine. Due on due Goal Foot exam. Due on due Goal Hemoglobin A1C. Due on due Goal Lipid panel. Due on due Goal APE. Due on due Goal Foot exam. Due on due Goal APE. Due on due Goal Monofilament Exam. Due on No due Goal Pneumococcal vac cine. Due on due Goal Dilated eye exam. Due on Jun due Goal Hemoglobin A1C. Due on due Goal Lipid panel. Due on due Goal APE. Due on due Goal Pneumococcal vac cine. Due on due Goal Monofilament Exam. Due on No due Goal Foot exam. Due on due Goal Hemoglobin A1C. Due on due Goal Dilated eye exam. Due on Jun due Goal Lipid panel. Due on due Goal Lipid panel. Due on due Goal Dilated eye exam. Due on Jun due Goal Monofilament Exam. Due on due Goal Foot exam. Due on due Goal APE. Due on due Goal Pneumococcal vac cine. Due on due Goal Hemoglobin A1C. Due on due Goal Lipid panel. Due on due Goal Monofilament Exam. Due on due Goal Foot exam. Due on due Goal Pneumococcal vac cine. Due on due Goal Hemoglobin A1C. Due on due Goal Dilated eye exam. Due on May due Goal APE. Due on due Goal Pneumococcal vac cine. Due on due Goal Foot exam. Due on due Goal Monofilament Exam. Due on due Goal APE. Due on due Goal Dilated eye exam. Due on May due Goal Hemoglobin A1C. Due on due Goal Lipid panel. Due on due Goal Foot exam. Due on due Goal Dilated eye exam. Due on May due Goal Pneumococcal vac cine. Due on due Goal APE. Due on due Goal Monofilament Exam. Due on Oc due Goal Hemoglobin A1C. Due on due Goal Lipid panel. Due on due Goal Hemoglobin A1C. Due on due Goal Pneumococcal vac cine. Due on due Goal Dilated eye exam. Due on May due Goal Monofilament Exam. Due on Oc due Goal APE. Due on due Goal Lipid panel. Due on due Goal Foot exam. Due on due Goal Dilated eye exam. Due on May due Goal Monofilament Exam. Due on due Goal Lipid panel. Due on due Goal APE. Due on due Goal Hemoglobin A1C. Due on due Goal Pneumococcal vac cine. Due on due Goal Foot exam. Due on due Goal Pneumococcal vac cine. Due on due Goal Hemoglobin A1C. Due on due Goal Lipid panel. Due on due Goal Monofilament Exam. Due on due Goal Foot exam. Due on due Goal Dilated eye exam. Due on Apr due Goal APE. Due on due Goal APE. Due on due Goal APE. Due on due Goal APE. Due on due Goal APE. Due on due Goal APE. Due on due Goal APE. Due on due Goal APE. Due on due Goal APE. Due on due Goal APE. Due on due Goal APE. Due on due Goal APE. Due on due Goal APE. Due on due Goal APE. Due on due Goal APE. Due on due Goal APE. Due on due Goal APE. Due on due Goal APE. Due on due Goal APE. Due on due Goal APE. Due on due Goal APE. Due on due Goal APE. Due on due Goal APE. Due on due Goal APE. Due on due Goal APE. Due on due Goal APE. Due on due Goal APE. Due on due Goal APE. Due on due Goal APE. Due on due Goal APE. Due on due Goal APE. Due on due Goal Influenza vaccine. Due on due Goal APE. Due on due Goal APE. Due on due Goal Influenza vaccine. Due on No due Goal Influenza vaccine. Due on No due Goal APE. Due on due Goal APE. Due on due Goal Influenza vaccine. Due on No due Goal Influenza vaccine. Due on No due Goal APE. Due on due Goal APE. Due on due Goal Influenza vaccine. Due on No due Goal Influenza vaccine. Due on No due Goal APE. Due on due Goal APE. Due on due Goal Influenza vaccine. Due on No due Referral Ordered: Referrals: Neurology. Evaluate and treat Appointment date/timeframe: 04/18/2023 ordered Referral Ordered: US ABDOMEN COMPLETE abdomen Appointment date/timeframe: 05/12/2022 ordered Referral Ordered: X-RAY EXAM OF FOOT MINIMUM 3 VIEWS Left foot Appointment date/timeframe: Elective-Pt Discretion ordered Referral Ordered: X-RAY EXAM OF SHOULDER COMPLETE MIN 2 VIEWS Left ordered Referral Ordered: Referrals: Gastroenterology. Evaluate and treat Appointment date/timeframe: Urgent <3 Weeks ordered Referral Ordered: Orthopedics (related to Chronic pain syndrome) ordered Referral Ordered: Referrals: Orthopedics. Evaluate and treat Appointment date/timeframe: Routine <3 Months ordered Referral Ordered: Pain Management (related to Osteoarthritis, unspecified osteoarthritis type, unspecified site) ordered Referral Ordered: Referrals: Pain Management. Evaluate and treat Appointment date/timeframe: Routine <3 Months ordered Referral Ordered: ENDOSCOPY, UPPER GI ordered Referral Ordered: Referrals: Pain Medicine. Evaluate and treat ordered Referral Ordered: Behavioral Health - [facility] (related to Major depressive disorder, recurrent episode, unspecified degree) ordered Referral Ordered: MRI LUMBAR SPINE W/O DYE Appointment date/timeframe: 12/25/2014 ordered Referral Ordered: Referrals: Behavioral Health - [facility]. Evaluate and treat ordered Referral Ordered: Referral: Physical Therapist/Independent. Evaluate and treat. ordered Referral Ordered: Referral: Pain Management. Evaluate and treat. Appointment date/timeframe: 12/09/2013 ordered Referral Ordered: Referral: pain clinic. Evaluate and treat. Appointment date/timeframe: 06/19/2012 ordered Referral Ordered: Referral: [facility]rl S[facility]. Consult. Appointment date/timeframe: 06/21/2012 ordered Immunization Flu-IIV3(TIV), p-free ordere d Future Order: Lab Order Buprenor phine MAT ([id number]), Sent on: Sent Future Order: Lab Order Buprenor phine MAT ([id number]), Sent on: Sent Future Order: Lab Order VALPROIC ACID (VPA) (VPA), Sent on: Sent History Of Present Illness Encounter Date Complaint History Of Prese nt Illness MAT MAT no show for [facility] visit. called, no answer, LVM w/ cb #. Billing as LWOBSCurrent Dose of Buprenorphine: buprenorphine 2 mg-naloxone 0.5 mg sublingual tablet Take 1 tab sublingual in the morning, 1 in the afternoon, and 2-3 tablets before bedPrescription Duration: 4 WeeksFrequency of Visits: WeeklyLast Kept MAT Appointment: 05/29/2022 with Alma Aguilar MD.Last Missed MAT Appointment: 06/05/2022 with Damien Lundberg MDThe patient has not had a BH Intake.Last Relapse: n/aLabsThe patient's last urine toxicology was positive for Amphetamines, Buprenorphine, Gabapentin and Marijuana MTB (THC) on 04-03-2022. Hep C HCV Antibody: <0.1 from 02-28-2022, Hep B surface antibody: POSITIVE from 01-13-2019, Hep B surface antigen: NEGATIVE from 01-13-2019, Hep B core antibody: NEGATIVE from 01-13-2019, Gonorrhea: Negative from 02-28-2022, HIV: Non Reactive from 06-15-2020, Chlamydia: Negative from 02-28-2022, Syphilis: Non Reactive from 02-28-2022 and TB: NEGATIVE from 01-13-2019.This information has been disclosed to you from records protected by federal confidentiality rules (42 CFR Part 2). The federal rules prohibit you from making any further disclosure of information in this record that identifies a patient as having or having a substance use disorder either directly, by reference to publicly available information, or through verification of such identification by prosecute with regard to a crime any patient with a substance use disorder, except as provided at 2.12(c)(5) and 2.65 MAT 41-year-old emily ent presents for MAT visit. He has never tested positive for covid. Reports vomiting. Sx's c. 5 days. Stabbing pain around the ribs which is persistent in nature. C/o pain when he sleeps. Reports occasional SOB. Denies fever. Reports he has 3 additional days of suboxone as he was taking less than he was prescribed due to difficulty of holding anything down. He is now complaint w/ his meds, 2 mg in morning, 2 mg in the afternoon and 6 mg at night w/ good reliefRecent disclosure from ex of loss of due to assault. He is processing this info and struggling w/ it.Current Dose of Buprenorphine: buprenorphine 2 mg-naloxone 0.5 mg sublingual tablet Take 1 tab sublingual in the morning, 1 in the afternoon, and 2-3 tablets before bedPrescription Duration: 4 WeeksFrequency of Visits: WeeklyLast Kept MAT Appointment: 05/29/2022 with Alma Aguilar MD.Last Missed MAT Appointment: 04/12/2022 with Bruno Adler RN, [place] patient has not had a BH Intake.Last Relapse: n/aLabsThe patient's last urine toxicology was positive for Amphetamines, Buprenorphine, Gabapentin and Marijuana MTB (THC) on 04-03-2022. Hep C HCV Antibody: <0.1 from 02-28-2022, Hep B surface antibody: POSITIVE from 01-13-2019, Hep B surface antigen: NEGATIVE from 01-13-2019, Hep B core antibody: NEGATIVE from 01-13-2019, Gonorrhea: Negative from 02-28-2022, HIV: Non Reactive from 06-15-2020, Chlamydia: Negative from 02-28-2022, Syphilis: Non Reactive from 02-28-2022 and TB: NEGATIVE from 01-13-2019.This information has been disclosed to you from records protected by federal confidentiality rules (42 CFR Part 2). The federal rules prohibit you from making any further disclosure of information in this record that identifies a patient as having or having a substance use disorder either directly, by reference to publicly available information, or through verification of such identification by prosecute with regard to a crime any patient with a substance use disorder, except as provided at 2.12(c)(5) and 2.65 cold symptoms Onset: 6 days ag o. The patient describes the cough as productive (of yellow sputum). It occurs persistently. The problem has not changed. Additional information: rib pain. ......... LEFT WITHO UT BEING SEEN MIGUEL Parsk is a 41 y/ o pt called for MAT f/u today.Per MP: last p/u 05/03, due 05/17, but stated at that time he had enough medication. Reports picking up rx a couple of days ago. Current dose: 2mg 1 tab qAM, 1 tab qPM, 2-3 tabs qHS, working well, no longer waking up depressed. Opioids: DeniesNarcan: HasSocial: Daughter's tooth got pulled out the other day, recently had COVID exposure. Was sick with a cold, didn't take medicine for a few days due to this, but feeling better now.F/U on SundayCurrent Dose of Buprenorphine: buprenorphine 2 mg-naloxone 0.5 mg sublingual tablet Take 1 tab sublingual in the morning, 1 in the afternoon, and 2-3 tablets before bedPrescription Duration: 4 WeeksFrequency of Visits: WeeklyLast Kept MAT Appointment: 05/09/2022 with Alma Aguilar MD.Last Missed MAT Appointment: 04/12/2022 with Bruno Adler RN, [place] patient has not had a BH Intake.Last Relapse: n/aLabsThe patient's last urine toxicology was positive for Amphetamines, Buprenorphine, Gabapentin and Marijuana MTB (THC) on 04-03-2022. Hep C HCV Antibody: <0.1 from 02-28-2022, Hep B surface antibody: POSITIVE from 01-13-2019, Hep B surface antigen: NEGATIVE from 01-13-2019, Hep B core antibody: NEGATIVE from 01-13-2019, Gonorrhea: Negative from 02-28-2022, HIV: Non Reactive from 06-15-2020, Chlamydia: Negative from 02-28-2022, Syphilis: Non Reactive from 02-28-2022 and TB: NEGATIVE from 01-13-2019.This information has been disclosed to you from records protected by federal confidentiality rules (42 CFR Part 2). The federal rules prohibit you from making any further disclosure of information in this record that identifies a patient as having or having a substance use disorder either directly, by reference to publicly available information, or through verification of such identification by prosecute with regard to a crime any patient with a substance use disorder, except as provided at 2.12(c)(5) and 2.65 MAT Padmini is a 41yo patient here today for a MAT telehealth visit Pt. is alone and in NAD on the call. Per MP due today. Pt states he still has bup rx available and does not need more tabs at this time. Check in call on Sunday to confirm pt. is all set with bup rx. Bup dose = 2mg tabs BID + 2-3 QHS (4-5 tabs/day.) Pt reports taking dose as rx'd, denies drowsiness or cravings at this dose. OUD: Opiates: denies - nothing but weed, and that's been minimal Narcan: has at home-reports generally taking 3 tabs throughout the day and 2 qhs around 2am-reports suboxone is working real great SocialMood: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 noted some cravings to drink on a couple occassions but did not drink -reports the bup tablets get rid of the sharp, tearing pain. however, notes that he is still experiencing burning pain sensation, as well as spasms where I drop everything, and cramps in legs Social:-pt states he has been out of touch because life has been hectic; currently in [facility], struggling with pain management, difficulty with , taking care of children-reports feeling overwhelmed with having to take over care of daughters d/t emotional struggles with -reports his car is down so transportation is currently an issue -just received paperwork for housing, states he needs to send it in by the 11th Requested rx goes to [facility] in [place] ([address])Current Dose of Buprenorphine: buprenorphine 8 mg-naloxone 2 mg sublingual tablet Take 1 tab PO QHS.Last Kept MAT Appointment: 11/28/2021 with Bruno Adler RN, Mary.Last Missed MAT Appointment: 09/30/2021 with Bruno Adler RN, Rjhe patient has not had a BH Intake.LabsThe patient's last urine toxicology was positive for Buprenorphine, Gabapentin and Marijuana MTB (THC) on 09-16-2021. Hep C HCV Antibody: <0.1 from 06-15-2020, Hep B surface antibody: POSITIVE from 01-13-2019, Hep B surface antigen: NEGATIVE from 01-13-2019, Hep B core antibody: NEGATIVE from 01-13-2019, Gonorrhea: Negative from 06-15-2020, HIV: Non Reactive from 06-15-2020, Chlamydia: Negative from 06-15-2020, Syphilis: Non Reactive from 06-15-2020 and TB: NEGATIVE from 01-13-2019.This information has been disclosed to you from records protected by federal confidentiality rules (42 CFR Part 2). The federal rules prohibit you from making any further disclosure of information in this record that identifies a patient as having or having a substance use disorder either directly, by reference to publicly available information, or through verification of such identification by prosecute with regard to a crime any patient with a substance use disorder, except as provided at 2.12(c)(5) and 2.65 MIGUEL Parks is a 41 y/ o patient who calls into clinic today for MAT f/u. Pt is alone and in NAD on the call. Attempted call to Pt for nsg televisit at 10:02 am, no answer, LVM w/ MAT c/b #.Attempted call to Pt at 11:16 AM, no answer. Per Shahbazpat is due for bup today.OUD: Opioids: denies; it's been hard but I haven't used Narcan: has at home -dose is working well overall - tired here and there - appetite through the roof, but no other cravings -no ETOH use -confirmed he is taking 2mg tabs BID and 8mg tabs QHS Social: -lost brother in law / best friend recently -daughter has been distraught about it - pt has been supporting her + himself- i keep myself busy, all i can do these days Current Dose of Buprenorphine: buprenorphine 8 mg-naloxone 2 mg sublingual tablet Take 1 tab PO QHS.Last Kept MAT Appointment: 12/16/2021 with Jihan Man MD.Last Missed MAT Appointment: 09/30/2021 with Bruno Adler RN, Usha patient has not had a BH Intake.LabsThe patient's last urine toxicology was positive for Buprenorphine, Gabapentin and Marijuana MTB (THC) on 09-16-2021. Hep C HCV Antibody: <0.1 from 06-15-2020, Hep B surface antibody: POSITIVE from 01-13-2019, Hep B surface antigen: NEGATIVE from 01-13-2019, Hep B core antibody: NEGATIVE from 01-13-2019, Gonorrhea: Negative from 06-15-2020, HIV: Non Reactive from 06-15-2020, Chlamydia: Negative from 06-15-2020, Syphilis: Non Reactive from 06-15-2020 and TB: NEGATIVE from 01-13-2019.This information has been disclosed to you from records protected by federal confidentiality rules (42 CFR Part 2). The federal rules prohibit you from making any further disclosure of information in this record that identifies a patient as having or having a substance use disorder either directly, by reference to publicly available information, or through verification of such identification by prosecute with regard to a crime any patient with a substance use disorder, except as provided at 2.12(c)(5) and 2.65 mat tele Padmini is a 41 ye ar old reached today for a MAT nurse televisit.Pt is alone and in NAD today on the call.Patient ID confirmed.OUD:- Reports taking bupe qd. - Today he requests to decrease dose- Has tried bupe-nlx in the past, was unable to tolerate and transitioned to sublocade injections. Unfortunately unable to tolerate Sublocade injections d/t injection site reactions. Now back to PO bupe and taking bupe tablets.- He is rx'ed 2mg in AM, 2mg in PM, and 8mg QHS. He has been skipping the 2mg PM dose and only taking 2mg in AM and 8mg in PM. He would like to lower this dose again d/t feeling low energy. He reports no withdrawal sxs or cravings with dose decreases. Denies sedation or red flag s/sx.- I called his pharmacy and they don't carry 1mg or 4mg tabs and do not have 2mg in stock. They do not advise splitting tabs so he will need diff rx. - As part of shared decision per patient preferences and consult with MD SINGER, plan will be to send additional 2mg tabs so he can lower his qhs dose to 4-6mg and will discontinue QHS 8mg tabs. - Pt reports he has #6 2mg tablets left and does not need any more 8mg tabs (per mp he rec'd #21 8mg tabs on 11/07/21 and #14 2mg tablets wkly to supplement the 21 day 8mg qhs rx). - Per pt preference/ MD SINGER consult will send rx for 2mg TID tablets (6 day rx, #18 tabs) to [address] As stated previously, pt will discontinue 8mg tablets. New rx will allow pt to take #2-3 2mg tabs qhs and continue #1 2mg tablet in the am (pt has) = total 6-8mg bupe total daily. Should have films to get to sunday appt. Pt knows to call earlier prn w/ any questions, concerns or if needing support w/ MOUD or medical care in between appts. - MP reviewed- Pt has an rx for Narcan and refills available if needed- Denies any substance use - Has no other concerns today- Please confirm pharmacy each visit - pt in somewhat transitional time between [place]/ [place]/ other locations to care for family. MAT Billing LWOBSDav id is a 41 y/o pt called for MAT f/u today. 1 call, no ans, LVMPer MP: last p/u 11/14, due 11/21. Current dose: bup-nlx 2mg BIDCurrent Dose of Buprenorphine: buprenorphine 2 mg-naloxone 0.5 mg sublingual tablet Take 1 tab PO qam and 1 tab PO QPM.Last Kept MAT Appointment: 11/07/2021 with Alma Aguilar MD.Last Missed MAT Appointment: 09/30/2021 with Usha Miles RN patient has not had a BH Intake.LabsThe patient's last urine toxicology was positive for Buprenorphine, Gabapentin and Marijuana MTB (THC) on 09-16-2021. Hep C HCV Antibody: <0.1 from 06-15-2020, Hep B surface antibody: POSITIVE from 01-13-2019, Hep B surface antigen: NEGATIVE from 01-13-2019, Hep B core antibody: NEGATIVE from 01-13-2019, Gonorrhea: Negative from 06-15-2020, HIV: Non Reactive from 06-15-2020, Chlamydia: Negative from 06-15-2020, Syphilis: Non Reactive from 06-15-2020 and TB: NEGATIVE from 01-13-2019.This information has been disclosed to you from records protected by federal confidentiality rules (42 CFR Part 2). The federal rules prohibit you from making any further disclosure of information in this record that identifies a patient as having or having a substance use disorder either directly, by reference to publicly available information, or through verification of such identification by prosecute with regard to a crime any patient with a substance use disorder, except as provided at 2.12(c)(5) and 2.65 MIGUEL Padmini is a 41 y/ o pt called for MAT f/u today.Per MP: last p/u 11/07, due 11/14. Current dose: bup tab 2mg BID + 8mg qHS, they're doing well, except for the heartburn , letting tab dissolve completely, not drinking anything, still having heartburn, using tums and rolaids ( I usually have to eat 3 at once ). Omeprazole helped in the past with strips, but has none at this time. Opioids: DeniesNarcan: HasSocial: Doing well, not sleeping all day anymore. Needs refills for amlodipine and vitamin b2. No other questions or concerns at this time.F/U in one weekCurrent Dose of Buprenorphine: buprenorphine 8 mg-naloxone [address] 1 tablet by sublingual route 3 times every day allow to dissolve slowly in mouth without chewiLast Kept MAT Appointment: 11/07/2021 with Alma Aguilar MD.Last Missed MAT Appointment: 09/30/2021 with Usha Miles RN patient has not had a BH Intake.LabsThe patient's last urine toxicology was positive for Buprenorphine, Gabapentin and Marijuana MTB (THC) on 09-16-2021. Hep C HCV Antibody: <0.1 from 06-15-2020, Hep B surface antibody: POSITIVE from 01-13-2019, Hep B surface antigen: NEGATIVE from 01-13-2019, Hep B core antibody: NEGATIVE from 01-13-2019, Gonorrhea: Negative from 06-15-2020, HIV: Non Reactive from 06-15-2020, Chlamydia: Negative from 06-15-2020, Syphilis: Non Reactive from 06-15-2020 and TB: NEGATIVE from 01-13-2019.This information has been disclosed to you from records protected by federal confidentiality rules (42 CFR Part 2). The federal rules prohibit you from making any further disclosure of information in this record that identifies a patient as having or having a substance use disorder either directly, by reference to publicly available information, or through verification of such identification by prosecute with regard to a crime any patient with a substance use disorder, except as provided at 2.12(c)(5) and 2.65 MAT 41-year-old male presents today for MAT follow up. He has been doing well. He was having adverse effects with Sublocade injection. He was placed on trial of buprenorphine-naloxone 8mg TID on 10/31/21. Since he had started taking tablets, he noted that he was sleeping a lot. So, he was advised to decrease dose of medication. He is currently taking 2 mg tablets. He is happy with medication. He denies any allergic symptoms with tablets. He did have left shoulder pain for which he got x-ray done that was normal. Currently, he continues to have pain. He could not get Voltaren gel yet. Current Dose of Buprenorphine: buprenorphine 2 mg-naloxone 0.[address] 4 tablet by sublingual route 3 times every day allow to dissolve slowly in mouth without chewLast Kept MAT Appointment: 11/07/2021 with Alma Aguilar MD.Last Missed MAT Appointment: 09/30/2021 with Usha Miles RN patient has not had a BH Intake.LabsThe patient's last urine toxicology was positive for Buprenorphine, Gabapentin and Marijuana MTB (THC) on 09-16-2021. Hep C HCV Antibody: <0.1 from 06-15-2020, Hep B surface antibody: POSITIVE from 01-13-2019, Hep B surface antigen: NEGATIVE from 01-13-2019, Hep B core antibody: NEGATIVE from 01-13-2019, Gonorrhea: Negative from 06-15-2020, HIV: Non Reactive from 06-15-2020, Chlamydia: Negative from 06-15-2020, Syphilis: Non Reactive from 06-15-2020 and TB: NEGATIVE from 01-13-2019.This information has been disclosed to you from records protected by federal confidentiality rules (42 CFR Part 2). The federal rules prohibit you from making any further disclosure of information in this record that identifies a patient as having or having a substance use disorder either directly, by reference to publicly available information, or through verification of such identification by prosecute with regard to a crime any patient with a substance use disorder, except as provided at 2.12(c)(5) and 2.65 L Shoulder Pain 41 yo male prese nts for L shoulder pain:2-3 days of left shoulder pain- no trauma or injury. he states that he did have a shoulder injury back in 2000 when he was in the . he states that he doesn't even want to move because of the pain. unsure if its worse when moving, so he tries not to. he notes that he always has strange sensations in his hands for many years, sometimes there is numbness/tingling. denies weakness, redness, swelling. MIGUEL Padmini is a 41 y/ o patient who presents to clinic today for MAT f/u. 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 PSYCHOSOCIAL: - has been having depressed mood - anniversary of some significant losses - grandmother and father - has been working on anger management - feels like he has made good progress but a lot of triggers in his life currently - endorses some passive SI/HI, denies any active SI/HI - in care w/ therapist RSW and finds this very supportive Current Dose of Buprenorphine: buprenorphine 8 mg-naloxone [address] 1 tablet by sublingual route 3 times every day allow to dissolve slowly in mouth without chewiLast Kept MAT Appointment: 10/31/2021 with Mary Miles RN.Last Missed MAT Appointment: 09/30/2021 with Rj Miles RNhe patient has not had a BH Intake.LabsThe patient's last urine toxicology was positive for Buprenorphine, Gabapentin and Marijuana MTB (THC) on 09-16-2021. Hep C HCV Antibody: <0.1 from 06-15-2020, Hep B surface antibody: POSITIVE from 01-13-2019, Hep B surface antigen: NEGATIVE from 01-13-2019, Hep B core antibody: NEGATIVE from 01-13-2019, Gonorrhea: Negative from 06-15-2020, HIV: Non Reactive from 06-15-2020, Chlamydia: Negative from 06-15-2020, Syphilis: Non Reactive from 06-15-2020 and TB: NEGATIVE from 01-13-2019.This information has been disclosed to you from records protected by federal confidentiality rules (42 CFR Part 2). The federal rules prohibit you from making any further disclosure of information in this record that identifies a patient as having or having a substance use disorder either directly, by reference to publicly available information, or through verification of such identification by prosecute with regard to a crime any patient with a substance use disorder, except as provided at 2.12(c)(5) and 2.65 MAT Televisit with jona hess for discussion of sublocade injections- next due 10/31 but has been having injection site rxns so I was asked to consult prior to this. Extensive discussion with team prior to this visit- see A/PPatient states emphatically that he never wants to get a sublocade injection again. States that the itching was not just at the injection site but his entire abdomen, and I was tearing at my skin in my sleep from how bad it itched. Did not have relief w/ triamcinolone or antihistamines.Notes that the sublocade has given him pain relief to a degree that I feel the pain is tolerable. Before I felt like I couldn't even live with it. Current Dose of Buprenorphine: Sublocade 300 mg/1.5 mL solution,extended release subcutaneous syringe inject 1.5 milliliter by subcutaneous route every month in the abdomen rotating injection sitesLast Kept MAT Appointment: 10/26/2021 with Adriana Sheppard MD.Last Missed MAT Appointment: 09/30/2021 with Bruno Adler RN, Usha patient has not had a BH Intake.LabsThe patient's last urine toxicology was positive for Buprenorphine, Gabapentin and Marijuana MTB (THC) on 09-16-2021. Hep C HCV Antibody: <0.1 from 06-15-2020, Hep B surface antibody: POSITIVE from 01-13-2019, Hep B surface antigen: NEGATIVE from 01-13-2019, Hep B core antibody: NEGATIVE from 01-13-2019, Gonorrhea: Negative from 06-15-2020, HIV: Non Reactive from 06-15-2020, Chlamydia: Negative from 06-15-2020, Syphilis: Non Reactive from 06-15-2020 and TB: NEGATIVE from 01-13-2019.This information has been disclosed to you from records protected by federal confidentiality rules (42 CFR Part 2). The federal rules prohibit you from making any further disclosure of information in this record that identifies a patient as having or having a substance use disorder either directly, by reference to publicly available information, or through verification of such identification by prosecute with regard to a crime any patient with a substance use disorder, except as provided at 2.12(c)(5) and 2.65 F/U f/u for his medi cation reactionhe has been trying the steroid cream only gives temporary relief from the itch.did take the BACTRIM and the nodule did not get any smallerand the darkened skin changes did not return to normal. sublocade reaction MIGUEL Parks is a 40 y/ o patient who presents to clinic for sublocade injection. MAT/PAIN MANAGEMENT: - last sublocade injection 09/02 to LUQ- prior two injections to RUQ, RLQ- per rotation, Pt would be due for injection in LLQ today- Pt continues w/ adverse SE of itching, is taking hydroxyzine for management of this SE w/ okay relief - Pt also continues w/ persistent depot at injection site for >1mo - Pt denies any other SE other than these two - finds these SE frustrating but tolerable for pain management he gets from sublocade injections - finds medication very helpful for pain management - denies opiate cravings or use - denies any other substance use which he currently has concerns about - has Narcan in case he needs to save someone's life PSYCHOSOCIAL: - overall doing okay - continues commuting from [place] to [place] for work, continues to be frustrating and not home often - continues w/ significant frustration in relationship w/ partner - kids are doing well, relationship w/ kids continues to be strong motivator for himCurrent Dose of Buprenorphine: Sublocade 300 mg/1.5 mL solution,extended release subcutaneous syringe inject 1.5 milliliter by subcutaneous route every month in the abdomen rotating injection sitesLast Kept MAT Appointment: 10/03/2021 with Bruno Adler RN, Mary.Last Missed MAT Appointment: 09/30/2021 with Bruno Adler RN, Usha patient has not had a BH Intake.LabsThe patient's last urine toxicology was positive for Buprenorphine, Gabapentin and Marijuana MTB (THC) on 09-16-2021. Hep C HCV Antibody: <0.1 from 06-15-2020, Hep B surface antibody: POSITIVE from 01-13-2019, Hep B surface antigen: NEGATIVE from 01-13-2019, Hep B core antibody: NEGATIVE from 01-13-2019, Gonorrhea: Negative from 06-15-2020, HIV: Non Reactive from 06-15-2020, Chlamydia: Negative from 06-15-2020, Syphilis: Non Reactive from 06-15-2020 and TB: NEGATIVE from 01-13-2019.This information has been disclosed to you from records protected by federal confidentiality rules (42 CFR Part 2). The federal rules prohibit you from making any further disclosure of information in this record that identifies a patient as having or having a substance use disorder either directly, by reference to publicly available information, or through verification of such identification by prosecute with regard to a crime any patient with a substance use disorder, except as provided at 2.12(c)(5) and 2.65 Grupo-31-2022 Mat 40-year-old male presents today for MAT follow up. He has been doing well on current dose of Sublocade 300mg. Denies illicit or non-prescribed drug use. He does report having generalized itching. He tries not to scratch. He has been taking hydroxyzine. Otherwise, denies any concerns. He is on monthly prescriptions. He has Narcan at home. Current Dose of Buprenorphine: Sublocade 300 mg/1.5 mL solution,extended release subcutaneous syringe inject 1.5 milliliter by subcutaneous route every month in the abdomen rotating injection sitesLast Kept MAT Appointment: 09/26/2021 with Alma Aguilar MD.Last Missed MAT Appointment: 11/26/2020 with Jihan Man MDThe patient has not had a BH Intake.LabsThe patient's last urine toxicology was positive for Buprenorphine, Gabapentin and Marijuana MTB (THC) on 09-16-2021. Hep C HCV Antibody: <0.1 from 06-15-2020, Hep B surface antibody: POSITIVE from 01-13-2019, Hep B surface antigen: NEGATIVE from 01-13-2019, Hep B core antibody: NEGATIVE from 01-13-2019, Gonorrhea: Negative from 06-15-2020, HIV: Non Reactive from 06-15-2020, Chlamydia: Negative from 06-15-2020, Syphilis: Non Reactive from 06-15-2020 and TB: NEGATIVE from 01-13-2019.This information has been disclosed to you from records protected by federal confidentiality rules (42 CFR Part 2). The federal rules prohibit you from making any further disclosure of information in this record that identifies a patient as having or having a substance use disorder either directly, by reference to publicly available information, or through verification of such identification by prosecute with regard to a crime any patient with a substance use disorder, except as provided at 2.12(c)(5) and 2.65 chronic conditions 1) Muscle spa sm (He does report having pain in his calf which has been ongoing for a while now. He denies any triggering factors. He wonders if he has blood clots in his legs.) 2) Bipolar affective disorder, remission status unspecified (Stable. He has been doing well. He has been taking Seroquel. He has been following with behavioral health; has upcoming appointment with Dr. Holden on 09/30/21.) 3) Personal history of asthma (Stable. He has been doing well. He has been using albuterol inhaler. Denies any concerns.) MIGUEL Parks is a 40 y/ o patient who presents to clinic today for MAT f/u. MAT/BACK PAIN: - having sublocade injections, last injection 2 wks ago - sublocade injections continue to be helpful for chronic pain management in combination w/ gabapentin and cyclobenzaprine - continues to have adverse site reactions: continuing depots at site months later, itching of site for duration of 1mo following injection - has been taking hydroxyzine 10mg nightly w/ some relief of itching, does still have mild itching throughout PM - prefers to not resume suboxone films - dislikes taste and also often forgot to take throughout the day - muscle spasm in L leg has been worsening, especially worse w/ driving - has trialed water physical therapy in past and found it helpful - has been recommended acupuncture and open to trial but can't afford it PSYCHOSOCIAL: - continues w/ frustration in setting of relationship with ex- - lives w/ her - does feel overall safe in living situation - is able to see children now which is great for mood - has his own stable housing currently - has been traveling for work and home and somewhat stressful going to different placesCurrent Dose of Buprenorphine: Sublocade 300 mg/1.5 mL solution,extended release subcutaneous syringe inject 1.5 milliliter by subcutaneous route every month in the abdomen rotating injection sitesLast Kept MAT Appointment: 10/03/2021 with Bruno Adler RN, Mary.Last Missed MAT Appointment: 09/30/2021 with Bruno Adler RN, Rjhe patient has not had a BH Intake.LabsThe patient's last urine toxicology was positive for Buprenorphine, Gabapentin and Marijuana MTB (THC) on 09-16-2021. Hep C HCV Antibody: <0.1 from 06-15-2020, Hep B surface antibody: POSITIVE from 01-13-2019, Hep B surface antigen: NEGATIVE from 01-13-2019, Hep B core antibody: NEGATIVE from 01-13-2019, Gonorrhea: Negative from 06-15-2020, HIV: Non Reactive from 06-15-2020, Chlamydia: Negative from 06-15-2020, Syphilis: Non Reactive from 06-15-2020 and TB: NEGATIVE from 01-13-2019.This information has been disclosed to you from records protected by federal confidentiality rules (42 CFR Part 2). The federal rules prohibit you from making any further disclosure of information in this record that identifies a patient as having or having a substance use disorder either directly, by reference to publicly available information, or through verification of such identification by prosecute with regard to a crime any patient with a substance use disorder, except as provided at 2.12(c)(5) and 2.65 MIGUEL Parks is a 40 y/ o pt presenting for MAT f/u today.Per MP: last SBLC 08/05, due 09/02. Current dose: 300mgSBLC 300mg sc administered to LUQOpioids: DeniesNarcan: hasSocial: Has been enjoying time with family. Still traveling to [place] for work. Not in need of heating assistance at this time as he's mostly not at home. 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 F/U in one month.Current Dose of Buprenorphine: Sublocade 300 mg/1.5 mL solution,extended release subcutaneous syringe inject 1.5 milliliter by subcutaneous route every month in the abdomen rotating injection sitesLast Kept MAT Appointment: 08/05/2021 with Bruno Adler RN, Mary.Last Missed MAT Appointment: 11/26/2020 with Jihan Man MDThe patient has not had a BH Intake.LabsThe patient's last urine toxicology was positive for Buprenorphine, Gabapentin and Marijuana MTB (THC) on 05-13-2021. Hep C HCV Antibody: <0.1 from 06-15-2020, Hep B surface antibody: POSITIVE from 01-13-2019, Hep B surface antigen: NEGATIVE from 01-13-2019, Hep B core antibody: NEGATIVE from 01-13-2019, Gonorrhea: Negative from 06-15-2020, HIV: Non Reactive from 06-15-2020, Chlamydia: Negative from 06-15-2020, Syphilis: Non Reactive from 06-15-2020 and TB: NEGATIVE from 01-13-2019.This information has been disclosed to you from records protected by federal confidentiality rules (42 CFR Part 2). The federal rules prohibit you from making any further disclosure of information in this record that identifies a patient as having or having a substance use disorder either directly, by reference to publicly available information, or through verification of such identification by prosecute with regard to a crime any patient with a substance use disorder, except as provided at 2.12(c)(5) and 2.65 migraines. 40yo M PMH TUD, OA, chronic pain, OUD seen in for c/o migraines.Lang: EnglishKnown hx of migraines, has been using amlodipine as prophylaxis. 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 Now his migraines have been much worse. He is having 2-3 migraines daily, worse over the past week - unilateral w/ photophobia. Feels like amlodipine may have worn off its effect isn't as helpful as it used to be. Also taking Ibuprofen 600mg 3-4x daily. He has been having an itch following his sublocade injection in his stomach - steroid cream does not help. He had a similar itch after his last sublocade injection but this itch seems to be worse. He is itching all night long.He has had diaphoresis. Has not completed COVID vaccination, he completed testing 2 days ago which was neg. His dtr had a COVID exposure, she is being tested today. MIGUEL Parks is a 40 y/ o patient who presents to clinic today for MAT f/u.MAT: - getting sublocade injections q28 days - last sublocade injection was on 07/08, Pt due for injection today - Pt feels medication overall works well for pain management and opiate cravings - adverse SE of persistent depot at injection site lasting months, itching and redness at injection site following injections - used to have SE of worsening depression in 1-2 wks following injection, now taking Wellbutrin which has relieved this SE and helpful for depression overall - denies any opiate use - has Narcan in case he needs to save someone's life HAs: - taking amlodipine 2.5mg daily - continues w/ migraines 3x/day for past 2 weeks, before that every other day- one episode of CP and SOB, I was on the ground and I felt like I couldn't move - denies CP, SOB continuing after this episode - some days does feel like heart is racing, other days feels average - does have Hx of elevated BPCurrent Dose of Buprenorphine: Sublocade 300 mg/1.5 mL solution,extended release subcutaneous syringe inject 1.5 milliliter by subcutaneous route every month in the abdomen rotating injection sitesLast Kept MAT Appointment: 08/05/2021 with Mary Miles RN.Last Missed MAT Appointment: 11/26/2020 with Sherwin Man MDoreThe patient has not had a Intake.LabsThe patient's last urine toxicology was positive for Buprenorphine, Gabapentin and Marijuana MTB (THC) on 05-13-2021. Hep C HCV Antibody: <0.1 from 06-15-2020, Hep B surface antibody: POSITIVE from 01-13-2019, Hep B surface antigen: NEGATIVE from 01-13-2019, Hep B core antibody: NEGATIVE from 01-13-2019, Gonorrhea: Negative from 06-15-2020, HIV: Non Reactive from 06-15-2020, Chlamydia: Negative from 06-15-2020, Syphilis: Non Reactive from 06-15-2020 and TB: NEGATIVE from 01-13-2019.This information has been disclosed to you from records protected by federal confidentiality rules (42 CFR Part 2). The federal rules prohibit you from making any further disclosure of information in this record that identifies a patient as having or having a substance use disorder either directly, by reference to publicly available information, or through verification of such identification by prosecute with regard to a crime any patient with a substance use disorder, except as provided at 2.12(c)(5) and 2.65 MAT Billing LWOBSDav id is a 40 y/o pt called for MAT f/u today. 1 call, no ans, LVMLast SBLC 07/08, due 08/05. Current dose: 300mg scCurrent Dose of Buprenorphine: Sublocade 300 mg/1.5 mL solution,extended release subcutaneous syringe inject 1.5 milliliter by subcutaneous route every month in the abdomen rotating injection sitesLast Kept MAT Appointment: 05/13/2021 with Mary Miles RN.Last Missed MAT Appointment: 11/26/2020 with Sherwin Man MDoreThe patient has not had a Intake.LabsThe patient's last urine toxicology was positive for Buprenorphine, Gabapentin and Marijuana MTB (THC) on 05-13-2021. Hep C HCV Antibody: <0.1 from 06-15-2020, Hep B surface antibody: POSITIVE from 01-13-2019, Hep B surface antigen: NEGATIVE from 01-13-2019, Hep B core antibody: NEGATIVE from 01-13-2019, Gonorrhea: Negative from 06-15-2020, HIV: Non Reactive from 06-15-2020, Chlamydia: Negative from 06-15-2020, Syphilis: Non Reactive from 06-15-2020 and TB: NEGATIVE from 01-13-2019.This information has been disclosed to you from records protected by federal confidentiality rules (42 CFR Part 2). The federal rules prohibit you from making any further disclosure of information in this record that identifies a patient as having or having a substance use disorder either directly, by reference to publicly available information, or through verification of such identification by prosecute with regard to a crime any patient with a substance use disorder, except as provided at 2.12(c)(5) and 2.65 MAT Billing amada PEDERSON escheduled to Sunday afternoon.Padmini is a 40 y/o pt called for MAT f/u today.Per MP: last SBLC 07/08. Current dose: 300mg Social: Busy getting his ex-'s car fixed/replaced. Current Dose of Buprenorphine: Sublocade 300 mg/1.5 mL solution,extended release subcutaneous syringe inject 1.5 milliliter by subcutaneous route every month in the abdomen rotating injection sitesLast Kept MAT Appointment: 05/13/2021 with Bruno Adler RN, Mary.Last Missed MAT Appointment: 11/26/2020 with Jihan Man MDThe patient has not had a BH Intake.LabsThe patient's last urine toxicology was positive for Buprenorphine, Gabapentin and Marijuana MTB (THC) on 05-13-2021. Hep C HCV Antibody: <0.1 from 06-15-2020, Hep B surface antibody: POSITIVE from 01-13-2019, Hep B surface antigen: NEGATIVE from 01-13-2019, Hep B core antibody: NEGATIVE from 01-13-2019, Gonorrhea: Negative from 06-15-2020, HIV: Non Reactive from 06-15-2020, Chlamydia: Negative from 06-15-2020, Syphilis: Non Reactive from 06-15-2020 and TB: NEGATIVE from 01-13-2019.This information has been disclosed to you from records protected by federal confidentiality rules (42 CFR Part 2). The federal rules prohibit you from making any further disclosure of information in this record that identifies a patient as having or having a substance use disorder either directly, by reference to publicly available information, or through verification of such identification by prosecute with regard to a crime any patient with a substance use disorder, except as provided at 2.12(c)(5) and 2.65 MIGUEL Parks is a 40 y/ o pt called for MAT f/u today.Per MP: last SBLC 07/08, due 08/05. Current dose: 300mg scSocial: Not waking up depressed anymore, so his wellbutrin is working well. He is still having a lump on his abdomen from the injection that is bothering him. Got a covid test done yesterday at a pop-up testing location in [place]. Waiting for results right now. Both of his daughter's are going to be getting tested, his older daughter received a notice that she had an exposure at school last week.Current Dose of Buprenorphine: Sublocade 300 mg/1.5 mL solution,extended release subcutaneous syringe inject 1.5 milliliter by subcutaneous route every month in the abdomen rotating injection sitesLast Kept MAT Appointment: 05/13/2021 with Bruno Adler RN, Mary.Last Missed MAT Appointment: 11/26/2020 with Jihan Man MDThe patient has not had a BH Intake.LabsThe patient's last urine toxicology was positive for Buprenorphine, Gabapentin and Marijuana MTB (THC) on 05-13-2021. Hep C HCV Antibody: <0.1 from 06-15-2020, Hep B surface antibody: POSITIVE from 01-13-2019, Hep B surface antigen: NEGATIVE from 01-13-2019, Hep B core antibody: NEGATIVE from 01-13-2019, Gonorrhea: Negative from 06-15-2020, HIV: Non Reactive from 06-15-2020, Chlamydia: Negative from 06-15-2020, Syphilis: Non Reactive from 06-15-2020 and TB: NEGATIVE from 01-13-2019.This information has been disclosed to you from records protected by federal confidentiality rules (42 CFR Part 2). The federal rules prohibit you from making any further disclosure of information in this record that identifies a patient as having or having a substance use disorder either directly, by reference to publicly available information, or through verification of such identification by prosecute with regard to a crime any patient with a substance use disorder, except as provided at 2.12(c)(5) and 2.65 MIGUEL Parks is a 40 y/ o pt presenting for MAT f/u today.Per MP: last SBLC 06/10, due 07/08. 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 Had migraines all week.SBLC 300mg/1.5mL sc inj administered to RLQ today. Social: Has been having a rough time lately, first of the month was the anniversary of his brother's , then buried his grandfather the next weekend. Also had some health issues for his daughter's dog where the dog almost .Current Dose of Buprenorphine: Sublocade 300 mg/1.5 mL solution,extended release subcutaneous syringe inject 1.5 milliliter by subcutaneous route every month in the abdomen rotating injection sitesLast Kept MAT Appointment: 05/13/2021 with Bruno Adler RN, Mary.Last Missed MAT Appointment: 11/26/2020 with Jihan Man MDThe patient has not had a BH Intake.LabsThe patient's last urine toxicology was positive for Buprenorphine, Gabapentin and Marijuana MTB (THC) on 05-13-2021. Hep C HCV Antibody: <0.1 from 06-15-2020, Hep B surface antibody: POSITIVE from 01-13-2019, Hep B surface antigen: NEGATIVE from 01-13-2019, Hep B core antibody: NEGATIVE from 01-13-2019, Gonorrhea: Negative from 06-15-2020, HIV: Non Reactive from 06-15-2020, Chlamydia: Negative from 06-15-2020, Syphilis: Non Reactive from 06-15-2020 and TB: NEGATIVE from 01-13-2019.This information has been disclosed to you from records protected by federal confidentiality rules (42 CFR Part 2). The federal rules prohibit you from making any further disclosure of information in this record that identifies a patient as having or having a substance use disorder either directly, by reference to publicly available information, or through verification of such identification by prosecute with regard to a crime any patient with a substance use disorder, except as provided at 2.12(c)(5) and 2.65 MAT Pretty Lyn id is a 40 y/o pt called for MAT f/u today. 1 call, no ans, [facility] 06/10Current Dose of Buprenorphine: Sublocade 300 mg/1.5 mL solution,extended release subcutaneous syringe inject 1.5 milliliter by subcutaneous route every month in the abdomen rotating injection sitesLast Kept MAT Appointment: 05/13/2021 with Bruno Adler RN, Mary.Last Missed MAT Appointment: 11/26/2020 with Jihan Man MDThe patient has not had a BH Intake.LabsThe patient's last urine toxicology was positive for Buprenorphine, Gabapentin and Marijuana MTB (THC) on 05-13-2021. Hep C HCV Antibody: <0.1 from 06-15-2020, Hep B surface antibody: POSITIVE from 01-13-2019, Hep B surface antigen: NEGATIVE from 01-13-2019, Hep B core antibody: NEGATIVE from 01-13-2019, Gonorrhea: Negative from 06-15-2020, HIV: Non Reactive from 06-15-2020, Chlamydia: Negative from 06-15-2020, Syphilis: Non Reactive from 06-15-2020 and TB: NEGATIVE from 01-13-2019.This information has been disclosed to you from records protected by federal confidentiality rules (42 CFR Part 2). The federal rules prohibit you from making any further disclosure of information in this record that identifies a patient as having or having a substance use disorder either directly, by reference to publicly available information, or through verification of such identification by prosecute with regard to a crime any patient with a substance use disorder, except as provided at 2.12(c)(5) and 2.65 MIGUEL Padmini is a 40 y/ o pt called for MAT f/u today.Per MP: last SBLC 06/10. Current dose: 300mg, injection site is itching at this point, has been using cortisone, not really helping, going to try a benadryl spray. Opioids: DeniesNarcan: needs, re-requesting script todaySocial: Doing alright, but it's coming up on 1yr since his brother , so it's a rough time for him right now. 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 Will let us know how it's working after taking it for a couple of days. F/U in one weekCurrent Dose of Buprenorphine: Sublocade 300 mg/1.5 mL solution,extended release subcutaneous syringe inject 1.5 milliliter by subcutaneous route every month in the abdomen rotating injection sitesLast Kept MAT Appointment: 05/13/2021 with Bruno Adler RN, Mary.Last Missed MAT Appointment: 11/26/2020 with Jihan Man MDThe patient has not had a BH Intake.LabsThe patient's last urine toxicology was positive for Buprenorphine, Gabapentin and Marijuana MTB (THC) on 05-13-2021. Hep C HCV Antibody: <0.1 from 06-15-2020, Hep B surface antibody: POSITIVE from 01-13-2019, Hep B surface antigen: NEGATIVE from 01-13-2019, Hep B core antibody: NEGATIVE from 01-13-2019, Gonorrhea: Negative from 06-15-2020, HIV: Non Reactive from 06-15-2020, Chlamydia: Negative from 06-15-2020, Syphilis: Non Reactive from 06-15-2020 and TB: NEGATIVE from 01-13-2019.This information has been disclosed to you from records protected by federal confidentiality rules (42 CFR Part 2). The federal rules prohibit you from making any further disclosure of information in this record that identifies a patient as having or having a substance use disorder either directly, by reference to publicly available information, or through verification of such identification by prosecute with regard to a crime any patient with a substance use disorder, except as provided at 2.12(c)(5) and 2.65 MIGUEL Parks is a 40 y/ o pt presenting for MAT f/u today.Last SBLC 05/13. Current dose: switching to 300mg today, feeling some extra pain today, didn't sleep so wellAdministered SBLC 300mg SC to LLQ.Opiates: Denies Narcan: needs itSocial: Been playing games on his phone. 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 Hep C HCV Antibody: <0.1 from 06-15-2020, Hep B surface antibody: POSITIVE from 01-13-2019, Hep B surface antigen: NEGATIVE from 01-13-2019, Hep B core antibody: NEGATIVE from 01-13-2019, Gonorrhea: Negative from 06-15-2020, HIV: Non Reactive from 06-15-2020, Chlamydia: Negative from 06-15-2020, Syphilis: Non Reactive from 06-15-2020 and TB: NEGATIVE from 01-13-2019.This information has been disclosed to you from records protected by federal confidentiality rules (42 CFR Part 2). The federal rules prohibit you from making any further disclosure of information in this record that identifies a patient as having or having a substance use disorder either directly, by reference to publicly available information, or through verification of such identification by prosecute with regard to a crime any patient with a substance use disorder, except as provided at 2.12(c)(5) and 2.65 MIGUEL Parks is a 40 y/ o patient who presents to clinic today for sublocade injection. Last injection 04/15/21, was Pt's first 100mg injection after receiving 300mg injections only. Pt reported worse pain control w/ 100mg vs. 300mg. Pt does continue to have depots visible at injection site up to 3mo following injection. Pt does also continue w/ worsening depression in week following injection. Does find injections overall helpful for pain, and prefers not to return to films as taste is very distasteful to him. Reports mood has been okay. Continues to care for his children w/ partial custody.Current Dose of Buprenorphine: Sublocade 300 mg/1.5 mL solution,extended release subcutaneous syringe inject 1.5 milliliter by subcutaneous route every month in the abdomen rotating injection sitesLast Kept MAT Appointment: 05/13/2021 with Mary Miles RN.Last Missed MAT Appointment: 11/26/2020 with Sherwin Man MDoreThe patient has not had a BH Intake.LabsThe patient's last urine toxicology was positive for Buprenorphine, Gabapentin and Marijuana MTB (THC) on 05-13-2021. Hep C HCV Antibody: <0.1 from 06-15-2020, Hep B surface antibody: POSITIVE from 01-13-2019, Hep B surface antigen: NEGATIVE from 01-13-2019, Hep B core antibody: NEGATIVE from 01-13-2019, Gonorrhea: Negative from 06-15-2020, HIV: Non Reactive from 06-15-2020, Chlamydia: Negative from 06-15-2020, Syphilis: Non Reactive from 06-15-2020 and TB: NEGATIVE from 01-13-2019.This information has been disclosed to you from records protected by federal confidentiality rules (42 CFR Part 2). The federal rules prohibit you from making any further disclosure of information in this record that identifies a patient as having or having a substance use disorder either directly, by reference to publicly available information, or through verification of such identification by prosecute with regard to a crime any patient with a substance use disorder, except as provided at 2.12(c)(5) and 2.65 MAT Billing LWOBSDav id is a 40 y/o pt called for MAT f/u today. 1 call, [facility] ans[facility] dose: SBLC 100mg 0.5mL, last injection 04/15Current Dose of Buprenorphine: Sublocade 100 mg/0.5 mL solution,extended release subcutaneous syringe inject 0.5 milliliter by subcutaneous route every month in the abdomen rotating injection sitesLast Kept MAT Appointment: 03/11/2021 with Damien Lundberg MD.Last Missed MAT Appointment: 11/26/2020 with Magda KEY, SherwinoreThe patient has not had a Intake.LabsThe patient's last urine toxicology was positive for Buprenorphine, Gabapentin and Marijuana MTB (THC) on 10-27-2020. Hep C HCV Antibody: <0.1 from 06-15-2020, Hep B surface antibody: POSITIVE from 01-13-2019, Hep B surface antigen: NEGATIVE from 01-13-2019, Hep B core antibody: NEGATIVE from 01-13-2019, Gonorrhea: Negative from 06-15-2020, HIV: Non Reactive from 06-15-2020, Chlamydia: Negative from 06-15-2020, Syphilis: Non Reactive from 06-15-2020 and TB: NEGATIVE from 01-13-2019.This information has been disclosed to you from records protected by federal confidentiality rules (42 CFR Part 2). The federal rules prohibit you from making any further disclosure of information in this record that identifies a patient as having or having a substance use disorder either directly, by reference to publicly available information, or through verification of such identification by prosecute with regard to a crime any patient with a substance use disorder, except as provided at 2.12(c)(5) and 2.65 MIGUEL Parks is a 40 y/ o pt called for MAT f/u today.SBLC Inj #3 today, 100mg/0.5mL SC injection to RUQ.Opioids: DeniesNarcan: still needsSocial: Still having some depression making things difficult during the first week after injection. Spoke with Dr. Holden today. Taking care of his girls today, going to bring them some donuts.Current Dose of Buprenorphine: Sublocade 300 mg/1.5 mL solution,extended release subcutaneous syringe inject 1.5 milliliter by subcutaneous route every month in the abdomen rotating injection sitesLast Kept MAT Appointment: 03/11/2021 with Damien Lundberg MD.Last Missed MAT Appointment: 11/26/2020 with Jihan Man MDThe patient has not had a BH Intake.LabsThe patient's last urine toxicology was positive for Buprenorphine, Gabapentin and Marijuana MTB (THC) on 10-27-2020. Hep C HCV Antibody: <0.1 from 06-15-2020, Hep B surface antibody: POSITIVE from 01-13-2019, Hep B surface antigen: NEGATIVE from 01-13-2019, Hep B core antibody: NEGATIVE from 01-13-2019, Gonorrhea: Negative from 06-15-2020, HIV: Non Reactive from 06-15-2020, Chlamydia: Negative from 06-15-2020, Syphilis: Non Reactive from 06-15-2020 and TB: NEGATIVE from 01-13-2019.This information has been disclosed to you from records protected by federal confidentiality rules (42 CFR Part 2). The federal rules prohibit you from making any further disclosure of information in this record that identifies a patient as having or having a substance use disorder either directly, by reference to publicly available information, or through verification of such identification by prosecute with regard to a crime any patient with a substance use disorder, except as provided at 2.12(c)(5) and 2.65 MIGUEL Parks is a 40 y/ o pt called for MAT f/u today.SBLC on 03/18.Opioids: DeniesNarcan: has at homeSocial: Still a bit of depression, pain, and not feeling so great. Still has depo from first shot. No questions or concerns at this time.Third injection is next week. Current Dose of Buprenorphine: Sublocade 300 mg/1.5 mL solution,extended release subcutaneous syringe inject 1.5 milliliter by subcutaneous route every month in the abdomen rotating injection sitesLast Kept MAT Appointment: 03/11/2021 with Damien Lundberg MD.Last Missed MAT Appointment: 11/26/2020 with Jihan Man MDThe patient has not had a BH Intake.LabsThe patient's last urine toxicology was positive for Buprenorphine, Gabapentin and Marijuana MTB (THC) on 10-27-2020. Hep C HCV Antibody: <0.1 from 06-15-2020, Hep B surface antibody: POSITIVE from 01-13-2019, Hep B surface antigen: NEGATIVE from 01-13-2019, Hep B core antibody: NEGATIVE from 01-13-2019, Gonorrhea: Negative from 06-15-2020, HIV: Non Reactive from 06-15-2020, Chlamydia: Negative from 06-15-2020, Syphilis: Non Reactive from 06-15-2020 and TB: NEGATIVE from 01-13-2019.This information has been disclosed to you from records protected by federal confidentiality rules (42 CFR Part 2). The federal rules prohibit you from making any further disclosure of information in this record that identifies a patient as having or having a substance use disorder either directly, by reference to publicly available information, or through verification of such identification by prosecute with regard to a crime any patient with a substance use disorder, except as provided at 2.12(c)(5) and 2.65 MIGUEL Lyn id is a 40 y/o pt called for MAT f/u today. 2 calls, no ans, [facility] #2 administered 03/18 Current Dose of Buprenorphine: Sublocade 300 mg/1.5 mL solution,extended release subcutaneous syringe inject 1.5 milliliter by subcutaneous route every month in the abdomen rotating injection sitesLast Kept MAT Appointment: 03/11/2021 with Damien Lundberg MD.Last Missed MAT Appointment: 11/26/2020 with Jihan Man MDThe patient has not had a BH Intake.LabsThe patient's last urine toxicology was positive for Buprenorphine, Gabapentin and Marijuana MTB (THC) on 10-27-2020. Hep C HCV Antibody: <0.1 from 06-15-2020, Hep B surface antibody: POSITIVE from 01-13-2019, Hep B surface antigen: NEGATIVE from 01-13-2019, Hep B core antibody: NEGATIVE from 01-13-2019, Gonorrhea: Negative from 06-15-2020, HIV: Non Reactive from 06-15-2020, Chlamydia: Negative from 06-15-2020, Syphilis: Non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
== END 2024-10-20 21:02 | disposition left against medical advice (07) ==
PROVIDERS: Physician Assistant Medical; Emergency Provider Internal Medicine
DX: H57.13 Ocular pain, bilateral (principal); H53.8 Other visual disturbances; I10 Essential (primary) hypertension; F17.210 Nicotine dependence, cigarettes, uncomplicated; Z79.899 Other long term (current) drug therapy; Z51.81 Encounter for therapeutic drug level monitoring
CPT/HCPCS: 36415; 80053; 85025; 85610; 85652; 85730; 86140; 99281; 99283

== ENCOUNTER 2024-12-07 17:26 | Emergency (ER) | payer MEDICARE, MEDICAID, SELFPAY ==
[2024-12-07 17:49] VITALS: BP 145/90; PULSE 86; O2SAT 98
[2024-12-07 17:51] VITALS: BP 156/94; PULSE 86; RESP 18; TEMP 37.3; O2SAT 97; BMI 26.2
--- NOTE | 2024-12-07 19:39 | ED.GENADULT ---
HPI - General Adult General Chief complaint: Allergic Reaction Stated complaint: allergic reaction to bed bug bites Time Seen by Provider: 12/07/24 18:29 Source: patient Mode of arrival: ambulatory Limitations: no limitations History of Present Illness ED Provider: Dr. Zaheer Dasilva HPI narrative: 44 years man with past medical history significant for bipolar disorder, asthma, chronic pain syndrome and GI bleeding due to NSAIDs was brought to ED by ambulance for evaluation bilateral knee pain. patient states that his chronic pain in his knees but the pain is got worse. He states that his right knee is worse than the left knee feels swelling in the back of his knee. The pain got worse earlier this afternoon. States the pain is a constant, throbbing pain. He denies any recent injury. The patient does use IV opiates and does smoke crack cocaine. Related Data Home Medications ?Medication ?Instructions ?Recorded ?Confirmed allopurinol 300 mg tablet 150 mg PO DAILY 03/08/21 03/08/21 amlodipine 10 mg tablet 10 mg PO DAILY 03/08/21 03/08/21 buprenorphine 300 mg/1.5 mL mg subcut 03/08/21 03/08/21 solution,exten.rel.subcutaneous syringe (Sublocade) cyclobenzaprine 10 mg tablet 10 mg PO TID 03/08/21 03/08/21 gabapentin 800 mg tablet 800 mg PO TID 03/08/21 03/08/21 omeprazole 20 mg capsule,delayed 20 mg PO BID 03/08/21 03/08/21 release quetiapine 25 mg tablet (Seroquel) 25 mg PO BEDTIME 03/08/21 03/08/21 Previous Rx's ?Medication ?Instructions ?Recorded acetaminophen 500 mg tablet 1,000 mg (2 x 500 mg) PO Q6H PRN 12/07/24 (Tylenol Extra Strength) pain #20 tabs oxycodone 5 mg tablet 5 mg PO Q6H PRN pain #10 tabs 12/07/24 Allergies Allergy/AdvReac Type Severity Reaction Status Date / Time acetaminophen [From Tylenol] Allergy vomiting Verified 12/07/24 17:54 bee pollen [bee stings] Allergy Anaphylaxis Verified 12/07/24 17:55 hydrocodone Allergy vomiting Verified 12/07/24 17:54 ibuprofen Allergy gi upset Verified 12/07/24 17:54 norepinephrine Allergy unknown Verified 12/07/24 17:54 [From Levophed (bitartrate)] bed bugs Allergy Unknown Uncoded 12/07/24 17:55 Review of Systems Review of Systems: Yes all other systems are reviewed and are negative [facility] Past Medical History Medical History Chronic pain syndrome GI bleed due to NSAIDs Ruptured appendix Arthritis Generalized headaches Venereal disease Bipolar 1 disorder Asthma Surgical History History of hip surgery History of colostomy reversal History of colon resection Social History Social History Unable to assess alcohol history related to: Unknown Alcohol intake: current Alcohol intake frequency: does not drink Patient Tobacco Use Status: Current everyday Tobacco user Tobacco use type: Cigarette Cigarette Packs Per Day: 1 Use of substances other than those prescribed or required for medical reasons: Yes Substance Use Type: Crack/Cocaine Substance Use Frequency: Chronic Longstanding Advance Directives: No Advance Directives Information Provided: No Physical Exam ED Vital Signs: Vital Signs - 24 hr 12/07/24 17:51 Temperature 99.1 F Pulse Rate 86 Respiratory Rate 18 Blood Pressure 156/94 H Pulse Oximetry 97 Oxygen Delivery Method Room Air BMI result Body Mass Index 26.2 vital signs revealed an elevated blood pressure otherwise unremarkable Exam: General: Awake, alert, in no distress, answers all questions appropriately Head: Normocephalic, atraumatic EENT: PERRL, Lids normal, sclera normal, conjunctiva normal, nose normal , ears normal, throat without erythema or exudates Neck: Supple, no adenopathy Lung: breath sounds symmetric, no wheezing, rales or rhonchi Chest: symmetric movement, nontender Heart: regular rate and rhythm, normal S1, S2 no murmurs or rubs Abdomen: soft, non-tender, nondistended, normal bowel sounds Back: no vertebral tenderness, no CVAT Extremities: no deformities, Patient does not have a small joint effusions of the right knee, there is no increased warmth or erythema over his knees or skin of his lower extremities. He does have pain with range of motion of the right knee by. His extremities are neurovascular intact. Neuro: Awake, alert, oriented, normal speech, cranial nerves intact, moves all extremities symmetrically Psych: Pleasant, cooperative Medications Administered Discontinued Medications Generic Name Dose Route Start Last Admin Trade Name Geoff PRN Reason Stop Dose Admin Acetaminophen 975 mg 12/07/24 20:48 12/07/24 21:03 Acetaminophen 325 Mg Tablet PO 12/07/24 20:49 975 mg ONCE STA Administration Oxycodone HCl 5 mg 12/07/24 20:48 12/07/24 21:03 Oxycodone Hcl Immed Release 5 Mg Tablet PO 12/07/24 20:49 5 mg ONCE STA Administration Medical Decision Making Medical Decision Making MDM Narrative: 44 years man with past medical history significant for bipolar disorder, asthma, chronic pain syndrome and GI bleeding due to NSAIDs was brought to ED by ambulance for evaluation bilateral knee pain. patient states that his chronic pain in his knees but the pain is got worse. He states that his right knee is worse than the left knee feels swelling in the back of his knee. The pain got worse earlier this afternoon. States the pain is a constant, throbbing pain. He denies any recent injury. The patient does use IV opiates and does smoke crack cocaine. vital signs did reveal an elevated blood pressure. Exam is unremarkable except for a small joint effusion to the right knee andpain with range of motion of his right knee. Differential diagnosis: Includes but is not limited to osteoarthritis, septic arthritis, inflammatory arthritis, knee sprain Course: Patient's presentation physical findings are consistent with inflammatory arthritis of the right knee. At this time I do not think that the patient has septic arthritis or a DVT. The was advised to take Tylenol for pain and for pain not relieved by Tylenol he was prescribed oxycodone. Patient was given printed and verbal instructions and discharged home. Admission/Observation Consideration of admission/observation: Escalation of care including admission/observation considered ( No) Prescription Management I considered prescription management with: Pain Medication ( oxycodone) Discharge Plan Discharge Clinical Impression: Acute pain of right knee Patient Disposition: Home, Self-Care Additional Instructions: At this time I believe that the pain that your having by in your knee is caused by inflammation/arthritis of your knee Take Tylenol (acetaminophen) 500 mg pills, 2 pills every 6 hours as needed for pain. For pain not relieved by Tylenol take oxycodone 5 mg pills, 1 pill every 4 hours as needed for pain. Do not drive or work while taking this medication since they can cause sleepiness. Oxycodone is a narcotic medication that can be addicting. If you are concerned about addiction you can ask the pharmacist for less pills or do not get this prescription filled. Apply ice to the back of your knee for 15 minutes 4 to 6 times a day and this should help reduce the pain as well. Follow-up with your doctor in 2 days. Please return to the emergency department if your symptoms get worse or if you develop any symptoms that are concerning to you. Prescriptions: New acetaminophen [Tylenol Extra Strength] 500 mg tablet 1,000 mg PO Q6H PRN (Reason: pain) Qty: 20 0RF oxycodone 5 mg tablet 5 mg PO Q6H PRN (Reason: pain) Qty: 10 0RF Rx Instructions: Partial Fill upon patient request. No Action cyclobenzaprine 10 mg tablet 10 mg PO TID Sublocade 300 mg/1.5 mL solution, extended rel syringe subcut gabapentin 800 mg tablet 800 mg PO TID allopurinol 300 mg tablet 150 mg PO DAILY amlodipine 10 mg tablet 10 mg PO DAILY quetiapine [Seroquel] 25 mg tablet 25 mg PO BEDTIME omeprazole 20 mg capsule,delayed release(DR/EC) 20 mg PO BID Interventions: ED Discharge Assessment Last Done: 12/07/24 21:07 Discharge Date/Time: 12/07/24 21:08 Print Language: Mohawk
[2024-12-07] MEDS: oxyCODONE HCl Immed Release 5 MG TABLET PO (21:03)
[2024-12-07] MEDS: Acetaminophen 325 MG TABLET 975 MG PO (21:03)
[2024-12-07 21:07] VITALS: BP 143/84; PULSE 79; RESP 16; TEMP 37.2; O2SAT 98
== END 2024-12-07 21:08 | disposition home or self-care (01) ==
PROVIDERS: Emergency Provider Emergency Medicine Emergency Medical Services
DX: M25.561 Pain in right knee (principal); M25.562 Pain in left knee
CPT/HCPCS: 99283; 99284

== ENCOUNTER 2025-02-10 18:21 | Emergency (ER) | payer MEDICARE, MEDICAID, SELFPAY ==
--- NOTE | 2025-02-10 18:34 | ED.AMS ---
HPI - Altered Mental Status General Chief Complaint: Overdose Stated Complaint: over dose narcan 3x given Time Seen by Provider: 02/10/25 18:29 History of Present Illness HPI narrative: Patient is 44 years old presented today overdose on heroin. Was found to be not breathing. Subsequently PD gave patient a dose of Narcan on EMS arrival patient is awake alert now sleeping in no acute distress. Related Data Home Medications ?Medication ?Instructions ?Recorded ?Confirmed allopurinol 300 mg tablet 150 mg PO DAILY 03/08/21 03/08/21 amlodipine 10 mg tablet 10 mg PO DAILY 03/08/21 03/08/21 buprenorphine 300 mg/1.5 mL mg subcut 03/08/21 03/08/21 solution,exten.rel.subcutaneous syringe (Sublocade) cyclobenzaprine 10 mg tablet 10 mg PO TID 03/08/21 03/08/21 gabapentin 800 mg tablet 800 mg PO TID 03/08/21 03/08/21 omeprazole 20 mg capsule,delayed 20 mg PO BID 03/08/21 03/08/21 release quetiapine 25 mg tablet (Seroquel) 25 mg PO BEDTIME 03/08/21 03/08/21 Previous Rx's ?Medication ?Instructions ?Recorded acetaminophen 500 mg tablet 1,000 mg (2 x 500 mg) PO Q6H PRN 12/07/24 (Tylenol Extra Strength) pain #20 tabs oxycodone 5 mg tablet 5 mg PO Q6H PRN pain #10 tabs 12/07/24 Allergies Allergy/AdvReac Type Severity Reaction Status Date / Time acetaminophen [From Tylenol] Allergy vomiting Verified 02/10/25 18:48 bee pollen [bee stings] Allergy Anaphylaxis Verified 02/10/25 18:48 hydrocodone Allergy vomiting Verified 02/10/25 18:48 ibuprofen Allergy gi upset Verified 02/10/25 18:48 norepinephrine Allergy unknown Verified 02/10/25 18:48 [From Levophed (bitartrate)] bed bugs Allergy Unknown Uncoded 02/10/25 18:48 Review of Systems Review of Systems: Positive history of using heroin Yes all other systems are reviewed and are negative PMFSH Past Medical History Attestation statement: The following information was validated with the patient. Medical History Chronic pain syndrome GI bleed due to NSAIDs Ruptured appendix Arthritis Generalized headaches Venereal disease Bipolar 1 disorder Asthma Surgical History History of hip surgery History of colostomy reversal History of colon resection Social History Social History Unable to assess alcohol history related to: Unknown Alcohol intake: current Alcohol intake frequency: does not drink Patient Tobacco Use Status: Current everyday Tobacco user Tobacco use type: Cigarette Cigarette Packs Per Day: 1 Substance Use Type: Crack/Cocaine Advance Directives: No Advance Directives Information Provided: No Physical Exam ED Vital Signs: Vital Signs - 24 hr 02/10/25 18:43 Temperature 98.1 F Pulse Rate 69 Respiratory Rate 12 Blood Pressure 102/58 L Pulse Oximetry 100 Oxygen Delivery Method Room Air BMI result Body Mass Index 27.1 Appearance: Alert. Oriented X3. No acute distress. Eyes: Pupils equal, round and reactive to light. ENT: Pharynx normal. Neck: Normal inspection. Neck supple. No lymph nodes noted. No crepitus CVS: Normal heart rate and rhythm. Pulses normal. Normal S1 and S2 Respiratory: No respiratory distress. Breath sounds normal. No Wheezing. No rales Abdomen: Soft and nontender. No rigidity. No distention. good BS x4 Skin: Skin warm and dry. Normal skin color. Normal skin turgor. Extremities: No lower extremity edema. Neurovascular intact to all extremities. No Lacerations. No Rash Neuro: Oriented X 3. No motor deficit. No sensory deficit. Moving all extermities. No slurred speech Medications Administered Discontinued Medications Generic Name Dose Route Start Last Admin Trade Name Geoff PRN Reason Stop Dose Admin Naloxone HCl 8 mg 02/10/25 18:48 02/10/25 19:34 Naloxone Hcl Nasal Take Home 4 Mg [place] NOSTRILALT 02/10/25 18:49 8 mg ONCE ONE Administration Medical Decision Making Medical Decision Making MDM Narrative: Patient has no specific complaints. Is awake alert. Explained to patient the need to monitor for approximately 1-2 hours after using heroin. Risk of relapse discussed. Patient states understanding. Will give patient a dose of Narcan to take home. Did not want detox After monitoring patient for about an hour after feeding patient. Patient did not want to stay. Eloped from the ER. He is walking no acute distress. Currently in stable condition. We did give him a dose of Narcan to take home. Differential Diagnosis Differential Diagnoses: The differential diagnosis associated with the presentation includes Admission/Observation Consideration of admission/observation: Escalation of care including admission/observation considered Social Determinants Patient?s care significantly limited by Social Determinants of Health including: Alcoholism and drug addiction in family and Problems related to primary support group Discharge Plan Discharge Clinical Impression: Drug overdose Qualifiers: Encounter type: initial encounter Injury intent: accidental or unintentional Qualified Code(s): T50.901A - Poisoning by unspecified drugs, medicaments and biological substances, accidental (unintentional), initial encounter Prescriptions: No Action acetaminophen [Tylenol Extra Strength] 500 mg tablet 1,000 mg PO Q6H PRN (Reason: pain) Qty: 20 0RF oxycodone 5 mg tablet 5 mg PO Q6H PRN (Reason: pain) Qty: 10 0RF Rx Instructions: Partial Fill upon patient request. cyclobenzaprine 10 mg tablet 10 mg PO TID Sublocade 300 mg/1.5 mL solution, extended rel syringe subcut gabapentin 800 mg tablet 800 mg PO TID allopurinol 300 mg tablet 150 mg PO DAILY amlodipine 10 mg tablet 10 mg PO DAILY quetiapine [Seroquel] 25 mg tablet 25 mg PO BEDTIME omeprazole 20 mg capsule,delayed release(DR/EC) 20 mg PO BID Print Language: Telugu
--- NOTE | 2025-02-10 18:40 | MHC.EDTECH ---
Pt refused to slip box changer, all belongings at bedside. RN aware. Pt checked by security and cleared.
[2025-02-10 18:42] VITALS: BP 155/103; PULSE 82; O2SAT 99
[2025-02-10 18:43] VITALS: BP 102/58; PULSE 69; RESP 12; TEMP 36.7; O2SAT 100; BMI 27.1
--- NOTE | 2025-02-10 18:51 | PC.NURSE ---
Pt refusing to be changed over; denies SI/HI; security wanded pt; chargeback specialist and clinical coordinator made aware, as well as Dr Diehl; pt originally uncooperative with care; pt agreed to having vs taken after talking to Dr Diehl; vss; BP 102/58; MD made aware; pt was lying in a lateral position; no orders to treat at this time
--- NOTE | 2025-02-10 19:23 | MHC.EDTECH ---
this tech attempted to check oxygen levels, pt states i refuse all treatment , RN made aware
[2025-02-10] MEDS: Naloxone HCl Nasal TAKE HOME 4 MG SPRAY 8 MG NOSTRILALT (19:34)
--- NOTE | 2025-02-10 19:35 | PC.NURSE ---
Took over care from Shala, Security attempting to ion exchange operator pt, pt refusing and wanting to leave, pt a&O, no sign of distress pt had a steady gait,
== END 2025-02-10 21:49 | disposition left against medical advice (07) ==
PROVIDERS: Emergency Provider Emergency Medicine Emergency Medical Services
DX: T40.1X1A Poisoning by heroin, accidental (unintentional), initial encounter (principal); R40.4 Transient alteration of awareness; Y92.410 Unspecified street and highway as the place of occurrence of the external cause; F17.210 Nicotine dependence, cigarettes, uncomplicated; Z79.899 Other long term (current) drug therapy
CPT/HCPCS: 99281; 99283

== ENCOUNTER 2025-05-23 13:10 | Emergency (ER) | payer MEDICARE, MEDICAID, SELFPAY ==
--- OUTSIDE RECORDS SUMMARY | 2025-03-31 05:20 | XMS_ITS | Continuity of Care Document ---
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 Name Role Phone Patrick Haq MD Unavailable Unavailable Allergies, Adverse Reactions, Alerts Substance Reaction Status Criticality ibuprofen GI Problems Active No Information acetaminophen Vomiting Active No Information HYDROCODONE BITARTRATE Vomiting Active No In formation Medications Medication Instructions Dosage Effective Dates (start - stop) Status Comments prednisolone acetate 1 % eye drops,suspension instill 1 drop by ophthalmic route q2hr x 2 days, QID X 7 DAYS, TID X 7 DAYS, BID X 7 DAYS, ONCE A DAY X 7 DAYS in OD - Active Imitrex 50 mg tablet take 1 tablet [...] A DAY - Active Procedures Procedure Date OFFICE/OUTPATIENT VISIT, EST Limited Oral Evaluation-Problem Focused Intraoral-Periapical First Film 025 Extraction, Erupted Tooth Or Exposed Nunu t (Elevati Intraoral-Periapical Each Additional Vivek m OFFICE/OUTPATIENT VISIT, EST OFFICE/OUTPATIENT VISIT, EST Limited Oral Evaluation-Problem Focused Intraoral-Periapical First Film 024 Extraction, Erupted Tooth Or Exposed Nunu t [...] Min) Psychotherapy , 30 Min (16-37 Min) Psychotherapy [...] 2021 Psychotherapy , 30 Min (16-37 Min) May- Psychotherapy , 30 Min (16-37 Min) Office Visit Established Outpatient Psychotherapy 45 Min [...] Min) Psychotherapy 45 Min (38-52 Min) 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 Psychotherapy 45 Min (38-52 Min) [...] 2019 Psychotherapy 45 Min (38-52 Min) 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 Office Visit Established Outpatient Psychotherapy 45 Min [...] Min) Psychotherapy 45 Min (38-52 Min) 2017 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 Psychotherapy , 30 Min (16-37 Min) Psychotherapy [...] EST Psychotherapy 45 Min (38-52 Min) 2016 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 OFFICE/OUTPATIENT VISIT, EST Psychotherapy 45 Min (38-52 [...] Min) 2015 Clinical Pharmacy OFFICE/OUTPATIENT VISIT, EST 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 Psychotherapy , 30 Min (16-37 Min) Psychotherapy 45 Min (38-52 Min) 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 OFFICE/OUTPATIENT VISIT, EST Psychotherapy , 30 Min (16-37 Min) Psychotherapy , 30 Min (16-37 Min) OFFICE/OUTPATIENT VISIT, EST Psychotherapy , 30 Min (16-37 Min) OFFICE/OUTPATIENT VISIT, EST Psychotherapy , 30 Min (16-37 Min) OFFICE/OUTPATIENT VISIT, EST Psychotherapy 45 Min (38-52 Min) 2015 OFFICE/OUTPATIENT VISIT, EST Psychotherapy , 30 Min (16-37 Min) 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 Psychotherapy , 30 Min (16-37 Min) EKG, 12 LEAD ELECTROCARDIOGRAM REPORT OFFICE/OUTPATIENT VISIT, EST Psychotherapy 45 Min (38-52 Min) 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 Psychotherapy 45 Min (38-52 Min) 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 OFFICE/OUTPATIENT VISIT, EST Psychotherapy 45 Min (38-52 [...] 2013 Psychotherapy 45 Min (38-52 Min) 2013 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 Psychotherapy 45 Min (38-52 Min) 2013 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 OFFICE/OUTPATIENT VISIT, EST Psychotherapy 45 Min (38-52 [...] EST REMOVE IMPACTED EAR WAX OFFICE/OUTPATIENT VISIT, [facility] Alexandre MEDICATION MANAGEMENT PSYTX, OFFICE, 20-30 MIN OFFICE/OUTPATIENT VISIT, EST OFFICE/OUTPATIENT VISIT, EST PSYTX, OFF, 45-50 MIN MEDICATION MANAGEMENT PSYTX, OFF, 45-50 MIN PSYTX, OFF, 45-50 MIN Advance Directives Directive Yes / No Effective Date File Name No Information Encounters Encounter Description Practice Location Reason(s) For Visit Diagnoses Date Provider Providers Copied on Encounter OFFICE/OUTPATI ENT VISIT, [facility], [address], [place], [id number], tel:[phone] [facility] 60 Acute Care cut on face/ swollen (chief complaint) Left facial pain 5 Severino Nguyen. [address], [place], [id number], [place]. tel:[phone] [facility], [address], [place], [id number], tel:[phone] [facility] 60 Dental Encounter for dental exam and cleaning w/o abnormal findings 5 Ajith Stauffer. [address] [place], [address], [place]. 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 [address], [place], [id number]. tel:[phone] OFFICE/OUTPATI ENT VISIT, [facility], [address], [place], [place], [address], [place] tel:[phone] [facility] 605 Acute Care eyes/neck pain (chief complaint) Persistent coughTrauma tic iritis 5 Severino Patrick. [address], [place], [id number], [place]. tel:[phone] [facility], [address], [place], [place], [address], [place] tel:[phone] [facility] 60 Dental Encounter for dental exam and cleaning w/o abnormal findings 4 Shahnaz Ferraro. [address] [place], [address], [place]. tel:[phone] [facility], [address], [place], [place], [address], [place] tel:[phone] Tele [facility] Bipolar IPTSDAUD, in remissionOU D, in remission 3 Navin Rosales. [address], [place], [address], [place]. tel:[phone] [facility], [address] [facility] [address], [place], [place], [address], [place] tel:[phone] Tele [facility] PTSDBipolar IAUD, in remissionOU D, in remission 3 Navin Rosales. [address], [place], [address], [place]. tel:[phone] [facility], [address], [place], [place], [address], [place] tel:[phone] Tele [facility] Proc/trtmt not crd out d/t pt lv bef seen by [facility] 3 Navin Rosales. [address], [place], [address], [place]. tel:[phone] [facility], [address], [place], [place], [address], [place] tel:[phone] Tele [facility] Bipolar IPTSDOUD, in remissionAU D, in remission 3 Navin Rosales. [address], [place], [address], [place]. tel:[phone] [facility], [address], [place], [place], [address], [place] tel:[phone] Tele [facility] Bipolar IPTSDOUD, in remissionAU D, in remission 3 Navin Rosales. [address], [place], [address], [place]. tel:[phone] [facility], [address], [place], [place], [address], [place] tel:[phone] Tele [facility] Bipolar IPTSDAUD in sustained, full remissionOU D, in remission 3 Navin Rosales. [address], [place], [address], [place]. tel:[phone] [facility], [address], [place], [place], [address], [place] tel:[phone] Tele [facility] Bipolar IPTSDAUD in sustained, full remissionOU D, in remission 3 Navin Rosales. [address], [place], [address], [place]. tel:[phone] [facility], [address], [place], [place], [address], [place] tel:[phone] Tele [facility] PTSDBipolar IAUD in sustained, full remissionOU D, in remission 3 Navin Rosales. [address], [place], [address], [place]. tel:[phone] [facility], [address], [place], [place], [address], [place] tel:[phone] Tele [facility] PTSDBipolar IAUD, in remissionOU D, in remissionGr ief 3 Navin Rosales. [address], [place], [address], [place]. tel:[phone] [facility], [address], [place], [place], [address], [place] tel:[phone] Tele [facility] Bipolar IPTSDOUD, in remissionAU D, in remission 3 Holden Bobby. [address], [place], [address], [place]. tel:[phone] [facility], [address], [place], [place], [address], [place] tel:[phone] Tele [facility] Bipolar I DisorderPTS DAlcohol dependence, in remissionOU D, in remission 3 Navin Rosales. [address], [place], [address], [place]. tel:[phone] [facility], [address], [place], [place], [address], [place] tel:[phone] Tele [facility] PTSDBipolar IAUD, in remissionOU D, in remission 3 Navin Rosales. [address], [place], [address], [place]. tel:[phone] [facility], [address], [place], [place], [address], [place] tel:[phone] Tele [facility] AUD in sustained, full remissionPT SDBipolar IOUD, in remission 3 Holden Bobyb. [address], [place], [address], [place]. tel:[phone] [facility], [address], [place], [place], [address], [place] tel:[phone] Tele [facility] PTSDBipolar IOUD, in remissionAU D in sustained, full remission 3 Navin Rosales. [address], [place], [address], [place]. tel:[phone] [facility], [address], [place], [place], [address], [place] tel:[phone] Tele [facility] Bipolar IPTSDOUD, in remissionAU D in sustained, full remission 3 Navin Bobby. [address], [place], [address], [place]. tel:[phone] [facility], [address], [place], [place], [address], [place] tel:[phone] Tele [facility] Bipolar IPTSDAUD in sustained, full remissionOU D, in remission 3 Navin Bobby. [address], [place], [address], [place]. tel:[phone] [facility], [address], [place], [place], [address], [place] tel:[phone] [facility] Migraine without aura and without status migrainosus , not intractable 3 Jeff Marquez. [address] [place] [address], [id number]. tel:[phone] [facility], [address], [place], [place], [address], [place] tel:[phone] Tele [facility] Bipolar IPTSDAUD in sustained, full remissionOU D, in remission 3 Navin Rosales. [address], [place], [address], [place]. tel:[phone] [facility], [address], [place], [place], [address], [place] tel:[phone] [facility] No Information 3 Jeff Marquez. [address] [place], [place], [id number]. tel:[phone] [facility], [address], [place], [place], [address], [place] tel:[phone] [facility] No Information 3 Toño Quezada. [address] [place], [place], [address], [place]. tel:[phone] [facility], [address], [place], [place], [address], [place] tel:[phone] Tele [facility] PTSDBipolar IAUD, in remissionOU D, in remission 3 Navin Rosales. [address] [place] [address], [id number], [place]. tel:[phone] [facility], [address], [place], [place], [address], [place] tel:[phone] Tele [facility] Bipolar IPTSDOUD, in remissionAU D, in remission Oct- 3 Navin Rosales. [address] [place] [address], [id number], [place]. tel:[phone] [facility], [address], [place], [place], [address], [place] tel:[phone] Tele [facility] AUD, in remissionOU D, in remissionPT SDBipolar I 3 Navin Rosales. [address], [place], [address], [place]. tel:[phone] [facility], [address], [place], [place], [address], [place] tel:[phone] Tele [facility] Bipolar IPTSDAUD, in remissionOU D, in remission 3 Navin Rosales. [address], [place], [address], [place]. tel:[phone] [facility], [address], [place], [place], [address], [place] tel:[phone] Tele [facility] PTSDBipolar IOUD, in remission, on maintenance therapyAUD, in remission 3 Navin Rosales. [address], [place], [address], [place]. tel:[phone] [facility], [address], [place], [place], [address], [place] tel:[phone] Tele [facility] PTSDBipolar IAUD, in remissionOU D, in remission, on maintenance therapy 3 Navin Rosales. [address], [place], [address], [place]. tel:[phone] [facility], [address], [place], [place], [address], [place] tel:[phone] Tele [facility] PTSDBipolar IOUD, in remissionAU D, in remission 3 Navin Rosales. [address], [place], [address], [place]. tel:[phone] [facility], [address], [place], [place], [address], [place] tel:[phone] Tele [facility] PTSDBipolar IAUD, in remissionOU D, in remission 3 Navin Rosales. [address], [place], [address], [place]. tel:[phone] [facility], [address], [place], [place], [address], [place] tel:[phone] Tele [facility] Bipolar IPTSDAUD, in remissionOU D, in remission 3 Navin Rosales. [address] [place] [address], [id number], [place]. tel:[phone] [facility], [address], [place], [place], [address], [place] tel:[phone] [facility] Migraine without aura and without status migrainosus , not intractable 3 Jeff Marquez. [address] [place] [address], [id number]. tel:[phone] [facility], [address], [place], [place], [address], [place] tel:[phone] Tele [facility] PTSDBipolar IAUD, in remissionOU D, in remission 3 [facility]. [address] [place] [address], [id number], [place]. tel:[phone] [facility], [address], [place], [place], [address], [place] tel:[phone] Tele [facility] PTSDBipolar IOUD, in remissionAU D, in remission 3 [facility]. [address] [place] [address], [id number], [place]. tel:[phone] [facility], [address], [place], [place], [address], [place] tel:[phone] Tele [facility] PTSDBipolar IAUD, in remissionOU D, in remission 3 [facility]. [address] [place] [address], [id number], [place]. tel:[phone] [facility], [address], [place], [place], [address], [place] tel:[phone] Tele [facility] PTSDBipolar IAUD, in remissionOU D, in remission 3 Navin Rosales. [address] [place] [address], [id number], [place]. tel:[phone] [facility], [address] [facility] [address], [place], [place], [address], [place] tel:[phone] [facility] No Information 3 Jeff Marquez. [address] [place] [address], [id number]. tel:[phone] [facility], [address], [place], [place], [address], [place] tel:[phone] Tele [facility] Bipolar IPTSDOUD, in remissionAU D, in remission 3 Navin Rosales. [address] [place] [address], [id number], [place]. tel:[phone] [facility], [address] [facility],[address], [place], [place], [address], [place] tel:[phone] Tele [facility] PTSDBipolar IAUD, in remission 2 Holden Bobby. [address] [place] [address], [id number], [place]. tel:[phone] [facility], [address], [place], [place], [address], [place] tel:[phone] Tele [facility] PTSDBipolar IAUD, in remission 2 Navin Rosales. [address] [place] [address], [id number], [place]. tel:[phone] [facility], [address], [place], [place], [address], [place] tel:[phone] Tele [facility] AUD in sustained, full remissionBi polar IPTSDOUD, in remission, on maintenance therapy 2 [facility] Bobby. [address] [place] [address], [id number], [place]. tel:[phone] [facility], [address], [place], [place], [address], [place] tel:[phone] Tele [facility] Bipolar IPTSDOUD, in remission, on maintenance therapyAUD, in remission 2 Navin Rosales. [address] [place] [address], [id number], [place]. tel:[phone] Psychotherapy 45 Min (38-52 Min) [facility], [address], [place], [place], [address], [place] tel:[phone] Tele [facility] Bipolar IPTSDOUD, in remission, on maintenance therapyAUD, in remission 2 Navin Rosales. [address] [place] [address], [id number], [place]. tel:[phone] [facility], [address] [facility] [address], [place], [place], [address], [place] tel:[phone] Tele [facility] No Information 2 Jeff Marquez. [address] [place] [address], [id number]. tel:[phone] [facility], [address], [place], [place], [address], [place] tel:[phone] Tele [facility] Proc/trtmt not crd out d/t pt lv bef seen by [facility] 2 No Informatio n [facility], [address] [facility] [address], [place], [place], [address], [place] tel:[phone] Tele [facility] MAT (chief complaint) Proc/trtmt not crd out d/t pt lv bef seen by [facility] provProc/tr tmt not crd out d/t pt lv bef seen by [facility] prov May- 2 No Informatio n [facility], [address] [facility] [address], [place], [place], [address], [place] tel:[phone] Tele [facility] PTSDBipolar IOUD, in remission, on maintenance therapyAUD, in remission 2 [facility]. [address] [place] [address], [id number], [place]. tel:[phone] [facility], [address] [facility] [address], [place], [place], [address], [place] tel:[phone] Tele [facility] MAT (chief complaint) Proc/trtmt not crd out d/t pt lv bef seen by [facility] 2 No Informatio n [facility], [address] [facility] [address], [place], [place], [address], [place] tel:[phone] Tele [facility] Bipolar IPTSDOUD, in remission, on maintenance therapyAUD, in remission 2 [facility]. [address] [place] [address], [place], [place], [id number], [place]. tel:[phone] [facility], [address] [facility],[address], [place], [place], [address], [place] tel:[phone] Tele [facility] PTSDBipolar IOUD, in remission, on maintenance therapyAUD in sustained, full remission 2 [facility]. [address] [place] [address], [id number], [place]. tel:[phone] [facility], [address] [facility] [address], [place], [place], [address], [place] tel:[phone] Tele [facility] Bipolar IPTSDAUD, in remissionOU D, in remission, on maintenance therapy [address], [id number], [place]. tel:[phone] [facility], [address] [facility] [address], [place], [place], [address], [place] tel:[phone] Tele [facility] MAT (chief complaint)co ld symptoms (chief complaint) Opioid Use Disorder, moderate, in sustained remission, on maintenance therapyEnco unter for monitoring Suboxone maintenance therapyChro tank pain syndromeAlc ohol dependence, in remissionVi ral URI with coughGrief 2 Jeff Marquez. [address] [place] [address], [id number]. tel:[phone] [facility], [address] [facility] [address], [place], [place], [address], [place] tel:[phone] Tele [facility] PTSDBipolar IOUD, in remission, on maintenance therapyAUD in sustained, full remission Sep-[address], [id number], [place]. tel:[phone] [facility], [address] [place] [address] 2,[address], [place], [place], [address], [place] tel:[phone] Tele [facility] ......... LEFT WITHOUT BEING SEEN (chief complaint) Proc/trtmt not crd out d/t pt lv bef seen by [facility] care [facility] Apr- 2 No Informatidimitrios feliz [facility], [address] [place] [address] 2,[address], [place], [place], [address], [place] tel:[phone] Tele [facility] Bipolar IPTSDAUD in sustained, full remissionOU D, in remission, on maintenance therapy Sep-2 2 Holden Bobby. [address] [place] [address], [id number], [place]. tel:[phone] [facility], [address] [facility] [address], [place], [place], [id number], [place] tel:[phone] [facility] MAT (chief complaint) Opioid Use Disorder, moderate, in sustained remission, on maintenance therapyEnco unter for monitoring Suboxone maintenance therapy Apr-2 2 No Informatio n [facility], [address] [facility] [address], [place], [place], [address], [place] tel:[phone] Tele [facility] MAT (chief complaint) Opioid Use Disorder, moderate, in sustained remission, on maintenance therapyEnco unter for monitoring Suboxone maintenance therapy Sep-2 2 No Informatio n [facility], [address] [facility] [address], [place], [place], [address], [place] tel:[phone] Tele [facility] MAT (chief complaint) Opioid Use Disorder, moderate, in sustained remission, on maintenance therapyEnco unter for monitoring Suboxone maintenance therapy Sep-1 2 No Informatio n OFFICE/OUTPATI ENT VISIT, EST [facility], [address] [facility] [address], [place], [place], [address], [place] tel:[phone] [facility] chronic conditions (chief complaint) Chronic pain syndromeMod erate opioid use disorderAlc ohol use disorder, moderate, in early remissionPr imary hypertensio nExposure to COVID-19 virusMild persistent asthma without complicatio nBipolar IPTSD (post-traum atic stress disorder)En counter for monitoring Suboxone maintenance therapy Sep-1 2 Jeff Marquez. [address] [place] [address], [id number]. tel:[phone] Referring Provider: Alma Aguilar, [address] [place] [address], [id number]. tel:[phone] [facility], [address] [facility] [address], [place], [place], [id number], [place] tel:[phone] Tele [facility] PTSDBipolar IOUD, in sustained remission, on maintenance therapyAUD in sustained, full remission Sep-0 2 Navin Rosales. [address] [place] [address], [id number], [place]. tel:[phone] [facility], [address] [facility] [address], [place], [place], [address], [place] tel:[phone] Tele [facility] MAT (chief complaint) Opioid Use Disorder, moderate, in sustained remission, on maintenance therapy Apr-0 2 No Nevaeh feliz [facility], [address] [facility] [address], [place], [place], [id number], [place] tel:[phone] Tele [facility] AUD in sustained, full remissionPT SDBipolar IOUD, in sustained remission, on maintenance therapy Apr-[address], [id number], [place]. tel:[phone] [facility], [address] [facility] [address], [place], [place], [id number], [place] tel:[phone] [facility] f/u (chief complaint) Opioid Use Disorder, moderate, in sustained remission, on maintenance therapy Mar- 2 No Nevaeh feliz [facility], [address] [facility] [address], [place], [place], [id number], [place] tel:[phone] Tele [facility] PTSDBipolar IAUD in sustained, full remissionOU D, in sustained remission, on maintenance therapy [address], [id number], [place]. tel:[phone] [facility], [address] [facility] [address], [place], [place], [id number], [place] tel:[phone] [facility] MAT (chief complaint) Opioid Use Disorder, moderate, in sustained remission, on maintenance therapyPain of gingivaHead ache disorder 2 No Nevaeh feliz [facility], [address] [facility] [address], [place], [place], [address], [place] tel:[phone] Tele [facility] Bipolar IPTSDOUD, moderate, in sustained remission, on maintenance therapyAUD in sustained, full remission 2 [facility] Bobby. [address] [place] [address], [id number], [place]. tel:[phone] [facility], [address] [facility] [address], [place], [place], [id number], [place] tel:[phone] Tele [facility] mat (chief complaint) Opioid Use Disorder, moderate, in sustained remission, on maintenance therapy 2 No Informjorden feliz [facility], [address] [facility] [address], [place], [place], [id number], [place] tel:[phone] Tele [facility] PTSDBipolar IAUD in sustained, full remissionOU D, moderate, in sustained remission, on maintenance therapy 2 Navin Rosales. [address] [place] [address], [id number], [place]. tel:[phone] OFFICE/OUTPATI ENT VISIT, EST [facility], [address] [facility] [address], [place], [place], [id number], [place] tel:[phone] [facility] (chief complaint)ch ronic conditions (chief complaint) Opioid Use Disorder, moderate, in sustained remission, on maintenance therapyChro tank pain syndromeAlc ohol dependence, in remissionEs sential (primary) hypertensio nOverweight Body mass index (BMI) 26.0-26.9, adult 2 Jeff Marquez. [address] [place] [address], [id number]. tel:[phone] [facility], [address] [facility] [address], [place], [place], [address], [place] tel:[phone] [facility] No Information 2 No Nevaeh feliz [facility], [address] [facility] [address], [place], [place], [address], [place] tel:[phone] [facility] MAT (chief complaint) Opioid Use Disorder, moderate, in sustained remission, on maintenance therapy 2 Magda Bobo. [address], [place], [id number], [place]. tel:[phone] [facility], [address] [facility] [address], [place], [place], [address], [place] tel:[phone] Tele [facility] Bipolar IPTSDAUD in sustained, full remissionOU D, mild, in sustained remission, on maintenance therapy 2 Navin Rosales. [address], [place], [id number], [place]. tel:[phone] OFFICE/OUTPATI ENT VISIT, EST [facility], [address] [facility] [address], [place], [place], [address], [place] tel:[phone] Tele [facility] depression (chief complaint)mo od disorder (chief complaint) PTSD (post-traum atic stress disorder) 2 No Informatio n [facility], [address] [facility] [address], [place], [place], [id number], [place] tel:[phone] Tele [facility] PTSDBipolar IAUD in sustained, full remissionOU D, mild, in sustained remission, on maintenance therapy 2 Navin Rosales. [address], [place], [id number], [place]. tel:[phone] [facility], [address] [facility] [address], [place], [place], [id number], [place] tel:[phone] Tele [facility] Bipolar IPTSDAUD in sustained, full remissionOU D, mild, in sustained remission, on maintenance therapy 2 Navin Rosales. [address], [place], [id number], [place]. tel:[phone] OFFICE/OUTPATI ENT VISIT, EST [facility], [address] [facility] [address], [place], [place], [address], [place] tel:[phone] [facility] MAT (chief complaint) Opioid Use Disorder, moderate, in sustained remission, on maintenance therapyBipo lar I 2 No Informatio n [facility], [address] [facility] [address], [place], [place], [address], [place] tel:[phone] Tele [facility] Bipolar IPTSDOUD, moderate, in sustained remission, on maintenance therapyAUD in sustained, full remission [address], [id number], [place]. tel:[phone] [facility], [address] [facility] [address], [place], [place], [address], [place] tel:[phone] Tele [facility] MAT (chief complaint) Opioid Use Disorder, moderate, in sustained remission, on maintenance therapyEnco unter for monitoring Suboxone maintenance therapy 2 No Informatio n OFFICE/OUTPATI ENT VISIT, EST [facility], [address] [facility] [address], [place], [place], [address], [place] tel:[phone] [facility] (chief complaint) Opioid Use Disorder, moderate, in sustained remission, on maintenance therapyRigh t lower quadrant abdominal painTobacco useHeartbur nAlcohol use disorder, moderate, in early remissionCh ronic pain syndromeGre at toe pain, left 2 No Informatio n [facility], [address] [facility] [address], [place], [place], [address], [place] tel:[phone] [facility] No Information 2 Keystone Damien. [address] [place] [address], [id number], [place]. tel:[phone] [facility], [address] [facility] [address], [place], [place], [address], [place] tel:[phone] Tele [facility] MAT (chief complaint) Opioid Use Disorder, moderate, in sustained remission, on maintenance therapyEnco unter for monitoring Suboxone maintenance therapy 2 No Informatio trini [facility], [address] [facility] [address], [place], [place], [address], [place] tel:[phone] Tele [facility] Bipolar IPTSDOUD, mild, in sustained remission, on maintenance therapyAlco hol dependence, in remission 2 Navin Rosales. [address] [place] [address], [id number], [place]. tel:[phone] OFFICE/OUTPATI ENT VISIT, EST [facility], [address] [facility] [address], [place], [place], [id number], [place] tel:[phone] Tele [facility] MAT (chief complaint) Opioid Use Disorder, moderate, in sustained remission, on maintenance therapyEnco unter for monitoring Suboxone maintenance therapyMajo r depressive disorder, recurrent, moderate 2 No Informatidimitrios feliz [facility], [address] [facility] [address], [place], [place], [address], [place] tel:[phone] Tele [facility] mAT (chief complaint) Proc/trtmt not crd out d/t pt lv bef seen by [facility] 2 Magda Bobo. [address] [place] [address], [id number], [place]. tel:[phone] OFFICE/OUTPATI ENT VISIT, EST [facility], [address] [facility] [address], [place], [place], [address], [place] tel:[phone] Tele [facility] mat tele (chief complaint) Opioid Use Disorder, moderate, in sustained remission, on maintenance therapyEnco unter for monitoring Suboxone maintenance therapy 2 No Informatio n [facility], [address] [facility] [address], [place], [place], [address], [place] tel:[phone] Tele [facility] PTSDBipolar IAUD in sustained, full remissionOU D, in sustained remission, on maintenance therapy 2 Navin Rosales. [address], [place], [address], [place]. tel:[phone] [facility], [address], [place], [place], [address], [place] tel:[phone] Tele [facility] Bipolar IPTSDOUD, moderate, in sustained remission, on maintenance therapyAUD in sustained, full remission 2 Holden Bobby. [address], [place], [id number], [place]. tel:[phone] [facility], [address], [place], [place], [address], [place] tel:[phone] [facility] (chief complaint) Opioid Use Disorder, moderate, in sustained remission, on maintenance therapy 2 Azalindaf Jihan. [address] [place] [address], [id number], [place]. tel:[phone] [facility], [address], [place], [place], [id number], [place] tel:[phone] Tele [facility] MAT (chief complaint) Proc/trtmt not crd out d/t pt lv bef seen by [facility] 2 No Informatio n [facility], [address] [facility] [facility],[address], [place], [place], [address], [place] tel:[phone] Tele [facility] PTSDBipolar IOUD, mild, in sustained remission, on maintenance therapyAlco hol dependence, in remission 2 Navin Bobby. [address], [place], [id number], [place]. tel:[phone] [facility], [address], [place], [place], [address], [place] tel:[phone] [facility] (chief complaint) Opioid Use Disorder, moderate, in sustained remission, on maintenance therapyGout y arthritis 2 No Informatio n OFFICE/OUTPATI ENT VISIT, EST [facility], [address] [facility] [address], [place], [place], [address], [place] tel:[phone] [facility] lft foot (chief complaint) Opioid Use Disorder, moderate, in sustained remission, on maintenance therapyPain in metatarsus of left footGouty arthritisEl evated hemoglobin A6dLxxwhbrn lesterolemi a 2 Azaroff Jihan. [address], [place], [id number], [place]. tel:[phone] [facility], [address] [facility],[address], [place], [place], [address], [place] tel:[phone] Tele [facility] PTSDBipolar IAUD in sustained, full remissionOU D, moderate, in sustained remission, on maintenance therapy 2 Navin Rosales. [address], [place], [address], [place]. tel:[phone] [facility], [address] [facility],[address], [place], [place], [address], [place] tel:[phone] [facility] MAT (chief complaint) Opioid use disorder, moderate, on maintenance therapy 2 Azaroff Jihan. [address], [place], [address], [place]. tel:[phone] OFFICE/OUTPATI ENT VISIT, EST [facility], [address] [facility],[address], [place], [place], [address], [place] tel:[phone] Tele [facility] MAT (chief complaint) Opioid use disorder, moderate, on maintenance therapyEnco unter for monitoring Suboxone maintenance therapyUnsp ecified abdominal pain 2 No Informatio n [facility], [address] [facility] [address], [place], [place], [address], [place] tel:[phone] [facility] Proc/trtmt not crd out d/t pt lv bef seen by [facility] 2 Azaroff Jihan. [address], [place], [address], [place]. tel:[phone] [facility], [address] [facility] [address], [place], [place], [address], [place] tel:[phone] [facility] No Information 2 Jeff Marquez. [address] [place], [place], [id number]. tel:[phone] [facility], [address] [facility] [address], [place], [place], [address], [place] tel:[phone] Tele [facility] PTSDBipolar IAlcohol dependence, in remissionOU D, moderate, in sustained remission, on maintenance therapy 2 Navin Rosales. [address], [place], [address], [place]. tel:[phone] [facility], [address] [facility] [address], [place], [place], [address], [place] tel:[phone] [facility] MAT (chief complaint) Opioid Use Disorder, moderate, in sustained remission, on maintenance therapy 2 Azaroff Jihan. [address], [place], [id number], [place]. tel:[phone] [facility], [address] [facility] [address], [place], [place], [address], [place] tel:[phone] [facility] MAT (chief complaint) Opioid Use Disorder, moderate, in sustained remission, on maintenance therapy 2 Azaroff Jihan. [address], [place], [address], [place]. tel:[phone] [facility], [address] [facility] [address], [place], [place], [address], [place] tel:[phone] Tele [facility] Bipolar IPTSDOUD, moderate, in sustained remission, on maintenance therapyAlco hol dependence, in remission 2 Navin Rosales. [address], [place], [address], [place]. tel:[phone] [facility], [address] [facility],[address], [place], [place], [address], [place] tel:[phone] [facility] (chief complaint) Opioid Use Disorder, moderate, in sustained remission, on maintenance therapy 2 Peytonlindasheldon Bobo. [address], [place], [address], [place]. tel:[phone] [facility], [address], [place], [place], [address], [place] tel:[phone] Tele [facility] OUD, moderate, in sustained remission, on maintenance therapyPTSD Bipolar IAlcohol dependence in remission 2 Navin Rosales. [address], [place], [address], [place]. tel:[phone] OFFICE/OUTPATI ENT VISIT, EST [facility], [address] [facility] [address], [place], [place], [address], [place] tel:[phone] Tele [facility] mat tele (chief complaint) Opioid Use Disorder, moderate, in sustained remission, on maintenance therapyEnco unter for monitoring Suboxone maintenance therapy 2 No Informatio n OFFICE/OUTPATI ENT VISIT, EST [facility], [address] [facility] [address], [place], [place], [address], [place] tel:[phone] Tele [facility] MAT (chief complaint) Opioid Use Disorder, moderate, in sustained remission, on maintenance therapyEnco unter for monitoring Suboxone maintenance therapy 2 No Informatio n [facility], [address] [facility] [address], [place], [place], [address], [place] tel:[phone] Tele [facility] PTSDBipolar IAlcohol dependence, in remissionOp ioid Use Disorder, moderate, in sustained remission, on maintenance therapy 2 Navin Rosales. [address] [place] [address], [id number], [place]. tel:[phone] OFFICE/OUTPATI ENT VISIT, EST [facility], [address] [facility],[address], [place], [place], [address], [place] tel:[phone] Tele [facility] MAT (chief complaint) Opioid Use Disorder, moderate, in sustained remission, on maintenance therapyEnco unter for monitoring Suboxone maintenance therapy 2 No Informatidimitrios feliz [facility], [address] [facility],[address], [place], [place], [address], [place] tel:[phone] Tele [facility] Bipolar IPTSDAlcoho l dependence, in remissionOp ioid Use Disorder, moderate, in sustained remission, on maintenance therapy 2 Navin Rosales. [address] [place] [address], [place], [place], [id number], [place]. tel:[phone] OFFICE/OUTPATI ENT VISIT, EST [facility], [address] [facility],[address], [place], [place], [address], [place] tel:[phone] Tele [facility] mat tele (chief complaint) Opioid use disorder, moderate, on maintenance therapyEnco unter for monitoring Suboxone maintenance therapy 2 No Informatidimitrios feliz [facility], [address] [facility] [address], [place], [place], [address], [place] tel:[phone] Tele [facility] MAT (chief complaint) Proc/trtmt not crd out d/t pt lv [facility] provProc/tr tmt not crd out d/t pt lv bef seen by [facility] 2 No Informjorden feliz [facility], [address] [facility],[address], [place], [place], [address], [place] tel:[phone] Tele [facility] PTSDBipolar IAlcohol dependence, in remissionOp ioid Use Disorder, moderate, in sustained remission, on maintenance therapy 2 [facility]. [address] [place] [address], [id number], [place]. tel:[phone] [facility], [address] [facility] [address], [place], [place], [address], [place] tel:[phone] [facility] No Information 2 No Informatio n OFFICE/OUTPATI ENT VISIT, EST [facility], [address] [facility] [address], [place], [place], [address], [place] tel:[phone] Tele [facility] MAT (chief complaint) Opioid use disorder, moderate, on maintenance therapyEnco unter for monitoring Suboxone maintenance therapy 2 No Informatio n [facility], [address] [facility] [address], [place], [place], [address], [place] tel:[phone] Tele [facility] Opioid Use Disorder, moderate, in sustained remission, on maintenance therapyAlco hol dependence, in remissionPT SDBipolar I 2 [facility]. [address] [place] [address], [id number], [place]. tel:[phone] OFFICE/OUTPATI ENT VISIT, EST [facility], [address] [facility] [address], [place], [place], [address], [place] tel:[phone] Tele [facility] MAT (chief complaint) Opioid use disorder, moderate, on maintenance therapyEnco unter for monitoring Suboxone maintenance therapyAcut e pain of left shoulder 2 Jeff Marquez. [address] [place] [address], [id number]. tel:[phone] OFFICE/OUTPATI ENT VISIT, EST [facility], [address] [facility],[address], [place], [place], [address], [place] tel:[phone] [facility] L Shoulder Pain (chief complaint) Acute pain of left shoulder 2 No Informatio n [facility], [address] [facility] [address], [place], [place], [address], [place] tel:[phone] [facility] MAT (chief complaint) Opioid use disorder, mild, in sustained remission, on maintenance therapyEnco unter for monitoring Suboxone maintenance therapy 2 No Informatio n [facility], [address] [facility] [address], [place], [place], [address], [place] tel:[phone] Tele [facility] Post-trauma tic stress disorderBip olar disorderOpi oid Use Disorder, Mild, In sustained remissionAl cohol dependence, in remission [address], [place], [place], [id number], [place]. tel:[phone] OFFICE/OUTPATI ENT VISIT, [facility], [address] [facility] [address], [place], [place], [address], [place] tel:[phone] Tele [facility] MAT (chief complaint) Opioid use disorder, mild, in sustained remission, on maintenance therapy 2 No Informatio n OFFICE/OUTPATI ENT VISIT, [facility], [address] [facility] [address], [place], [place], [address], [place] tel:[phone] [facility] F/U (chief complaint) Injection site reaction, sequelaOpio id use disorder, mild, in sustained remission, on maintenance therapy 2 No Informatio n [facility], [address] [facility] [address], [place], [place], [address], [place] tel:[phone] Tele [facility] Opioid use disorder, mild, in sustained remission, on maintenance therapyBipo lar I disorderAlc ohol dependence in remissionPT SD (post-traum atic stress disorder) 2 Navin Rosales. [address] [place] [address], [id number], [place]. tel:[phone] OFFICE/OUTPATI ENT VISIT, EST [facility], [address] [facility] [address], [place], [place], [address], [place] tel:[phone] [facility] sublocade reaction (chief complaint) Injection site reaction, initial encounterCe llulitis, unspecified cellulitis siteOpioid use disorder, mild, in sustained remission, on maintenance therapy 2 No Informatio n [facility], [address] [facility] [address], [place], [place], [address], [place] tel:[phone] [facility] Opioid use disorder, mild, in sustained remission, on maintenance therapyAlco hol dependence in remissionBi polar I disorderPTS D (post-traum atic stress disorder) 2 Navin Rosales. [address] [place] [address], [id number], [place]. tel:[phone] [facility], [address] [facility] [address], [place], [place], [address], [place] tel:[phone] [facility] MAT (chief complaint) Opioid use disorder, moderate, on maintenance therapyEnco unter for monitoring Suboxone maintenance therapy 2 No Informatio n OFFICE/OUTPATI ENT VISIT, EST [facility], [address] [facility] [address], [place], [place], [address], [place] tel:[phone] [facility] Mat (chief complaint)ch ronic conditions (chief complaint) Muscle spasmBipola r affective disorder, remission status unspecified Alcohol use disorder, moderate, in early remissionOp ioid use disorder, moderate, on maintenance therapyPers onal history of asthmaEssen tial (primary) hypertensio n Grupo- 2 Jeff Marquez. [address] [place] [address], [id number]. tel:[phone] [facility], [address] [facility] [address], [place], [place], [address], [place] tel:[phone] Tele [facility] Alcohol dependence in remissionOp ioid use disorder, mild, in sustained remission, on maintenance therapyBipo lar I disorderPTS D (post-traum atic stress disorder) 2 Navin Rosales. [address] [place] [address], [id number], [place]. tel:[phone] [facility], [address] [facility],[address], [place], [place], [address], [place] tel:[phone] Tele [facility] Opioid use disorder, mild, in sustained remission, on maintenance therapyBipo lar I disorderAlc ohol dependence in remissionPT SD (post-traum atic stress disorder)Pr oc/trtmt not crd out d/t pt lv bef [facility] 2 No Informatio n [facility], [address] [facility] [address], [place], [place], [id number], [place] tel:[phone] [facility] MAT (chief complaint) Opioid use disorder, moderate, on maintenance therapyEnco unter for monitoring Suboxone maintenance therapyMusc le spasm 2 No Informatio n [facility], [address] [facility] [address] [facility] [address], [place], [place], [id number], [place] tel:[phone] Tele [facility] Bipolar I disorderOpi oid use disorder, mild, in sustained remission, on maintenance therapyAlco hol dependence in remissionPT SD (post-traum atic stress disorder) 2 Navin Rosales. [address] [place] [address], [id number], [place]. tel:[phone] OFFICE/OUTPATI ENT VISIT, EST [facility], [address] [facility] [address], [place], [place], [id number], [place] tel:[phone] Tele [facility] Opioid use disorder, mild, in sustained remission, on maintenance therapyPTSD (post-traum atic stress disorder) 2 No Informatio n [facility], [address] [facility] [address], [place], [place], [id number], [place] tel:[phone] Tele [facility] Opioid use disorder, mild, in sustained remission, on maintenance therapyBipo lar I disorderAlc ohol dependence in remissionPT SD (post-traum atic stress disorder) 2 Navin Rosales. [address] [place] [address], [place], [place], [id number], [place]. tel:[phone] [facility], [address] [facility] [address], [place], [place], [id number], [place] tel:[phone] [facility] MAT (chief complaint) Opioid use disorder, mild, in sustained remission, on maintenance therapy 2 No Informatio n OFFICE/OUTPATI ENT VISIT, EST [facility], [address] [facility] [address], [place], [place], [id number], [place] tel:[phone] Tele [facility] Opioid use disorder, mild, in sustained remission, on maintenance therapyBipo lar I disorderAlc ohol dependence in remissionPT SD (post-traum atic stress disorder) 2 No Informatio n OFFICE/OUTPATI ENT VISIT, EST [facility], [address] [facility] [address], [place], [place], [id number], [place] tel:[phone] [facility] migraines. (chief complaint) Migraine without aura and without status migrainosus , not intractable Pruritus 1 No Informatio n OFFICE/OUTPATI ENT VISIT, EST [facility], [address] [facility] [address], [place], [place], [id number], [place] tel:[phone] [facility] MAT (chief complaint) Opioid use disorder, mild, in sustained remission, on maintenance therapyMigr ambrose without aura and without status migrainosus , not intractable 1 No Nevaeh feliz OFFICE/OUTPATI ENT VISIT, EST [facility], [address] [facility] [address], [place], [place], [id number], [place] tel:[phone] Tele [facility] Opioid use disorder, mild, in sustained remission, on maintenance therapyBipo lar I disorderAlc ohol dependence in remissionPT SD (post-traum atic stress disorder) 1 No Nevaeh feliz [facility], [address] [facility] [address], [place], [place], [id number], [place] tel:[phone] Tele [facility] MAT (chief complaint) Proc/trtmt not crd out d/t pt lv bef seen by [facility] 1 No [facility], [address] [facility] [address] [facility] [address], [place], [place], [id number], [place] tel:[phone] Tele [facility] MAT (chief complaint) Proc/trtmt not crd out d/t pt lv bef seen by [facility] 1 No Nevaeh feliz [facility], [address] [facility] [address], [place], [place], [id number], [place] tel:[phone] Tele [facility] MAT (chief complaint) Opioid use disorder, mild, in sustained remission, on maintenance therapy 1 No Nevaeh feliz [facility], [address] [facility] [address], [place], [place], [id number], [place] tel:[phone] Tele [facility] Opioid use disorder, mild, in sustained remission, on maintenance therapyBipo lar I disorderAlc ohol dependence in remissionPT SD (post-traum atic stress disorder) [address], [place], [place], [id number], [place]. tel:[phone] [facility], [address] [facility] [facility],[address], [place], [place], [id number], [place] tel:[phone] [facility] MAT (chief complaint) Opioid use disorder, mild, in sustained remission, on maintenance therapy 1 No Nevaeh feliz [facility], [address] [facility] [facility],[address], [place], [place], [id number], [place] tel:[phone] Tele [facility] Opioid use disorder, mild, in sustained remission, on maintenance therapyBipo lar I disorderAlc ohol dependence in remissionPT SD (post-traum atic stress disorder) 1 Navin Garduno [address] [place] [address], [id number], [place]. tel:[phone] [facility], [address] [facility] [address] [facility],[address], [place], [place], [id number], [place] tel:[phone] Tele [facility] Opioid use disorder, mild, in sustained remission, on maintenance therapyBipo lar I disorderAlc ohol dependence in remissionPT SD (post-traum atic stress disorder) 1 No Nevaeh feliz [facility], [address] [facility] [address] [facility],[address], [place], [place], [id number], [place] tel:[phone] Tele [facility] Opioid use disorder, mild, in sustained remission, on maintenance therapyAlco hol dependence in remissionBi polar I disorderPTS D (post-traum atic stress disorder)Co mplicated grieving 1 Navin Rosales. [address] [place] [address], [id number], [place]. tel:[phone] [facility], [address] [facility], [place], [place], [address], [place] tel:[phone] Tele [facility] MAT (chief complaint) Proc/trtmt not crd out d/t pt lv bef seen by [facility] 1 No Nevaeh feliz [facility], [address] [facility],[address], [place], [place], [address], [place] tel:[phone] Tele [facility] Opioid use disorder, mild, in sustained remission, on maintenance therapyBipo lar I disorderAlc ohol dependence in remissionCo mplicated grievingPTS D (post-traum atic stress disorder) 1 Navin Garduno [address] [place] [address], [id number], [place]. tel:[phone] [facility], [address] [facility],[address], [place], [place], [id number], [place] tel:[phone] Tele [facility] MAT (chief complaint) Opioid use disorder, mild, in sustained remission, on maintenance therapy 1 No Nevaeh feliz [facility], [address] [facility] [address], [place], [place], [address], [place] tel:[phone] Tele [facility] Opioid use disorder, mild, in sustained remission, on maintenance therapyAlco hol dependence in remissionBi polar I disorderPTS D (post-traum atic stress disorder) 1 Navin Rosales. [address] [place] [address], [id number], [place]. tel:[phone] [facility], [address] [facility],[address], [place], [place], [id number], [place] tel:[phone] [facility] MAT (chief complaint) Opioid use disorder, mild, in sustained remission, on maintenance therapy 1 No Nevaeh feliz [facility], [address] [facility],[address], [place], [place], [address], [place] tel:[phone] Tele [facility] Opioid use disorder, mild, in sustained remission, on maintenance therapyAlco hol dependence in remissionPT SD (post-traum atic stress disorder) 1 Navin Garduno [address] [place] [address], [id number], [place]. tel:[phone] [facility], [address] [facility] [address], [place], [place], [id number], [place] tel:[phone] Tele [facility] Opioid use disorder, mild, in sustained remission, on maintenance therapyAlco hol dependence in remissionPT SD (post-traum atic stress disorder) May-0 [address], [id number], [place]. tel:[phone] [facility], [address] [facility] [address], [place], [place], [address], [place] tel:[phone] Tele [facility] Opioid use disorder, mild, in sustained remission, on maintenance therapyAlco hol dependence in remissionBi polar I disorder May-[address], [id number], [place]. tel:[phone] [facility], [address] [facility] [address], [place], [place], [address], [place] tel:[phone] Tele [facility] Opioid use disorder, mild, in sustained remission, on maintenance therapyPTSD (post-traum atic stress disorder)Al cohol dependence in remission Apr- [address], [id number], [place]. tel:[phone] [facility], [address] [facility] [facility],[address], [place], [place], [id number], [place] tel:[phone] [facility] MAT (chief complaint) Opioid use disorder, mild, in sustained remission, on maintenance therapy Apr- 1 No Informjorden n [facility], [address] [facility] [address], [place], [place], [id number], [place] tel:[phone] Tele [facility] Opioid use disorder, mild, in sustained remission, on maintenance therapyPTSD (post-traum atic stress disorder)Bi polar I disorder Apr- 1 Holden Bobby. [address] [place] [address], [id number], [place]. tel:[phone] [facility], [address] [facility],[address], [place], [place], [id number], [place] tel:[phone] Tele [facility] Bipolar I disorderPTS D (post-traum atic stress disorder)Op ioid use disorder, mild, in sustained remission, on maintenance therapyAlco hol dependence in remission Sep- 1 Navin Garduno [address] [place] [address], [id number], [place]. tel:[phone] [facility], [address] [facility] [address] [facility],[address], [place], [place], [id number], [place] tel:[phone] Tele [facility] Opioid use disorder, mild, in sustained remission, on maintenance therapyPTSD (post-traum atic stress disorder) Apr- [address] [place] [address], [id number], [place]. tel:[phone] [facility], [address] [facility] [facility],[address], [place], [place], [id number], [place] tel:[phone] Tele [facility] MAT (chief complaint) Proc/trtmt not crd out d/t pt lv bef seen by [facility] 1 No Informatio n [facility], [address] [facility] [address] [facility],[address], [place], [place], [id number], [place] tel:[phone] Tele [facility] Major depressive disorder, recurrent, moderateOpi oid use disorder, mild, in sustained remission, on maintenance therapyBipo lar I disorder 1 Navin Rosales. [address] [place] [address], [id number], [place]. tel:[phone] [facility], [address] [facility] [facility],[address], [place], [place], [address], [place] tel:[phone] [facility] No Information 1 Jeff Alma. [address] [place] [address], [id number]. tel:[phone] OFFICE/OUTPATI ENT VISIT, EST [facility], [address] [facility] [address], [place], [place], [address], [place] tel:[phone] [facility] MAT (chief complaint) Opioid use disorder, mild, in sustained remission, on maintenance therapy 1 No Informatio n [facility], [address] [facility] [address], [place], [place], [id number], [place] tel:[phone] Tele [facility] Opioid use disorder, mild, in sustained remission, on maintenance therapyBipo lar I disorderPTS D (post-traum atic stress disorder) 1 Navin Rosales. [address] [place] [address], [id number], [place]. tel:[phone] [facility], [address] [facility] [address], [place], [place], [address], [place] tel:[phone] Tele [facility] MAT (chief complaint) Opioid use disorder, mild, in sustained remission, on maintenance therapyEnco unter for monitoring Suboxone maintenance therapy 1 No Betojorden trini [facility], [address] [facility] [address], [place], [place], [address], [place] tel:[phone] Tele [facility] Opioid use disorder, moderate, in sustained remission, on maintenance therapyBipo lar I disorderPTS D (post-traum atic stress disorder) 1 Navin Garduno [address] [place] [address], [id number], [place]. tel:[phone] [facility], [address] [facility] [address], [place], [place], [id number], [place] tel:[phone] Tele [facility] MAT (chief complaint) Proc/trtmt not crd out d/t pt lv bef seen by [facility] 1 No Nevaeh feliz [facility], [address] [facility] [address], [place], [place], [id number], [place] tel:[phone] Tele [facility] Opioid use disorder, mild, in sustained remission, on maintenance therapyBipo lar I disorderAlc ohol use disorder, moderate, in early remission 1 Navin Rosales. [address] [place] [address], [id number], [place]. tel:[phone] [facility], [address] [facility] [address], [place], [place], [id number], [place] tel:[phone] [facility] MAT (chief complaint) Opioid use disorder, mild, in sustained remission, on maintenance therapyEnco unter for monitoring Suboxone maintenance therapy 1 No Nevaeh feliz [facility], [address] [facility] [address], [place], [place], [id number], [place] tel:[phone] Tele [facility] Bipolar I disorderOpi oid use disorder, mild, in sustained remission, on maintenance therapy 1 Navin Rosales. [address] [place] [address], [id number], [place]. tel:[phone] [facility], [address] [facility],[address], [place], [place], [id number], [place] tel:[phone] [facility] MAT (chief complaint) Opioid use disorder, mild, in sustained remission, on maintenance therapy 1 No Nevaeh feliz [facility], [address] [facility],[address], [place], [place], [address], [place] tel:[phone] Tele [facility] Alcohol use disorder, moderate, in early remissionOp ioid use disorder, mild, in sustained remission, on maintenance therapyBipo lar I disorderPTS D (post-traum atic stress disorder) 1 Navin Rosales. [address] [place] [address], [id number], [place]. tel:[phone] [facility], [address] [facility] [address], [place], [id number], [place] tel:[phone] Tele [facility] Opioid use disorder, mild, in sustained remission, on maintenance therapyMajo r depressive disorder, recurrent, moderatePTS D (post-traum atic stress disorder) 1 Navin Rosales. [address] [place] [address], [id number], [place]. tel:[phone] OFFICE/OUTPATI ENT VISIT, EST [facility], [address] [facility] [address], [place], [id number], [place] tel:[phone] Tele [facility] TELE (chief complaint) Encounter for monitoring Suboxone maintenance therapy 1 Toño Quezada. [address] [place] [address], [id number], [place]. tel:[phone] [facility], [address] [facility] [address], [place], [place], [address], [place] tel:[phone] Tele [facility] Alcohol use disorder, moderate, in sustained remissionOp ioid use disorder, mild, in sustained remission, on maintenance therapyBipo lar I disorderPTS D (post-traum atic stress disorder) 1 Navin Rosales. [address] [place] [address], [id number], [place]. tel:[phone] OFFICE/OUTPATI ENT VISIT, EST [facility], [address] [facility] [address], [place], [place], [id number], [place] tel:[phone] Tele [facility] OUD (chief complaint) Opioid use disorder, mild, in sustained remission, on maintenance therapyEnco unter for monitoring Suboxone maintenance therapyMajo r depressive disorder, recurrent, moderate 1 No Informatio n [facility], [address] [facility] [address], [place], [place], [id number], [place] tel:[phone] Tele [facility] Bipolar I disorderOpi oid use disorder, mild, in sustained remission, on maintenance therapyPTSD (post-traum atic stress disorder) 1 Navin Rosales. [address] [place] [address], [id number], [place]. tel:[phone] [facility], [address] [facility] [address], [place], [place], [id number], [place] tel:[phone] [facility] MAT (chief complaint) Opioid use disorder, mild, in sustained remission, on maintenance therapyEnco rubin for monitoring Suboxone maintenance therapy 1 No Informatidimitrios feliz [facility], [address] [facility] [address], [place], [place], [address], [place] tel:[phone] Tele [facility] Major depressive disorder, recurrent, moderateBip olar I disorderOpi oid use disorder, mild, in early remission, on maintenance therapy 1 Navin Rosales. [address] [place] [address], [place], [place], [id number], [place]. tel:[phone] OFFICE/OUTPATI ENT VISIT, EST [facility], [address] [facility],[address], [place], [place], [id number], [place] tel:[phone] [facility] Follow Up of ED (chief complaint) Hematemesis without nauseaOpioi d use disorder, mild, in sustained remission, on maintenance therapy 1 No Informatio trini [facility], [address] [facility],[address], [place], [place], [address], [place] tel:[phone] Tele [facility] Opioid use disorder, mild, in sustained remission, on maintenance therapyBipo lar I disorder 1 Navin Rosales. [address] [place] [address], [id number], [place]. tel:[phone] [facility], [address] [facility] [address], [place], [place], [address], [place] tel:[phone] Tele [facility] tele (chief complaint) Encounter for monitoring Suboxone maintenance therapyProc /trtmt not crd out d/t pt lv bef seen by [facility] 1 Toño Quezada. [address] [place] [address], [id number], . tel:[phone] [facility], [address] [facility] [address], [place], [place], [id number], [place] tel:[phone] Tele [facility] Alcohol use disorder, moderate, in early remissionOp ioid use disorder, moderate, in sustained remission, on maintenance therapyBipo lar I disorderPTS D (post-traum atic stress disorder) [address], [id number], . tel:[phone] [facility], [address] [facility] [address], [place], [place], [id number], [place] tel:[phone] Tele [facility] Opioid use disorder, mild, in sustained remission, on maintenance therapyBipo lar I disorderMaj or depressive disorder, recurrent, moderate 1 [facility]. [address] [place] [address], [id number], [place]. tel:[phone] [facility], [address] [facility] [address], [place], [place], [id number], [place] tel:[phone] Tele [facility] tele (chief complaint) Encounter for monitoring Suboxone maintenance therapyProc /trtmt not crd out d/t pt lv bef seen by [facility] 1 No Informatidimitrios n [facility], [address] [facility],[address], [place], [place], [id number], [place] tel:[phone] Tele [facility] Major depressive disorder, recurrent, moderatePTS D (post-traum atic stress disorder)Bi polar I disorderAlc ohol dependence in sustained full remissionOp ioid use disorder, mild, in sustained remission, on maintenance therapy 1 Navin Rosales. [address] [place], [place], [id number], [place]. tel:[phone] [facility], [address], [place], [place], [address], [place] tel:[phone] [facility] OUD (chief complaint) Encounter for monitoring Suboxone maintenance therapyChro tank pain syndrome 1 No Informatio n [facility], [address] [facility] [address], [place], [place], [id number], [place] tel:[phone] Tele [facility] Bipolar I disorderOpi oid use disorder, mild, in sustained remission, on maintenance therapyAlco hol dependence in remission 1 Navin Rosales. [address] [place] [address], [id number], [place]. tel:[phone] [facility], [address] [facility] [address], [place], [place], [id number], [place] tel:[phone] Tele [facility] Opioid use disorder, mild, in sustained remission, on maintenance therapyAlco hol dependence in sustained full remissionBi polar I disorder 1 Navin Rosales. [address] [place] [address], [id number], [place]. tel:[phone] [facility], [address], [place], [place], [id number], [place] tel:[phone] [facility] Chronic pain syndromePai n in left legRadiculo dipika, lumbar region 1 Jeff Marquez. [address] [place] [address], [id number]. tel:[phone] [facility], [address] [facility] [address], [place], [place], [id number], [place] tel:[phone] Tele [facility] Bipolar I disorderOpi oid use disorder, mild, in sustained remission, on maintenance therapyPTSD (post-traum atic stress disorder) Apr-3 - 1 Navin Rosales. [address] [place] [address], [id number], [place]. tel:[phone] [facility], [address] [facility],[address], [place], [place], [id number], [place] tel:[phone] Tele [facility]/ MAT (chief complaint) Encounter for monitoring Suboxone maintenance therapy Apr-2 1 Keystone Damien. [address] [place] [address], [id number], [place]. tel:[phone] [facility], [address] [facility] [facility],[address], [place], [place], [id number], [place] tel:[phone] [facility] Bipolar I disorderPTS D (post-traum atic stress disorder)Op ioid use disorder, mild, in sustained remission, on maintenance therapyAlco hol dependence in sustained full remission Apr-2 1 Navin Rosales. [address] [place] [address], [id number], [place]. tel:[phone] [facility], [address] [facility] [employer] [facility],[address], [place], [place], [id number], [place] tel:[phone] [facility] Bipolar I disorderOpi oid use disorder, mild, in sustained remissionPT SD (post-traum atic stress disorder) Apr-1 1 Navin Rosales. [address] [place] [address], [id number], [place]. tel:[phone] [facility], [address] [facility] [employer] [facility],[address], [place], [place], [id number], [place] tel:[phone] Tele [facility] Alcohol use disorder, moderate, in early remissionOp ioid use disorder, mild, in sustained remission, on maintenance therapyBipo lar I disorderPTS D (post-traum atic stress disorder) Apr-0 - 1 Navin Rosales. [address], [place], [id number], [place]. tel:[phone] [facility], [address] [facility] [address], [place], [place], [id number], [place] tel:[phone] Tele [facility] Alcohol dependence in remissionBi polar I disorderOpi oid use disorder, mild, in sustained remission, on maintenance therapyPTSD (post-traum atic stress disorder) 1 Navin Rosales. [address] [place] [address], [id number], [place]. tel:[phone] [facility], [address] [facility] [address], [place], [place], [id number], [place] tel:[phone] Tele [facility] MAT OBAT (chief complaint) Encounter for monitoring Suboxone maintenance therapy 1 No Informatio n [facility], [address] [place] [address] 2,[address], [place], [place], [id number], [place] tel:[phone] [facility] LWOBS (chief complaint) Proc/trtmt not crd out d/t pt lv bef seen by [facility] 1 No Informatio n [facility], [address] [facility] [address], [place], [place], [id number], [place] tel:[phone] Tele [facility] MAT (chief complaint) Encounter for monitoring Suboxone maintenance therapy 1 Magda Bobo. [address] [place] [address], [id number], [place]. tel:[phone] [facility], [address] [facility] [address], [place], [place], [id number], [place] tel:[phone] Tele [facility] Major depressive disorder, recurrent, moderateOpi oid use disorder, moderate, in sustained remission, on maintenance therapyBipo lar I disorderPTS D (post-traum atic stress disorder) 1 Navin Garduno [address] [place] [address], [id number], [place]. tel:[phone] [facility], [address], [place], [place], [id number], [place] tel:[phone] Tele [facility] Opioid use disorder, mild, in sustained remission, on maintenance therapyBipo lar I disorderPTS D (post-traum atic stress disorder)Al cohol dependence in remission 1 Navin Garduno [address] [place] [address], [id number], [place]. tel:[phone] [facility], [address] [facility] [address], [place], [place], [id number], [place] tel:[phone] Tele [facility] Opioid use disorder, mild, in sustained remission, on maintenance therapyBipo lar I disorderPTS D (post-traum atic stress disorder) [address] [place] [address], [id number], [place]. tel:[phone] [facility], [address] [facility] [address], [place], [place], [id number], [place] tel:[phone] Tele [facility] Bipolar I disorderPTS D (post-traum atic stress disorder)Op ioid use disorder, mild, in sustained remission, on maintenance therapyAlco hol dependence in remission 1 Navin Garduno [address] [place] [address], [id number], [place]. tel:[phone] [facility], [address], [place], [place], [id number], [place] tel:[phone] Tele [facility] PTSD (post-traum atic stress disorder)Bi polar I disorderOpi oid use disorder, mild, in sustained remission, on maintenance therapy 1 Holden Bobby. [address] [place] [address], [id number], [place]. tel:[phone] OFFICE/OUTPATI ENT VISIT, EST [facility], [address] [facility] [address], [place], [place], [id number], [place] tel:[phone] [facility] OUD (chief complaint) Opioid use disorder, mild, in sustained remission, on maintenance therapyEnco unter for monitoring Suboxone maintenance therapyMild persistent asthma in adult without complicatio nMigraine with aura and without status migrainosus , not intractable 0 1 No Informatio n [facility], [address] [facility] [address], [place], [place], [id number], [place] tel:[phone] [facility] Bipolar I disorderPTS D (post-traum atic stress disorder)Op ioid use disorder, mild, in sustained remission, on maintenance therapy [address], [id number], [place]. tel:[phone] [facility], [address], [place], [place], [id number], [place] tel:[phone] [facility] Bipolar I disorderPTS D (post-traum atic stress disorder)Op ioid use disorder, mild, in sustained remission, on maintenance therapyAlco hol dependence in remission 1 Navin [place]ales. [place] [id number], [place]. tel:[phone] [facility], [address] [facility] [address], [place], [place], [id number], [place] tel:[phone] [facility] Opioid use disorder, moderate, in sustained remission, on maintenance therapyBipo lar I disorderPTS D (post-traum atic stress disorder) 1 Navin Rosales. [employer] [place], [place], [id number], [place]. tel:[phone] [facility], [address] [facility] [address], [place], [place], [id number], [place] tel:[phone] Tele [facility] Opioid use disorder, mild, in sustained remission, on maintenance therapyPTSD (post-traum atic stress disorder)Bi polar I disorderAlc ohol dependence in remission 0 Navin Rosales. [address] [place] [address], [id number], [place]. tel:[phone] [facility], [address] [place] [address] [address], [place], [id number], [place] tel:[phone] Tele [facility] MAT (chief complaint) Major depressive disorder, recurrent, moderateEnc ounter for monitoring Suboxone maintenance therapyOpio id use disorder, mild, in sustained remission, on maintenance therapy 0 No Informatio n AUDIT/DAST, 15-30 MIN [facility], [address] [place] [address] 2,[address], [place], [place], [id number], [place] tel:[phone] Tele [facility] chronic conditions (chief complaint) Family history of lung cancerFamil y history of gallbladder diseaseLeft hamstring injury, subsequent encounterMa gilbert depressive disorder, recurrent, moderate 0 Jeff Marquez. [address] [place] [address], [id number]. tel:[phone] [facility], [address] [facility] [address], [place], [place], [id number], [place] tel:[phone] Tele [facility] Bipolar I disorderPTS D (post-traum atic stress disorder)Op ioid use disorder, moderate, in sustained remission, on maintenance therapy 0 Navin Bobby. [address] [place] [address], [id number], [place]. tel:[phone] [facility], [address] [facility] [address], [place], [id number], [place] tel:[phone] Tele [facility] Bipolar I disorderPTS D (post-traum atic stress disorder)Op ioid use disorder, moderate, in sustained remission, on maintenance therapy Dec-0 4- 0 [facility]. [address] [place] [address], [id number], [place]. tel:[phone] [facility], [address] [facility] [address], [place], [place], [id number], [place] tel:[phone] [facility] Opioid use disorder, moderate, in sustained remission, on maintenance therapyMajo r depressive disorder, recurrent, moderateBip olar I disorderPTS D (post-traum atic stress disorder)Al cohol dependence in remissionGr ief [address], [id number], [place]. tel:[phone] [facility], [address] [place] [address] 2,[address], [place], [place], [id number], [place] tel:[phone] Tele [facility] TELEVISIT (chief complaint) Encounter for monitoring Suboxone maintenance therapyGrie f [address], [id number], [place]. tel:[phone] [facility], [address] [facility] [address], [place], [place], [id number], [place] tel:[phone] [facility] Bipolar I disorderPTS D (post-traum atic stress disorder)Op ioid use disorder, mild, in sustained remission, on maintenance therapyAlco hol dependence in remissionGr ief 0 [facility] Bobby. [address] [place] [address], [id number], [place]. tel:[phone] [facility], [address] [facility] [address], [place], [place], [id number], [place] tel:[phone] Tele [facility] Bipolar I disorderOpi oid use disorder, mild, in sustained remission, on maintenance therapyMajo r depressive disorder, severePTSD (post-traum atic stress disorder) Oct-3 0-202 0 [facility] Bobby. [address] [place] [address], [id number], [place]. tel:[phone] [facility], [address] [facility] [address], [place], [place], [id number], [place] tel:[phone] Tele [facility] Bipolar I disorderAlc ohol dependence in remissionMa gilbert depressive disorder, severePTSD (post-traum atic stress disorder)Op ioid use disorder, mild, in sustained remission, on maintenance therapy 0 Navin Bobby. [address] [place] [address], [id number], [place]. tel:[phone] [facility], [address] [place] [address] 2,[address], [place], [place], [id number], [place] tel:[phone] [facility] MAT (chief complaint) Encounter for monitoring Suboxone maintenance therapyExpo sure to STD 0 Magda Bobo. [address] [place] [address], [id number], [place]. tel:[phone] OFFICE/OUTPATI ENT VISIT, EST [facility], [address] [facility] [address], [place], [place], [id number], [place] tel:[phone] [facility] leg pain (chief complaint)ch ronic conditions (chief complaint) Exposure to STDLeft hamstring injury, subsequent encounterAl cohol use disorder, moderate, in early remissionBi polar affective disorder, currently depressed, moderateEss ential (primary) hypertensio n 0 Jeff Marquez. [address] [place] [address], [id number]. tel:[phone] [facility], [address] [facility] [address], [place], [place], [id number], [place] tel:[phone] [facility] Bipolar I disorderPTS D (post-traum atic stress disorder)Op ioid use disorder, mild, in sustained remission, on maintenance therapyAlco hol dependence in remission 0 Navin Rosales. [address] [place] [address], [id number], [place]. tel:[phone] [facility], [address] [facility] [employer] [facility] [address], [place], [id number], [place] tel:[phone] [facility] Opioid use disorder, moderate, in sustained remission, on maintenance therapyBipo lar I disorderAlc ohol dependence in remissionPT SD (post-traum atic stress disorder) 0 Navin Rosales. [address] [place] [address], [id number], [place]. tel:[phone] [facility], [address] [facility] [employer] [facility],[address], [place], [place], [id number], [place] tel:[phone] [facility] Bipolar I disorderPTS D (post-traum atic stress disorder)Op ioid use disorder, mild, in sustained remission, on maintenance therapyAlco hol dependence in remission 0 Navin Rosales. [address] [place] [address], [id number], [place]. tel:[phone] [facility], [address] [facility] por[facility] 2,[address], [place], [place], [id number], [place] tel:[phone] [facility] [employer] No Information 0 [employer]. . [facility], [address] [facility],[address], [place], [place], [id number], [place] tel:[phone] [facility] BP check (chief complaint) BP check 0 No Informatio n [facility], [address] [facility] porter [address], [place], [place], [id number], [place] tel:[phone] Tele [facility] Opioid use disorder, moderate, in sustained remission, on maintenance therapyAlco hol use disorder, moderate, in sustained remissionBi polar I disorderPTS D (post-traum atic stress disorder)An ticipatory grieving May-0 2 0 Navin Rosales. [address] [place] [address], [id number], [place]. tel:[phone] [facility], [address] [place] [address] 2,[address], [place], [place], [id number], [place] tel:[phone] Tele [facility] chronic conditions (chief complaint)br uising tendency (chief complaint) Bruising tendencyMig chemo with aura and without status migrainosus , not intractable Essential (primary) hypertensio nMild persistent asthma in adult without complicatio n Sep-2 0 Jeff Marquez. [address] [place] [address], [id number]. tel:[phone] [facility], [address] [place] [address] 2,[address], [place], [place], [id number], [place] tel:[phone] Tele [facility] OUD (chief complaint) Opioid use disorder, mild, in sustained remission, on maintenance therapyEnco unter for monitoring Suboxone maintenance therapyHead ache Sep-2 0 No Informatio n [facility], [address] [place] [address] 2,[address], [place], [place], [id number], [place] tel:[phone] [facility] Opioid use disorder, mild, in sustained remission, on maintenance therapyBipo lar I disorderAlc ohol use disorder, moderate, in sustained remissionPT SD (post-traum atic stress disorder) Sep-2 0 Navin Rosales. [address] [place] [address], [id number], [place]. tel:[phone] [facility], [address] [place] [address] 2,[address], [place], [place], [id number], [place] tel:[phone] [facility] mat (chief complaint) Proc/trtmt not crd out d/t pt l[facility] provProc/tr tmt not crd out d/t pt lv bef seen by [facility] care prov Sep-2 0 Azajosephine oBbo. [address] [place] [address], [id number], [place]. tel:[phone] [facility], [address] [facility] [address], [place], [id number], [place] tel:[phone] Tele [facility] OUD (chief complaint) Opioid use disorder, mild, in sustained remission, on maintenance therapyEnco unter for monitoring Suboxone maintenance therapyHome lessLeft leg pain Sep- 0 No Informatio n [facility], [address] [facility] [address], [place], [place], [id number], [place] tel:[phone] [facility] Bipolar I disorderPTS D (post-traum atic stress disorder)Op ioid use disorder, mild, in sustained remission, on maintenance therapyAlco hol use disorder, moderate, in sustained remission Sep- [address], [id number], . tel:[phone] [facility], [address] [place] [address] [facility] [address], [place], [place], [id number], [place] tel:[phone] Tele [facility] TELEVISIT (chief complaint) Encounter for monitoring Suboxone maintenance therapyPati ent left without being seenProc/tr tmt not crd out d/t pt lv bef seen by [facility] care prov Sep- 0 Toño Quezada. [address] [place] [address], [id number], . tel:[phone] [facility], [address] [facility] porter [address], [place], [id number], [place] tel:[phone] Tele [facility] Alcohol use disorder, moderate, in early remissionBi polar I disorderMaj or depressive disorder, recurrent, moderateOpi oid use disorder, mild, in sustained remission, on maintenance therapy Sep-0 0 Navin Rosales. [address] [place] [address], [id number], [place]. tel:[phone] [facility], [address] [facility] [address], [place], [id number], [place] tel:[phone] Tele [facility] Opioid use disorder, mild, in sustained remission, on maintenance therapyBipo lar I disorderPTS D (post-traum atic stress disorder) 0 Navin Garduno [address] [place] [address], [id number], [place]. tel:[phone] [facility], [address] [facility] [address], [place], [place], [id number], [place] tel:[phone] Tele [facility] Opioid use disorder, mild, in sustained remission, on maintenance therapyBipo lar I disorderPTS D (post-traum atic stress disorder) 0 Navin Rosales. [address] [place] [address], [id number], [place]. tel:[phone] [facility], [address] [facility] [address], [place], [place], [id number], [place] tel:[phone] [facility] Opioid use disorder, mild, in sustained remission, on maintenance therapyBipo lar I disorderAlc ohol dependence in remission 0 Navin Garduno [address] [place] [address], [id number], [place]. tel:[phone] [facility], [address] [facility] [address], [place], [place], [id number], [place] tel:[phone] [facility] Encounter for dental exam and cleaning w/o abnormal findings 0 Bryec Pena [address] [place] [address], [id number], [place]. tel:[phone] [facility], [address] [facility] [address], [place], [place], [id number], [place] tel:[phone] [facility] Bipolar I disorderOpi oid use disorder, moderate, in sustained remission, on maintenance therapyPTSD (post-traum atic stress disorder) 0 Navin Garduno [address] [place] [address], [id number], [place]. tel:[phone] [facility], [address] [facility] [address], [place], [place], [id number], [place] tel:[phone] [facility] Encounter for dental exam and cleaning w/o abnormal findings 0 Santhosh Turner. [address], [place], [id number], [place]. tel:[phone] [facility], [address] [facility] [employer] [facility],[address], [place], [place], [id number], [place] tel:[phone] Tele [facility] MAT (chief complaint) Encounter for monitoring Suboxone maintenance therapyOste oarthritis, unspecified osteoarthri tis type, unspecified site 0 Azarofsheldon oBbo. [address] [place] [address], [id number], [place]. tel:[phone] [facility], [address] [facility] [address], [place], [place], [id number], [place] tel:[phone] [facility] Opioid use disorder, moderate, in sustained remission, on maintenance therapyBipo lar I disorderPTS D (post-traum atic stress disorder)Al cohol use disorder, moderate, in early remission 0 Navin Rosales. [address] [place] [address], [id number], [place]. tel:[phone] [facility], [address] [facility] [facility],[address], [place], [place], [id number], [place] tel:[phone] [facility] Opioid use disorder, mild, in sustained remission, on maintenance therapyPTSD (post-traum atic stress disorder)Al cohol use disorder, moderate, in early remissionBi polar I disorder 0 Navin Rosales. [address] [place] [address], [id number], [place]. tel:[phone] [facility], [address] [facility] [address], [place], [place], [id number], [place] tel:[phone] [facility] [employer] No Information 0 [employer]. . [facility], [address] [facility] [address], [place], [place], [id number], [place] tel:[phone] Tele [facility] chest pain/left arm numbness (chief complaint)le ft leg injury (chief complaint) Chest pain, atypicalLef t leg pain 0 David Woodward. [address] [place] [address], [id number], [place]. tel:[phone] [facility], [address] [address],[address], [place], [place], [id number], [place] tel:[phone] Tele [facility] Opioid use disorder, mild, in early remission, on maintenance therapyAlco hol use disorder, moderate, in early remissionBi polar I disorderPTS D (post-traum atic stress disorder) 0 Navin BobbyVan [address] [place] [address], [id number], [place]. tel:[phone] [facility], [address] [place] [address] 2,[address], [place], [place], [id number], [place] tel:[phone] Tele [facility] MAT (chief complaint) Encounter for monitoring Suboxone maintenance therapyDiff iculty controlling angerHomele ss 0 No Informatio n [facility], [address] [place] [address] 2,[address], [place], [place], [id number], [place] tel:[phone] Tele [facility] Bipolar I disorderOpi oid use disorder, moderate, in sustained remission, on maintenance therapyAlco hol use disorder, moderate, in early remission 0 Holden Bobby. [address] [place] [address], [id number], [place]. tel:[phone] [facility], [address] [facility] [address], [place], [place], [id number], [place] tel:[phone] Tele [facility] OUD (chief complaint) Opioid use disorder, moderate, in sustained remission, on maintenance therapyEnco unter for monitoring Suboxone maintenance therapy 0 No Informandria trini [facility], [address] [facility] [address], [place], [place], [id number], [place] tel:[phone] Tele [facility] MAT/OBAT (chief complaint) Patient left without being seen 0 [facility] [address] [facility] [address], [place], [place], [id number], [place] tel:[phone] Tele [facility] Opioid use disorder, moderate, in sustained remission, on maintenance therapyBipo lar I disorderAlc ohol use disorder, moderate, in early remissionPT SD (post-traum atic stress disorder) 0 Navin Rosales. [address] [place] [address], [id number], [place]. tel:[phone] [facility], [address] [facility] [address], [place], [place], [id number], [place] tel:[phone] Tele [facility] Opioid use disorder, moderate, in sustained remission, on maintenance therapyBipo lar I disorderPTS D (post-traum atic stress disorder) 0 Navin Rosales. [address] [place] [address], [id number], [place]. tel:[phone] [facility], [address] [facility] [address], [place], [place], [id number], [place] tel:[phone] Tele [facility] OBAT/OUD (chief complaint) Opioid use disorder, moderate, in sustained remission, on maintenance therapyEnco unter for monitoring Suboxone maintenance therapy 0 [facility] [address] [facility] [address], [place], [place], [id number], [place] tel:[phone] Tele [facility] Opioid use disorder, moderate, in sustained remission, on maintenance therapyBipo lar I disorderPTS D (post-traum atic stress disorder) [address], [id number], [place]. tel:[phone] [facility], [address] [facility] [address], [place], [place], [id number], [place] tel:[phone] Tele [facility] Opioid use disorder, moderate, in sustained remission, on maintenance therapyBipo lar I disorder, most recent episode (or current) mixed, moderateAlc ohol use disorder, moderate, in early remissionPT SD (post-traum atic stress disorder) [address], [id number], [place]. tel:[phone] OFFICE/OUTPATI ENT VISIT, EST [facility], [address] [facility] [address], [place], [place], [id number], [place] tel:[phone] Tele [facility] MAT/OBAT (chief complaint) Opioid use disorder, mild, on maintenance therapy 0 No Informatio n [facility], [address] [facility] [address], [place], [place], [id number], [place] tel:[phone] Tele [facility] Alcoholism in remissionBi polar I disorder, most recent episode (or current) mixed, moderateOpi oid use disorder, mild, on maintenance therapyPTSD (post-traum atic stress disorder)Gr ief reaction Nov- [address], [id number], [place]. tel:[phone] [facility], [address] [facility] [address], [place], [place], [id number], [place] tel:[phone] Tele [facility] Opioid use disorder, mild, in early remission, on maintenance therapyAlco holism in remissionPT SD (post-traum atic stress disorder) 0 Navin Rosales. [address] [facility], [place], [place], [id number], [place]. tel:[phone] OFFICE/OUTPATI ENT VISIT, EST [facility], [address] [facility] [address], [place], [place], [id number], [place] tel:[phone] [facility] medicated addiction treatment (chief complaint) Muscle crampsOpioi d use disorder, mild, in sustained remission, on maintenance therapyEnco unter for monitoring Suboxone maintenance therapy 0 No Informatio n OFFICE/OUTPATI ENT VISIT, EST [facility], [address] [facility] [address], [place], [place], [id number], [place] tel:[phone] [facility] MAT (chief complaint)ch ronic conditions (chief complaint)ch ronic conditions (chief complaint) Encounter for monitoring Suboxone maintenance therapy 0 No Informatio n [facility], [address] [facility] [address], [place], [place], [id number], [place] tel:[phone] [facility] Opioid use disorder, mild, in sustained remission, on maintenance therapyPTSD (post-traum atic stress disorder)Al cohol dependence in remission 0 Navin Garduno [address] [place] [address], [id number], [place]. tel:[phone] [facility], [address] [facility] [address], [place], [place], [address], [place] tel:[phone] [facility] Opioid use disorder, mild, in sustained remission, on maintenance therapyAlco hol dependence in remissionPT SD (post-traum atic stress disorder) 0 Navin Rosales. [address] [place] [address], [place], [place], [id number], [place]. tel:[phone] OFFICE/OUTPATI ENT VISIT, EST [facility], [address] [facility] [address], [place], [place], [id number], [place] tel:[phone] [facility] MAT (chief complaint) Encounter for monitoring Suboxone maintenance therapyOpio id use disorder, moderate, in sustained remission, on maintenance therapy 0 No Informatio n [facility], [address] [facility] [address], [place], [place], [id number], [place] tel:[phone] [facility] PTSD (post-traum atic stress disorder)Al cohol dependence in remissionOp ioid use disorder, mild, in sustained remission, on maintenance therapy [address], [id number], [place]. tel:[phone] [facility], [address] [facility] [address], [place], [place], [id number], [place] tel:[phone] [facility] Major depressive disorder, recurrent, moderatePTS D (post-traum atic stress disorder)Op ioid use disorder, mild, in sustained remission, on maintenance therapyAlco hol dependence in remission 9 [facility]. [address] [place] [address], [id number], [place]. tel:[phone] [facility], [address] [facility] [address], [place], [place], [id number], [place] tel:[phone] [facility] Major depressive disorder, recurrent, moderatePTS D (post-traum atic stress disorder)Op ioid use disorder, moderate, in sustained remission, on maintenance therapyAlco hol dependence in remission 9 Holden Bobby. [place], [id number], [place]. tel:[phone] OFFICE/OUTPATI ENT VISIT, EST [facility], [address] [facility] [address], [place], [place], [id number], [place] tel:[phone] [facility] MAT (chief complaint) Encounter for monitoring Suboxone maintenance therapy 9 Magda Bobo. [address] [place], [place], [id number], [place]. tel:[phone] [facility], [address] [facility] [address], [place], [place], [address], [place] tel:[phone] [facility] PTSD (post-traum atic stress disorder)Ma gilbert depressive disorder, recurrent, moderateOpi oid use disorder, moderate, in sustained remission, on maintenance therapyAlco hol use disorder, moderate, in early remission 9 [facility] Bobby. [address] [place] [address], [id number], [place]. tel:[phone] [facility], [address] [facility] [address], [place], [place], [id number], [place] tel:[phone] [facility] PTSD (post-traum atic stress disorder)Al cohol use disorder, moderate, in early remissionOp ioid use disorder, moderate, in sustained remission, on maintenance therapy 9 [facility]. [address] [place] [address], [id number], [place]. tel:[phone] OFFICE/OUTPATI ENT VISIT, EST [facility], [address] [facility] [address], [place], [place], [id number], [place] tel:[phone] [facility] MAT (chief complaint) Encounter for monitoring Suboxone maintenance therapy 9 Magda Bobo. [address] [place], [place], [id number], [place]. tel:[phone] [facility], [address] [facility] [address], [place], [place], [address], [place] tel:[phone] [facility] PTSD (post-traum atic stress disorder)Op ioid use disorder, moderate, in sustained remission, on maintenance therapyAlco holism in remissionMa gilbert depressive disorder, recurrent, moderate 9 [facility] Bobby. [address] [place], [place], [id number], [place]. tel:[phone] [facility], [address] [facility] [address] [facility] [address], [place], [place], [id number], [place] tel:[phone] [facility] Opioid use disorder, moderate, in sustained remission, on maintenance therapyAlco hol dependence in remissionPT SD (post-traum atic stress disorder) 9 Navin Rosales. [address] [place] [address], [id number], [place]. tel:[phone] OFFICE/OUTPATI ENT VISIT, EST [facility], [address] [facility] [address] [facility] [address], [place], [place], [id number], [place] tel:[phone] [facility] MAT (chief complaint) Encounter for monitoring Suboxone maintenance therapy 9 Magda Bobo. [address] [place] [address], [id number], [place]. tel:[phone] [facility], [address] [facility] [address], [place], [place], [id number], [place] tel:[phone] [facility] Opioid use disorder, moderate, in sustained remission, on maintenance therapyMajo r depressive disorder, recurrent, mild Apr-2 9 Navin Rosales. [address] [place] [address], [id number], [place]. tel:[phone] OFFICE/OUTPATI ENT VISIT, EST [facility], [address] [facility] [address], [place], [place], [address], [place] tel:[phone] [facility] Medicated Addiction Treatment (chief complaint) Opioid use disorder, moderate, on maintenance therapy Apr- 9 No Informatio n [facility], [address] [facility] [address], [place], [place], [id number], [place] tel:[phone] [facility] Opioid use disorder, moderate, in sustained remission, on maintenance therapyAlco hol dependence in remissionPT SD (post-traum atic stress disorder) Sep-0 9 Navin Rosales. [address] [place], [place], [id number], [place]. tel:[phone] [facility], [address] [facility] [address], [place], [address], [place] tel:[phone] [facility] PTSD (post-traum atic stress disorder)Op ioid use disorder, moderate, in sustained remission, on maintenance therapyAlco holism in remission 9 Navin Rosales. [address] [place] [address], [id number], [place]. tel:[phone] [facility], [address] [facility] [address], [place], [id number], [place] tel:[phone] [facility] Alcohol use disorder, moderate, in sustained remissionPT SD (post-traum atic stress disorder)Op ioid use disorder, mild, in sustained remission, on maintenance therapy 9 Navin Rosales. [address] [place], [place], [id number], [place]. tel:[phone] [facility], [address] [facility] [address], [place], [address], [place] tel:[phone] [facility] Immunization (chief complaint) Encounter for immunizatio n 9 No Informatio n OFFICE/OUTPATI ENT VISIT, EST [facility], [address] [facility] [address], [place], [place], [id number], [place] tel:[phone] [facility] chronic conditions (chief complaint) Encounter for monitoring Suboxone maintenance therapyOpio id use disorder, mild, on maintenance therapyAlco hol use disorder, moderate, in early remissionMi graine with aura and without status migrainosus , not intractable 9 No Informatio n [facility], [address] [facility] [address], [place], [id number], [place] tel:[phone] [facility] Alcohol use disorder, moderate, in early remissionPT SD (post-traum atic stress disorder)Op ioid use disorder, mild, on maintenance therapy 9 Navin Rosales. [address] [place] [address], [id number], [place]. tel:[phone] [facility], [address] [facility] [address], [place], [place], [id number], [place] tel:[phone] [facility] Opioid use disorder, mild, on maintenance therapyPTSD (post-traum atic stress disorder)Al cohol dependence in remission 9 [facility] Bobby. [address] [place], [place], [id number], [place]. tel:[phone] [facility], [address] [facility] [address], [place], [place], [address], [place] tel:[phone] [facility] Opioid use disorder, mild, on maintenance therapyPTSD (post-traum atic stress disorder) 9 [facility] Bobby. [address] [place] [address], [id number], [place]. tel:[phone] [facility], [address] [facility] [address], [place], [place], [address], [place] tel:[phone] [facility] Opioid use disorder, mild, on maintenance therapyAlco hol dependence in remissionPT SD (post-traum atic stress disorder) 9 [facility] Bobby. [address] [place], [place], [address], [place]. tel:[phone] [facility], [address] [facility] [address], [place], [place], [address], [place] tel:[phone] [facility] Alcohol dependence in remissionOp ioid use disorder, mild, on maintenance therapyPTSD (post-traum atic stress disorder) 9 [facility] Bobby. [address] [place] [address], [id number], [place]. tel:[phone] [facility], [address] [place] [address] 2,[address], [place], [place], [address], [place] tel:[phone] [facility] Alcohol dependence in early full remissionOp ioid use disorder, mild, on maintenance therapyPTSD (post-traum atic stress disorder) [address], [id number], [place]. tel:[phone] OFFICE/OUTPATI ENT VISIT, EST [facility], [address] [facility] [address], [place], [place], [address], [place] tel:[phone] [facility] conditions (chief complaint) Encounter for monitoring Suboxone maintenance therapyAlco hol use disorder, moderate, in early remission 9 No Informatio n OFFICE/OUTPATI ENT VISIT, EST [facility], [address] [place] [address] 2,[address], [place], [place], [address], [place] tel:[phone] [facility] chronic conditions (chief complaint) Migraine with aura and without status migrainosus , not intractable Abscess 9 [facility]. [address] [place] [address], [id number], [place]. tel:[phone] [facility], [address] [place] [address] 2,[address], [place], [place], [address], [place] tel:[phone] [facility] Alcohol dependence in early full remissionOp ioid use disorder, mild, on maintenance therapyPTSD (post-traum atic stress disorder) [address], [id number], [place]. tel:[phone] [facility], [address] [place] [address] 2,[address], [place], [place], [address], [place] tel:[phone] [facility] PTSD (post-traum atic stress disorder)Op ioid use disorder, mild, on maintenance therapyAlco hol use disorder, moderate, in early remission 9 Holden Bobby. [address] [place], [place], [id number], [place]. tel:[phone] [facility], [address] [facility] [address], [place], [place], [address], [place] tel:[phone] [facility] PTSD (post-traum atic stress disorder)Op ioid use disorder, mild, on maintenance therapyAlco hol use disorder, moderate, in early remission 9 [facility] Bobby. [address] [place] [address], [id number], [place]. tel:[phone] OFFICE/OUTPATI ENT VISIT, EST [facility], [address] [place] [address] 2,[address], [place], [place], [address], [place] tel:[phone] [facility] conditions (chief complaint) Encounter for monitoring Suboxone maintenance therapyEsse ntial (primary) hypertensio nRoutine screening for STI (sexually transmitted infection) 9 No Informatio n [facility], [address] [facility] [address], [place], [place], [address], [place] tel:[phone] [facility] PTSD (post-traum atic stress disorder)Op ioid use disorder, mild, on maintenance therapyAlco hol dependence in early full remission 9 [facility]. [address] [place] [address], [id number], [place]. tel:[phone] [facility], [address] [facility] [address], [place], [place], [address], [place] tel:[phone] [facility] Opioid use disorder, mild, on maintenance therapyAlco hol dependence in remissionPT SD (post-traum atic stress disorder) 9 [facility]. [address] [place], [place], [address], [place]. tel:[phone] [facility], [address] [place] [address] 2,[address], [place], [place], [address], [place] tel:[phone] [facility] No Information 9 Jeff Marquez. [address] [place], [place], [id number]. tel:[phone] [facility], [address] [facility] [address], [place], [place], [address], [place] tel:[phone] [facility] Major depressive disorder, recurrent, moderateOpi oid use disorder, mild, on maintenance therapyAlco hol dependence in remission 9 Navin Rosales. [address] [place], [place], [id number], [place]. tel:[phone] OFFICE/OUTPATI ENT VISIT, EST [facility], [address] [place] [address] 2,[address], [place], [place], [address], [place] tel:[phone] [facility] chronic conditions (chief complaint) Encounter for monitoring Suboxone maintenance therapyAlco hol use disorder, moderate, in early remissionBi lateral post-trauma tic osteoarthri tis of hip 9 No Informatio n [facility], [address] [place] [address] 2,[address], [place], [place], [address], [place] tel:[phone] [facility] Opioid use disorder, mild, on maintenance therapyAlco hol dependence in remissionPT SD (post-traum atic stress disorder)Ma gilbert depressive disorder, recurrent, moderate 9 Navin Rosales. [address] [place], [place], [id number], [place]. tel:[phone] [facility], [address] [facility] [address], [place], [place], [address], [place] tel:[phone] [facility] Encounter for dental exam and cleaning w/o abnormal findings 9 Santhosh Turner. [address] [place], [place], [address], [place]. tel:[phone] OFFICE/OUTPATI ENT VISIT, EST [facility], [address] [facility] [address], [id number], [place] tel:[phone] [facility] chronic conditions (chief complaint) Opioid use disorder, moderate, on maintenance therapyAlco hol use disorder, moderate, in sustained remissionEn counter for monitoring Suboxone maintenance therapy Apr-0 9 [facility]. [address] [place] [address], [id number], [place]. tel:[phone] [facility], [address] [facility] [address], [place], [place], [id number], [place] tel:[phone] [facility] Alcohol dependence in remissionOp ioid use disorder, mild, on maintenance therapyMajo r depressive disorder, recurrent, moderatePTS D (post-traum atic stress disorder) Oct- [address], [id number], [place]. tel:[phone] OFFICE/OUTPATI ENT VISIT, EST [facility], [address] [facility] [address], [place], [place], [address], [place] tel:[phone] [facility] chronic conditions (chief complaint) Opioid use disorder, moderate, on maintenance therapyEnco unter for monitoring Suboxone maintenance therapyChro tank pain syndromeAlc ohol use disorder, moderate, in sustained remissionOr al lesion Oct-2 9 No Informatio n [facility], [address] [facility] [address], [place], [place], [address], [place] tel:[phone] [facility] Alcohol dependence in remissionOp ioid use disorder, moderate, on maintenance therapyPTSD (post-traum atic stress disorder)Ma gilbert depressive disorder, recurrent, mild Oct-2 0 9 [facility]. [address] [place] [address], [id number], [place]. tel:[phone] [facility], [address] [facility] [address], [place], [address], [place] tel:[phone] [facility] Opioid use disorder, mild, on maintenance therapyPTSD (post-traum atic stress disorder)Ep isode of recurrent major depressive disorder, unspecified depression episode severity 9 Holden Bobby. [address] [place] [address], [id number], [place]. tel:[phone] OFFICE/OUTPATI ENT VISIT, [facility], [address] [facility] [address], [place], [place], [address], [place] tel:[phone] [facility] chronic conditions (chief complaint) Opioid use disorder, moderate, on maintenance therapyEnco unter for monitoring Suboxone maintenance therapyOthe r chcf (current) drug therapy 9 No Informatidimitrios feliz [facility], [address] [place] [address] 2,[address], [place], [place], [address], [place] tel:[phone] [facility] Opioid use disorder, mild, on maintenance therapyPTSD (post-traum atic stress disorder)Ma gilbert depressive disorder, recurrent, moderate 9 [facility] Bobby. [address] [place] [address], [id number], [place]. tel:[phone] OFFICE/OUTPATI ENT VISIT, [facility], [address] [facility] [address], [place], [place], [address], [place] tel:[phone] [facility] chronic conditions (chief complaint) Opioid use disorder, moderate, on maintenance therapyEsse ntial (primary) hypertensio nHyperurice yaneli w/o signs of inflam arthrit and tophaceous dis 9 No Informatio trini [facility], [address] [facility] [address], [place], [place], [address], [place] tel:[phone] [facility] Opioid use disorder, mild, on maintenance therapyPTSD (post-traum atic stress disorder)Ma gilbert depressive disorder, recurrent, mild 9 [facility] [address], [id number], [place]. tel:[phone] [facility], [address] [facility] [facility] [address], [place], [place], [address], [place] tel:[phone] [facility] Opioid use disorder, mild, on maintenance therapyAlco hol dependence in remissionPT SD (post-traum atic stress disorder) 9 Holden Bobby. [address] [place] [address], [id number], [place]. tel:[phone] OFFICE/OUTPATI ENT VISIT, EST [facility], [address] [facility],[address], [place], [place], [address], [place] tel:[phone] [facility] chronic conditions (chief complaint) Opioid use disorder, moderate, on maintenance therapyEnco unter for monitoring Suboxone maintenance therapyCoff ee ground emesis 8 No Informatio n [facility], [address] [facility] [address], [place], [place], [address], [place] tel:[phone] [facility] Encounter for dental exam and cleaning w/o abnormal findings 8 No Informatio n [facility], [address] [facility] [address], [place], [place], [address], [place] tel:[phone] [facility] Opioid use disorder, moderate, on maintenance therapyBipo lar I disorderPTS D (post-traum atic stress disorder) 8 Navin Rosales. [address] [place] [address], [id number], [place]. tel:[phone] [facility], [address] [facility],[address], [place], [place], [address], [place] tel:[phone] [facility] Encounter for dental exam and cleaning w/o abnormal findings 8 No Informatio n [facility], [address] [facility] [address], [place], [place], [id number], [place] tel:[phone] [facility] Encounter for dental exam and cleaning w/o abnormal findings 8 No Informatio n [facility], [address] [facility] [address], [place], [place], [id number], [place] tel:[phone] [facility] Encounter for dental exam and cleaning w/o abnormal findings 8 Mili Salinas. [address] [place] [address], [id number], [place]. tel:[phone] OFFICE/OUTPATI ENT VISIT, EST [facility], [address] [facility] [address], [place], [place], [id number], [place] tel:[phone] [facility] (chief complaint) Opioid use disorder, moderate, on maintenance therapyMusc le cramps 8 Toño Quezada. [address] [place] [address], [id number], [place]. tel:[phone] [facility], [address] [facility] [address], [place], [place], [id number], [place] tel:[phone] [facility] Encounter for dental exam and cleaning w/o abnormal findings 8 No Informatio n [facility], [address] [facility] [address], [place], [place], [id number], [place] tel:[phone] [facility] Opioid use disorder, moderate, on maintenance therapyMajo r depressive disorder, recurrent, moderateAlc ohol dependence in early, early partial, sustained full, or sustained partial remission 8 Navin Rosales. [address] [place] [address], [id number], [place]. tel:[phone] OFFICE/OUTPATI ENT VISIT, EST [facility], [facility] [address], [place], [place], [id number], [place] tel:[phone] [facility] chronic conditions (chief complaint) Opioid use disorder, moderate, on maintenance therapyEnco unter for monitoring Suboxone maintenance therapy 8 Toño Quezada. [address] [place], [place], [id number], [place]. tel:[phone] [facility], [address] [facility] [address], [place], [place], [id number], [place] tel:[phone] [facility] Bipolar I disorderOpi oid use disorder, moderate, on maintenance therapy 8 Navin Rosales. [address] [place] [address], [id number], [place]. tel:[phone] [facility], [address] [facility] [address], [place], [place], [address], [place] tel:[phone] [facility] Opioid use disorder, moderate, on maintenance therapyBipo lar I disorder 8 [facility] Bobby. [address] [place] [address], [id number], [place]. tel:[phone] [facility], [address] [facility] [address], [place], [place], [address], [place] tel:[phone] [facility] Opioid use disorder, moderate, on maintenance therapyBipo lar I disorder 8 Navin Rosales. [address] [place] [address], [id number], [place]. tel:[phone] OFFICE/OUTPATI ENT VISIT, EST [facility], [address] [facility] [address], [place], [place], [id number], [place] tel:[phone] [facility] chronic conditions (chief complaint) Lumbar radiculopat hy, chronicEnco unter for monitoring Suboxone maintenance therapyEsse ntial (primary) hypertensio nChronic pain syndromeMil d persistent asthma with exacerbatio nRight-side d tinnitus 8 Jeff Marquez. [address] [place], [place], [id number]. tel:[phone] [facility], [address] [facility] [address], [place], [place], [id number], [place] tel:[phone] [facility] Bipolar I disorderOpi oid use disorder, moderate, on maintenance therapy Apr- 8 Navin Rosales. [address] [place], [place], [id number], [place]. tel:[phone] OFFICE/OUTPATI ENT VISIT, EST [facility], [address] [facility],[address], [place], [place], [id number], [place] tel:[phone] [facility] MAT (chief complaint) Encounter for monitoring Suboxone maintenance therapyChro tank pain syndrome Apr-0 8 No Informatio n [facility], [address] [facility] [address], [place], [place], [id number], [place] tel:[phone] [facility] Bipolar I disorderOpi oid use disorder, moderate, on maintenance therapy Apr-0 8 Navin Rosales. [address], [place], [id number], [place]. tel:[phone] [facility], [address] [facility],[address], [place], [place], [id number], [place] tel:[phone] [facility] Opioid use disorder, moderate, dependenceB ipolar I disorder 8 Navin Rosales. [address] [place] [address], [id number], [place]. tel:[phone] [facility], [address] [facility],[address], [place], [place], [id number], [place] tel:[phone] [facility] Bipolar I disorderOpi oid use disorder, moderate, on maintenance therapy 8 Navin Rosales. [address], [place], [id number], [place]. tel:[phone] OFFICE/OUTPATI ENT VISIT, EST [facility], [address] [facility] [address], [place], [place], [id number], [place] tel:[phone] [facility] chronic conditions (chief complaint) Chronic pain syndromeEnc ougenieer for monitoring Suboxone maintenance therapy 8 Jeff Marquez. [address] [place], [place], [id number]. tel:[phone] OFFICE/OUTPATI ENT VISIT, EST [facility], [address] [facility] [address], [place], [place], [address], [place] tel:[phone] [facility] (chief complaint) Opioid use disorder, moderate, in sustained remission, on maintenance therapyEnco rubin for monitoring Suboxone maintenance therapy 8 Toño Quezada. [address] [place], [place], [id number], [place]. tel:[phone] [facility], [address] [place] [address] 2,[address], [place], [place], [address], [place] tel:[phone] [facility] Bipolar I disorderOpi oid use disorder, moderate, on maintenance therapy 8 Navin Rosales. [address] [place] [address], [id number], [place]. tel:[phone] [facility], [address] [facility] [address], [place], [place], [address], [place] tel:[phone] [facility] Bipolar I disorderOpi oid use disorder, moderate, in sustained remission, on maintenance therapy 8 Navin Rosales. [address], [place], [id number], [place]. tel:[phone] [facility], [address] [facility] [address], [place], [place], [address], [place] tel:[phone] [facility] Opioid use disorder, moderate, on maintenance therapyBipo lar I disorder 8 Navin Rosales. [address] [place] [address], [id number], [place]. tel:[phone] OFFICE/OUTPATI ENT VISIT, EST [facility], [address] [facility] [address], [place], [place], [id number], [place] tel:[phone] [facility] chronic conditions (chief complaint) Opioid use disorder, moderate, on maintenance therapyChro tank pain syndrome 8 No Informatio n [facility], [address] [facility] [address], [place], [place], [id number], [place] tel:[phone] [facility] No Information 8 [employer]. . [facility], [address] [facility] [address], [place], [place], [address], [place] tel:[phone] [facility] Opioid use disorder, moderate, on maintenance therapyBipo lar 1 disorder [address], [id number], . tel:[phone] OFFICE/OUTPATI ENT VISIT, EST [facility], [address] [facility] [address], [place], [place], [address], [place] tel:[phone] [facility] chronic conditions (chief complaint) Opioid use disorder, moderate, on maintenance therapyEnco unter for monitoring Suboxone maintenance therapy [address], [id number], . tel:[phone] OFFICE/OUTPATI ENT VISIT, EST [facility], [address] [facility] [address], [place], [place], [address], [place] tel:[phone] [facility] chronic conditions (chief complaint) Opioid use disorder, moderate, on maintenance therapy, dependenceE ncounter for monitoring Suboxone maintenance therapy [address], [id number], . tel:[phone] [facility], [address] [facility] [address], [place], [place], [address], [place] tel:[phone] [facility] Bipolar affective disorder, current episode mixed, current episode severity unspecified PTSD (post-traum atic stress disorder)Op ioid use disorder, moderate, on maintenance therapy Apr-3 0-201 8 Navin Rosales. [address] [place] [address], [id number], [place]. tel:[phone] OFFICE/OUTPATI ENT VISIT, [facility], [address] [facility] [address], [place], [id number], [place] tel:[phone] [facility] chronic conditions (chief complaint) Opioid use disorder, moderate, on maintenance therapy, dependence Apr-0 2-201 8 Jeff Marquez. [address] [place] [address], [id number]. tel:[phone] OFFICE/OUTPATI ENT VISIT, [facility], [address] [facility] [address], [place], [address], [place] tel:[phone] [facility] chronic conditions (chief complaint) Opioid use disorder, moderate, in controlled environment Encounter for monitoring Suboxone maintenance therapy Mar-2 2- 8 Jeff Marquez. [address] [place] [address], [id number]. tel:[phone] [facility], [address] [facility] [address], [place], [address], [place] tel:[phone] [facility] Bipolar I disorderPTS D (post-traum atic stress disorder)Op ioid use disorder, moderate, on maintenance therapy, dependence Mar-1 9- 8 Navin Rosales. [address] [place] [address], [id number], [place]. tel:[phone] OFFICE/OUTPATI ENT VISIT, [facility], [address] [facility] [address], [place], [address], [place] tel:[phone] [facility] chronic conditions (chief complaint) Chronic pain syndromeOpi oid use disorder, moderate, in controlled environment Encounter for monitoring Suboxone maintenance therapyOthe r chcf (current) drug therapy 8 Jeff Marquez. [address] [place], [place], [id number]. tel:[phone] [facility], [address] [facility] [address], [id number], [place] tel:[phone] [facility] PTSD (post-traum atic stress disorder)Bi polar disorder, unspecified 8 Bharat Canseco. [address] [place], [place], [id number], [place]. tel:[phone] [facility], [address] [facility] [address], [address], [place] tel:[phone] [facility] Opioid use disorder, moderate, on maintenance therapyPTSD (post-traum atic stress disorder)Bi polar 1 disorder 8 Navin Rosales. [address] [place], [place], [id number], [place]. tel:[phone] OFFICE/OUTPATI ENT VISIT, EST [facility], [address] [facility] [address], [address], [place] tel:[phone] [facility] Follow Up of MAT (chief complaint) Opioid dependence in controlled environment Encounter for monitoring Suboxone maintenance therapyOthe r chcf (current) drug therapy 8 Jeff Marquez. [address] [place], [place], [id number]. tel:[phone] [facility], [address] [facility] [address], [address], [place] tel:[phone] [facility] PTSD (post-traum atic stress disorder)Bi polar disorder, unspecified 8 Adalimika Canseco. [address], [place], [id number], [place]. tel:[phone] OFFICE/OUTPATI ENT VISIT, EST [facility], [address] [facility],[address], [place], [place], [address], [place] tel:[phone] [facility] chronic conditions (chief complaint) Chronic pain syndrome 8 Jeff Marquez. [address] [place], [place], [id number]. tel:[phone] [facility], [address] [facility] [address], [place], [place], [address], [place] tel:[phone] [facility] Bipolar disorder, unspecified PTSD (post-traum atic stress disorder) 8 Adalimika Harleen. [address] [place] [address], [id number], [place]. tel:[phone] OFFICE/OUTPATI ENT VISIT, EST [facility], [address] [facility] [address], [place], [place], [address], [place] tel:[phone] [facility] chronic conditions (chief complaint) Chronic pain syndrome 8 No Informatio n OFFICE/OUTPATI ENT VISIT, EST [facility], [address] [facility] [address], [place], [place], [address], [place] tel:[phone] [facility] Follow Up of hospitalizat ion/meds (chief complaint) Chronic pain syndromeChr onic use of opiate drugs therapeutic purposes 8 Jeff Marquez. [address] [place], [place], [id number]. tel:[phone] [facility], [address] [facility] [address], [place], [place], [address], [place] tel:[phone] [facility] Bipolar affective disorder, depressed, severePTSD (post-traum atic stress disorder) 8 Bharat Canseco. [address] [place] [address], [id number], [place]. tel:[phone] [facility], [address] [facility] [address], [place], [address], [place] tel:[phone] [facility] Bipolar disorder, unspecified PTSD (post-traum atic stress disorder) 8 Bharat Canseco. [address], [place], [address], [place]. tel:[phone] [facility], [address] [facility] [address], [place], [place], [address], [place] tel:[phone] [facility] No Information 8 [employer]. . Consulting Provider: Robbi Chacon, [address] [place], [address]. tel:[phone] [facility], [address] [facility] [address], [place], [place], [address], [place] tel:[phone] [facility] Bipolar disorder, unspecified PTSD (post-traum atic stress disorder) 8 Adalimika Harleen. [address], [place], [address], [place]. tel:[phone] [facility], [address] [facility] [address], [place], [place], [address], [place] tel:[phone] [facility] Bipolar disorder, unspecified PTSD (post-traum atic stress disorder) 8 Adalimika Harleen. [address], [place], [address], [place]. tel:[phone] OFFICE/OUTPATI ENT VISIT, EST [facility], [address] [facility] [address], [place], [place], [address], [place] tel:[phone] [facility] chronic pain (chief complaint) Chronic pain syndrome 8 No Informatio n OFFICE/OUTPATI ENT VISIT, EST [facility], [address] [facility] [address], [place], [place], [address], [place] tel:[phone] [facility] Headache (chief complaint)Ot algia (chief complaint) Migraine with aura and without status migrainosus , not intractable Right ear pain 0 8 No Informatio n [facility], [address] [facility] [address], [place], [address], [place] tel:[phone] [facility] Bipolar disorder, unspecified PTSD (post-traum atic stress disorder) 8 [facility]. [address] [place] [address], [id number], [place]. tel:[phone] [facility], [address] [facility] [address], [place], [place], [address], [place] tel:[phone] [facility] Bipolar disorder, unspecified PTSD (post-traum atic stress disorder) 7 [facility]. [address] [place] [address], [id number], [place]. tel:[phone] [facility], [address] [facility] [address], [place], [place], [address], [place] tel:[phone] [facility] Bipolar disorder, unspecified PTSD (post-traum atic stress disorder) 7 Bharat Canseco. [address] [place] [address], [id number], [place]. tel:[phone] OFFICE/OUTPATI ENT VISIT, EST [facility], [address] [facility] [address], [place], [place], [address], [place] tel:[phone] [facility] chronic conditions (chief complaint) Chronic pain syndrome 7 No Informatio n [facility], [address] [facility] [address], [place], [place], [address], [place] tel:[phone] [facility] Bipolar disorder, unspecified PTSD (post-traum atic stress disorder) [address], [id number], [place]. tel:[phone] [facility], [address] [facility] [address], [place], [place], [address], [place] tel:[phone] [facility] Bipolar affective disorder, current episode hypomanicPT SD (post-traum atic stress disorder) [address] [facility]. [address] [place] [address], [id number], [place]. tel:[phone] [facility], [address] [facility] [address], [place], [place], [address], [place] tel:[phone] [facility] PTSD (post-traum atic stress disorder)Bi polar disorder, unspecified [address] [facility]. [address] [place] [address], [id number], [place]. tel:[phone] OFFICE/OUTPATI ENT VISIT, EST [facility], [address] [facility] [address], [place], [place], [address], [place] tel:[phone] [facility] chronic conditions (chief complaint)ba ck pain (chief complaint) Chronic pain syndrome 7 No Informatio n [facility], [address] [facility] [address], [place], [place], [address], [place] tel:[phone] [facility] PTSD (post-traum atic stress disorder)Bi polar disorder, unspecified [address] [facility]. [address] [place] [address], [id number], [place]. tel:[phone] [facility], [address] [facility] [address], [place], [place], [address], [place] tel:[phone] [facility] PTSD (post-traum atic stress disorder)Dina gilbert depressive disorder, recurrent, unspecified [address] [facility]. [address] [place] [address], [id number], [place]. tel:[phone] [facility], [address] [facility] [address], [place], [place], [address], [place] tel:[phone] [facility] Bipolar disorder, unspecified PTSD (post-traum atic stress disorder) 7 Bharat Harleen. [address] [place] [address], [id number], [place]. tel:[phone] OFFICE/OUTPATI ENT VISIT, EST [facility], [address] [facility] [address], [place], [place], [address], [place] tel:[phone] [facility] chronic conditions (chief complaint) Chronic pain syndromeAcu te idiopathic gout of multiple sites 7 Jeff Marquez. [address] [place] [address], [id number]. tel:[phone] [facility], [address] [place] [address] 2,[address], [place], [address], [place] tel:[phone] [facility] Bipolar disorder, unspecified PTSD (post-traum atic stress disorder) [address] [facility]. [address] [place] [address], [id number], [place]. tel:[phone] [facility], [address] [place] [address] 2,[address], [place], [address], [place] tel:[phone] [facility] Bipolar disorder, unspecified PTSD (post-traum atic stress disorder) [address] [facility]. [address] [place] [address], [id number], [place]. tel:[phone] [facility], [address] [facility] [address], [address], [place] tel:[phone] [facility] Bipolar disorder, unspecified PTSD (post-traum atic stress disorder) [address] [facility]. [address] [place] [address], [id number], [place]. tel:[phone] [facility], [address] [facility] [address], [id number], [place] tel:[phone] [facility] Bipolar disorder, unspecified PTSD (post-traum atic stress disorder) Sep- 5 7 Adalimika Canseco. [address] [place] [address], [id number], [place]. tel:[phone] OFFICE/OUTPATI ENT VISIT, EST [facility], [address] [facility] [address], [id number], [place] tel:[phone] [facility] chronic conditions (chief complaint) Chronic pain syndrome Sep- 7 Jeff Marquez. [address] [place] [address], [id number]. tel:[phone] [facility], [address] [facility] [address], [place], [address], [place] tel:[phone] [facility] Bipolar disorder, unspecified PTSD (post-traum atic stress disorder) Sep-0 8 7 Bharat Harleen. [address] [place] [address], [id number], [place]. tel:[phone] [facility], [address] [facility] [address], [place], [address], [place] tel:[phone] [facility] SOB Sep-0 7 Jeff Marquez. [address] [place], [place], [id number]. tel:[phone] [facility], [address] [facility] [address], [place], [id number], [place] tel:[phone] [facility] Bipolar disorder, unspecified PTSD (post-traum atic stress disorder) Mar-3 0 7 Bharat Harleen. [address] [place] [address], [id number], [place]. tel:[phone] OFFICE/OUTPATI ENT VISIT, EST [facility], [address] [facility] [address], [place], [place], [id number], [place] tel:[phone] [facility] chronic conditions (chief complaint) Chronic pain syndrome 7 No Informatio n [facility], [address] [facility] [address], [place], [place], [id number], [place] tel:[phone] [facility] Bipolar disorder, unspecified PTSD (post-traum atic stress disorder) 7 Bharat Harleen. [address] [place] [address], [id number], [place]. tel:[phone] OFFICE/OUTPATI ENT VISIT, EST [facility], [address] [facility] [address], [place], [place], [address], [place] tel:[phone] [facility] chronic conditions (chief complaint) Chronic use of opiate drugs therapeutic purposesChr onic pain syndromeMil d persistent asthma in adult without complicatio n 7 Jeff Marquez. [address] [place] [address], [id number]. tel:[phone] [facility], [address] [facility] [address], [place], [place], [id number], [place] tel:[phone] [facility] Bipolar affective disorder, depressed, severePTSD (post-traum atic stress disorder) 7 Bharat Rousseauine. [address], [place], [id number], [place]. tel:[phone] OFFICE/OUTPATI ENT VISIT, EST [facility], [address] [facility] [address], [place], [place], [address], [place] tel:[phone] [facility] migraines, neck and arm pain (chief complaint) Muscle cramps 7 Loree Caldwell. [address], [place], [id number], [place]. tel:[phone] OFFICE/OUTPATI ENT VISIT, [facility], [address] [facility] [address], [place], [place], [address], [place] tel:[phone] [facility] chronic conditions (chief complaint) Chronic pain syndrome 7 No Informatio n [facility], [address] [facility] [address], [place], [place], [id number], [place] tel:[phone] [facility] Bipolar affective disorder, currently depressed, moderatePTS D (post-traum atic stress disorder) 7 Bharat Canseco. [address] [place] [address], [id number], [place]. tel:[phone] OFFICE/OUTPATI ENT VISIT, [facility], [address] [facility] [address], [place], [place], [id number], [place] tel:[phone] [facility] (chief complaint) Chronic pain syndrome 7 No Informatio n OFFICE/OUTPATI ENT VISIT, [facility], [address] [facility] [address], [place], [place], [id number], [place] tel:[phone] [facility] (chief complaint) Chronic pain syndrome 7 No Informatio n [facility], [address] [facility] [address], [place], [place], [id number], [place] tel:[phone] [facility] Bipolar affective disorder, depressed, severePTSD (post-traum atic stress disorder) 7 Bharat Canseco. [address] [place] [address], [id number], [place]. tel:[phone] [facility], [address] [facility] [address], [place], [place], [id number], [place] tel:[phone] [facility] No Information 7 [employer]. . OFFICE/OUTPATI ENT VISIT, [facility], [address], [place], [place], [id number], [place] tel:[phone] [facility] conditions (chief complaint) Chronic pain syndromeBip olar affective disorder, currently depressed, moderateEss ential (primary) hypertensio n 7 Jeff Marquez. [address] [place] [address], [id number]. tel:[phone] [facility], [address] [facility] [address], [place], [place], [id number], [place] tel:[phone] [facility] Bipolar disorder, unspecified PTSD (post-traum atic stress disorder) 7 Bharat Earleton. [address] [place] [address], [id number], [place]. tel:[phone] OFFICE/OUTPATI ENT VISIT, EST [facility], [address] [facility],[address], [id number], [place] tel:[phone] [facility] (chief complaint) Chronic pain syndrome 7 No Informatio n [facility], [address] [facility] [address], [place], [place], [id number], [place] tel:[phone] [facility] Bipolar disorder, unspecified PTSD (post-traum atic stress disorder) 7 Adalimika Earleton. [address] [place] [address], [id number], [place]. tel:[phone] [facility], [address] [facility] [address], [place], [place], [id number], [place] tel:[phone] [facility] Bipolar disorder, unspecified PTSD (post-traum atic stress disorder) 7 Adalimika Rousseauine. [address] [place] [address], [id number], [place]. tel:[phone] [facility], [address] [facility] [address] [place] [address], [id number], [place] tel:[phone] [facility] Bipolar disorder, unspecified PTSD (post-traum atic stress disorder) 7 Bharat Canseco. [address] [place] [address], [id number], [place]. tel:[phone] [facility], [address] [facility] [address], [place], [place], [id number], [place] tel:[phone] [facility] Bipolar disorder, unspecified PTSD (post-traum atic stress disorder) 7 Bharat Harleen. [address] [place] [address], [id number], [place]. tel:[phone] [facility], [address] [facility] [address], [place], [place], [id number], [place] tel:[phone] [facility] Bipolar disorder, unspecified PTSD (post-traum atic stress disorder) 7 Bharat Canseco. [address] [place] [address], [id number], [place]. tel:[phone] OFFICE/OUTPATI ENT VISIT, EST [facility], [address] [facility],[address], [place], [place], [id number], [place] tel:[phone] [facility] conditions (chief complaint) Chronic pain syndromeChr onic use of opiate drugs therapeutic purposesEss ential (primary) hypertensio nMild persistent asthma in adult without complicatio n 7 Jeff Marquez. [address] [place] [address], [id number]. tel:[phone] [facility], [address] [facility],[address], [place], [place], [id number], [place] tel:[phone] [facility] back pain (chief complaint) Lumbar radiculopat hy, chronic 7 No Informatio n [facility], [address] [facility],[address], [place], [id number], [place] tel:[phone] [facility] PTSD (post-traum atic stress disorder)Bi polar disorder, unspecified Nov- 7 Bharat Harleen. [address] [place] [address], [id number], [place]. tel:[phone] [facility], [address] [place] [address] 2,[address], [place], [id number], [place] tel:[phone] [facility] PTSD (post-traum atic stress disorder)Bi polar affective disorder, currently depressed, moderate Oct- 8 7 [facility] [address] [place] [address], [id number], [place]. tel:[phone] OFFICE/OUTPATI ENT VISIT, [facility], [address] [place] [address] 2,[address], [place], [address], [place] tel:[phone] [facility] conditions (chief complaint) Other chronic painEssenti al (primary) hypertensio n Oct- 2 7 Jeff Mcgrathia. [address] [place] [address], [id number]. tel:[phone] OFFICE/OUTPATI ENT VISIT, [facility], [address] [place] [address] 2,[address], [place], [place], [id number], [place] tel:[phone] [facility] conditions (chief complaint) Essential (primary) hypertensio nLumbar radiculopat hy, chronic Oct- 0-201 7 No Informatio n [facility], [address] [place] [address] 2,[address], [place], [place], [id number], [place] tel:[phone] [facility] No Information Oct-0 6- 7 No Informatio n OFFICE/OUTPATI ENT VISIT, [facility], [address] [place] [address] 2,[address], [place], [place], [id number], [place] tel:[phone] [facility] conditions (chief complaint) Low back pain 0 7 No Informatio n [facility], [address] [place] [address] 2,[address], [place], [place], [id number], [place] tel:[phone] [facility] PTSD (post-traum atic stress disorder)Bi polar affective disorder, currently depressed, moderate Mar-0 7 Bharat Canseco. [address] [place] [address], [id number], [place]. tel:[phone] OFFICE/OUTPATI ENT VISIT, [facility], [address] [place] [address] 2,[address], [place], [place], [id number], [place] tel:[phone] [facility] conditions (chief complaint) Chronic pain syndrome 7 Jeff Marquez. [address] [place] [address], [id number]. tel:[phone] OFFICE/OUTPATI ENT VISIT, [facility], [address] [place] [address] 2,[address], [place], [place], [id number], [place] tel:[phone] [facility] conditions (chief complaint) Lumbar radiculopat hy, chronicEsse ntial (primary) hypertensio n 7 No Informati n [facility], [address] [place] [address] 2,[address], [place], [place], [id number], [place] tel:[phone] [facility] Bipolar affective disorder, currently depressed, moderatePTS D (post-traum atic stress disorder) 7 Bharat Canseco. [address] [place] [address], [id number], [place]. tel:[phone] OFFICE/OUTPATI ENT VISIT, [facility], [address] [place] [address] 2,[address], [place], [place], [id number], [place] tel:[phone] [facility] Follow Up of flu symptoms (chief complaint)Fo llow Up of pain (chief complaint) Chronic pain syndrome 7 Jeff Marquez. [address] [place], [place], [id number]. tel:[phone] [facility], [address] [facility] [address], [place], [id number], [place] tel:[phone] [facility] Bipolar affective disorder, currently depressed, moderatePTS D (post-traum atic stress disorder) 7 Bharat Canseco. [address] [place] [address], [id number], [place]. tel:[phone] OFFICE/OUTPATI ENT VISIT, EST [facility], [address] [place] [address] 2,[address], [place], [id number], [place] tel:[phone] [facility] flu symptoms (chief complaint)pa in management (chief complaint) InfluenzaCh ronic pain syndrome 7 Jeff Marquez. [address] [place], [place], [id number]. tel:[phone] [facility], [address] [facility] [address], [place], [address], [place] tel:[phone] [facility] routine exam (chief complaint) Hyperopia, bilateralVi samson exam with abnormal findingsChr onic anterior uveitis of right eye 7 No Informatio trini [facility], [address] [place] [address] 2,[address], [place], [id number], [place] tel:[phone] [facility] Bipolar affective disorder, currently depressed, moderatePTS D (post-traum atic stress disorder) 6 Bharat Canseco. [address] [place] [address], [id number], [place]. tel:[phone] [facility], [address] [facility] [address], [place], [id number], [place] tel:[phone] [facility] chronic conditions (chief complaint) Low back pain 6 No Informatio n [facility], [address] [facility] [address], [place], [id number], [place] tel:[phone] [facility] Bipolar affective disorder, currently depressed, moderatePTS D (post-traum atic stress disorder) 6 Bharat Harleen. [address] [place] [address], [id number], [place]. tel:[phone] OFFICE/OUTPATI ENT VISIT, EST [facility], [address] [facility] [address], [place], [id number], [place] tel:[phone] [facility] chronic conditions (chief complaint) Essential (primary) hypertensio nChronic pain syndrome 6 Jeff Marquez. [address] [place] [address], [id number]. tel:[phone] OFFICE/OUTPATI ENT VISIT, EST [facility], [address] [facility] [address], [place], [id number], [place] tel:[phone] [facility] chronic conditions (chief complaint) Essential (primary) hypertensio nOther chronic painMajor depressive disorder, recurrent, unspecified 6 Jeff Marquez. [address] [place] [address], [id number]. tel:[phone] [facility], [address] [facility] [address], [place], [id number], [place] tel:[phone] [facility] Bipolar affective disorder, currently depressed, moderatePTS D (post-traum atic stress disorder) 6 Adalimika Canseco. [address] [place] [address], [id number], [place]. tel:[phone] [facility], [address] [facility] [address], [place], [id number], [place] tel:[phone] [facility] Bipolar affective disorder, currently depressed, moderatePTS D (post-traum atic stress disorder) 6 Bharat Canseco. [address] [place], [place], [id number], [place]. tel:[phone] OFFICE/OUTPATI ENT VISIT, EST [facility], [address] [facility] [address], [place], [id number], [place] tel:[phone] [facility] rash (chief complaint) Rash of groin 6 Darlenenivia Telless. [address] [place], [place], [id number]. tel:[phone] [facility], [address] [facility] [address], [place], [address], [place] tel:[phone] [facility] hypertension (follow up) (chief complaint) Essential (primary) hypertensio n 6 [facility]. . Consulting Provider: Delia Ragsdale, [address] [place] [address], [address]. tel:[phone] OFFICE/OUTPATI ENT VISIT, EST [facility], [address] [facility] [address], [place], [place], [id number], [place] tel:[phone] [facility] Hypertension (follow up) (chief complaint) Essential (primary) hypertensio n 6 No Informatio n [facility], [address] [facility] [address], [place], [place], [id number], [place] tel:[phone] [facility] Bipolar affective disorder, current episode hypomanicPT SD (post-traum atic stress disorder) 6 Bharat Canseco. [address] [place], [place], [id number], [place]. tel:[phone] [facility], [address] [facility] [address], [place], [place], [id number], [place] tel:[phone] [facility] hypertension (chief complaint) Essential (primary) hypertensio n 6 [facility]. . Consulting Provider: Delia Ragsdale, [address] [place], [address]. tel:[phone] OFFICE/OUTPATI ENT VISIT, EST [facility], [address] [facility],[address], [place], [place], [id number], [place] tel:[phone] [facility] conditions (chief complaint)[facility] ([facility]) Essential (primary) hypertensio nMajor depressive disorder, recurrent, unspecified Chronic pain syndromeHyp eruricemiaH ypokalemiaA lcohol use disorder, moderate, in early remissionTo bacco use disorder Sep-0 6 Jeff Marquez. [address] [place], [place], [id number]. tel:[phone] [facility], [address] [facility] [address], [place], [place], [address], [place] tel:[phone] [facility] No Information Apr-0 6 [employer]. . [facility], [address] [facility] [address], [place], [place], [address], [place] tel:[phone] [facility] Bipolar affective disorder, currently depressed, moderatePTS D (post-traum atic stress disorder) 6 [facility]. [address] [place] [address], [id number], [place]. tel:[phone] [facility], [address] [facility],[address], [place], [place], [id number], [place] tel:[phone] [facility] Bipolar affective disorder, currently depressed, moderatePTS D (post-traum atic stress disorder) [address] [facility]. [address] [place] [address], [id number], [place]. tel:[phone] [facility], [address] [facility] [address], [place], [place], [id number], [place] tel:[phone] [facility] No Information 6 [employer]. . Consulting Provider: Annabel Beatty, [address] [place], [address]. tel:[phone] OFFICE/OUTPATI ENT VISIT, EST [facility], [address] [place] [address],[address], [place], [place], [address], [place] tel:[phone] [facility] conditions (chief complaint) Essential (primary) hypertensio nMajor depressive disorder, recurrent, unspecified Bilateral post-trauma tic osteoarthri tis of hipLow back painPain in both feet 6 Jeff Marquez. [address] [place], [place], [id number]. tel:[phone] [facility], [address] [place] [address],[address], [place], [place], [id number], [place] tel:[phone] [facility] Bipolar affective disorder, currently depressed, moderatePTS D (post-traum atic stress disorder)Al cohol use with intoxicatio n 6 Bharat Canseco. [address] [place] [address], [id number], [place]. tel:[phone] [facility], [address] [place] [address] 2,[address], [place], [place], [address], [place] tel:[phone] [facility] Bipolar affective disorder, currently depressed, moderatePTS D (post-traum atic stress disorder) 6 Bharat Canseco. [address] [place] [address], [id number], [place]. tel:[phone] OFFICE/OUTPATI ENT VISIT, EST [facility], [address] [place] [address],[address], [place], [place], [id number], [place] tel:[phone] [facility] conditions (chief complaint) Major depressive disorder, recurrent, unspecified Other chronic painEssenti al (primary) hypertensio n 6 Jeff Marquez. [address] [place] [address], [id number]. tel:[phone] [facility], [address] [facility] [address], [place], [id number], [place] tel:[phone] [facility] Bipolar affective disorder, currently depressed, moderatePTS D (post-traum atic stress disorder) [address] [facility]. [address] [place] [address], [id number], [place]. tel:[phone] OFFICE/OUTPATI ENT VISIT, EST [facility], [address] [facility] [address], [place], [id number], [place] tel:[phone] [facility] conditions (chief complaint) Essential (primary) hypertensio nOther chronic pain 6 Jeff Marquez. [address] [place] [address], [id number]. tel:[phone] [facility], [address] [facility] [address], [place], [id number], [place] tel:[phone] [facility] Bipolar affective disorder, currently depressed, moderatePTS D (post-traum atic stress disorder) 6 [facility]. [address] [place] [address], [id number], [place]. tel:[phone] OFFICE/OUTPATI ENT VISIT, EST [facility], [address] [facility] [address], [place], [place], [id number], [place] tel:[phone] [facility] conditions (chief complaint)Bi lateral Foot pain (chief complaint) Other chronic painEssenti al (primary) hypertensio n 6 Jeff Marquez. [address] [place] [address], [id number]. tel:[phone] [facility], [address] [facility] [address], [place], [place], [address], [place] tel:[phone] [facility] Bipolar affective disorder, currently depressed, moderatePTS D (post-traum atic stress disorder) 6 Bharat Canseco. [address] [place] [address], [id number], [place]. tel:[phone] OFFICE/OUTPATI ENT VISIT, EST [facility], [address] [place] [address] 2,[address], [place], [id number], [place] tel:[phone] [facility] conditions (chief complaint) Chronic use of opiate drugs therapeutic purposesPri sena osteoarthri tis of both hipsLumbar radiculopat hy, chronicChro tank pain syndromeEss ential (primary) hypertensio n 6 Jeff Marquez. [address] [place] [address], [id number]. tel:[phone] [facility], [address] [place] [address] 2,[address] [place] [address], [id number], [place] tel:[phone] [facility] Bipolar affective disorder, currently depressed, moderatePTS D (post-traum atic stress disorder) 6 Bharat Canseco. [address] [place] [address], [id number], [place]. tel:[phone] [facility], [address] [place] [address] 2,[address], [place], [place], [id number], [place] tel:[phone] [facility] No Information 6 [employer]. . Consulting Provider: Mikaela Schreiber, [address] [place] [address], [id number]. tel:[phone] [facility], [address] [facility] [address], [place], [place], [id number], [place] tel:[phone] [facility] No Information 6 [employer]. . Consulting Provider: Robbi Chacon, [address] [place] [address], [address]. tel:[phone] [facility], [address] [place], [place] [address] [address], [place], [place], [id number], [place] tel:[phone] [facility] Bipolar affective disorder, currently depressed, moderatePTS D (post-traum atic stress disorder) 6 Bharat Canseco. [address] [place] [address], [id number], [place]. tel:[phone] OFFICE/OUTPATI ENT VISIT, EST [facility], [address] [facility],[address], [place], [place], [id number], [place] tel:[phone] [facility] (chief complaint) Essential (primary) hypertensio nPersonal history of other diseases of the respiratory systemOther chronic painChest pain, atypicalRec urrent major depressive disorder, in partial remission 6 Jeff Marquez. [address] [place] [address], [id number]. tel:[phone] Referring Provider: Alma Aguilar, [address] [place] [address], [id number]. tel:[phone] [facility], [address] [facility] [address], [place], [place], [id number], [place] tel:[phone] [facility] Bipolar affective disorder, currently depressed, moderatePTS D (post-traum atic stress disorder) 6 Bharat Rousseauine. [address] [place] [address], [id number], [place]. tel:[phone] [facility], [address] [facility] [address], [place], [place], [address], [place] tel:[phone] [facility] No Information 6 [employer]. . Consulting Provider: Rafael Hickey, [address] [place] [address], [address]. tel:[phone] [facility], [address] [facility] [address], [place], [place], [id number], [place] tel:[phone] [facility] Bipolar affective disorder, currently depressed, moderatePTS D (post-traum atic stress disorder) 6 Bharat Canseco. [address], [place], [id number], [place]. tel:[phone] [facility], [address] [facility] [address], [place], [place], [id number], [place] tel:[phone] [facility] No Information 6 [employer]. . Consulting Provider: Mikaela Schreiber, [address] [place], [address]. tel:[phone] OFFICE/OUTPATI ENT VISIT, EST [facility], [address] [facility] [address], [place], [place], [id number], [place] tel:[phone] [facility] (chief complaint) Mild persistent asthma in adult without complicatio nPrimary osteoarthri tis of both hipsChronic pain syndromeLum bar radiculopat hy, chronicRecu rrent major depressive disorder, in partial remissionEs sential (primary) hypertensio n 6 Jeff Marquez. [address] [place], [place], [id number]. tel:[phone] [facility], [address] [facility] [address], [place], [place], [id number], [place] tel:[phone] [facility] Bipolar affective disorder, currently depressed, moderateMaj or depressive disorder, recurrent, unspecified PTSD (post-traum atic stress disorder) 5 Bharat Canseco. [address], [place], [id number], [place]. tel:[phone] OFFICE/OUTPATI ENT VISIT, EST [facility], [address] [facility] [address], [place], [place], [id number], [place] tel:[phone] [facility] (chief complaint) Other chronic painEssenti al (primary) hypertensio nMajor depressive disorder, recurrent, unspecified 0 5 Jeff Marquez. [address] [place], [place], [id number]. tel:[phone] [facility], [address] [place] [address] 2,[address], [place], [place], [id number], [place] tel:[phone] [facility] Bipolar affective disorder, currently depressed, moderatePTS D (post-traum atic stress disorder) 5 Bharat Canseco. [address] [place] [address], [id number], [place]. tel:[phone] [facility], [address] [place] [address] 2,[address], [place], [place], [id number], [place] tel:[phone] [facility] Bipolar affective disorder, currently depressed, moderatePTS D (post-traum atic stress disorder) 5 No Informatio n [facility], [address] [place] [address] 2,[address], [place], [place], [id number], [place] tel:[phone] [facility] Bipolar affective disorder, currently depressed, moderatePTS D (post-traum atic stress disorder) 5 No Informatio n OFFICE/OUTPATI ENT VISIT, EST [facility], [address] [place] [address] 2,[address], [place], [place], [id number], [place] tel:[phone] [facility] chronic conditions (chief complaint) Other chronic painEssenti al (primary) hypertensio nPersonal history of other diseases of the respiratory system 5 Jeff Marquez. [address] [facility], [place], [place], [id number]. tel:[phone] [facility], [address] [place] [address] 2,[address], [place], [place], [id number], [place] tel:[phone] [facility] Bipolar affective disorder, currently depressed, moderatePTS D (post-traum atic stress disorder) 5 No Informatio n [facility], [address] [facility], [place], [place], [id number], [place] tel:[phone] [facility] Bipolar disorder, unspecified Posttraumat ic stress disorderDep ression 5 No Informatio n OFFICE/OUTPATI ENT VISIT, EST [facility], [address] [facility],[address], [place], [place], [address], [place] tel:[phone] [facility] chronic conditions (chief complaint) Other chronic painUnspeci fied essential hypertensio nPersonal history of other diseases of respiratory systemMajor depressive disorder, recurrent episode, unspecified degree Apr- 5 Jeff Marquez. [address] [place] [address], [id number]. tel:[phone] [facility], [address] [facility], [place], [place], [address], [place] tel:[phone] [facility] Bipolar disorder, unspecified Posttraumat ic stress disorderDep ression 5 No Informatio n OFFICE/OUTPATI ENT VISIT, EST [facility], [address] [facility],[address], [place], [place], [id number], [place] tel:[phone] [facility] chronic conditions (chief complaint) Major depressive disorder, recurrent episode, unspecified degreeOther chronic pain 5 Jeff Marquez. [address] [place], [place], [id number]. tel:[phone] [facility], [address] [facility],[address], [place], [place], [address], [place] tel:[phone] [facility] Bipolar disorder, unspecified Posttraumat ic stress disorderDep ression 5 No Informatio n OFFICE/OUTPATI ENT VISIT, EST [facility], [address] [facility] [address], [place], [place], [id number], [place] tel:[phone] [facility] chronic conditions (chief complaint) Major depressive disorder, recurrent episode, unspecified degreeUnspe cified essential hypertensio nOther chronic pain Feb-2 8- 5 Jeff Marquez. [address] [place], [place], [id number]. tel:[phone] OFFICE/OUTPATI ENT VISIT, [facility], [address] [facility] [address], [place], [place], [address], [place] tel:[phone] [facility] chronic conditions (chief complaint) Other chronic pain Feb-0 6- 5 Jeff Marquez. [address] [place], [place], [id number]. tel:[phone] OFFICE/OUTPATI ENT VISIT, [facility], [address] [facility] [address], [place], [place], [address], [place] tel:[phone] [facility] chronic conditions (chief complaint)de ntal (chief complaint) Other chronic painUnspeci fied essential hypertensio nBroken tooth Higinio-3 0- 5 Jeff Marquez. [address] [place], [place], [id number]. tel:[phone] OFFICE/OUTPATI ENT VISIT, [facility], [address] [facility] [address], [place], [place], [address], [place] tel:[phone] [facility] chronic conditions (chief complaint)he aring loss R ear (chief complaint) Major depressive disorder, recurrent episode, unspecified degreeOsteo arthrosis, unspecified whether generalized or localized, involving pelvic region and thighUnspec ified essential hypertensio nCerumen impaction 0 3- 5 Jeff Marquez. [address] [place], [place], [id number]. tel:[phone] OFFICE/OUTPATI ENT VISIT, [facility], [address] [facility] [address], [place], [place], [address], [place] tel:[phone] [facility] hypertension (chief complaint)me d man (chief complaint) Chronic painHomeles snessUnspec ified essential hypertensio n December- 5 Jeff Marquez. [address] [place], [place], [id number]. tel:[phone] OFFICE/OUTPATI ENT VISIT, [facility], [address] [facility] [address], [place], [place], [id number], [place] tel:[phone] [facility] back pain (chief complaint)hi p pain (chief complaint)de pression (chief complaint) Back pain with radiationMa gilbert depressive disorder, recurrent episode, unspecified degree 5 Jeff Marquez. [address] [place], [place], [id number]. tel:[phone] OFFICE/OUTPATI ENT VISIT, [facility], [address] [place] [address],[address], [place], [place], [address], [place] tel:[phone] [facility] chronic pain (chief complaint)se xual dysfunction (chief complaint)hy pertension (chief complaint)PT SD (chief complaint)sm oking (chief complaint) Chronic painUnspeci fied essential hypertensio nPosttrauma tic stress disorderTob acco abuseMajor depressive affective disorder, recurrent episode, moderate degree 0 5 Jeff Marquez. [address] [place], [place], [id number]. tel:[phone] OFFICE/OUTPATI ENT VISIT, [facility], [address] [facility] [address], [place], [place], [address], [place] tel:[phone] [facility] hypertension (chief complaint)Me d Man (chief complaint)CA D (chief complaint)se xual dysfunction (chief complaint) Chronic painUnspeci fied essential hypertensio nPosttrauma tic stress disorderSex ual dysfunction 5 Jeff Marquez. [address] [place], [place], [address]. tel:[phone] OFFICE/OUTPATI ENT VISIT, [facility], [address] [facility] [address], [place], [place], [address], [place] tel:[phone] [facility] hypertension (chief complaint)sl eep problems (chief complaint)ch ronic pain (chief complaint)ch est pain (chief complaint) Chest pain at restPosttra umatic stress disorderUns pecified essential hypertensio nOsteoarthr osis, unspecified whether generalized or localized, involving pelvic region and thigh 5 Jeff Marquez. [address] [place], [place], [address]. tel:[phone] OFFICE/OUTPATI ENT VISIT, [facility], [address] [facility] [address], [place], [place], [address], [place] tel:[phone] [facility] hypertension (chief complaint)ra sh (chief complaint)hi p pain (chief complaint) Osteoarthro sis, unspecified whether generalized or localized, involving pelvic region and thighUnspec ified essential hypertensio n 4 Jeff Marquez. [address] [place], [place], [address]. tel:[phone] OFFICE/OUTPATI ENT VISIT, [facility], [address] [facility] [address], [place], [place], [address], [place] tel:[phone] [facility] chronic pain (chief complaint)hy pertension (chief complaint) Chronic painHyperte nsion, Unspecified 4 Jeff Marquez. [address] [place], [place], [address]. tel:[phone] OFFICE/OUTPATI ENT VISIT, [facility], [address] [facility] [address], [place], [place], [address], [place] tel:[phone] [facility] chronic conditions (chief complaint)As thma (chief complaint)la ceration (chief complaint) Osteoarthro sis, unspecified whether generalized or localized, involving pelvic region and thighLacera tion of finger of left hand 4 No Informatio n OFFICE/OUTPATI ENT VISIT, EST [facility], [address] [facility] [address], [place], [place], [id number], [place] tel:[phone] [facility] chronic conditions (chief complaint)as thma (chief complaint) Osteoarthro sis, unspecified whether generalized or localized, involving pelvic region and thighPerson al history, Other diseases of respiratory system 4 No Informatio n OFFICE/OUTPATI ENT VISIT, EST [facility], [address] [facility] [address], [place], [place], [address], [place] tel:[phone] [facility] chronic conditions (chief complaint) Hypertensio n, Unspecified Osteoarthro sis, unspecified whether generalized or localized, involving pelvic region and thighHomele ssnessMajor depressive affective disorder, recurrent episode, moderate degree 4 No Informatio n Psychotherapy 45 Min (38-52 Min) [facility], [address] [facility] [address], [place], [place], [id number], [place] tel:[phone] [facility] No Information 4 No Informatio n OFFICE/OUTPATI ENT VISIT, EST [facility], [address] [facility] [address], [place], [place], [address], [place] tel:[phone] [facility] Posttraumat ic stress disorder 4 No Informatio n Psychotherapy 45 Min (38-52 Min) [facility], [address] [facility] [address], [place], [place], [address], [place] tel:[phone] [facility] No Information 4 No Informatio n OFFICE/OUTPATI ENT VISIT, EST [facility], [address] [facility] [address], [place], [place], [address], [place] tel:[phone] [facility] chronic conditions (chief complaint) Osteoarthro sis, unspecified whether generalized or localized, involving pelvic region and thighHypert ension, Unspecified 4 Jeff Marquez. [address] [place], [place], [id number]. tel:[phone] Psychotherapy 45 Min (38-52 Min) [facility], [address] [facility] [address], [place], [place], [address], [place] tel:[phone] [facility] Posttraumat ic stress disorderPos ttraumatic stress disorder 4 No Informatio n OFFICE/OUTPATI ENT VISIT, EST [facility], [address] [place] [address] 2,[address], [place], [place], [address], [place] tel:[phone] [facility] chronic conditions (chief complaint) Osteoarthro sis, unspecified whether generalized or localized, involving pelvic region and thighHypert ension, Unspecified 4 Jeff Marquez. [address] [place], [place], [id number]. tel:[phone] Psychiatrist Diagnostic Eval (no Medical Service) [facility], [address] [facility] [address], [place], [place], [address], [place] tel:[phone] [facility] Posttraumat ic stress disorder 4 No Informatio n Psychotherapy 45 Min (38-52 Min) [facility], [address] [facility] [address], [place], [place], [address], [place] tel:[phone] [facility] No Information Nov- 4 No Informatio n OFFICE/OUTPATI ENT VISIT, EST [facility], [address] [place] [address] 2,[address], [place], [place], [address], [place] tel:[phone] [facility] chronic conditions (chief complaint) Osteoarthro sis, unspecified whether generalized or localized, involving pelvic region and thigh Nov-0 4 Jeff Marquez. [address] [place], [place], [address]. tel:[phone] Psychotherapy , 30 Min (16-37 Min) [facility], [address] [facility] [address], [place], [address], [place] tel:[phone] [facility] No Information 4 No Informatio n Psychotherapy 45 Min (38-52 Min) [facility], [address] [facility] [address], [address], [place] tel:[phone] [facility] Bipolar I disorder, most recent episode (or current) mixed, moderate 4 No Informatio n OFFICE/OUTPATI ENT VISIT, EST [facility], [address] [facility] [address], [place], [address], [place] tel:[phone] [facility] chronic conditions (chief complaint) Osteoarthro sis, unspecified whether generalized or localized, involving pelvic region and thighHypert ension, Unspecified 4 Jeff Marquez. [address] [place] [address], [id number]. tel:[phone] OFFICE/OUTPATI ENT VISIT, EST [facility], [address] [facility] [address], [place], [address], [place] tel:[phone] [facility] chronic conditions (chief complaint)hi p pain (chief complaint) LumbagoDJD (degenerati ve joint disease) of hip 4 Jeff Marquez. [address] [place] [address], [id number]. tel:[phone] Psychotherapy 45 Min (38-52 Min) [facility], [address] [facility] [address], [place], [place], [address], [place] tel:[phone] [facility] No Information 4 No Informatio n Psychotherapy 45 Min (38-52 Min) [facility], [address] [facility] [address], [address], [place] tel:[phone] [facility] No Information 4 No Informatio n [facility], [address] [facility],[address], [place], [place], [address], [place] tel:[phone] [facility] No Information 4 [employer]. . Psychotherapy 45 Min (38-52 Min) [facility], [address] [facility] [facility],[address], [place], [place], [address], [place] tel:[phone] [facility] No Information 4 No Informatio n [facility], [address] [facility] [address], [place], [place], [address], [place] tel:[phone] [facility] No Information 4 [employer]. . Consulting Provider: Gracy Gauthier, [address] [place] [address], [id number]. tel:[phone] OFFICE/OUTPATI ENT VISIT, EST [facility], [address] [facility] [address], [place], [place], [address], [place] tel:[phone] [facility] hip pain (chief complaint)de pression (chief complaint) Pain in joint involving pelvic region and thigh 4 Jeff Marquez. [address] [place] [address], [id number]. tel:[phone] Psychotherapy 45 Min (38-52 Min) [facility], [address] [facility],[address], [place], [place], [address], [place] tel:[phone] [facility] No Information 4 No Informatio n Psychotherapy 45 Min (38-52 Min) [facility], [address] [facility] [address], [place], [place], [address], [place] tel:[phone] [facility] No Information 4 No Informatio n OFFICE/OUTPATI ENT VISIT, EST [facility], [address] [facility] [address], [place], [place], [address], [place] tel:[phone] [facility] Hip pain (chief complaint)le g pain (chief complaint)ba ck pain (chief complaint) Hip pain, bilateral Nov- 3 Jeff Alma. [address] [facility], [place], [place], [id number]. tel:[phone] Psychotherapy 45 Min (38-52 Min) [facility], [address] [facility] [address], [place], [place], [address], [place] tel:[phone] [facility] No Information 3 No Informatio n Psychotherapy 45 Min (38-52 Min) [facility], [address] [facility] [address], [place], [place], [address], [place] tel:[phone] [facility] No Information 0 3 No Informatio n Psychotherapy 45 Min (38-52 Min) [facility], [address] [facility] [address], [place], [place], [address], [place] tel:[phone] [facility] No Information 3 No Informatio n OFFICE/OUTPATI ENT VISIT, EST [facility], [address] [place] [address] 2,[address], [place], [place], [address], [place] tel:[phone] [facility] chronic conditions (chief complaint) Hypertensio n, Unspecified LumbagoPers onal history, Other diseases of respiratory system Sep- 3 No Informatio n Psychotherapy 45 Min (38-52 Min) [facility], [address] [facility] [address], [place], [place], [address], [place] tel:[phone] [facility] No Information Apr-0 3 No Informatio n [facility], [address] [facility] [address], [place], [place], [address], [place] tel:[phone] [facility] No Information 3 No Informatio n Psychotherapy , 30 Min (16-37 Min) [facility], [address] [facility] [address], [place], [place], [address], [place] tel:[phone] [facility] No Information 3 No [facility]io n [facility], [address] [facility] [address], [place], [place], [address], [place] tel:[phone] [facility] a comprehensiv e exam (chief complaint) Astigmatism , unspecified HeadacheUve itis 3 No Informatio n Psychotherapy 45 Min (38-52 Min) [facility], [address] [facility] [address], [place], [place], [address], tel:[phone] [facility] No Information 3 No Informatio n OFFICE/OUTPATI ENT VISIT, EST [facility], [address] [facility] [address], [place], [place], [address], [place] tel:[phone] [facility] chronic conditions (chief complaint) Hypertensio n, Unspecified Lumbago 3 No Informatio n Psychotherapy 45 Min (38-52 Min) [facility], [address] [facility] [address], [place], [place], [address], [place] tel:[phone] [facility] No Information 3 No Informatio n Psychotherapy 45 Min (38-52 Min) [facility], [address] [facility] [address], [place], [place], [address], [place] tel:[phone] [facility] No Information 3 No Informatio n Psychotherapy 45 Min (38-52 Min) [facility], [address] [facility] [address], [place], [place], [address], [place] tel:[phone] [facility] No Information 3 No Informatio n OFFICE/OUTPATI ENT VISIT, EST [facility], [address] [facility] [address], [place], [place], [address], [place] tel:[phone] [facility] BP check (chief complaint) Hypertensio n, Unspecified 3 Fab Serrano. [address] [place] [address], [place], [place], [address]. tel:[phone] OFFICE/OUTPATI ENT VISIT, EST [facility], [address] [facility] [address], [place], [place], [address], [place] tel:[phone] [facility] chronic conditions (chief complaint)pl an of care (chief complaint) Hypertensio n, Unspecified LumbagoPers onal history, Other diseases of respiratory systemMedic al home patient encounter 3 No Informatio n Psychotherapy , 30 Min (16-37 Min) [facility], [address] [facility] [address], [place], [place], [address], [place] tel:[phone] [facility] No Information 3 No Informatio n Psychotherapy 45 Min (38-52 Min) [facility], [address] [facility] [address], [place], [place], [address], [place] tel:[phone] [facility] No Information 3 No Informatio n Psychotherapy 45 Min (38-52 Min) [facility], [address] [facility] [address], [place], [place], [address], [place] tel:[phone] [facility] No Information 3 No Informatio n OFFICE/OUTPATI ENT VISIT, EST [facility], [address] [facility] [address], [place], [place], [address], [place] tel:[phone] [facility] high blood pressure (chief complaint)sh ortness of breath (chief complaint) Hypertensio n, Unspecified Personal history of asthmaLumba go 3 No Informatio n Psychotherapy 45 Min (38-52 Min) [facility], [address] [facility] [address], [place], [place], [address], [place] tel:[phone] [facility] No Information 3 No Informatio n Psychotherapy 45 Min (38-52 Min) [facility], [address] [facility] [address], [place], [place], [address], [place] tel:[phone] [facility] Bipolar I disorder, most recent episode (or current) mixed, moderateMaj or depressive affective disorder, recurrent episode, moderate degree 3 No Informatio n Psychotherapy 45 Min (38-52 Min) [facility], [address] [facility] [address], [place], [place], [address], [place] tel:[phone] [facility] No Information 3 No Informatio n OFFICE/OUTPATI ENT VISIT, EST [facility], [address] [facility], [place], [place], [address], [place] tel:[phone] [facility] hypertension (follow up) (chief complaint)ba ck pain (chief complaint) Hypertensio n, Unspecified Lumbago 3 No Informatio n PREV VISIT, EST, AGE 18-39 [facility], [address] [facility], [place], [place], [address], [place] tel:[phone] [facility] preventive exam (chief complaint)F/ U back pain (chief complaint)ch est pain (chief complaint) Chest pain at restRoutine Medical ExamLeft shoulder pain 2 No Informatio n OFFICE/OUTPATI ENT VISIT, EST [facility], [address] [facility],[address], [place], [place], [address], [place] tel:[phone] [facility] abdominal pain (chief complaint)ba ck pain (chief complaint) LumbagoHype rtension, Unspecified Abdominal pain May-3 0- 2 No Informatio n [facility], [address] [facility],[address], [place], [place], [address], [place] tel:[phone] [facility] No Information May-2 - 2 No Informatio n [facility], [address] [facility],[address], [place], [place], [address], [place] tel:[phone] [facility] No Information 2 No Informatio n [facility], [address] [facility] [address], [place], [place], [address], [place] tel:[phone] [facility] bipolar disorder (chief complaint)an xiety (chief complaint) Major depressive affective disorder, recurrent episode, moderate degreeBipol ar disorder, unspecified May-0 2 No Informatio n OFFICE/OUTPATI ENT VISIT, EST [facility], [address] [facility] [address], [place], [place], [address], [place] tel:[phone] [facility] headache (chief complaint) LumbagoHead ache May-0 2 No Informatio n [facility], [address] [facility] [address], [place], [place], [address], [place] tel:[phone] [facility] No Information 2 No Informatio n OFFICE/OUTPATI ENT VISIT, EST [facility], [address] [facility],[address], [place], [place], [address], [place] tel:[phone] [facility] back/abdomin al pain (chief complaint) Abdominal pain, left lower quadrant 2 No Informatio n [facility], [address] [facility],[address], [place], [place], [address], [place] tel:[phone] [facility] No Information 2 No Informatio n OFFICE/OUTPATI ENT VISIT, EST [facility], [address] [facility] [address], [place], [place], [address], [place] tel:[phone] [facility] knee pain (chief complaint)ba ck pain (chief complaint)ab dominal pain (chief complaint)Mu sculoskeleta l Pain (chief complaint) Abdominal pain, right lower quadrant 2 Dobles Crissy. [address] [place] [address], [id number], [place]. tel:[phone] OFFICE/OUTPATI ENT VISIT, EST [facility], [address] [facility] [address], [place], [place], [id number], [place] tel:[phone] [facility] L ear pain (chief complaint)Rx Refills (chief complaint) Impacted cerumenAbdo camille pain, right lower quadrant 2 No Informatio n [facility], [address] [place] [address] 2,[address], [place], [place], [id number], [place] tel:[phone] [facility] No Information 2 Services [facility]. [address] [place] [address], [address]. tel:[phone] [facility], [address] [facility] [address], [place], [place], [id number], [place] tel:[phone] [facility] behavior disorder (chief complaint) Major depressive affective disorder, recurrent episode, moderate degree 2 No Informatio n [facility], [address] [facility] [address], [place], [place], [id number], [place] tel:[phone] [facility] No Information 2 No Informatio n OFFICE/OUTPATI ENT VISIT, EST [facility], [address] [facility] [address], [place], [place], [id number], [place] tel:[phone] [facility] abdominal pain (chief complaint) Abdominal pain, right lower quadrant 2 Dobles Crissy. [address] [place], [place], [id number], [place]. tel:[phone] OFFICE/OUTPATI ENT VISIT, EST [facility], [address] [facility] [address], [place], [place], [id number], [place] tel:[phone] [facility] abdominal pain (chief complaint) Abdominal pain, right lower quadrant 2 Dobles Crissy. [address] [place], [place], [id number], [place]. tel:[phone] [facility], [address] [facility] [address], [place], [place], [id number], [place] tel:[phone] [facility] No Information Jan- 2 No Informatio n [facility], [address] [facility] [address], [place], [place], [id number], [place] tel:[phone] [facility] angry (chief complaint) Major depressive affective disorder, recurrent episode, moderate degree Jan- 0- 2 No Informatio n [facility], [address] [facility] [address], [place], [place], [id number], [place] tel:[phone] [facility] Major depressive affective disorder, recurrent episode, moderate degreeBipol ar disorder, unspecified - 2 No Informatio n [facility], [address] [facility] [address], [place], [place], [id number], [place] tel:[phone] [facility] Major depressive affective disorder, recurrent episode, moderate degreeBipol ar disorder, unspecified 2 No Informatio n [facility], [address] [facility] [address], [place], [place], [id number], [place] tel:[phone] [facility] Major depressive affective disorder, recurrent episode, moderate degree 2 No Informatio trini [facility], [address] [facility] [address], [place], [place], [id number], [place] tel:[phone] [facility] Posttraumat ic stress disorder 2 No Informatio trini [facility], [address] [facility] [address], [place], [place], [id number], [place] tel:[phone] [facility] Bipolar disorder, unspecified 1 No Informjorden feliz [facility], [address] [facility] [address], [place], [place], [id number], [place] tel:[phone] [facility] 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 [address] [place] [address], [place], [place], [id number]. tel:[phone] [facility], [address] [facility] [address], [place], [place], [id number], [place] tel:[phone] [facility] Abdominal pain, right lower quadrant 1 [...] virus, 3 years or older Flulaval Quad 5810-8902 administered Source: New Immuniza tion Record Influenza, injectable, quadrivalent, split virus, 3 years or older Flulaval Quad [id number] administered Source: New Immuniza tion Record Influenza, injectable, quadrivalent, 3 years or older Fluzone Quad administered Source: New Immun ization Record PPSV23 administered Source: Other R egistry Influenza, seasonal, injectable, preservative free, 3 yrs or older administered Source: New Immuniza tion Record Tdap unknown Source: Other R egistry Flu-IIV3(TIV), p-free pending Note: IMM Info from [facility] ; Source: Other Provider TDAP administered Source: New Imm unization Record Payers Payer name Insurance type Covered green party ID Authoriza tion(s) Medicare NGS MB [id number] [facility] [id number] Medicare NGS MB [id number] [facility] [id number] Medicare NGS MB [id number] [facility] [id number] Medicare NGS MB [id number] [facility] [id number] Medicare NGS MB [id number] [facility] 1992 Medicare NGS MB [id number] [facility] [id number] Medicare NGS MB [id number] [facility] [id number] Medicare NGS MB [id number] [facility] [id number] Medicare NGS MB [id number] [facility] [id number] Medicare NGS MB [id number] [facility] [id number] Medicare NGS MB [id number] [facility] [id number] Medicare NGS MB [id number] [facility] [id number] Social History Type Description Quantity Date Captured Comments Alcohol Use Details No 4 beers weekly Caffeine Use Details coffee 6 cups per day Tobacco Use Status Smoking Status Heavy tobacco smoker Smoking Tobacco Use Details Cigarette: No Details Available Cigarette: 1 Packs per day Sex Male Sexual Orientation Straight or heterosexual Vital Signs Date / Time: Height Weight BMI Pulse Rate Blood Pressure Temperature Respiratory Rate Body Surface Area Head Circumference Head Circ. Percentile Wt./[place]win. Percentile BMI percentile Pulse Ox Inhaled Ox 9:21 AM 75.50 in 87.180 kg (192.20 lbs) 23.7 1 kg/m eter (2) 68 /min 145/92 mm[Hg] 98 % 9:22 AM 71 /min 143/90 mm[Hg] Chief Complaint And Reason For Visit From encounter dated '03/31/2025 09:20'. cut on face/ swollen (chief complaint). Description: The patient is a 44-year-old male who comes insaying that he has a painful area just underneath his left eye. He said he sustained a laceration there 5 days ago. He said he did this when a metal broom handle hit the area. He is not certain whether there was any foreign matter in the wound or not. he said that a few days ago he noted a hard tender area near the laceration which she says is new since the injury. It was not present he thinks atthe time of the injury occurred immediately after. He is not taking any medication because he says he is allergic to Tylenol ibuprofen. There was no fever or drainage or visual complaint. He has no other complaints or concerns. Reason For Referral Reason For Referral No Information Plan Of Treatment Date Type Action Status Goal Document SOGI In formation. Due on [...] on due Goal Lipid panel. Due on 027 due Goal Tdap due Goal Influenza vaccine. [...] Pneumococcal vac cine. Due on due Goal CT-Colonography. Due on [...] due Goal CT-Colonography. Due on due Goal Colonoscopy. Due on [...] Goal Lipid panel. Due on due Goal CT-Colonography. Due on [...] Pneumococcal vac cine. Due on due Goal CT-Colonography. Due on [...] due Goal CT-Colonography. Due on due Goal Hepatitis C Scre ening. Due on due Goal Influenza vaccine. Due on due Goal APE. Due on due Goal Tdap due Goal Influenza vaccine. Due on due Goal Pneumococcal vac cine. Due on due Goal Lipid panel. Due on due Goal CT-Colonography. Due on [...] Tdap due Goal Influenza vaccine. Due on Dylan due Goal CT-Colonography. Due on due Goal [...] Influenza vaccine. Due on Ja due Goal APE. Due on due Goal [...] due Goal Tobacco cessation counseling completed Goal Diabetes Screening. Due on due Goal [...] SOGI In formation. Due on due Goal Hep B (1st) due Goal Hep B (3rd) due Goal Unhealthy drug u se screening. Due on due Goal ASCVD 10 year risk. Due on A due Goal Hep B (2nd) due Goal APE. Due on due Goal [...] Influenza vaccine. Due on Ja due Goal Document SOGI In formation. Due [...] Influenza vaccine. Due on Ja due Goal APE. Due on due Goal [...] ct due Goal Pneumococcal vaccine due Goal APE. Due on due Goal Influenza vaccine. Due on Oc due Goal Document SOGI In formation. Due on due Goal Diabetes Screening. Due on O ct due Goal Lipid panel. Due on due Goal Pneumococcal vaccine due Goal Diabetes [...] O ct due Goal Tdap due Goal Lipid panel. [...] due Goal Hepatitis C Screening due Goal BPRS. Due on due Goal [...] C Screening due Goal Tdap due Goal Document SOGI [...] O ct due Goal Tdap due Goal Lipid panel. [...] on O due Goal Tdap due Goal APE. Due on due Goal Lipid panel. Due on due Goal Tdap due Goal Influenza vaccine. Due on Oc due Goal Document SOGI In formation. Due on due Goal Hepatitis C Screening due Goal Diabetes Screening. Due on O due Goal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 He had a referral in place but he cannot make it to [place]. hypertension (comments) No BP re adings today, [...] has some remaining at home. Call to [facility], amlodipine rx last filled on 04/21, directions [...] Notes he was sched w/Dr. Diamond at [facility] for pain mgmt.) 4) Hyperuricemia (Well Controlled. [...] high. Cut down to 1/4 ppd in [place] but has increased since return d/t stress.) [...] stolen. 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 Pain is stable on current regimen, allows him to care for self and daughters which has always been his pain management goal. Things are a little better, got 's [facility] settlement and now looking for an apartment. 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 [...] Well Controlled. 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 Pt was given increase dose of oxycontin 30 mg PO BID (2 tabs 15) and is feeling much better. 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 [...] of chest pain over holidays, seen at [facility] ED and d/c home then seen at [facility] ED, had nuclear ETT which was [...] w/new one. chronic pain Pt here for [facility] chronic pain visit, doing well on current [...] he might become physical so called the frame changer on himself and was arrested. Now can't be in same house as her so living apart from his and 3 y.o. daughter but gets to see them both, won't be allowed to live in [facility] again for 2 years. 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
[2025-05-23 13:16] VITALS: BMI 25.8
--- NOTE | 2025-05-23 13:16 | ED.OVERDOSE ---
HPI - Overdose General Chief Complaint: Overdose Stated Complaint: OVERDOSE Time Seen by Provider: 05/23/25 13:16 Source: patient Mode of arrival: EMS Limitations: no limitations History of Present Illness ED Provider: Dr. Zaheer Dasilva HPI Narrative: 44 years male with past medical history significant for bipolar disorder, asthma, chronic pain syndrome and GI bleeding due to NSAIDs, substance use disorder who was brought to emergency department by EMS for evaluation of overdose. Patient was found unresponsive by bystanders on a street in [place]. patient was given a total of 4 doses of intranasal Narcan (8 mg). Prior to EMS arrival police have also is is that the patient's respiration with a bag-valve mask. patient eventually did respond to the Narcan he woke up he was diaphoretic agitated. Paramedics did convince the patient to come to the emergency department for evaluation. However on arrival, the patient refused any further intervention. Related Data Home Medications ?Medication ?Instructions ?Recorded ?Confirmed allopurinol 300 mg tablet 150 mg PO DAILY 03/08/21 03/08/21 amlodipine 10 mg tablet 10 mg PO DAILY 03/08/21 03/08/21 buprenorphine 300 mg/1.5 mL mg subcut 03/08/21 03/08/21 solution,exten.rel.subcutaneous syringe (Sublocade) cyclobenzaprine 10 mg tablet 10 mg PO TID 03/08/21 03/08/21 gabapentin 800 mg tablet 800 mg PO TID 03/08/21 03/08/21 omeprazole 20 mg capsule,delayed 20 mg PO BID 03/08/21 03/08/21 release quetiapine 25 mg tablet (Seroquel) 25 mg PO BEDTIME 03/08/21 03/08/21 Previous Rx's ?Medication ?Instructions ?Recorded acetaminophen 500 mg tablet 1,000 mg (2 x 500 mg) PO Q6H PRN 12/07/24 (Tylenol Extra Strength) pain #20 tabs oxycodone 5 mg tablet 5 mg PO Q6H PRN pain #10 tabs 12/07/24 Allergies Allergy/AdvReac Type Severity Reaction Status Date / Time acetaminophen (From Tylenol) Allergy vomiting Verified 05/23/25 13:18 bee pollen (bee stings) Allergy Anaphylaxis Verified 05/23/25 13:18 hydrocodone Allergy vomiting Verified 05/23/25 13:18 ibuprofen Allergy gi upset Verified 05/23/25 13:18 norepinephrine (From Allergy unknown Verified 05/23/25 13:18 Levophed (bitartrate)) bed bugs Allergy Unknown Uncoded 05/23/25 13:18 [facility] Past Medical History Medical History Chronic pain syndrome GI bleed due to NSAIDs Ruptured appendix Arthritis Generalized headaches Venereal disease Bipolar 1 disorder Asthma Surgical History History of hip surgery History of colostomy reversal History of colon resection Social History Social History Alcohol intake: current Alcohol intake frequency: does not drink Patient Tobacco Use Status: Current everyday Tobacco user Tobacco use type: Cigarette Cigarette Packs Per Day: 1 Substance Use Type: Crack/Cocaine Advance Directives: No Advance Directives Information Provided: No Do you have a plan to hurt others: No Plan Physical Exam Vital Signs: Vital Signs: Last Vital Signs Temp 0 F L 05/23/25 13:22 Pulse 0 L 05/23/25 13:22 Resp 20 05/23/25 13:22 BP 0/0 L 05/23/25 13:22 Pulse Ox 0 L 05/23/25 13:22 BMI result Body Mass Index 25.8 Exam: General: Awake, alert in no distress , he is oriented to person place answers all questions appropriately Head: Normocephalic, atraumatic Neuro: normal speech, normal gait Psych: agitated but, cooperative Medical Decision Making Medical Decision Making MDM Narrative: 44 years male with past medical history significant for bipolar disorder, asthma, chronic pain syndrome and GI bleeding due to NSAIDs, substance use disorder who was brought to emergency department by EMS for evaluation of overdose. Patient was found unresponsive by bystanders on a street in [place]. patient was given a total of 4 doses of intranasal Narcan (8 mg). Prior to EMS arrival police have also is is that the patient's respiration with a bag-valve mask. patient eventually did respond to the Narcan he woke up he was diaphoretic agitated. Paramedics did convince the patient to come to the emergency department for evaluation. However on arrival, the patient refused any further intervention. on exam the patient is oriented person place, he is agitated but cooperative, neuro exam appears to be nonfocal, gait normal Differential diagnosis: Includes but is not limited to heroin overdose, fentanyl overdose, polysubstance overdose Course: current presentation and the patient is oriented to person place, he was answering questions appropriately. I did discuss opiate overdose with the patient and told him that most likely exposed to a strong opiate which almost caused him to . I told him that the medication Narcan may wear off in the opiate may kick in again and he may lose consciousness, staff reading and . I recommended to him that he stay in the emergency department for at least4 hours so that we can monitor him closely to make sure that he is safe to be discharged. The patient understood this discussion still decided to leave the emergency department without further treat. I also offered him a SUDE exam and rescue pack of intranasal Narcan but he refused these as well. Differential Diagnosis Differential Diagnoses: The differential diagnosis associated with the presentation includes ( See above) Admission/Observation Consideration of admission/observation: Escalation of care including admission/observation considered ( yes) Independent Historian Clinical information obtained from an independent historian. History obtained from or confirmed by: EMS External Record Review External record reviewed: Inpatient record Social Determinants Patient?s care significantly limited by Social Determinants of Health including: Other Social Determinant of Health ( polysubstance use disorder) Discharge Plan Discharge Clinical Impression: Narcotic overdose Patient Disposition: Home, Self-Care Additional Instructions: You had an narcotic overdose and you require a very high dose of Narcan to wake you up. I am concerned that you took a very powerful narcotic and if you leave the emergency department that narcotic will kick in again, you will pass out, stop breathing and . I discuss this with the you and you understand the risk of in you do not want to stay here in the emergency department. I offered to give you a rescue pack of Narcan to take home with the you but you refused this has well. If you change your mind and you want help with your drug use disorder, please return to the emergency department we can help you Overdose You were seen in our Emergency Department for an overdose today. You received narcan in order to reverse the effects of overdose. Narcan only lasts about 45 min to 1 hour in the system. You may have been given narcan to take home with you today, please keep it near you if you are going to use again, so others can use it if needed.? The number one risk for fatal overdose is using alone? [employer] is a 19/03 hotline where you can be on the phone with someone while you use, and they can call for help if they suspect an overdose: [phone] Things to look out for when you leave include severe vomiting or diarrhea, headaches, muscle cramps, fever, coughing, chest pain, or if you feel so short of breath you cannot walk to the bathroom. Please seek care and return any time for worsening symptoms.? You may have been provided with safer injection?items, please take time to take care of YOU and your health. Use new supplies whenever possible to lessen the chances of infections and other illnesses.? If you need more supplies, please go [facility],? [address] [place] [address] OR you can call or text to coordinate delivery of safer supplies. If you decide you want to stop or cut down on how much you?re using, please call the numbers on the list provided to you or you can come to our outpatient Addiction Treatment office [facility] (M-F 9am-5p) [address] [place] [address], [address] [phone] Prescriptions: No Action acetaminophen [Tylenol Extra Strength] 500 mg tablet 1,000 mg PO Q6H PRN (Reason: pain) Qty: 20 0RF oxycodone 5 mg tablet 5 mg PO Q6H PRN (Reason: pain) Qty: 10 0RF Rx Instructions: Partial Fill upon patient request. cyclobenzaprine 10 mg tablet 10 mg PO TID Sublocade 300 mg/1.5 mL solution, extended rel syringe subcut gabapentin 800 mg tablet 800 mg PO TID allopurinol 300 mg tablet 150 mg PO DAILY amlodipine 10 mg tablet 10 mg PO DAILY quetiapine [Seroquel] 25 mg tablet 25 mg PO BEDTIME omeprazole 20 mg capsule,delayed release(DR/EC) 20 mg PO BID Interventions: ED Discharge Assessment Last Done: 05/23/25 13:22 Discharge Date/Time: 05/23/25 13:25 Print Language: Luxembourgish
--- NOTE | 2025-05-23 13:21 | PC.NURSE ---
Pt arrived agitated, refusing vitals, assessment from RN, and most questions. Pt states he wishes to be discharged immediately. MD aware and brought to bedside. Pt aaox4, ambulates w/steady gait, denies SI/HI.
[2025-05-23 13:22] VITALS: BP 0/0; PULSE 0; RESP 20; TEMP -17.7; TEMP 0; O2SAT 0
--- OUTSIDE RECORDS SUMMARY | 2025-05-23 13:22 | XMS_ITS | Patient Health Record ---
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 Name Role Phone MITCHELL SIFUENTES Unavailable [phone] Allergies Allergen (clinical drug ingredient) Drug/Non Drug Allergy documented on EMR Reaction Allergy Type Onset Date Status acetaminophen Acetaminophen Unknown Drug Allergy Active Hydrocodone Bitartrate Unknown Drug Allergy Active Reason For Referral No Information Medications Medication SIG (Take, Route, Frequency, Duration) Notes Start Date End Date Status Voltaren 1 % Gel Transdermal N ot-Taking/PRN Clotrimazole 1 % Cream Externally Not-Taking/PRN Zoloft 100 MG Tablet Orally Active MiraLax 17g Active Percocet 5-325 MG Tablet Orally Active Qvar 40 MCG/ACT Aerosol Solution Inhalation Active OxyCONTIN 30 MG Tablet ER 12 Hour Abuse-Deterrent Orally Active Amitriptyline HCl 25 MG Tablet Orally Active Wellbutrin SR 150 MG Tablet Extended Release 12 Hour Orally Active Albuterol Sulfate HFA 108 (90 Base) MCG/ACT Aerosol Solution Inhalation Active tiZANidine HCl 4 MG Tablet Orally Active Prazosin HCl 1 MG Capsule Orally Active amLODIPine Besylate 10 MG Tablet Orally Active Plan Of Treatment No Information Insurance Providers Payer Name Payer Address Payer Phone Subscriber Number Group Number Insured Name Patient Relationship to Insured Coverage Start Date Coverage End Date Medicare B [place] [address] [place] [phone] [id number] PADMINI TRAMMELL Self - patient is the insured Medical (General) History Medical History History ICD Code bilateral hip pain low back pain depression DJD asthma hypertension Surgical History Surgery Date(Month/Year) colostomy 2010 hip 2013 reversal colostomy 2012 Hospitalization History Reason Date(Month/Year) [place] poisoning abscess on bladder infection intestine collapse blood pressure
--- OUTSIDE RECORDS SUMMARY | 2025-05-23 13:22 | XMS_ITS | Clinical Summary ---
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 Name Role Phone Unavailable Primary Care Provider Unavailabl e Social History Tobacco Use Types Packs/Day Years Used Date Smoking Tobacco: Never Assessed Sex and Gender Information Value Date Recorded Sex Assigned at Not on file Legal Sex Male 3:35 PM EDT Gender Identity Not on file Sexual Orientation Not on file Plan of Treatment Health Maintenance Due Date Last Done Comments CT Colonography 1979 Colonoscopy 1979 Colorectal Cancer Screening 1979 Depression Screening 1979 FIT DNA/Cologuard 1979 FIT 1979 FOBT 1979 HIV Screening 1979 Lipid Panel 1979 SDOH Screening 1979 Sigmoidoscopy 1979 Disability Screening 1979 Alcohol/Substance Use Screening 1991 Tobacco Screening 1991 Family Planning (PISQ) 10/28/1994 HPV Vaccines (1 - Male 3-dos e series) 10/28/1994 Hepatitis C Screening 10/28/1997 DTaP/Tdap/Td Vaccines (1 - Tdap) 10/28/1998 Hepatitis B Vaccines (1 of 3 - 19+ 3-dose series) 10/28/1998 COVID-19 Vaccine (1 - 2023-2 5 season) 2025 Influenza Vaccine (#1) 2025 Zoster Vaccines (1 of 2) 10/28/2029 RSV Patients and Pa tients Aged 60 years or older (1 - 1-dose 75+ series) 10/28/2054 HIB Vaccines Aged Out No longer eligi ble based on patient's age to complete this topic Hepatitis A Vaccines Aged Out No long er eligible based on patient's age to complete this topic IPV Vaccines Aged Out No longer eligi ble based on patient's age to complete this topic Meningococcal B Vaccine Aged Out No l onger eligible based on patient's age to complete this topic Meningococcal Vaccine Aged Out No татьяна viviane eligible based on patient's age to complete this topic Pneumococcal Vaccine: Pediat rics (0 to 5 Years) and At-Risk Patients (6 to 49) Years Aged Out No longer eligible b ased on patient's age to complete this topic RSV under 20 months Aged Out No longe r eligible based on patient's age to complete this topic Rotavirus Vaccines Aged Out No longer eligible based on patient's age to complete this topic Insurance [facility] STANDARD MEDICARE
== END 2025-05-23 13:25 | disposition home or self-care (01) ==
LOC: HO.ED 13:20
PROVIDERS: Emergency Provider Emergency Medicine Emergency Medical Services
DX: T40.1X1A Poisoning by heroin, accidental (unintentional), initial encounter (principal); R40.4 Transient alteration of awareness; Y92.9 Unspecified place or not applicable; Z71.41 Alcohol abuse counseling and surveillance of alcoholic; Z79.899 Other long term (current) drug therapy
CPT/HCPCS: 99284